=== PATIENT | female | born 1945 | race Caucasian/White ===

== ENCOUNTER 2017-03-19 07:54 | Emergency (ER) | payer MEDICARE ==
[~2017-03-19] VITALS: Ht 160 cm; Wt 64.4 kg
--- NOTE | 2017-03-19 08:13 | ED Chest Pain ---
General Chief Complaint: Chest Pain Stated Complaint: CHEST PAIN ELEV BP Source: patient Exam Limitations: no limitations History of Present Illness Time seen by provider: 07:57 Initial Comments Here with report of central chest pain that she describes as indigestion that started about an hour ago and has persisted although is better now. She states it better after walking around and burping. Also noted have quite high blood pressure. Patient's daughter is in the ICU and is reportedly very sick and this is likely adding to the patient's stress. Aside from the belching, patient denies any other symptoms but does feel very stressed out. Timing/Duration: 1 hour Severity/Quality: moderate, ingestion Location: central Radiation: no radiation Activities at Onset: emotional stress Prior CP/Workup: no prior chest pain ASA po SUPPLY CHAIN PLANNER: No NTG SL SUPPLY CHAIN PLANNER: No Associated Symptoms: abdominal pain, No diaphoresis, headache, No nausea/ vomiting, No shortness of breath, No weakness Allergies and Home Medications Allergies Coded Allergies: No Known Drug Allergies (Unverified , 03/19/17) Review of Systems Constitutional: see HPI, No chills, No fever EENTM: No Symptoms Reported Respiratory: No Symptoms Reported Cardiovascular: See HPI, Chest Pain, Denies Edema, Denies Irregular Heart Rate Gastrointestinal: See HPI, Denies Diarrhea, Denies Nausea, Denies Vomiting Genitourinary: No Symptoms Reported Musculoskeletal: no symptoms reported Psychiatric/Neurological: See HPI, Anxiety, Headache (posterior mild and patient reports it is associated with hypertension.), Denies Weakness All Other Systems Reviewed Negative Unless Noted: Yes Past Srqcull-Njvfet-Hxqsuh Hx Patient Social History Alcohol Use: Denies Use Recreational Drug Use: No Smoking Status: Former Smoker Surgeries HX Surgeries: Yes Surgeries: Appendectomy, Rectal (hemorrhoidectomy), Tonsillectomy Respiratory Hx Respiratory Disorders: Yes Respiratory Disorders: Chronic Bronchitis Cardiovascular Hx Cardiac Disorders: Yes Cardiac Disorders: Hypertension Neurological Hx Neurological Disorders: No Genitourinary Hx Genitourinary Disorders: No Gastrointestinal Hx Gastrointestinal Disorders: No Musculoskeletal Hx Musculoskeletal Disorders: No Endocrine Hx Endocrine Disorders: No HEENT HX ENT Disorders: No Reviewed Nursing Assessment Reviewed/Agree w Nursing PMH: Yes Family Medical History Significant Family History: No Pertinent Family Hx Physical Exam Vital Signs Vital Sign - Last 12Hours 03/19/17 08:01 Temp 97.1 Pulse 90 Resp 1 B/P (MAP) 199/106 Pulse Ox 95 O2 Delivery Room Air Capillary Refill : General Appearance: WD/WN, Anxious HEENT: PERRL/EOMI, Pharynx Normal Neck: Non Tender, Supple Respiratory: Lungs Clear, Normal Breath Sounds Cardiovascular: No Murmur, Tachycardia Gastrointestinal: Non Tender, Soft Extremity: Normal Inspection, Normal Range of Motion, Non Tender, No Calf Tenderness Neurologic/Psychiatric: Alert, Oriented x3 Skin: Normal Color, Warm/Dry Progress/Results/Core Measures Results/Orders Lab Results Laboratory Tests Test 03/19/17 08:20 03/19/17 10:22 Range/Units White Blood Count 10.4 4.3-11.0 10^3/uL Red Blood Count 4.91 4.35-5.85 10^6/uL Hemoglobin 14.3 11.5-16.0 G/DL Hematocrit 43 35-52 % Mean Corpuscular Volume 87 80-99 FL Mean Corpuscular Hemoglobin 29 25-34 PG Mean Corpuscular Hemoglobin Concent 33 32-36 G/DL Red Cell Distribution Width 13.2 10.0-14.5 % Platelet Count 348 130-400 10^3/uL Mean Platelet Volume 9.2 7.4-10.4 FL Neutrophils (%) (Auto) 74 42-75 % Lymphocytes (%) (Auto) 18 12-44 % Monocytes (%) (Auto) 7 0-12 % Eosinophils (%) (Auto) 1 0-10 % Basophils (%) (Auto) 1 0-10 % Neutrophils # (Auto) 7.7 1.8-7.8 X 10^3 Lymphocytes # (Auto) 1.9 1.0-4.0 X 10^3 Monocytes # (Auto) 0.7 0.0-1.0 X 10^3 Eosinophils # (Auto) 0.1 0.0-0.3 10^3/uL Basophils # (Auto) 0.1 0.0-0.1 10^3/uL Prothrombin Time 12.3 12.2-14.7 SEC INR Comment 0.9 0.8-1.4 Activated Partial Thromboplast Time 23 L 24-35 SEC D-Dimer 0.37 0.00-0.49 UG/ML Sodium Level 137 135-145 MMOL/L Potassium Level 3.5 L 3.6-5.0 MMOL/L Chloride Level 93 L 98-107 MMOL/L Carbon Dioxide Level 27 21-32 MMOL/L Anion Gap 17 H 5-14 MMOL/L Blood Urea Nitrogen 15 7-18 MG/DL Creatinine 0.74 0.60-1.30 MG/DL Estimat Glomerular Filtration Rate > 60 BUN/Creatinine Ratio 20 Glucose Level 130 H 70-105 MG/DL Calcium Level 10.8 H 8.5-10.1 MG/DL Magnesium Level 2.1 1.8-2.4 MG/DL Total Bilirubin 0.7 0.1-1.0 MG/DL Aspartate Amino Transf (AST/SGOT) 20 5-34 U/L Alanine Aminotransferase (ALT/SGPT) 18 0-55 U/L Alkaline Phosphatase 42 40-136 U/L Myoglobin 65.8 64.5 10.0-92.0 NG/ML Troponin I < 0.30 < 0.30 <0.30 NG/ML Total Protein 8.1 6.4-8.2 G/DL Albumin 5.0 H 3.2-4.5 G/DL Amylase Level 48 25-125 U/L Lipase 24 8-78 U/L My Orders Orders - BABAR SUTTON MD Cbc With Automated Diff (03/19/17 08:04) Magnesium (03/19/17 08:04) Chest 1 View, Ap/Pa Only (03/19/17 08:04) Ekg Tracing (03/19/17 08:04) Cardiac Profile 1 (03/19/17 08:04) Comprehensive Metabolic Panel (03/19/17 08:04) Myoglobin Serum (03/19/17 08:04) Protime With Inr (03/19/17 08:04) Partial Thromboplastin Time (03/19/17 08:04) O2 (03/19/17 08:04) Monitor-Rhythm Ecg Trace Only (03/19/17 08:04) Lipid Panel (03/20/17 06:00) Aspirin Chewable Tablet (Baby Aspirin Ch (03/19/17 08:15) Rx-Nitroglycerin Sl Tabs (Rx-Nitrostat S (03/19/17 08:15) Saline Lock/Iv-Start (03/19/17 08:04) Lipase (03/19/17 08:04) Amylase (03/19/17 08:04) Fibrin Degradation Products (03/19/17 08:04) Lorazepam Injection (Ativan Injection) (03/19/17 08:15) Troponin I (03/19/17 10:00) Ekg Tracing (03/19/17 10:00) Myoglobin Serum (03/19/17 10:00) Medications Given in ED Current Medications Medications Dose Ordered Sig/Yara Route Start Time Stop Time Status Last Admin Dose Admin Aspirin 324 mg ONCE ONCE PO 03/19/17 08:15 03/19/17 08:16 DC 03/19/17 08:37 324 MG Lorazepam 0.5 mg ONCE ONCE IVP 03/19/17 08:15 03/19/17 08:16 DC 03/19/17 08:37 0.5 MG Vital Signs/I&O Vital Sign - Last 12Hours 03/19/17 08:01 Temp 97.1 Pulse 90 Resp 1 B/P (MAP) 199/106 Pulse Ox 95 O2 Delivery Room Air Progress Note : Progress Note Seen and evaluated. IV, labs, EKG, chest x-ray, ASA 324 mg by mouth and Ativan 0.5 mg IV ordered. Nitroglycerin sublingual when necessary ordered if patient has return of chest pain. Monitor patient. Initial EKG showed significant artifact. EKG repeated to obtain reasonable sample. Patient markedly improved after Ativan 0.5 mg IV. Monitor patient. We will do repeat troponin, myoglobin and EKG at 2 are marked. Patient has remained pain-free throughout visit. 1110: Patient remains pain free. Discharged home with return precautions. Patient verbalize understanding instructions and agreement with plan. She will follow-up with diplomatic officer. She is requesting Dr. England. ECG Initial ECG Impression Date: March 19, 2017 Initial ECG Impression Time: 08:09 Initial ECG Rate: 96 Initial ECG Rhythm: Normal Sinus Comment Sinus rhythm with right axis deviation. No evidence of ST elevation NH. No previous available for comparison. Interpreted by me. EKG : EKG Time: 10:23 Rate: 78 Rhythm: Normal Sinus Intervals Sinus rhythm with right axis deviation. No evidence of ST elevation NH. Unchanged from previous except for improved rate. Interpreted by me. Diagnostic Imaging Diagonstic Imaging: Xray Plain Films/CT/US/NM/MRI: chest Comments VIA [facility]. [place], [place] NAME: MARCELLUS CALVO [facility] REC#: [id number] PT STATUS: REG ER : 1945 PHYSICIAN: BABAR SUTTON MD ADMIT DATE: 03/19/17/ER Draft Date of Exam:03/19/17 CHEST 1 VIEW, AP/PA ONLY Indication: Hypertension Frontal chest obtained at 9:00 hours a.m. Heart is borderline in size. There is hyperinflation compatible with COPD. There is no focal infiltrate or pneumothorax or pleural fluid. IMPRESSION: COPD changes. No acute infiltrate or pneumothorax or pleural fluid. Dictated on workstation # [id number] Dict: 03/19/17904 Trans: 03/19/1710 [facility] [id number] Interpreted by: REFUGIO LAI MD Electronically signed by: Departure Impression Impression: Primary Impression: Chest pain Qualified Codes: R07.9 - Chest pain, unspecified Disposition: 01 HOME, SELF-CARE Condition: Improved Departure-Patient Inst. Decision time for Depature: 11:14 Referrals: OLGA NEWMAN MD FACP [facility] Alex CHANEL MD, BASHAR J MD Patient Instructions: Chest Pain (DC) Add. Discharge Instructions: All discharge instructions reviewed with patient and/or family. Voiced understanding. Take medications as directed. It is important that he follow up with diplomatic officer of your choice within one week for recheck and further evaluation including stress test as needed. Return for worse pain, fever, vomiting, weakness, breathing problems or other concerns as needed. Scripts Alprazolam (Xanax) 0.5 Mg Tablet 0.5 MG PO Q8H for Anxiety, #10 TAB 0 Refills Prov: BABAR SUTTON MD 03/19/17 Copy Copies To 1: TARYN ENGLAND MD, TIMOTHY D MD March 19, 2017 08:13
[2017-03-19] MEDS ORDERED: LORazepam INJ 2 MG/ML (ATIVAN) VIAL IVP ONE (08:15)
[2017-03-19] MEDS ORDERED: ASPIRIN 81 MG CHEW (CHILDREN'S ASA) PO ONE (08:15)
[2017-03-19] MEDS ORDERED: RX-NITROGLYCERIN 0.4 MG TAB BTL 25'S SL PRN (08:15)
[2017-03-19 08:34] LABS: BASOPHILS # (AUTO) 0.1 10^3/uL (0.0-0.1); BASOPHILS % (AUTO) 1 % (0-10); EOSINOPHILS # (AUTO) 0.1 10^3/uL (0.0-0.3); EOSINOPHILS % (AUTO) 1 % (0-10); LYMPHOCYTES # (AUTO) 1.9 X 10^3 (1.0-4.0); LYMPHOCYTES % (AUTO) 18 % (12-44); MEAN CORPUSCULAR HEMOGLOBIN 29 PG (25-34); MEAN CORPUSCULAR HGB CONC 33 G/DL (32-36); MEAN CORPUSCULAR VOLUME 87 FL (80-99); MEAN PLATELET VOLUME 9.2 FL (7.4-10.4); MONOCYTES # (AUTO) 0.7 X 10^3 (0.0-1.0); MONOCYTES % (AUTO) 7 % (0-12); NEUTROPHILS # (AUTO) 7.7 X 10^3 (1.8-7.8); NEUTROPHILS % (AUTO) 74 % (42-75); PLATELET COUNT 348 10^3/uL (130-400); RED BLOOD COUNT 4.91 10^6/uL (4.35-5.85); RED CELL DISTRIBUTION WIDTH 13.2 % (10.0-14.5); WHITE BLOOD COUNT 10.4 10^3/uL (4.3-11.0)
[2017-03-19 08:50] LABS: INR 0.9 (0.8-1.4); PROTHROMBIN TIME PATIENT 12.3 SEC (12.2-14.7)
[2017-03-19 08:55] LABS: ALANINE AMINOTRANSFERASE 18 U/L (0-55); AMYLASE 48 U/L (25-125); ANION GAP 17 MMOL/L (5-14); ASPARTATE AMINO TRANSFERASE 20 U/L (5-34); BILIRUBIN,TOTAL 0.7 MG/DL (0.1-1.0); BLOOD UREA NITROGEN 15 MG/DL (7-18); BUN/CREATININE RATIO 20; CALCIUM 10.8 MG/DL (8.5-10.1); CARBON DIOXIDE 27 MMOL/L (21-32); CHLORIDE 93 MMOL/L (98-107); CREATININE SERUM 0.74 MG/DL (0.60-1.30); GFR ESTIMATED > 60; GLUCOSE 130 MG/DL (70-105); LIPASE 24 U/L (8-78); MAGNESIUM 2.1 MG/DL (1.8-2.4); POTASSIUM 3.5 MMOL/L (3.6-5.0); SODIUM 137 MMOL/L (135-145); TOTAL PROTEIN 8.1 G/DL (6.4-8.2)
[2017-03-19 09:04] LABS: MYOGLOBIN SERUM 65.8 NG/ML (10.0-92.0)
--- NOTE | 2017-03-19 09:10 | Diagnostic Imaging Report ---
Indication: Hypertension Frontal chest obtained at 9:00 hours a.m. Heart is borderline in size. There is hyperinflation compatible with COPD. There is no focal infiltrate or pneumothorax or pleural fluid. IMPRESSION: COPD changes. No acute infiltrate or pneumothorax or pleural fluid. Dictated by: Dictated on workstation # [id number]
[2017-03-19 11:05] LABS: MYOGLOBIN SERUM 64.5 NG/ML (10.0-92.0); TROPONIN I < 0.30 NG/ML (<0.30)
[2017-03-19] MEDS ORDERED: ALPR0.5T PO (11:16)
[2017-03-19 11:28] VITALS: BP 132/90
== END 2017-03-19 11:28 | disposition home or self-care (01) ==
LOC: EDUNIT# 07:54 → ER 07:57
DX: R07.9 Chest pain, unspecified (principal); I10 Essential (primary) hypertension; J44.9 Chronic obstructive pulmonary disease, unspecified; Z87.891 Personal history of nicotine dependence
CPT/HCPCS: 36415; 71010; 80053; 82150; 83690; 83735; 83874; 84484; 85025; 85379; 85610; 85730; 93005; 93041; 96374

== ENCOUNTER 2018-12-06 12:06 | Inpatient (IN) | payer MEDICARE | END 2018-12-09 13:22 | disposition home or self-care (01) | LOC: ER 12:06 → 4TH 14:32 | DX: J44.1 Chronic obstructive pulmonary disease with (acute) exacerbation (principal); E87.3 Alkalosis; I10 Essential (primary) hypertension; Z87.891 Personal history of nicotine dependence; J30.2 Other seasonal allergic rhinitis; Z87.01 Personal history of pneumonia (recurrent); K21.9 Gastro-esophageal reflux disease without esophagitis; K57.90 Diverticulosis of intestine, part unspecified, without perforation or abscess without bleeding; M54.9 Dorsalgia, unspecified; H93.19 Tinnitus, unspecified ear; F41.9 Anxiety disorder, unspecified; F32.9 Major depressive disorder, single episode, unspecified; E78.5 Hyperlipidemia, unspecified ==

== ENCOUNTER → 2019-01-02 | Outpatient (CLI) | payer MEDICARE ==
[2019-01-02 11:13] LABS: ABG BASE EXCESS 4.4 MMOL/L (-2.5-2.5); ABG OXYGEN SATURATION 97 % (94-100); ABG PCO2 37 MMHG (35-45); ABG PH 7.48 (7.37-7.43); ABG PO2 73 MMHG (79-93); ABG TCO2 29.1 MMOL/L (21.0-31.0)
[2019-01-02 11:14] LABS: ALLENS TEST YES-POS; INSPIRED O2 3L; PATIENT TEMP 97.4; VENTILATOR NO
[2019-01-02 11:23] LABS: BUN/CREATININE RATIO 16; CREATININE SERUM 0.73 MG/DL (0.60-1.30); GFR ESTIMATED > 60
== END ==
LOC: RT 10:44
PROVIDERS: ATTEND Nurse Practitioner Family
DX: R09.02 Hypoxemia (principal); J42 Unspecified chronic bronchitis; R06.00 Dyspnea, unspecified; G47.10 Hypersomnia, unspecified; G47.50 Parasomnia, unspecified; I10 Essential (primary) hypertension
CPT/HCPCS: 36415; 82565; 82805; 84520

== ENCOUNTER → 2019-01-05 | Outpatient (CLI) | payer MEDICARE ==
[~2019-01-05] MED LIST: ALBU18HF2 INH; ALLO100T PO; ALPR0.5T PO; ALPR0.5T7 PO; AMLO5TAB9 PO; ASPI-983 PO; ASPI-999 PO; BUDE10.2 INH; CALC-901 PO; CETI10TA20 PO; CODE118S4 PO; FENO160T12 PO; FLUT16SP22 NS; HYDR25TA4 PO; IOHEXOL 350 MG/ML 100 ML (OMNIPAQUE 350) VIAL IV ONE; IPRA3AMP31 INH; MAGN250T13 PO; MONT10TA24 PO; MULT-1044 PO; NS 100 ML (IVPB) BAG IV ONE; NYST1000 PO; OMEP40CA36 PO; PRED10TA22 PO; RECEIVED CONTRAST (Hold Metformin) IV SCH; ROFL500T4 PO
[2019-01-05 12:07] LABS: BUN/CREATININE RATIO 22; CREATININE SERUM 0.72 MG/DL (0.60-1.30); GFR ESTIMATED > 60
--- NOTE | 2019-01-05 13:52 | Diagnostic Imaging Report ---
PROCEDURE: CT chest with contrast only. TECHNIQUE: Multiple contiguous axial images were obtained through the chest after administration of intravenous contrast. INDICATION: Hypertension. Difficulty breathing. Dyspnea. Comparison: None Findings: Cardio mediastinal structures show normal heart size. There is moderate to advanced calcified coronary and aortic atherosclerosis. There is no large pericardial effusion. No pathologically enlarged or morphologically abnormal adenopathy is seen within the mediastinum, xuan, nor axilla. Main pulmonary arterial trunk is prominent measuring 3.3 cm in diameter. Evaluation of the lung miller demonstrates moderate centrilobular air trapping consistent with background emphysematous disease. There is no focal consolidation, large effusion, nor pneumothorax. No suspicious pulmonary nodules or masses are seen. Osseous structures show no acute abnormalities. Multilevel degenerative changes are noted. Included portions of the upper abdomen show a 1.7 cm nodular hyperenhancing lesion within the dome near the junction of segments 4A and 8. There is a larger surrounding area of less nodular relative enhancement that measures 5.6 cm. Note is also made of moderate hiatal hernia. Impression: 1. No acute cardiopulmonary process. 2. Moderate hiatal hernia. 3. Background of moderate emphysematous disease. 4. Moderate to advanced calcified aortic and coronary atherosclerosis. 5. Enlargement of the main pulmonary arterial trunk. Findings can be seen with underlying pulmonary arterial hypertension. 6. Abnormal area of enhancement within the dome of the liver as described above. Conceivably, this could represent a benign hemangioma, but complete characterization with liver protocol CT of the abdomen is recommended. Dictated by: Dictated on workstation # [id number]
== END ==
LOC: RAD 11:34
PROVIDERS: ATTEND Nurse Practitioner Family
DX: J43.9 Emphysema, unspecified (principal); K44.9 Diaphragmatic hernia without obstruction or gangrene; I25.10 Atherosclerotic heart disease of native coronary artery without angina pectoris; I70.0 Atherosclerosis of aorta; J42 Unspecified chronic bronchitis; G47.10 Hypersomnia, unspecified; G47.50 Parasomnia, unspecified; I10 Essential (primary) hypertension
CPT/HCPCS: 36415; 71260; 82565; 84520

== ENCOUNTER 2019-01-18 15:22 | Inpatient (IN) | payer MEDICARE ==
[~2019-01-18] VITALS: Ht 160 cm; Wt 68.0 kg
[~2019-01-18 15:22] MED LIST changes: -IOHEXOL 350 MG/ML 100 ML (OMNIPAQUE 350) VIAL IV ONE; -NS 100 ML (IVPB) BAG IV ONE; -RECEIVED CONTRAST (Hold Metformin) IV SCH; +ROFL500T PO; -ROFL500T4 PO
[2019-01-18] MEDS ORDERED: RT-ALBUTEROL/IPRATROPIUM 3 ML (DUONEB) VIAL INH ONE (16:15)
[2019-01-18 16:25] LABS: BASOPHILS % (AUTO) 0 % (0-10); EOSINOPHILS # (AUTO) 0.1 10^3/uL (0.0-0.3); EOSINOPHILS % (AUTO) 1 % (0-10); HEMATOCRIT 38 % (35-52); HEMOGLOBIN 12.3 G/DL (11.5-16.0); LYMPHOCYTES # (AUTO) 1.2 X 10^3 (1.0-4.0); LYMPHOCYTES % (AUTO) 8 % (12-44); MEAN CORPUSCULAR HEMOGLOBIN 28 PG (25-34); MEAN CORPUSCULAR HGB CONC 32 G/DL (32-36); MEAN CORPUSCULAR VOLUME 87 FL (80-99); MEAN PLATELET VOLUME 10.1 FL (7.4-10.4); MONOCYTES # (AUTO) 1.3 X 10^3 (0.0-1.0); MONOCYTES % (AUTO) 8 % (0-12); NEUTROPHILS % (AUTO) 83 % (42-75); PLATELET COUNT 431 10^3/uL (130-400); RED CELL DISTRIBUTION WIDTH 15.7 % (10.0-14.5); WHITE BLOOD COUNT 15.7 10^3/uL (4.3-11.0)
--- NOTE | 2019-01-18 16:31 | ED Respiratory ---
General Chief Complaint: Cough/Cold/Flu Symptoms Stated Complaint: SOB,INFLUENZA A Nursing Triage Note: PT CO OF FLU A+ TODAY, SOA COUGHING, AND BACK PAIN Source: patient Exam Limitations: no limitations History of Present Illness Date Seen by Provider: Jan 18, 2019 Time Seen by Provider: 16:08 Initial Comments Here with report of shortness of breath. She was seen by her primary escort car driver today and found to have influenza a. She is short of breath. She did have a breathing treatment earlier and that helped a little but is not lasting. Does have history of COPD. Complains of tightness across her back due to difficulty with breathing and she has a cough. Denies nausea or vomiting. Does have body aches otherwise consistent with influenza. Currently afebrile. Timing/Duration: yesterday, getting worse Severity: moderate Prior Episodes/Possible Cause: occasional episodes Modifying Factors: Worse With Activity; Improves With Albuterol Inhaler Associated Symptoms: chest pain/soreness, cough, fever/chills, muscle aches, nasal congestion, shortness of breath, wheezing Allergies and Home Medications Allergies Coded Allergies: No Known Drug Allergies (Unverified , 03/19/17) Home Medications Albuterol Sulfate 18 Gm Hfa.aer.ad, 2 PUFF INH Q6H PRN for SHORTNESS OF BREATH, (Reported) Allopurinol 100 Mg Tablet, 100 MG PO HS, (Reported) Alprazolam 0.5 Mg Tablet, 0.25-0.5 MG PO BID PRN for ANXIETY, (Reported) Amlodipine Besylate 5 Mg Tablet, 5 MG PO DAILY, (Reported) Aspirin 81 Mg Tablet.dr, 81 MG PO Q48H, (Reported) TAKES AT BEDTIME Budesonide/Formoterol Fumarate 10.2 Gm Hfa.aer.ad, 2 PUFF INH BID, (Reported) Calcium Carbonate/Vitamin D3 1 Each Tablet, 1 TAB PO 1800, (Reported) Cetirizine HCl 10 Mg Tablet, 10 MG PO DAILY, (Reported) Fenofibrate 160 Mg Tablet, 160 MG PO 1800, (Reported) Fluticasone Propionate 16 Gm [place].susp, 2 SPRAYS NS DAILY, (Reported) Hydrochlorothiazide 25 Mg Tablet, 25 MG PO DAILY, (Reported) Ipratropium/Albuterol Sulfate 3 Ml Ampul.neb, 3 ML INH RTQ6HR Prescribed by: ED MARTINES on 12/09/18 1027 Magnesium Oxide 250 Mg Tablet, 250 MG PO 1800, (Reported) Montelukast Sodium 10 Mg Tablet, 10 MG PO DAILY, (Reported) Multivit-Min/Folic Acid/Biotin 1 Each Tab.chew, 1 TAB.CHEW PO 1800, (Reported) Nystatin 100,000 Unit/1 Ml Oral.susp, 5 ML PO QID Prescribed by: ED MARTINES on 12/09/18 1027 Omeprazole 40 Mg Capsule.dr, 40 MG PO DAILY, (Reported) Prednisone 10 Mg Tab.ds.pk, 10 MG PO DAILY Take 6 tabs(60mg)daily,decrease by 1 tab(10mg)every other day. Prescribed by: ED MARTINES on 12/09/18 1027 Promethazine HCl/Codeine 118 Ml Syrup, 5 ML PO Q6H PRN for COUGH, (Reported) 5 DAY SUPPLY FILLED 12-04-18 Roflumilast 500 Mcg Tablet, 500 MCG PO DAILY Prescribed by: ED MARTINES on 12/09/18 1027 Patient Home Medication List Home Medication List Reviewed: Yes Review of Systems Review of Systems Constitutional: see HPI, fever, malaise; No weakness EENTM: see HPI Respiratory: see HPI Cardiovascular: see HPI Gastrointestinal: No abdominal pain, No nausea, No vomiting Genitourinary: no symptoms reported : No Musculoskeletal: see HPI, back pain, muscle pain Skin: no symptoms reported All Other Systems Reviewed Negative Unless Noted: Yes Past Mcyarts-Bgawjp-Pfhprt Hx Past Med/Social Hx: Reviewed Nursing Past Med/Soc Hx Patient Social History Alcohol Use: Denies Use Recreational Drug Use: No Smoking Status: Former Smoker Former Smoker, Quit: Nov 22, 2000 Recent Foreign Travel: No Contact w/Someone Who Travel: No Recent Infectious Disease Expo: No Recent Hopitalizations: No (NOV-2018) Immunizations Up To Date PED Vaccines UTD: Yes Date of Pneumonia Vaccine: Aug 15, 2018 Date of Influenza Vaccine: Aug 15, 2018 Seasonal Allergies Seasonal Allergies: Yes Past Medical History Surgeries: Yes (hemmoroidectomy, disc surgery) Appendectomy, Hysterectomy, Rectal Respiratory: Yes Pneumonia, Chronic Bronchitis, COPD Currently Using CPAP: No Currently Using BIPAP: No Cardiac: Yes Hypertension Neurological: No Sexually Transmitted Disease: No HIV/AIDS: No Genitourinary: No Gastrointestinal: Yes Gastroesophageal Reflux, Diverticulosis Musculoskeletal: Yes (disc surgery) Chronic Back Pain Endocrine: No HEENT: Yes Tinnitis Cancer: No Psychosocial: Yes Anxiety, Depression Integumentary: No Blood Disorders: No Adverse Reaction/Blood Tranf: No Family Medical History Reviewed Nursing Family Hx FH: cerebral palsy G8 BROTHER Lung cancer 19 MOTHER No Pertinent Family Hx Physical Exam Vital Signs - First Documented 01/18/19 16:00 Temp 98.1 Pulse 102 Resp 24 B/P (MAP) 156/82 (106) Pulse Ox 98 O2 Delivery Nasal Cannula O2 Flow Rate 2.00 Capillary Refill : Less Than 3 Seconds Height: 5'3.00" Weight: 140lbs. 9.0oz. [id number]; 25.2 BMI Method:Stated General Appearance: WD/WN, mild distress HEENT: PERRL/EOMI, pharynx normal Neck: full range of motion, supple Respiratory: decreased breath sounds, wheezing, expiration Cardiovascular: regular rate, rhythm, no murmur Gastrointestinal: non tender, soft Extremities: non-tender, normal inspection Neurologic/Psychiatric: alert, oriented x 3 Skin: normal color, warm/dry Progress/Results/Core Measures Suspected Sepsis Recent Fever Within 48 Hours: No Infection Criteria Present: None New/Unexplained Altered Menta: No Sepsis Screen: No Definite Risk SIRS Temperature:98.1 Pulse: 102 Respiratory Rate: 24 Laboratory Tests 01/18/19 15:55: White Blood Count 15.7H Blood Pressure 156 /82 Mean: 106 Laboratory Tests 01/18/19 15:55: Creatinine 0.75, Platelet Count 431H, Total Bilirubin 0.4 Results/Orders Lab Results Laboratory Tests Test 01/18/19 15:55 Range/Units White Blood Count 15.7 H 4.3-11.0 10^3/uL Red Blood Count 4.41 4.35-5.85 10^6/uL Hemoglobin 12.3 11.5-16.0 G/DL Hematocrit 38 35-52 % Mean Corpuscular Volume 87 80-99 FL Mean Corpuscular Hemoglobin 28 25-34 PG Mean Corpuscular Hemoglobin Concent 32 32-36 G/DL Red Cell Distribution Width 15.7 H 10.0-14.5 % Platelet Count 431 H 130-400 10^3/uL Mean Platelet Volume 10.1 7.4-10.4 FL Neutrophils (%) (Auto) 83 H 42-75 % Lymphocytes (%) (Auto) 8 L 12-44 % Monocytes (%) (Auto) 8 0-12 % Eosinophils (%) (Auto) 1 0-10 % Basophils (%) (Auto) 0 0-10 % Neutrophils # (Auto) 13.0 H 1.8-7.8 X 10^3 Lymphocytes # (Auto) 1.2 1.0-4.0 X 10^3 Monocytes # (Auto) 1.3 H 0.0-1.0 X 10^3 Eosinophils # (Auto) 0.1 0.0-0.3 10^3/uL Basophils # (Auto) 0.0 0.0-0.1 10^3/uL Neutrophils % (Manual) 85 % Lymphocytes % (Manual) 7 % Monocytes % (Manual) 5 % Eosinophils % (Manual) 1 % Basophils % (Manual) 0 % Band Neutrophils 2 % Blood Morphology Comment NORMAL Sodium Level 133 L 135-145 MMOL/L Potassium Level 3.7 3.6-5.0 MMOL/L Chloride Level 94 L 98-107 MMOL/L Carbon Dioxide Level 27 21-32 MMOL/L Anion Gap 12 5-14 MMOL/L Blood Urea Nitrogen 18 7-18 MG/DL Creatinine 0.75 0.60-1.30 MG/DL Estimat Glomerular Filtration Rate > 60 BUN/Creatinine Ratio 24 Glucose Level 108 H 70-105 MG/DL Calcium Level 10.2 H 8.5-10.1 MG/DL Corrected Calcium 8.5-10.1 MG/DL Total Bilirubin 0.4 0.1-1.0 MG/DL Aspartate Amino Transf (AST/SGOT) 35 H 5-34 U/L Alanine Aminotransferase (ALT/SGPT) 31 0-55 U/L Alkaline Phosphatase 26 L 40-136 U/L C-Reactive Protein High Sensitivity 3.20 H 0.00-0.50 MG/DL Total Protein 7.0 6.4-8.2 GM/DL Albumin 4.6 H 3.2-4.5 GM/DL My Orders Orders - BABAR SUTTON MD Chest 1 View, Ap/Pa Only (01/18/19 16:11) Cbc With Automated Diff (01/18/19 16:11) Comprehensive Metabolic Panel (01/18/19 16:11) Hs C Reactive Protein (3/6/19 16:11) Albuterol/Ipra Inhalation Soln (Duoneb I (01/18/19 16:15) Svn Small Volume Nebulizer (01/18/19 16:11) Manual Differential (01/18/19 15:55) Ketorolac Injection (Toradol Injection) (01/18/19 17:38) Albuterol Pre-Mix Nebs (Rt) (Proventil (01/18/19 17:38) Svn Small Volume Nebulizer (01/18/19 17:38) Acetaminophen Tablet/Caplet (Tylenol T (01/18/19 17:58) Methylprednisolone Sod Succ (Solu-Medrol (01/18/19 17:58) Medications Given in ED Current Medications Medications Dose Ordered Sig/Yara Route Start Time Stop Time Status Last Admin Dose Admin Albuterol/ Ipratropium 3 ml ONCE ONCE INH 01/18/19 16:15 01/18/19 16:16 DC 01/18/19 16:56 3 ML Vital Signs/I&O 01/18/19 01/18/19 01/18/19 01/18/19 16:00 16:00 16:56 17:57 Temp 98.1 Pulse 102 Resp 24 B/P (MAP) 156/82 (106) Pulse Ox 98 99 96 O2 Delivery Nasal Cannula Nasal Cannula Nasal Cannula O2 Flow Rate 2.00 3.00 3.00 Capillary Refill : Less Than 3 Seconds Blood Pressure Mean: 106 Progress Note : Progress Note Seen and evaluated. IV, labs, chest x-ray, duo neb ordered. Patient has known influenza A. She has initiated treatment with one dose of Tamiflu. She did take Tylenol at 1 PM. Monitor patient. 1730: Patient has returned fairly significant shortness of breath and is requiring oxygen. Albuterol neb ordered. 1800: Temperature 102F. Tylenol 650 mg by mouth and Solu-Medrol 125 mg IV ordered. Due to patient's significant lung disease, hospital admission is indicated with influenza. We will continue IV steroids and Tamiflu as well as aggressive respiratory therapy. I did discuss the case with Dr. Rodriges and she agrees. Consult Dr. Tripp requested which was done. Admit, inpatient status. Patient and family agree to plan. Diagnostic Imaging Diagonstic Imaging: Xray Plain Films/CT/US/NM/MRI: chest Comments NAME[facility] REC#: [id number] PT STATUS: REG ER : 1945 PHYSICIAN: BABAR SUTTON MD ADMIT DATE: 01/18/19/ER Signed Date of Exam: 01/18/19 CHEST 1 VIEW, AP/PA ONLY INDICATION: Cough, dyspnea and fever. EXAMINATION: Upright portable AP view of the chest was obtained. COMPARISON: Study of 12/06/2018. FINDINGS: Heart size and pulmonary vascularity are within normal limits. There is air trapping, bilaterally, similar to previous study. No pneumothorax or consolidation is identified. There is no significant pleural fluid. IMPRESSION: Air trapping likely due to emphysema. No consolidation is identified. No acute abnormality or adverse change is detected. Dictated by: Dictated on workstation # [id number] Dict: 01/18/19 1656 Trans: 01/18/19 1724 Interpreted by: MAY SCHWARTZ MD Electronically signed by: MAY SCHWARTZ MD 01/18/19 1724 Departure Communication (Admissions) Time/Spoke to Admitting Phy: 18:00 Time/Spoke to Consulting Phy: 18:03 Impression Primary Impression: Influenza Additional Impression: COPD with acute exacerbation Disposition: ADMITTED INPATIENT Condition: Stable Admissions Decision to Admit Reason: Admit from ER (General) Decision to Admit/Date: Jan 18, 2019 Time/Decision to Admit Time: 18:00 Departure-Patient Inst. Referrals: [facility] (PCP) Primary Care Physician ARMIDA COSME (Family) Primary Care Physician BABAR SUTTON MD Jan 18, 2019 16:31
[2019-01-18 16:37] LABS: ALANINE AMINOTRANSFERASE 31 U/L (0-55); ALBUMIN 4.6 GM/DL (3.2-4.5); ALKALINE PHOSPHATASE 26 U/L (40-136); BILIRUBIN,TOTAL 0.4 MG/DL (0.1-1.0); BUN/CREATININE RATIO 24; CALCIUM 10.2 MG/DL (8.5-10.1); CARBON DIOXIDE 27 MMOL/L (21-32); CHLORIDE 94 MMOL/L (98-107); CREATININE SERUM 0.75 MG/DL (0.60-1.30); GFR ESTIMATED > 60; GLUCOSE 108 MG/DL (70-105); POTASSIUM 3.7 MMOL/L (3.6-5.0); SODIUM 133 MMOL/L (135-145)
--- NOTE | 2019-01-18 16:59 | Diagnostic Imaging Report ---
INDICATION: Cough, dyspnea and fever. EXAMINATION: Upright portable AP view of the chest was obtained. COMPARISON: Study of 12/06/2018. FINDINGS: Heart size and pulmonary vascularity are within normal limits. There is air trapping, bilaterally, similar to previous study. No pneumothorax or consolidation is identified. There is no significant pleural fluid. IMPRESSION: Air trapping likely due to emphysema. No consolidation is identified. No acute abnormality or adverse change is detected. Dictated by: Dictated on workstation # [id number]
[2019-01-18 17:05] LABS: BAND NEUTROPHILS 2 %; BASOPHILS % (MANUAL) 0 %; EOSINOPHILS % (MANUAL) 1 %; LYMPHOCYTES % (MANUAL) 7 %; MONOCYTES % (MANUAL) 5 %; NEUTROPHILS % (MANUAL) 85 %
[2019-01-18 17:06] LABS: RBC MORPH NORMAL
[2019-01-18] MEDS ORDERED: RT-ALBUTEROL SULF 2.5 MG/3 ML PRE-MIX VIAL INH STA (17:38)
[2019-01-18] MEDS ORDERED: KETOROLAC 30 MG/ML VIAL IVP STA (17:38)
--- NOTE | 2019-01-18 17:55 | NUR ---
PT TEMP 102.0 AT THIS X, DR SUTTON NOTIFIED
[2019-01-18] MEDS ORDERED: ACETAMINOPHEN 325 MG TABLET PO STA (17:58)
[2019-01-18] MEDS ORDERED: methylPREDNISolone 125 MG (Solu-MEDROL) VIAL IV STA (17:58)
[2019-01-18] MEDS ORDERED: ONDANSETRON 4 MG/2 ML (SDV) Z0FRAN IV PRN (19:45)
[2019-01-18] MEDS ORDERED: IBUPROFEN 600 MG (MOTRIN) TAB PO PRN (19:45)
[2019-01-18] MEDS ORDERED: ACETAMINOPHEN 325 MG TABLET PO PRN (19:45)
[2019-01-18] MEDS ORDERED: CATHETER FLUSH 10 ML SYR IV PRN (19:45)
[2019-01-18 19:55] VITALS: BP 149/96
[2019-01-18] MEDS: OSELTAMIVIR 30 MG (TAMIFLU) CAPSULE PO SCH (21:10)
[2019-01-18] MEDS: NS IV 1000 ML 1,000 ML IV SCH (21:10)
[2019-01-18] MEDS ORDERED: RT-ALBUTEROL/IPRATROPIUM 3 ML (DUONEB) VIAL ONE (21:29)
[2019-01-18] MEDS: RT-ALBUTEROL/IPRATROPIUM 3 ML (DUONEB) VIAL INH PRN (21:34)
[2019-01-19 00:10] VITALS: BP 108/59
[2019-01-19] MEDS: methylPREDNISolone 40 MG/ML (Solu-MEDROL) VIAL IV SCH ×4 (00:27→19:35)
[2019-01-19] MEDS ORDERED: RT-ALBUTEROL/IPRATROPIUM 3 ML (DUONEB) VIAL INH SCH (03:00)
[2019-01-19 04:30] LABS: BASOPHILS % (AUTO) 0 % (0-10); EOSINOPHILS % (AUTO) 0 % (0-10); HEMATOCRIT 37 % (35-52); LYMPHOCYTES # (AUTO) 0.6 X 10^3 (1.0-4.0); LYMPHOCYTES % (AUTO) 5 % (12-44); MEAN CORPUSCULAR HEMOGLOBIN 28 PG (25-34); MEAN CORPUSCULAR HGB CONC 33 G/DL (32-36); MEAN CORPUSCULAR VOLUME 87 FL (80-99); MEAN PLATELET VOLUME 9.9 FL (7.4-10.4); MONOCYTES # (AUTO) 0.2 X 10^3 (0.0-1.0); MONOCYTES % (AUTO) 2 % (0-12); NEUTROPHILS # (AUTO) 12.2 X 10^3 (1.8-7.8); NEUTROPHILS % (AUTO) 94 % (42-75); PLATELET COUNT 388 10^3/uL (130-400); RED CELL DISTRIBUTION WIDTH 15.8 % (10.0-14.5); WHITE BLOOD COUNT 13.1 10^3/uL (4.3-11.0)
[2019-01-19 04:51] VITALS: BP 129/79
[2019-01-19 04:55] LABS: ALANINE AMINOTRANSFERASE 31 U/L (0-55); ALBUMIN 4.1 GM/DL (3.2-4.5); ALKALINE PHOSPHATASE 27 U/L (40-136); BILIRUBIN,TOTAL 0.3 MG/DL (0.1-1.0); BUN/CREATININE RATIO 26; CALCIUM 9.4 MG/DL (8.5-10.1); CARBON DIOXIDE 26 MMOL/L (21-32); CHLORIDE 98 MMOL/L (98-107); CREATININE SERUM 0.87 MG/DL (0.60-1.30); GFR ESTIMATED > 60; GLUCOSE 245 MG/DL (70-105); POTASSIUM 3.9 MMOL/L (3.6-5.0); SODIUM 138 MMOL/L (135-145); TOTAL PROTEIN 6.3 GM/DL (6.4-8.2)
[2019-01-19 05:16] LABS: LYMPHOCYTES % (MANUAL) 6 %; METAMYELOCYTES % 2 %; MONOCYTES % (MANUAL) 2 %; NEUTROPHILS % (MANUAL) 90 %
[2019-01-19] MEDS ORDERED: guaiFENesin/CODEINE (ROBITUSSIN AC) 10ML UDC PO PRN (07:00)
--- NOTE | 2019-01-19 07:02 | Pulmonary Consultation ---
History of Present Illness History of Present Illness Date of Consultation 01/19/19 06:57 Date of Admission Allergies and Home Medications Allergies Coded Allergies: No Known Drug Allergies (Unverified , 03/19/17) Home Medications Albuterol Sulfate 18 Gm Hfa.aer.ad, 2 PUFF INH Q6H PRN for SHORTNESS OF BREATH, (Reported) Allopurinol 100 Mg Tablet, 100 MG PO HS, (Reported) Alprazolam 0.5 Mg Tablet, 0.25-0.5 MG PO BID PRN for ANXIETY, (Reported) Amlodipine Besylate 5 Mg Tablet, 5 MG PO DAILY, (Reported) Aspirin 81 Mg Tablet.dr, 81 MG PO Q48H, (Reported) TAKES AT BEDTIME Budesonide/Formoterol Fumarate 10.2 Gm Hfa.aer.ad, 2 PUFF INH BID, (Reported) Calcium Carbonate/Vitamin D3 1 Each Tablet, 1 TAB PO 1800, (Reported) Cetirizine HCl 10 Mg Tablet, 10 MG PO DAILY, (Reported) Fenofibrate 160 Mg Tablet, 160 MG PO 1800, (Reported) Fluticasone Propionate 16 Gm [place].susp, 2 SPRAYS NS DAILY, (Reported) Hydrochlorothiazide 25 Mg Tablet, 25 MG PO DAILY, (Reported) Ipratropium/Albuterol Sulfate 3 Ml Ampul.neb, 3 ML INH RTQ6HR Prescribed by: ED MARTINES on 12/09/18 1027 Magnesium Oxide 250 Mg Tablet, 250 MG PO 1800, (Reported) Montelukast Sodium 10 Mg Tablet, 10 MG PO DAILY, (Reported) Multivit-Min/Folic Acid/Biotin 1 Each Tab.chew, 1 TAB.CHEW PO 1800, (Reported) Nystatin 100,000 Unit/1 Ml Oral.susp, 5 ML PO QID Prescribed by: ED MARTINES on 12/09/18 1027 Omeprazole 40 Mg Capsule.dr, 40 MG PO DAILY, (Reported) Prednisone 10 Mg Tab.ds.pk, 10 MG PO DAILY Take 6 tabs(60mg)daily,decrease by 1 tab(10mg)every other day. Prescribed by: ED MARTINES on 12/09/18 1027 Promethazine HCl/Codeine 118 Ml Syrup, 5 ML PO Q6H PRN for COUGH, (Reported) 5 DAY SUPPLY FILLED 1-20-19 Roflumilast 500 Mcg Tablet, 500 MCG PO DAILY Prescribed by: ED MARTINES on 12/09/18 1027 Past Cqvsqtt-Yugram-Pjqkel Hx Past Med/Social Hx: Reviewed Nursing Past Med/Soc Hx Patient Social History Alcohol Use: Denies Use Recreational Drug Use: No Smoking Status: Former Smoker Former Smoker, Quit: Nov 22, 2000 Recent Foreign Travel: No Contact w/Someone Who Travel: No Recent Infectious Disease Expo: No Recent Hopitalizations: No (NOV-2018) Immunizations Up To Date PED Vaccines UTD: Yes Date of Pneumonia Vaccine: Sep 01, 2017 Date of Influenza Vaccine: Aug 20, 2018 Seasonal Allergies Seasonal Allergies: Yes Past Medical History Surgeries: Yes (hemmoroidectomy, disc surgery) Appendectomy, Hysterectomy, Rectal Respiratory: Yes Pneumonia, Chronic Bronchitis, COPD Currently Using CPAP: No Currently Using BIPAP: No Cardiac: Yes Hypertension Neurological: No Sexually Transmitted Disease: No HIV/AIDS: No Genitourinary: No Gastrointestinal: Yes Gastroesophageal Reflux, Diverticulosis Musculoskeletal: Yes (disc surgery) Chronic Back Pain Endocrine: No HEENT: Yes Tinnitis Cancer: No Psychosocial: Yes Anxiety, Depression Integumentary: No Blood Disorders: No Adverse Reaction/Blood Tranf: No Family Medical History Reviewed Nursing Family Hx FH: cerebral palsy G8 BROTHER Lung cancer 19 MOTHER No Pertinent Family Hx Sepsis Event Evaluation Height, Weight, BMI Height: 5'3.00" Weight: 150lbs. 0.0oz. 68.200006mk; 26.6 BMI Method:Stated Exam Exam Vital Signs Date Time Temp Pulse Resp B/P (MAP) Pulse Ox O2 Delivery O2 Flow Rate FiO2 01/19/19 04:51 97.4 66 20 129/79 (96) 96 Nasal Cannula 2.00 01/19/19 03:23 93 Nasal Cannula 2.00 01/19/19 00:10 97.0 73 18 108/59 (75) 94 Nasal Cannula 2.00 01/18/19 21:35 96 Nasal Cannula 3.00 01/18/19 20:00 Nasal Cannula 3.00 01/18/19 19:55 101 96 01/18/19 18:30 Nasal Cannula 2.00 01/18/19 18:16 102.0 115 24 149/96 (113) 94 Nasal Cannula 4.00 01/18/19 17:57 96 Nasal Cannula 3.00 01/18/19 16:56 99 Nasal Cannula 3.00 01/18/19 16:00 98.1 102 24 156/82 (106) 98 01/18/19 16:00 Nasal Cannula 2.00 I & O 01/19/19 07:00 Intake Total 550 ml Output Total 0 ml Balance 550 ml Height & Weight Height: 5'3.00" Weight: 150lbs. 0.0oz. 68.283262la; 26.6 BMI Method:Stated Capillary Refill: Less Than 3 Seconds Gastrointestinal: non tender, soft Results Lab Laboratory Tests 01/18/19 15:55 01/19/19 04:16 Assessment/Plan Assessment/Plan Influenza with sepsis -Check LA -Tamiflu -IVF COPDAE with hypoxia -Solumedrol - decrease to 40 Q6 -Check ABG -Increase SVNs to Q4 and Q2 PRN -Oxygen persistent cough -Add Robitussin with codeine ADELSO NOWAK DO Jan 19, 2019 07:02
[2019-01-19 08:00] VITALS: BP 145/68
[2019-01-19] MEDS: RT-ALBUTEROL/IPRATROPIUM 3 ML (DUONEB) VIAL INH PRN ×4 (08:44→23:35)
[2019-01-19] MEDS: RT-ALBUTEROL/IPRATROPIUM 3 ML (DUONEB) VIAL INH SCH ×4 (08:44→19:58)
[2019-01-19] MEDS: RT-ADVAIR HFA 115/21 MCG PER PUFF IH SCH (08:54)
[2019-01-19] MEDS: OSELTAMIVIR 30 MG (TAMIFLU) CAPSULE PO SCH ×2 (09:00→20:01)
[2019-01-19] MEDS: ENOXAPARIN 40 MG/0.4 ML (LOVENOX) SYR SC SCH (09:01)
[2019-01-19 10:55] LABS: ABG BASE EXCESS 5.5 MMOL/L (-2.5-2.5); ABG OXYGEN SATURATION 75 % (94-100); ABG PCO2 47 MMHG (35-45); ABG PH 7.42 (7.37-7.43); ABG PO2 48 MMHG (79-93); ABG TCO2 31.2 MMOL/L (21.0-31.0)
[2019-01-19 11:00] LABS: ALLENS TEST POSITIVE
[2019-01-19] MEDS ORDERED: ENOXAPARIN 40 MG/0.4 ML (LOVENOX) SYR SC SCH (11:00)
[2019-01-19 11:01] LABS: INSPIRED O2 2 L; PATIENT TEMP 99.3; VENTILATOR NO
[2019-01-19] MEDS: NS IV 1000 ML 1,000 ML IV SCH (11:06)
[2019-01-19] MEDS ORDERED: OSEL75CA15 PO (11:08)
[2019-01-19] MEDS ORDERED: PRD10T PO (11:08)
[2019-01-19] MEDS ORDERED: ROFL500T PO (11:08)
[2019-01-19] MEDS ORDERED: FAMO40TA6 PO (11:08)
--- NOTE | 2019-01-19 11:10 | History & Physicial (CHS) ---
EULOGIO BAIRES MED STUDENT 01/19/19 1110: HPI History of Present Illness: Patient was brought to the [facility] ER for shortness of breath. She tested positive for influenza A yesterday. She has a history of COPD and she was admitted for observation and treatment of influenza with COPD exacerbation. She states that today the shortness of breath is better but she is having significant pain in her chest, back, and neck which she attributes to coughing. The ROS was otherwise unremarkable. Source: patient Time Seen by Provider: 07:15 Attending Physician Kee Rodriges MD PCP [facility] Date of Admission Jan 18, 2019 at 18:00 Home Medications Home Medications Reviewed patient Home Medication Reconciliation performed by pharmacy medication reconciliations injection maintenance technician and/or nursing. Patients Allergies have been reviewed. Allergies Coded Allergies: No Known Drug Allergies (Unverified , 03/19/17) NDI-Nupxtd-Fhnmwj Hx Patient Social History Marrital Status: Alcohol Use: Denies Use Recreational Drug Use: No Smoking Status: Former Smoker Recent Foreign Travel: No Contact w/other who traveled: No Recent Hopitalizations: No (NOV-2018) Recent Infectious Disease Expo: No Immunizations Up To Date Date of Pneumonia Vaccine: Sep 01, 2017 Date of Influenza Vaccine: Aug 20, 2018 Family Medical History Significant Family History: No Pertinent Family Hx Family History: FH: cerebral palsy G8 BROTHER Lung cancer 19 MOTHER Review of Systems (CHC) Respiratory: cough, short of breath Cardiovascular: no symptoms reported Gastrointestinal: no symptoms reported Genitourinary: no symptoms reported Musculoskeletal: back pain, neck pain Skin: no symptoms reported Reviewed Test Results Reviewed Test Results Lab Laboratory Tests 01/18/19 15:55 01/19/19 04:16 Vital Signs 01/19/19 01/19/19 01/19/19 08:00 08:44 08:51 Temp 98.8 Pulse 68 Resp 20 B/P (MAP) 145/68 (93) Pulse Ox 96 O2 Delivery Nasal Cannula O2 Flow Rate 2.00 Physical Exam-(CHC) Physical Exam Vital Signs VS - Last 72 Hours, by Label 01/18/19 01/18/19 01/18/19 01/18/19 16:00 16:00 16:56 17:57 Temp 98.1 Pulse 102 Resp 24 B/P (MAP) 156/82 (106) Pulse Ox 98 99 96 O2 Delivery Nasal Cannula Nasal Cannula Nasal Cannula O2 Flow Rate 2.00 3.00 3.00 01/18/19 01/18/19 01/18/19 01/18/19 18:16 18:30 19:55 20:00 Temp 102.0 Pulse 115 101 Resp 24 B/P (MAP) 149/96 (113) Pulse Ox 94 96 O2 Delivery Nasal Cannula Nasal Cannula Nasal Cannula O2 Flow Rate 4.00 2.00 3.00 01/18/19 01/19/19 01/19/19 01/19/19 21:35 00:10 03:23 04:51 Temp 97.0 97.4 Pulse 73 66 Resp 18 20 B/P (MAP) 108/59 (75) 129/79 (96) Pulse Ox 96 94 93 96 O2 Delivery Nasal Cannula Nasal Cannula Nasal Cannula Nasal Cannula O2 Flow Rate 3.00 2.00 2.00 2.00 01/19/19 01/19/19 01/19/19 08:00 08:44 08:51 Temp 98.8 Pulse 68 Resp 20 B/P (MAP) 145/68 (93) Pulse Ox 97 96 O2 Delivery Nasal Cannula Nasal Cannula Nasal Cannula O2 Flow Rate 2.00 2.00 2.00 Capillary Refill : Less Than 3 Seconds General Appearance: WD/WN, no apparent distress Respiratory: decreased breath sounds, wheezing Cardiovascular: regular rate, rhythm, no edema, no gallop, no murmur Gastrointestinal: normal bowel sounds, non tender, soft Neurologic/Psychiatric: alert, normal mood/affect, oriented x 3 Skin: normal color, warm/dry Assessment/Plan Assessment/Plan Assessment & Plan Assessment: 1) COPD exacerbation 2) influenza 3) musculoskeletal pain Plain: 1) Continue Tamiflu 2) Continue IV steroids 3) Continue nebulizer treatments Clinical Quality Measures DVT/VTE Risk/Contraindication: Risk Factor Score Per Nursin RFS Level Per Nursing on Admit: 4+=Very High KEE RODRIGES MD 01/19/19 7329: HPI History of Present Illness: Date seen by provider: Jan 19, 2019 Time Seen by Provider: 10:32 Home Medications Allergies Coded Allergies: No Known Drug Allergies (Unverified , 03/19/17) WRZ-Lqyjol-Rvwxfo Hx Past Medical History PMHx: HTN COPD Family Medical History Family History: FH: cerebral palsy G8 BROTHER Lung cancer 19 MOTHER Review of Systems (CHC) Constitutional: malaise Reviewed Test Results Reviewed Test Results Radiology CXR 01/18 Air trapping, no consolidation Assessment/Plan Assessment/Plan Admission Status: Inpatient Order (span 2 midnights) Reason for Inpatient Admission: Influenza with underlying COPD, high risk for complications (1) Influenza Status: Acute Assessment & Plan: Oseltamavir, supportive care, toradol for back pain associated with coughing (2) COPD with acute exacerbation Status: Acute Assessment & Plan: Pulm consult, Solumedrol, Duonebs, she would like to use her home Symbicort instead of Advair therapeutic sub. (3) Hypertension Status: Chronic Assessment & Plan: Resume home medications Qualifiers: Qualified Codes: I10 - Essential (primary) hypertension (4) DVT prophylaxis Status: Acute Assessment & Plan: Enoxaparin Supervisory-Addendum Brief Supervisory Addendum Pt seen and examined by me today along with MS3 Eulogio Baires, I personally reperformed history and physical, see problem list for my assessment and plan. EULOGIO BAIRES MED STUDENT Jan 19, 2019 11:10 KEE RODRIGES MD Jan 19, 2019 17:19
[2019-01-19] MEDS ORDERED: ALBU2.5V4 NEB (11:16)
--- NOTE | 2019-01-19 11:16 | NUR ---
WENT OVER THE EXT MED HX WITH THE PATIENT AND SHE VERIFIED WHAT SHE TAKES AND THE CHANGES FROM HER LAST ADMISSION. SHE WAS TAKEN OFF THE DALIRESP. HER DUONEB WAS CHANGED TO ALBUTEROL SOLUTION HER OMEPRAZOLE WAS CHANGED TO FAMOTIDINE, HOWEVER SHE STATES THE OMEPRAZOLE WORKED BETTER FOR HER.
[2019-01-19 12:00] VITALS: BP 132/69
[2019-01-19] MEDS: ALPRAZolam 0.5 MG (XANAX) TAB PO PRN (12:49)
[2019-01-19 16:00] VITALS: BP 159/77
[2019-01-19] MEDS: KETOROLAC 30 MG/ML VIAL IVP PRN ×2 (17:21→23:37)
[2019-01-19] MEDS ORDERED: NON-FORMULARY MEDICATION 1 EA EA (Magnesium Oxide (Magnesium) 250 MG) PO SCH (18:00)
[2019-01-19] MEDS ORDERED: NON-FORMULARY MEDICATION 1 EA EA (Fenofibrate 160 MG) PO SCH (18:00)
[2019-01-19] MEDS: MAGNESIUM OXIDE (MAG-OX)400 MG TAB PO SCH (19:35)
[2019-01-19] MEDS: FENOFIBRATE 134 MG (LOFIBRA) CAPSULE PO SCH (19:36)
[2019-01-19 20:00] VITALS: BP 136/74
[2019-01-19] MEDS: MONTELUKAST 10 MG (SINGULAIR) TAB PO SCH (20:01)
[2019-01-19] MEDS: ASPIRIN E.C. 81 MG (ECOTRIN) TAB PO SCH (20:01)
[2019-01-19] MEDS: ALLOPURINOL 100 MG (ZYLOPRIM) TAB PO SCH (20:01)
[2019-01-19] MEDS ORDERED: NON-FORMULARY MEDICATION 1 EA EA (Budesonide/Formoterol Fumarate (Symbicort 160-4.5 Mcg In INH SCH (21:00)
[2019-01-19] MEDS ORDERED: NON-FORMULARY MEDICATION 1 EA EA (Allopurinol 100 MG) PO SCH (21:00)
[2019-01-20] MEDS: methylPREDNISolone 40 MG/ML (Solu-MEDROL) VIAL IV SCH ×2 (00:27→05:42)
[2019-01-20] MEDS: RT-ADVAIR HFA 115/21 MCG PER PUFF IH SCH ×6 (00:28→21:29)
[2019-01-20 00:48] VITALS: BP 140/75
[2019-01-20] MEDS: RT-ALBUTEROL/IPRATROPIUM 3 ML (DUONEB) VIAL INH SCH ×6 (02:27→21:29)
[2019-01-20] MEDS: NS IV 1000 ML 1,000 ML IV SCH (03:07)
[2019-01-20 04:00] VITALS: BP 132/78
--- NOTE | 2019-01-20 06:06 | Pulmonary Progress Note ---
Subjective Time Seen by a Provider: 06:05 Subjective/Events-last exam Pt appears to be doing better. Sepsis Event Evaluation Height, Weight, BMI Height: 5'3.00" Weight: 150lbs. 0.0oz. 68.635816wx; 26.6 BMI Method:Stated Focused Exam Lactate Level 01/19/19 07:30: Lactic Acid Level 1.57 Exam Exam Vital Signs Date Time Temp Pulse Resp B/P (MAP) Pulse Ox O2 Delivery O2 Flow Rate FiO2 01/20/19 04:00 98.2 92 24 132/78 (96) 95 Nasal Cannula 2.00 01/20/19 02:27 96 Nasal Cannula 2.00 01/20/19 00:48 97.6 96 18 140/75 (96) 94 Nasal Cannula 2.00 01/19/19 23:35 95 Nasal Cannula 2.00 01/19/19 21:40 95 Nasal Cannula 2.00 01/19/19 20:00 Nasal Cannula 3.00 01/19/19 20:00 98.0 91 22 136/74 (94) 94 Nasal Cannula 2.00 01/19/19 16:00 97.9 89 22 159/77 (104) 95 Nasal Cannula 2.00 01/19/19 14:50 95 Nasal Cannula 2.00 01/19/19 12:22 94 Nasal Cannula 2.00 01/19/19 12:00 98.8 97 18 132/69 (90) 97 Nasal Cannula 2.00 01/19/19 08:51 Nasal Cannula 2.00 01/19/19 08:44 96 Nasal Cannula 2.00 01/19/19 08:00 98.8 68 20 145/68 (93) 97 Nasal Cannula 2.00 01/19/19 08:00 Nasal Cannula 3.00 I & O 01/20/19 07:00 Intake Total 1230 ml Balance 1230 ml Height & Weight Height: 5'3.00" Weight: 150lbs. 0.0oz. 68.782284eu; 26.6 BMI Method:Stated General Appearance: No Apparent Distress, WD/WN HEENT: PERRL/EOMI, Normal ENT Inspection, Pharynx Normal Neck: Full Range of Motion, Normal Inspection, Non Tender Respiratory: Chest Non Tender, Accessory Muscle Use, Decreased Breath Sounds Cardiovascular: Regular Rate, Rhythm Capillary Refill: Less Than 3 Seconds Gastrointestinal: normal bowel sounds, non tender, soft Neurologic/Psychiatric: Alert, Oriented x3 Skin: Normal Color, Warm/Dry Lymphatic: No Adenopathy Results Lab Laboratory Tests 01/18/19 15:55 01/19/19 04:16 Assessment/Plan Assessment/Plan Influenza with sepsis -Check LA -Tamiflu -IVF COPDAE with hypoxia -Solumedrol -change to prednisone taper -ABG -C02 47 -Increase SVNs to Q4 and Q2 PRN -Advair -Oxygen persistent cough -Add Robitussin with codeine ADELSO NOWAK DO Jan 20, 2019 06:05
[2019-01-20 06:32] LABS: HEMOGLOBIN 10.9 G/DL (11.5-16.0); MEAN PLATELET VOLUME 9.9 FL (7.4-10.4); RED CELL DISTRIBUTION WIDTH 15.3 % (10.0-14.5); WHITE BLOOD COUNT 16.9 10^3/uL (4.3-11.0)
[2019-01-20 06:59] LABS: BUN/CREATININE RATIO 28; CARBON DIOXIDE 29 MMOL/L (21-32); CHLORIDE 101 MMOL/L (98-107); CREATININE SERUM 0.74 MG/DL (0.60-1.30); GFR ESTIMATED > 60; GLUCOSE 228 MG/DL (70-105); POTASSIUM 3.9 MMOL/L (3.6-5.0); SODIUM 139 MMOL/L (135-145)
[2019-01-20 08:00] VITALS: BP 134/65
[2019-01-20] MEDS: HYDROCHLOROTHIAZIDE 25 MG (HCTZ) TAB PO SCH (08:15)
[2019-01-20] MEDS: FAMOTIDINE 20 MG (PEPCID) TABLET PO SCH (08:15)
[2019-01-20] MEDS: amLODIPine 5 MG (NORVASC) TAB PO SCH (08:15)
[2019-01-20] MEDS: ENOXAPARIN 40 MG/0.4 ML (LOVENOX) SYR SC SCH (08:15)
[2019-01-20] MEDS: OSELTAMIVIR 30 MG (TAMIFLU) CAPSULE PO SCH ×2 (08:15→20:40)
[2019-01-20] MEDS ORDERED: NON-FORMULARY MEDICATION 1 EA EA (Famotidine 40 MG) PO SCH (09:00)
[2019-01-20] MEDS ORDERED: NON-FORMULARY MEDICATION 1 EA EA (Amlodipine Besylate 5 MG) PO SCH (09:00)
[2019-01-20] MEDS ORDERED: NON-FORMULARY MEDICATION 1 EA EA (Hydrochlorothiazide 25 MG) PO SCH (09:00)
[2019-01-20] MEDS ORDERED: MONTELUKAST 10 MG (SINGULAIR) TAB PO SCH (09:00)
[2019-01-20] MEDS ORDERED: predniSONE 10 MG TAB PO SCH (09:00)
--- NOTE | 2019-01-20 11:00 | NUR ---
CALLED DR NOWAK'S OFFICE TO SCHEDULE FOLLOW-UP APPOINTMENT, NO ANSWER. LEFT MESSAGE REQUESTING FOLLOW-UP APPOINTMENT IN 2-3 WEEKS
--- NOTE | 2019-01-20 11:08 | Progress Note (SOAP) ---
EULOGIO BAIRES MED STUDENT 01/20/19 1108: Subjective Subjective/Events-last exam Patient states that she is feeling much better today. She reports that the shortness of breath is much improved and that pain is under control with her current medications. She is planning on going home tomorrow. Focused Exam Lactate Level 01/19/19 07:30: Lactic Acid Level 1.57 Objective Exam Last Set of Vital Signs Vital Signs Date Time Temp Pulse Resp B/P (MAP) Pulse Ox O2 Delivery O2 Flow Rate FiO2 01/20/19 10:58 94 Nasal Cannula 01/20/19 08:00 2.00 01/20/19 08:00 98.3 93 18 134/65 (88) Capillary Refill : Less Than 3 Seconds I&O Intake and Output 01/20/19 00:00 Intake Total 1380 ml Balance 1380 ml Intake Oral 1380 ml # Voids 10 # Bowel Movements 2 General: Alert, Oriented X3, Cooperative, No Acute Distress Lungs: Other Heart: Regular Rate, No Murmurs Abdomen: Normal Bowel Sounds Neuro: Normal Speech Results/Procedures Lab Laboratory Tests 01/20/19 06:22: White Blood Count 16.9H, Red Blood Count 3.92L, Hemoglobin 10.9L, Hematocrit 34L , Mean Corpuscular Volume 87, Mean Corpuscular Hemoglobin 28, Mean Corpuscular Hemoglobin Concent 32, Red Cell Distribution Width 15.3H, Platelet Count 345, Mean Platelet Volume 9.9, Sodium Level 139, Potassium Level 3.9, Chloride Level 101, Carbon Dioxide Level 29, Anion Gap 9, Blood Urea Nitrogen 21H, Creatinine 0.74, Estimat Glomerular Filtration Rate > 60, BUN/Creatinine Ratio 28, Glucose Level 228H, Calcium Level 10.0 Radiology CXR 01/18 Air trapping, no consolidation Assessment/Plan Assessment/Plan Assessment & Plan Assessment: 1) COPD exacerbation 2) influenza 3) msk pain due to cough Plan: 1) Oral steroids 2) continue Tamiflu 3) continue pain medications (1) Influenza Status: Acute Assessment & Plan: Oseltamavir, supportive care, toradol for back pain associated with coughing (2) COPD with acute exacerbation Status: Acute Assessment & Plan: Pulm consult, Antony Stevens, she would like to use her home Symbicort instead of Advair therapeutic sub. (3) Hypertension Status: Chronic Assessment & Plan: Resume home medications Qualifiers: Qualified Codes: I10 - Essential (primary) hypertension (4) DVT prophylaxis Status: Acute Assessment & Plan: Enoxaparin Clinical Quality Measures DVT/VTE Risk/Contraindication: Risk Factor Score Per Nursin RFS Level Per Nursing on Admit: 4+=Very High KEE HERNANDEZ MD 01/20/19 1114: Subjective Review of Systems Date Seen by Provider: Jan 20, 2019 Time Seen by Provider: 09:38 Objective Exam Lungs: Clear to Auscultation Assessment/Plan Assessment/Plan (1) Influenza Status: Acute Assessment & Plan: Continue Tamiflu (2) COPD with acute exacerbation Status: Acute Assessment & Plan: Changed to oral prednisone today per Dr. Tripp, wheezing is much improved, still requiring 2 lpm supplemental oxygen, likely d/c tomorrow. (3) Hypertension Status: Chronic Assessment & Plan: Resume home medications Qualifiers: Qualified Codes: I10 - Essential (primary) hypertension (4) DVT prophylaxis Status: Acute Assessment & Plan: Enoxaparin Supervisory-Addendum Brief Supervisory Addendum Pt seen and examined by me along with MS3 Eulogio Baires today, agree with documentation except where mine differs. See problem list for my assessment and plan. EULOGIO BAIRES MED STUDENT Jan 20, 2019 11:08 KEE HERNANDEZ MD Jan 20, 2019 11:14
[2019-01-20 12:00] VITALS: BP 158/78
[2019-01-20] MEDS: ALPRAZolam 0.5 MG (XANAX) TAB PO PRN (14:30)
[2019-01-20 15:47] VITALS: BP 140/78
--- NOTE | 2019-01-20 17:35 | NUR ---
CALLED [facility]AT[facility]ERAPY PER PATIENT REQUEST FOR A BREATHING TREATMENT.
[2019-01-20] MEDS: MAGNESIUM OXIDE (MAG-OX)400 MG TAB PO SCH (17:40)
[2019-01-20] MEDS: FENOFIBRATE 134 MG (LOFIBRA) CAPSULE PO SCH (17:40)
[2019-01-20] MEDS: MONTELUKAST 10 MG (SINGULAIR) TAB PO SCH (20:40)
[2019-01-20] MEDS: ALLOPURINOL 100 MG (ZYLOPRIM) TAB PO SCH (20:40)
--- NOTE | 2019-01-20 22:03 | NUR ---
PT C/O WHITE PATCHES IN THE MOUTH AND STATED THAT SHE KNOWS THAT SHE IS GETTING THRUSH. THERE IS SOME SMALL WHITE PATCHES LOCATED IN THE RIGHT UPPER SIDE OF THE MOUTH. CALLED DR WHITESIDE AND NEW ORDERS RECEIVED .
[2019-01-21] VITALS: BP 155/71
[2019-01-21] MEDS: NYSTATIN ORAL SUSP 5 ML UDC PO SCH ×4 (00:34→17:52)
[2019-01-21] MEDS: RT-ALBUTEROL/IPRATROPIUM 3 ML (DUONEB) VIAL INH SCH ×7 (01:08→23:49)
--- NOTE | 2019-01-21 06:02 | NUR ---
PT REQUESTING A BREATHING TX RIGHT NOW. RT NOT AVAILABLE FOR TX. A BREATHING TX WAS GIVEN THIS RN. PT TOLERATED WELL, NO OTHER COMPLAINS AT THIS TIME
[2019-01-21] MEDS: ENOXAPARIN 40 MG/0.4 ML (LOVENOX) SYR SC SCH (06:03)
--- NOTE | 2019-01-21 06:57 | Pulmonary Progress Note ---
Subjective Time Seen by a Provider: 06:57 Subjective/Events-last exam Pt is more SOB and more wheezy. Sepsis Event Evaluation Height, Weight, BMI Height: 5'3.00" Weight: 150lbs. 0.0oz. 68.321737zk; 26.6 BMI Method:Stated Focused Exam Lactate Level 01/19/19 07:30: Lactic Acid Level 1.57 Exam Exam Vital Signs Date Time Temp Pulse Resp B/P (MAP) Pulse Ox O2 Delivery O2 Flow Rate FiO2 01/21/19 01:09 93 Nasal Cannula 2.00 01/21/19 00:00 98.0 72 18 155/71 (99) 96 Nasal Cannula 2.00 01/20/19 21:30 93 Nasal Cannula 2.00 01/20/19 20:00 Nasal Cannula 2.00 01/20/19 17:56 93 Nasal Cannula 2.00 01/20/19 15:47 98.7 82 18 140/78 (98) 93 Nasal Cannula 2.00 01/20/19 14:44 93 Nasal Cannula 2.00 01/20/19 12:00 98.6 77 18 158/78 (104) 100 Nasal Cannula 2.00 01/20/19 10:58 94 Nasal Cannula 01/20/19 08:00 96 Nasal Cannula 2.00 01/20/19 08:00 98.3 93 18 134/65 (88) 96 Nasal Cannula 2.00 I & O 01/21/19 07:00 Intake Total 1315 ml Balance 1315 ml Height & Weight Height: 5'3.00" Weight: 150lbs. 0.0oz. 68.616268yc; 26.6 BMI Method:Stated General Appearance: WD/WN, Anxious, Mild Distress HEENT: PERRL/EOMI, Normal ENT Inspection, Pharynx Normal Neck: Full Range of Motion, Normal Inspection, Non Tender Respiratory: Chest Non Tender, Accessory Muscle Use, Decreased Breath Sounds, Wheezing Cardiovascular: Regular Rate, Rhythm Capillary Refill: Less Than 3 Seconds Gastrointestinal: normal bowel sounds, non tender, soft Neurologic/Psychiatric: Alert, Oriented x3 Skin: Normal Color, Warm/Dry Lymphatic: No Adenopathy Results Lab Laboratory Tests 01/20/19 06:22 Assessment/Plan Assessment/Plan Influenza with sepsis -Tamiflu COPDAE with hypoxia -prednisone taper -- change to solumedrol and give 125mg x 1 then 40 Q6. -Change SVNs to P8hhnkp -ABG -C02 47 -Increase SVNs to Q4 and Q2 PRN -Advair -Oxygen ADELSO NOWAK DO Jan 21, 2019 06:57
[2019-01-21] MEDS: RT-ALBUTEROL/IPRATROPIUM 3 ML (DUONEB) VIAL INH PRN (07:47)
[2019-01-21 08:01] VITALS: BP 156/79
[2019-01-21] MEDS ORDERED: FUROSEMIDE 40 MG/4 ML INJ (LASIX) IVP NR (08:15)
[2019-01-21] MEDS ORDERED: methylPREDNISolone 125 MG (Solu-MEDROL) VIAL IVP NR (08:15)
[2019-01-21] MEDS ORDERED: KCL 20 MEQ TAB (K-DUR) PO NR (08:16)
[2019-01-21] MEDS: RT-ADVAIR HFA 115/21 MCG PER PUFF IH SCH ×2 (08:20→08:21)
[2019-01-21] MEDS: OSELTAMIVIR 30 MG (TAMIFLU) CAPSULE PO SCH ×2 (09:11→20:08)
[2019-01-21] MEDS: HYDROCHLOROTHIAZIDE 25 MG (HCTZ) TAB PO SCH (09:11)
[2019-01-21] MEDS: FAMOTIDINE 20 MG (PEPCID) TABLET PO SCH (09:11)
[2019-01-21] MEDS: amLODIPine 5 MG (NORVASC) TAB PO SCH (09:11)
[2019-01-21] MEDS: RT-ALBUTEROL SULF 2.5 MG/3 ML PRE-MIX VIAL INH SCH ×4 (09:54→22:12)
[2019-01-21] MEDS ORDERED: RT-ALBUTEROL SULF 2.5 MG/3 ML PRE-MIX VIAL INH SCH ×2 (10:00→12:00)
--- NOTE | 2019-01-21 11:07 | Progress Note (SOAP) ---
Subjective Subjective/Events-last exam Pt had increase in dyspnea overnight. Increased LE edema. Received Lasix with improvement in dyspnea. Review of Systems Date Seen by Provider: Jan 21, 2019 Time Seen by Provider: 10:00 Focused Exam Lactate Level 01/19/19 07:30: Lactic Acid Level 1.57 Objective Exam Last Set of Vital Signs Vital Signs Date Time Temp Pulse Resp B/P (MAP) Pulse Ox O2 Delivery O2 Flow Rate FiO2 01/21/19 09:57 94 Nasal Cannula 2.00 01/21/19 08:01 97.9 73 20 156/79 (104) Capillary Refill : Less Than 3 Seconds I&O Intake and Output 01/21/19 00:00 Intake Total 1215 ml Balance 1215 ml Intake Oral 490 ml IV Total 425 ml Tube Feeding 300 ml # Voids 8 # Bowel Movements 1 General: Alert, Oriented X3, Cooperative Lungs: Other (nasreen exp wheezing; decreased air movement) Heart: Regular Rate Psych/Mental Status: Mood NL Results/Procedures Radiology CXR 01/18 Air trapping, no consolidation Assessment/Plan Assessment/Plan Assessment & Plan (1) Influenza Status: Acute Assessment & Plan: Continue Tamiflu (2) COPD with acute exacerbation Status: Acute Assessment & Plan: Changed to oral prednisone today per Dr. Tripp, wheezing is much improved, still requiring 2 lpm supplemental oxygen, likely d/c tomorrow. 01/21 - increase in wheezing and dyspnea; re-started IV solu-medrol; possible DC tomorrow if improved. (3) Hypertension Status: Chronic Assessment & Plan: Resume home medications 01/21 - Lasix given for increased LE edema Qualifiers: Qualified Codes: I10 - Essential (primary) hypertension (4) DVT prophylaxis Status: Acute Assessment & Plan: Enoxaparin (5) Do not resuscitate status Assessment & Plan: Patient wished to be a DNR. Order added for DNR. Clinical Quality Measures DVT/VTE Risk/Contraindication: Risk Factor Score Per Nursin RFS Level Per Nursing on Admit: 4+=Very High MARCELLUS WHITESIDE DO Jan 21, 2019 11:07
[2019-01-21] MEDS: methylPREDNISolone 40 MG/ML (Solu-MEDROL) VIAL IV SCH ×2 (12:14→17:52)
--- NOTE | 2019-01-21 12:22 | NUR ---
LEFT MESSAGE ON DR WHITESIDE'S PHONE. PATIENT REPORTS THAT NYSTATIN USED BY ITSELF NEVER COMPLETELY HEALS HER THRUSH. SHE WILL NEED THE PILLS WELL..
[2019-01-21 16:00] VITALS: BP 157/85
[2019-01-21] MEDS: MAGNESIUM OXIDE (MAG-OX)400 MG TAB PO SCH (18:01)
[2019-01-21] MEDS: FENOFIBRATE 134 MG (LOFIBRA) CAPSULE PO SCH (18:01)
[2019-01-21] MEDS: SYMBICORT 160/4.5 MCG INHALER 6 GM (NON-FORMULARY) IH SCH (18:18)
[2019-01-21] MEDS: MONTELUKAST 10 MG (SINGULAIR) TAB PO SCH ×2 (20:07→20:09)
[2019-01-21] MEDS: ALLOPURINOL 100 MG (ZYLOPRIM) TAB PO SCH (20:07)
[2019-01-21] MEDS: ASPIRIN E.C. 81 MG (ECOTRIN) TAB PO SCH (20:09)
[2019-01-21] MEDS: KETOROLAC 30 MG/ML VIAL IVP PRN (20:20)
[2019-01-22] VITALS: BP 144/82
[2019-01-22] MEDS: methylPREDNISolone 40 MG/ML (Solu-MEDROL) VIAL IV SCH ×4 (00:38→17:44)
[2019-01-22] MEDS: NYSTATIN ORAL SUSP 5 ML UDC PO SCH ×4 (00:39→17:42)
[2019-01-22] MEDS: RT-ALBUTEROL SULF 2.5 MG/3 ML PRE-MIX VIAL INH SCH ×6 (01:44→21:59)
[2019-01-22] MEDS: RT-ALBUTEROL/IPRATROPIUM 3 ML (DUONEB) VIAL INH SCH ×4 (03:54→20:07)
[2019-01-22] MEDS: ENOXAPARIN 40 MG/0.4 ML (LOVENOX) SYR SC SCH (06:06)
--- NOTE | 2019-01-22 06:17 | Pulmonary Progress Note ---
Subjective Time Seen by a Provider: 09:05 Subjective/Events-last exam PT feels improved after Lasix. Sepsis Event Evaluation Height, Weight, BMI Height: 5'3.00" Weight: 150lbs. 0.0oz. 68.537470ux; 26.6 BMI Method:Stated Focused Exam Lactate Level 01/19/19 07:30: Lactic Acid Level 1.57 Exam Exam Vital Signs Date Time Temp Pulse Resp B/P (MAP) Pulse Ox O2 Delivery O2 Flow Rate FiO2 01/22/19 03:55 94 Nasal Cannula 2.00 01/22/19 03:26 Nasal Cannula 2.00 01/22/19 01:44 93 Nasal Cannula 2.00 01/22/19 00:00 98.2 106 18 144/82 (102) 93 Nasal Cannula 2.00 01/21/19 23:50 94 Nasal Cannula 2.00 01/21/19 22:12 93 Nasal Cannula 2.00 01/21/19 20:08 91 Nasal Cannula 2.00 01/21/19 20:00 Nasal Cannula 2.00 01/21/19 18:11 94 Nasal Cannula 2.00 01/21/19 16:00 98.7 106 20 157/85 (109) 94 Nasal Cannula 2.00 01/21/19 14:04 93 Nasal Cannula 2.00 01/21/19 11:38 94 Nasal Cannula 2.00 01/21/19 09:57 94 Nasal Cannula 2.00 01/21/19 08:01 97.9 73 20 156/79 (104) 93 Nasal Cannula 2.00 01/21/19 08:00 96 Nasal Cannula 2.00 01/21/19 07:47 Nasal Cannula 2.00 I & O 01/22/19 06:59 Intake Total 1500 ml Balance 1500 ml Height & Weight Height: 5'3.00" Weight: 150lbs. 0.0oz. 68.370030ua; 26.6 BMI Method:Stated General Appearance: WD/WN, Anxious, Mild Distress HEENT: PERRL/EOMI, Normal ENT Inspection, Pharynx Normal Neck: Full Range of Motion, Normal Inspection, Non Tender Respiratory: Chest Non Tender, Accessory Muscle Use, Decreased Breath Sounds, Wheezing Cardiovascular: Regular Rate, Rhythm Capillary Refill: Less Than 3 Seconds Gastrointestinal: normal bowel sounds, non tender, soft Neurologic/Psychiatric: Alert, Oriented x3 Skin: Normal Color, Warm/Dry Lymphatic: No Adenopathy Results Lab Laboratory Tests 01/20/19 06:22 Assessment/Plan Assessment/Plan Influenza with sepsis -Tamiflu COPDAE with hypoxia solumedrol 40 Q6. -Change SVNs to P6qlifp -ABG -C02 47 -Advair -Oxygen -Repeat Labs and CXR ADELSO NOWAK DO Jan 22, 2019 06:16
[2019-01-22] MEDS: SYMBICORT 160/4.5 MCG INHALER 6 GM (NON-FORMULARY) IH SCH ×2 (06:28→18:42)
[2019-01-22 07:57] LABS: HEMOGLOBIN 12.5 G/DL (11.5-16.0); MEAN PLATELET VOLUME 10.7 FL (7.4-10.4); RED CELL DISTRIBUTION WIDTH 15.2 % (10.0-14.5); WHITE BLOOD COUNT 12.4 10^3/uL (4.3-11.0)
[2019-01-22 08:00] VITALS: BP 143/71
[2019-01-22 08:16] LABS: BUN/CREATININE RATIO 36; CALCIUM 10.6 MG/DL (8.5-10.1); CARBON DIOXIDE 30 MMOL/L (21-32); CHLORIDE 92 MMOL/L (98-107); CREATININE SERUM 0.86 MG/DL (0.60-1.30); GFR ESTIMATED > 60; GLUCOSE 283 MG/DL (70-105); MAGNESIUM 2.2 MG/DL (1.8-2.4); PHOSPHORUS 3.7 MG/DL (2.3-4.7); POTASSIUM 3.6 MMOL/L (3.6-5.0); SODIUM 138 MMOL/L (135-145)
--- NOTE | 2019-01-22 09:20 | Diagnostic Imaging Report ---
INDICATION: Shortness of breath. COMPARISON: 01/18/2019. FINDINGS: There is mild cardiomegaly. The mediastinum is unremarkable. There appears to be air-trapping compatible with COPD. There is no pleural effusion or pneumothorax. IMPRESSION: Cardiomegaly and COPD, otherwise, unremarkable. Dictated by: Dictated on workstation # [id number]
[2019-01-22] MEDS: amLODIPine 5 MG (NORVASC) TAB PO SCH (09:23)
[2019-01-22] MEDS: OSELTAMIVIR 30 MG (TAMIFLU) CAPSULE PO SCH ×2 (09:23→21:04)
[2019-01-22] MEDS: HYDROCHLOROTHIAZIDE 25 MG (HCTZ) TAB PO SCH (09:23)
[2019-01-22] MEDS: FAMOTIDINE 20 MG (PEPCID) TABLET PO SCH (09:23)
--- NOTE | 2019-01-22 10:53 | NUR ---
PRIOR TO A.M. MEDICATIONS PULSE WAS 78 AND B/P WAS 143/71
--- NOTE | 2019-01-22 12:10 | Progress Note (SOAP) ---
Subjective Subjective/Events-last exam Pt reports was feeling better early this am until she has gotten up. Has been requiring breathing treatment q2h and has had significant wheezing. Review of Systems Date Seen by Provider: Jan 22, 2019 Time Seen by Provider: 11:00 Objective Exam Last Set of Vital Signs Vital Signs Date Time Temp Pulse Resp B/P (MAP) Pulse Ox O2 Delivery O2 Flow Rate FiO2 01/22/19 10:18 92 Nasal Cannula 2.00 01/22/19 08:00 98.8 78 18 143/71 (95) Capillary Refill : Less Than 3 Seconds I&O Intake and Output 01/22/19 00:00 Intake Total 1650 ml Balance 1650 ml Intake Oral 1650 ml # Voids 16 # Bowel Movements 1 General: Alert, Oriented X3, Cooperative Lungs: Other (decreased BS, less wheezing than yesterday) Heart: Regular Rate Results/Procedures Lab Laboratory Tests 01/22/19 07:10: White Blood Count 12.4H, Red Blood Count 4.44, Hemoglobin 12.5, Hematocrit 38, Mean Corpuscular Volume 86, Mean Corpuscular Hemoglobin 28, Mean Corpuscular Hemoglobin Concent 33, Red Cell Distribution Width 15.2H, Platelet Count 378, Mean Platelet Volume 10.7H, Sodium Level 138, Potassium Level 3.6, Chloride Level 92L, Carbon Dioxide Level 30, Anion Gap 16H, Blood Urea Nitrogen 31H, Creatinine 0.86, Estimat Glomerular Filtration Rate > 60, BUN/Creatinine Ratio 36, Glucose Level 283H, Calcium Level 10.6H, Phosphorus Level 3.7, Magnesium Level 2.2, B-Type Natriuretic Peptide 106.2H Radiology CXR 01/18 Air trapping, no consolidation Assessment/Plan Assessment/Plan Assessment & Plan Will f/u with Jailyn Oro APRN in [place] on DC. (1) Influenza Status: Acute Assessment & Plan: Continue Tamiflu (2) COPD with acute exacerbation Status: Acute Assessment & Plan: Changed to oral prednisone today per Dr. Tripp, wheezing is much improved, still requiring 2 lpm supplemental oxygen, likely d/c tomorrow. 01/21 - increase in wheezing and dyspnea; re-started IV solu-medrol; possible DC tomorrow if improved. 01/22 - wheezing improved compared to yesterday but has been requiring breathing treatments q2h; plan for home tomorrow. (3) Hypertension Status: Chronic Assessment & Plan: Resume home medications 01/21 - Lasix given for increased LE edema Qualifiers: Qualified Codes: I10 - Essential (primary) hypertension (4) DVT prophylaxis Status: Acute Assessment & Plan: Enoxaparin (5) Do not resuscitate status Assessment & Plan: Patient wished to be a DNR. Order added for DNR. Clinical Quality Measures DVT/VTE Risk/Contraindication: Risk Factor Score Per Nursin RFS Level Per Nursing on Admit: 4+=Very High MARCELLUS WHITESIDE DO Jan 22, 2019 12:10
[2019-01-22 16:00] VITALS: BP 161/85
[2019-01-22] MEDS: FENOFIBRATE 134 MG (LOFIBRA) CAPSULE PO SCH (17:42)
[2019-01-22] MEDS: MAGNESIUM OXIDE (MAG-OX)400 MG TAB PO SCH (17:43)
[2019-01-22] MEDS: MONTELUKAST 10 MG (SINGULAIR) TAB PO SCH (21:06)
[2019-01-22] MEDS: ALLOPURINOL 100 MG (ZYLOPRIM) TAB PO SCH (21:07)
[2019-01-23] VITALS: BP 157/81
[2019-01-23] MEDS: methylPREDNISolone 40 MG/ML (Solu-MEDROL) VIAL IV SCH ×2 (00:07→06:13)
[2019-01-23] MEDS: NYSTATIN ORAL SUSP 5 ML UDC PO SCH ×5 (00:07→23:56)
[2019-01-23] MEDS: RT-ALBUTEROL/IPRATROPIUM 3 ML (DUONEB) VIAL INH SCH ×6 (00:20→23:56)
[2019-01-23] MEDS: RT-ALBUTEROL SULF 2.5 MG/3 ML PRE-MIX VIAL INH SCH ×5 (02:15→18:48)
[2019-01-23] MEDS: ENOXAPARIN 40 MG/0.4 ML (LOVENOX) SYR SC SCH (06:13)
[2019-01-23] MEDS: SYMBICORT 160/4.5 MCG INHALER 6 GM (NON-FORMULARY) IH SCH ×2 (06:41→20:01)
[2019-01-23 06:44] LABS: HEMOGLOBIN 12.5 G/DL (11.5-16.0); MEAN PLATELET VOLUME 9.9 FL (7.4-10.4); WHITE BLOOD COUNT 14.3 10^3/uL (4.3-11.0)
[2019-01-23 07:10] LABS: BUN/CREATININE RATIO 40; CALCIUM 10.6 MG/DL (8.5-10.1); CARBON DIOXIDE 30 MMOL/L (21-32); CREATININE SERUM 0.83 MG/DL (0.60-1.30); GFR ESTIMATED > 60; GLUCOSE 281 MG/DL (70-105); MAGNESIUM 2.1 MG/DL (1.8-2.4)
[2019-01-23 07:28] LABS: CHLORIDE 94 MMOL/L (98-107); POTASSIUM 3.8 MMOL/L (3.6-5.0); SODIUM 140 MMOL/L (135-145)
[2019-01-23 08:00] VITALS: BP 176/87
--- NOTE | 2019-01-23 09:09 | Pulmonary Progress Note ---
Subjective Time Seen by a Provider: 09:06 Subjective/Events-last exam Pt feels more SOB today. Sepsis Event Evaluation Height, Weight, BMI Height: 5'3.00" Weight: 150lbs. 0.0oz. 68.895128jr; 26.6 BMI Method:Stated Exam Exam Vital Signs Date Time Temp Pulse Resp B/P (MAP) Pulse Ox O2 Delivery O2 Flow Rate FiO2 01/23/19 08:54 93 Nasal Cannula 3.00 01/23/19 08:00 97.5 103 20 176/87 (116) 92 Nasal Cannula 2.00 01/23/19 06:38 91 Nasal Cannula 2.00 01/23/19 04:20 87 Nasal Cannula 2.00 01/23/19 02:16 91 Nasal Cannula 2.00 01/23/19 00:23 93 Nasal Cannula 2.00 01/23/19 00:00 96.4 93 20 157/81 (106) 93 Nasal Cannula 2.00 01/22/19 21:59 95 Nasal Cannula 2.00 01/22/19 20:07 94 Nasal Cannula 2.00 01/22/19 20:00 Nasal Cannula 2.00 01/22/19 18:42 95 Nasal Cannula 2.00 01/22/19 18:23 93 Nasal Cannula 2.00 01/22/19 16:20 94 Nasal Cannula 2.00 01/22/19 16:00 97.2 80 18 161/85 (110) 99 Nasal Cannula 2.00 01/22/19 14:29 91 Nasal Cannula 2.00 01/22/19 12:17 95 Nasal Cannula 2.00 01/22/19 10:18 92 Nasal Cannula 2.00 I & O 01/23/19 07:00 Intake Total 1989 ml Balance 1990 ml Height & Weight Height: 5'3.00" Weight: 150lbs. 0.0oz. 68.672683ha; 26.6 BMI Method:Stated General Appearance: WD/WN, Anxious, Mild Distress HEENT: PERRL/EOMI, Normal ENT Inspection, Pharynx Normal Neck: Full Range of Motion, Normal Inspection, Non Tender Respiratory: Chest Non Tender, Accessory Muscle Use, Decreased Breath Sounds, Wheezing Cardiovascular: Regular Rate, Rhythm Capillary Refill: Less Than 3 Seconds Gastrointestinal: normal bowel sounds, non tender, soft Neurologic/Psychiatric: Alert, Oriented x3 Skin: Normal Color, Warm/Dry Lymphatic: No Adenopathy Results Lab Laboratory Tests 01/22/19 07:10 01/23/19 06:33 Assessment/Plan Assessment/Plan Influenza with sepsis -Tamiflu COPDAE with hypoxia solumedrol 40 Q6. -- Change to prednisone taper -Change SVNs to [id number] -ABG -C02 47 -Advair -Oxygen -CXR today ADELSO NOWAK DO Jan 23, 2019 09:09
[2019-01-23] MEDS: FAMOTIDINE 20 MG (PEPCID) TABLET PO SCH (09:15)
[2019-01-23] MEDS: amLODIPine 5 MG (NORVASC) TAB PO SCH (09:15)
[2019-01-23] MEDS: OSELTAMIVIR 30 MG (TAMIFLU) CAPSULE PO SCH (09:15)
[2019-01-23] MEDS: HYDROCHLOROTHIAZIDE 25 MG (HCTZ) TAB PO SCH (09:15)
--- NOTE | 2019-01-23 10:03 | Diagnostic Imaging Report ---
INDICATION: Shortness of breath. TIME OF EXAM: 9:27 AM Correlation is made with prior study from one day earlier. FINDINGS: Heart size is stable. Lungs are clear. No infiltrate or effusion is seen. There is no pneumothorax. IMPRESSION: No acute cardiopulmonary process is detected. Dictated by: Dictated on workstation # [id number]
--- NOTE | 2019-01-23 11:03 | Progress Note-Hospitalist ---
Subjective HPI/CC On Admission Date Seen by Provider: Jan 23, 2019 Time Seen by Provider: 10:00 Subjective/Events-last exam Patient doing better but did have decreased oxygen requiring increase in supplementation so will hold off on discharge until tomorrow Overall feeling much better and walking around well Constipation will order bowel regimen Checked meds and labs Review of Systems Pulmonary: Dyspnea Gastrointestinal: Constipation Objective Exam Vital Signs Vital Signs Date Time Temp Pulse Resp B/P (MAP) Pulse Ox O2 Delivery O2 Flow Rate FiO2 01/23/19 08:54 93 Nasal Cannula 3.00 01/23/19 08:00 97.5 103 20 176/87 (116) Capillary Refill : Less Than 3 Seconds General Appearance: WD/WN, Anxious, Mild Distress HEENT: PERRL/EOMI, Normal ENT Inspection, Pharynx Normal Neck: Full Range of Motion, Normal Inspection, Non Tender Respiratory: Chest Non Tender, No Accessory Muscle Use, No Respiratory Distress , Decreased Breath Sounds, Wheezing Cardiovascular: Regular Rate, Rhythm, No Edema Neurologic/Psychiatric: Alert, Oriented x3, No Motor/Sensory Deficits, Normal Mood/Affect, recruiting operations consultant II-XII Norm as Tested Skin: Normal Color, Warm/Dry Lymphatic: No Adenopathy Results/Procedures Lab Laboratory Tests 01/23/19 06:33 Patient resulted labs reviewed. Assessment/Plan Assessment and Plan Assess & Plan/Chief Complaint Assessment: Influenza with sepsis AECOPD with hypoxia Home O2 dependent Constipation Plan: Check CXR Maintain O2 steroids BM regimen Diagnosis/Problems Diagnosis/Problems (1) Influenza Status: Acute (2) COPD with acute exacerbation Status: Acute (3) Hypertension Status: Chronic Qualifiers: Hypertension type: essential hypertension Qualified Codes: I10 - Essential (primary) hypertension (4) Wheezing Status: Acute (5) Do not resuscitate status Status: Chronic (6) Former smoker Status: Chronic Clinical Quality Measures DVT/VTE Risk/Contraindication: Risk Factor Score Per Nursin RFS Level Per Nursing on Admit: 4+=Very High ED MARTINES DO Jan 23, 2019 11:03
[2019-01-23] MEDS: POLYETHYLENE GLYCOL 17 GM (MIRALAX) PACK PO SCH ×2 (11:49→21:23)
[2019-01-23] MEDS: predniSONE 10 MG TAB PO SCH (11:49)
[2019-01-23] MEDS: SENNA W/DOCUSATE (SENOKOT S) TABLET PO SCH ×2 (11:49→21:23)
[2019-01-23] MEDS: LACTULOSE SYRUP 10GM/15ML (ENULOSE) 30ML UDC PO SCH ×2 (11:49→21:23)
--- NOTE | 2019-01-23 14:00 | NUR ---
Pastoral care visit.
[2019-01-23 15:31] VITALS: BP 151/92
[2019-01-23] MEDS: FENOFIBRATE 134 MG (LOFIBRA) CAPSULE PO SCH (17:54)
[2019-01-23] MEDS: MAGNESIUM OXIDE (MAG-OX)400 MG TAB PO SCH (17:55)
[2019-01-23] MEDS: ASPIRIN E.C. 81 MG (ECOTRIN) TAB PO SCH (21:16)
[2019-01-23] MEDS: MONTELUKAST 10 MG (SINGULAIR) TAB PO SCH (21:23)
[2019-01-23] MEDS: ALLOPURINOL 100 MG (ZYLOPRIM) TAB PO SCH (21:24)
[2019-01-24] VITALS: BP 156/91
[2019-01-24] MEDS: RT-ALBUTEROL SULF 2.5 MG/3 ML PRE-MIX VIAL INH PRN ×2 (00:49→08:16)
[2019-01-24] MEDS: RT-ALBUTEROL/IPRATROPIUM 3 ML (DUONEB) VIAL INH SCH ×2 (02:40→05:02)
[2019-01-24 05:02] LABS: HEMOGLOBIN 12.4 G/DL (11.5-16.0); MEAN PLATELET VOLUME 11.2 FL (7.4-10.4); RED CELL DISTRIBUTION WIDTH 14.8 % (10.0-14.5); WHITE BLOOD COUNT 15.5 10^3/uL (4.3-11.0)
[2019-01-24] MEDS: NYSTATIN ORAL SUSP 5 ML UDC PO SCH (05:10)
[2019-01-24 05:36] LABS: CALCIUM 10.2 MG/DL (8.5-10.1); CREATININE SERUM 0.95 MG/DL (0.60-1.30); MAGNESIUM 2.3 MG/DL (1.8-2.4); PHOSPHORUS 2.5 MG/DL (2.3-4.7); POTASSIUM 3.4 MMOL/L (3.6-5.0)
[2019-01-24] MEDS: predniSONE 10 MG TAB PO SCH (06:12)
[2019-01-24] MEDS: ENOXAPARIN 40 MG/0.4 ML (LOVENOX) SYR SC SCH (06:12)
[2019-01-24 08:00] VITALS: BP 138/73
[2019-01-24] MEDS ORDERED: ALBU2.5V4 NEB (10:54)
[2019-01-24] MEDS ORDERED: FLUC100T PO (10:54)
--- NOTE | 2019-01-24 10:56 | Discharge Summary-Hospitalist ---
Diagnosis/Chief Complaint Date of Admission Jan 18, 2019 at 18:00 Date of Discharge Discharge Date: Jan 24, 2019 Discharge Diagnosis (1) Influenza Status: Resolved (2) COPD with acute exacerbation Status: Acute (3) Hypertension Status: Chronic (4) Wheezing Status: Acute (5) Do not resuscitate status Status: Chronic (6) Former smoker Status: Chronic Discharge Summary Discharge Physical Exam Allergies: Coded Allergies: No Known Drug Allergies (Unverified , 03/19/17) Vitals & I&Os Vital Signs Date Time Temp Pulse Resp B/P (MAP) Pulse Ox O2 Delivery O2 Flow Rate FiO2 01/24/19 11:45 87 18 138/73 93 Nasal Cannula 3.00 01/24/19 08:00 97.5 General Appearance: No Apparent Distress, WD/WN, Chronically ill Respiratory: Chest Non Tender, Lungs Clear, Normal Breath Sounds, No Accessory Muscle Use, No Respiratory Distress Cardiovascular: Regular Rate, Rhythm, No Edema, No Gallop, No JVD, No Murmur, Normal Peripheral Pulses Neurologic/Psychiatric: Alert, Oriented x3, No Motor/Sensory Deficits, Normal Mood/Affect Hospital Course Was the Problem List Reviewed?: Yes Hospital Course: Pt had a lengthy hospital course. She was admitted for influenza with respiratory manifestation with hypoxia placed on supportive care along with intense pulmonology consultation and high dose IV steroids. She was placed on Nystatin swish and swallow for thrush and then Diflucan at DC and considering she was doing very well, less wheezing and less hypoxic maintained on oxygen 24/7 at home. She was deemed stable for DC in which she agreed. She will see [facility] for [facility] follow-up and that was scheduled prior to DC. Labs (last 24 hrs) Laboratory Tests 01/24/19 04:45: White Blood Count 15.5H, Red Blood Count 4.47, Hemoglobin 12.4, Hematocrit 39, Mean Corpuscular Volume 87, Mean Corpuscular Hemoglobin 28, Mean Corpuscular Hemoglobin Concent 32, Red Cell Distribution Width 14.8H, Platelet Count 295, Mean Platelet Volume 11.2H, Sodium Level 138, Potassium Level 3.4L, Chloride Level 93L, Carbon Dioxide Level 30, Anion Gap 15H, Blood Urea Nitrogen 37H, Creatinine 0.95, Estimat Glomerular Filtration Rate 58, BUN/Creatinine Ratio 39 , Glucose Level 257H, Calcium Level 10.2H, Phosphorus Level 2.5, Magnesium Level 2.3 Patient resulted labs reviewed. Pending Labs Discussion & Recommendations Discharge Planning: <30 minutes discharge planning Discharge Home Medications: Active Scripts Active Diflucan (Fluconazole) 100 Mg Tablet 100 Mg PO DAILY Albuterol Sulfate 2.5 Mg/3 Ml Vial.neb 2.5 Mg NEB Q4H PRN Reported Famotidine 40 Mg Tablet 40 Mg PO DAILY Prednisone 10 Mg Tab PO UD 12 Days 12 DAY SUPPLY FILLED 01-18-19 Ventolin Hfa (Albuterol Sulfate) 18 Gm Hfa.aer.ad 2 Puff INH Q6H PRN Fluticasone Propionate 16 Gm [place].susp 2 Sprays NS DAILY Zyrtec (Cetirizine HCl) 10 Mg Tablet 10 Mg PO DAILY Women Multivit W-Biotin Gummy (Multivit-Min/Folic Acid/Biotin) 1 Each Tab.chew 1 Tab.chew PO 1800 Magnesium (Magnesium Oxide) 250 Mg Tablet 250 Mg PO 1800 Calcium 600 + Vit D 800 Tab (Calcium Carbonate/Vitamin D3) 1 Each Tablet 1 Tab PO 1800 Aspirin EC (Aspirin) 81 Mg Tablet.dr 81 Mg PO Q48H@2100 Promethazine-Codeine Syrup (Promethazine HCl/Codeine) 118 Ml Syrup 5 Ml PO Q6H PRN 5 DAY SUPPLY FILLED 12-04-18 Montelukast Sodium 10 Mg Tablet 10 Mg PO DAILY Allopurinol 100 Mg Tablet 100 Mg PO HS Alprazolam 0.5 Mg Tablet 0.25-0.5 Mg PO BID PRN Symbicort 160-4.5 Mcg Inhaler (Budesonide/Formoterol Fumarate) 10.2 Gm Hfa.aer.ad 2 Puff INH BID Fenofibrate 160 Mg Tablet 160 Mg PO 1800 Amlodipine Besylate 5 Mg Tablet 5 Mg PO DAILY Hydrochlorothiazide 25 Mg Tablet 25 Mg PO DAILY Instructions to patient/family Please see electronic discharge instructions given to patient. Clinical Quality Measures DVT/VTE Risk/Contraindication: Risk Factor Score Per Nursin RFS Level Per Nursing on Admit: 4+=Very High Problem Qualifiers (1) Hypertension: Hypertension type: essential hypertension Qualified Codes: I10 - Essential ( primary) hypertension ED MARTINES DO Jan 24, 2019 10:55
[2019-01-24] MEDS: LACTULOSE SYRUP 10GM/15ML (ENULOSE) 30ML UDC PO SCH (11:35)
[2019-01-24] MEDS: SENNA W/DOCUSATE (SENOKOT S) TABLET PO SCH (11:36)
[2019-01-24] MEDS: POLYETHYLENE GLYCOL 17 GM (MIRALAX) PACK PO SCH (11:36)
[2019-01-24] MEDS: FAMOTIDINE 20 MG (PEPCID) TABLET PO SCH (11:36)
[2019-01-24] MEDS: amLODIPine 5 MG (NORVASC) TAB PO SCH (11:36)
[2019-01-24] MEDS: HYDROCHLOROTHIAZIDE 25 MG (HCTZ) TAB PO SCH (11:36)
[2019-01-24 11:45] VITALS: BP 138/73
== END 2019-01-24 12:00 | disposition home or self-care (01) | DRG 872 ==
LOC: EDUNIT# 15:22 → ER 15:23 → 4TH 18:00
PROVIDERS: ADMIT Family Medicine; ATTEND Family Medicine
DX: A41.89 Other specified sepsis (principal); B97.89 Other viral agents as the cause of diseases classified elsewhere; J10.1 Influenza due to other identified influenza virus with other respiratory manifestations; R09.02 Hypoxemia; J44.1 Chronic obstructive pulmonary disease with (acute) exacerbation; J30.2 Other seasonal allergic rhinitis; I10 Essential (primary) hypertension; Z66 Do not resuscitate; K59.09 Other constipation; K21.9 Gastro-esophageal reflux disease without esophagitis; K57.90 Diverticulosis of intestine, part unspecified, without perforation or abscess without bleeding; M54.9 Dorsalgia, unspecified; H93.19 Tinnitus, unspecified ear; F41.9 Anxiety disorder, unspecified; F32.9 Major depressive disorder, single episode, unspecified; Z87.891 Personal history of nicotine dependence; Z99.81 Dependence on supplemental oxygen
CPT/HCPCS: 36415; 36600; 71045; 80048; 80053; 82805; 83605; 83735; 83880; 84100; 85007; 85027; 86141; 94640; 94664; 94760; 96374; 96375

== ENCOUNTER 2019-05-22 10:28 | Outpatient (RCR) | payer MEDICARE ==
[~2019-05-22 10:28] MED LIST changes: +ALBU2.5V4 NEB; +FAMO40TA6 PO; +FLUC100T PO; +OSEL75CA15 PO; +PRD10T PO
[2019-06-06 12:40] VITALS: BP 160/60
[2019-06-06 13:45] VITALS: BP 140/70
[2019-06-08 12:50] VITALS: BP 130/60
[2019-06-08 13:47] VITALS: BP 158/50
[2019-06-13 12:55] VITALS: BP 112/70
[2019-06-13 13:58] VITALS: BP 130/74
[2019-06-15 13:00] VITALS: BP 130/70
[2019-06-15 14:03] VITALS: BP 122/60
[2019-06-20 13:00] VITALS: BP 132/60
[2019-06-20 14:09] VITALS: BP 131/60
[2019-06-22 13:00] VITALS: BP 142/60
[2019-06-22 14:13] VITALS: BP 125/60
[2019-06-27 13:00] VITALS: BP 120/64
[2019-06-27 14:34] VITALS: BP 125/70
[2019-06-29 12:40] VITALS: BP 137/70
[2019-06-29 14:00] VITALS: BP 121/70
[2019-07-04 12:55] VITALS: BP 150/60
[2019-07-04 13:50] VITALS: BP 138/72
[2019-07-06 12:50] VITALS: BP 150/70
[2019-07-06 14:00] VITALS: BP 156/76
[2019-07-11 12:52] VITALS: BP 140/60
[2019-07-11 13:00] VITALS: BP 140/60
[2019-07-11 13:50] VITALS: BP 120/60
[2019-07-13 12:50] VITALS: BP 117/60
[2019-07-13 14:10] VITALS: BP 120/60
[2019-07-18 13:00] VITALS: BP 128/60
[2019-07-18 13:40] VITALS: BP 132/60
[2019-07-20 13:00] VITALS: BP 140/60
[2019-07-20 14:04] VITALS: BP 120/60
[2019-07-25 13:00] VITALS: BP 150/60
[2019-07-25 13:57] VITALS: BP 115/55
[2019-07-27 13:00] VITALS: BP 145/60
[2019-07-27 14:30] VITALS: BP 121/60
[2019-08-01 13:00] VITALS: BP 134/50
[2019-08-01 13:56] VITALS: BP 124/80
[2019-08-03 13:00] VITALS: BP 104/50
[2019-08-03 14:15] VITALS: BP 116/60
[2019-08-10 13:00] VITALS: BP 122/50
[2019-08-10 14:30] VITALS: BP 121/65
== END 2019-08-20 | disposition home or self-care (01) ==
LOC: PULM 10:28
PROVIDERS: ATTEND Nurse Practitioner Family
DX: R09.02 Hypoxemia (principal); R06.00 Dyspnea, unspecified; J40 Bronchitis, not specified as acute or chronic; J44.1 Chronic obstructive pulmonary disease with (acute) exacerbation
CPT/HCPCS: 99211

== ENCOUNTER → 2019-07-18 | Outpatient (CLI) | payer MEDICARE ==
--- NOTE | 2019-07-18 13:07 | Diagnostic Imaging Report ---
INDICATION: Routine screening. COMPARISON: No prior mammograms are available for comparison. TECHNIQUE: 2D and 3D bilateral screening mammography was performed with CAD. FINDINGS: Both breasts are heterogeneously dense, limiting the sensitivity of mammography. Benign-appearing calcifications are scattered throughout both breasts. No dominant mass or malignant appearing microcalcifications are seen. The axillae are unremarkable. IMPRESSION: No mammographic features suspicious for malignancy are identified. ACR BI-RADS Category 2: Benign findings. Result letter will be mailed to the patient. Note: At least 10% of breast cancer is not imaged by mammography. Dictated by: Dictated on workstation # [id number]
== END ==
LOC: RAD 08:34
PROVIDERS: ATTEND Nurse Practitioner
DX: Z12.31 Encounter for screening mammogram for malignant neoplasm of breast (principal)
CPT/HCPCS: 77067

== ENCOUNTER 2019-11-10 05:01 | Inpatient (IN) | payer MEDICARE ==
[~2019-11-10] VITALS: Ht 175 cm; Wt 65.0 kg
[2019-11-10] MEDS ORDERED: RT-ALBUTEROL SULF 2.5 MG/3 ML PRE-MIX VIAL INH STA (05:09)
[2019-11-10] MEDS ORDERED: NS IV 1000 ML 1,000 ML IV ONE (05:10)
[2019-11-10] MEDS ORDERED: methylPREDNISolone 40 MG/ML (Solu-MEDROL) VIAL IV ONE (05:15)
[2019-11-10] MEDS ORDERED: RT-ALBUTEROL/IPRATROPIUM 3 ML (DUONEB) VIAL INH ONE (05:15)
[2019-11-10 05:26] LABS: BASOPHILS % (AUTO) 0 % (0-10); EOSINOPHILS % (AUTO) 0 % (0-10); HEMATOCRIT 39 % (35-52); HEMOGLOBIN 12.5 G/DL (11.5-16.0); LYMPHOCYTES # (AUTO) 2.2 X 10^3 (1.0-4.0); LYMPHOCYTES % (AUTO) 12 % (12-44); MEAN CORPUSCULAR HEMOGLOBIN 28 PG (25-34); MEAN CORPUSCULAR HGB CONC 32 G/DL (32-36); MEAN CORPUSCULAR VOLUME 88 FL (80-99); MEAN PLATELET VOLUME 9.8 FL (7.4-10.4); MONOCYTES # (AUTO) 1.7 X 10^3 (0.0-1.0); MONOCYTES % (AUTO) 9 % (0-12); NEUTROPHILS # (AUTO) 15.1 X 10^3 (1.8-7.8); NEUTROPHILS % (AUTO) 79 % (42-75); PLATELET COUNT 361 10^3/uL (130-400); RED CELL DISTRIBUTION WIDTH 14.4 % (10.0-14.5)
[2019-11-10] MEDS ORDERED: LORazepam INJ 2 MG/ML (ATIVAN) VIAL IVP ONE (05:30)
[2019-11-10 05:52] LABS: ALANINE AMINOTRANSFERASE 20 U/L (0-55); ALBUMIN 4.5 GM/DL (3.2-4.5); ALKALINE PHOSPHATASE 45 U/L (40-136); BILIRUBIN,TOTAL 0.4 MG/DL (0.1-1.0); BUN/CREATININE RATIO 31; CALCIUM 9.5 MG/DL (8.5-10.1); CARBON DIOXIDE 26 MMOL/L (21-32); CHLORIDE 98 MMOL/L (98-107); CREATININE SERUM 0.83 MG/DL (0.60-1.30); GFR ESTIMATED > 60; GLUCOSE 126 MG/DL (70-105); POTASSIUM 3.5 MMOL/L (3.6-5.0); SODIUM 140 MMOL/L (135-145); TOTAL PROTEIN 7.1 GM/DL (6.4-8.2)
[2019-11-10 05:55] LABS: BAND NEUTROPHILS 7 %; LYMPHOCYTES % (MANUAL) 12 %; MONOCYTES % (MANUAL) 7 %; NEUTROPHILS % (MANUAL) 74 %
[2019-11-10 05:56] LABS: RBC MORPH NORMAL
--- NOTE | 2019-11-10 06:05 | NUR ---
PT STATES SHE DOES NOT THINK SHE WILL BE ABLE TO TOLERATE BIPAP. VAPOTHERM APPLIED 30L 30%FIO2 BY RT CARMITA. O2 SATS 97-100% RANGE AT THIS TIME.
--- NOTE | 2019-11-10 06:07 | ED Respiratory ---
General Chief Complaint: Respiratory Problems Stated Complaint: COPD Nursing Triage Note: PT ARRIVED TO ED ROOM SEVEN C/O SOB THAT THE PT STATES HASBEEN WORSENING SINCE WEDNESDAY, PT STATES SHE HAS INCREASING NON PRODUCTIVE COUGH AND INCREASED DIFFICULTY GETTING A FULL BREATH. VERBALIZED AN EXTENSIVE HX OF COPD AND SMOKING CIGARETTES. Source: patient Exam Limitations: no limitations History of Present Illness Date Seen by Provider: Nov 10, 2019 Time Seen by Provider: 05:02 Initial Comments This 74-year-old woman with COPD arrives by private vehicle in respiratory distress. She has been ill for a few days and was started on prednisone by Dr. Tripp on November 07. She was seen yesterday in the primary care clinic and was started on Levaquin. She has taken only one dose. Symbicort was added to her regimen of inhaled medication. She has developed respiratory distress despite these interventions. She requests a DO NOT RESUSCITATE status and is also opposed to use of BiPAP. She is afebrile. She is rather anxious. She is noted to be in trigeminy on the monitor. Allergies and Home Medications Allergies Coded Allergies: No Known Drug Allergies (Unverified , 03/19/17) Home Medications Albuterol Sulfate 18 Gm Hfa.aer.ad, 2 PUFF INH Q6H PRN for SHORTNESS OF BREATH, (Reported) Albuterol Sulfate 2.5 Mg/3 Ml Vial.neb, 2.5 MG NEB Q4H PRN for SHORTNESS OF BREATH Prescribed by: ED MARTINES on 01/24/19 1054 Allopurinol 100 Mg Tablet, 100 MG PO HS, (Reported) Alprazolam 0.5 Mg Tablet, 0.25-0.5 MG PO BID PRN for ANXIETY, (Reported) Amlodipine Besylate 5 Mg Tablet, 5 MG PO DAILY, (Reported) Aspirin 81 Mg Tablet.dr, 81 MG PO Q48H@2100, (Reported) Budesonide/Formoterol Fumarate 10.2 Gm Hfa.aer.ad, 2 PUFF INH BID, (Reported) Calcium Carbonate/Vitamin D3 1 Each Tablet, 1 TAB PO 1800, (Reported) Cetirizine HCl 10 Mg Tablet, 10 MG PO DAILY, (Reported) Famotidine 40 Mg Tablet, 40 MG PO DAILY, (Reported) Fenofibrate 160 Mg Tablet, 160 MG PO 1800, (Reported) Fluconazole 100 Mg Tablet, 100 MG PO DAILY Prescribed by: ED MARTINES on 01/24/19 1054 Fluticasone Propionate 16 Gm [place].susp, 2 SPRAYS NS DAILY, (Reported) Hydrochlorothiazide 25 Mg Tablet, 25 MG PO DAILY, (Reported) Magnesium Oxide 250 Mg Tablet, 250 MG PO 1800, (Reported) Montelukast Sodium 10 Mg Tablet, 10 MG PO DAILY, (Reported) Multivit-Min/Folic Acid/Biotin 1 Each Tab.chew, 1 TAB.CHEW PO 1800, (Reported) Prednisone 10 Mg Tab, PO UD, (Reported) 12 DAY SUPPLY FILLED 01-18-19 Promethazine HCl/Codeine 118 Ml Syrup, 5 ML PO Q6H PRN for COUGH, (Reported) 5 DAY SUPPLY FILLED 12-04-18 Patient Home Medication List Home Medication List Reviewed: Yes Review of Systems Review of Systems Constitutional: no symptoms reported EENTM: no symptoms reported Respiratory: see HPI Cardiovascular: see HPI Gastrointestinal: no symptoms reported Genitourinary: no symptoms reported Musculoskeletal: no symptoms reported Skin: no symptoms reported Psychiatric/Neurological: See HPI, Anxiety Hematologic/Lymphatic: No Symptoms Reported Immunological/Allergic: no symptoms reported Past Yhjrdag-Mavxqg-Saqpkg Hx Past Med/Social Hx: Reviewed Nursing Past Med/Soc Hx Patient Social History Alcohol Use: Denies Use Recreational Drug Use: No Smoking Status: Former Smoker Type Used: Cigarettes Former Smoker, Quit: Nov 22, 2000 Recent Foreign Travel: No Contact w/Someone Who Travel: No Recent Infectious Disease Expo: No Recent Hopitalizations: No (NOV-2018) Physical Abuse: No Sexual Abuse: No Mistreated: No Fear: No Immunizations Up To Date Tetanus Booster (TDap): Unknown PED Vaccines UTD: Yes Date of Pneumonia Vaccine: Sep 01, 2017 Date of Influenza Vaccine: Aug 20, 2018 Seasonal Allergies Seasonal Allergies: Yes Past Medical History Surgeries: Yes (hemmoroidectomy, disc surgery) Appendectomy, Hysterectomy, Rectal Respiratory: Yes Pneumonia, Chronic Bronchitis, COPD Currently Using CPAP: No Currently Using BIPAP: No Cardiac: Yes Hypertension Neurological: No : No 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 Sexually Transmitted Disease: No HIV/AIDS: No Genitourinary: No Gastrointestinal: Yes Gastroesophageal Reflux, Diverticulosis Musculoskeletal: Yes (disc surgery) Chronic Back Pain Endocrine: No HEENT: Yes Tinnitis Cancer: No Psychosocial: Yes Anxiety, Depression Integumentary: No Blood Disorders: No Adverse Reaction/Blood Tranf: No Family Medical History FH: cerebral palsy G8 BROTHER Lung cancer 19 MOTHER No Pertinent Family Hx Physical Exam Vital Signs - First Documented 11/10/19 05:02 Temp 36.6 Pulse 115 Resp 28 B/P (MAP) 174/83 (113) Pulse Ox 93 O2 Delivery OxyMask O2 Flow Rate 12.00 Capillary Refill : Less Than 3 Seconds Height: 5'3.00" Weight: 150lbs. 0.8oz. 68.790164gt; 21.00 BMI Method:Stated General Appearance: WD/WN, moderate distress HEENT: PERRL/EOMI, normal ENT inspection Neck: normal inspection Respiratory: respiratory distress, accessory muscle use, wheezing Cardiovascular: no edema, no murmur, other (regularly irregular with trigeminy) Gastrointestinal: non tender, soft Extremities: normal inspection, no pedal edema Neurologic/Psychiatric: maintenance analyst II-XII nml as tested, no motor/sensory deficits, alert, oriented x 3, other (anxious) Skin: normal color, warm/dry Progress/Results/Core Measures Suspected Sepsis Recent Fever Within 48 Hours: No Infection Criteria Present: Suspected New Infection New/Unexplained Altered Menta: No Sepsis Screen: Possible Sepsis Risk SIRS Temperature: Pulse: 115 Respiratory Rate: 28 Laboratory Tests 11/10/19 05:15: White Blood Count 19.0H Blood Pressure 174 /83 Mean: 113 Laboratory Tests 11/10/19 05:15: Creatinine 0.83, Platelet Count 361, Total Bilirubin 0.4 Results/Orders Lab Results Laboratory Tests Test 11/10/19 05:15 Range/Units White Blood Count 19.0 H 4.3-11.0 10^3/uL Red Blood Count 4.48 4.35-5.85 10^6/uL Hemoglobin 12.5 11.5-16.0 G/DL Hematocrit 39 35-52 % Mean Corpuscular Volume 88 80-99 FL Mean Corpuscular Hemoglobin 28 25-34 PG Mean Corpuscular Hemoglobin Concent 32 32-36 G/DL Red Cell Distribution Width 14.4 10.0-14.5 % Platelet Count 361 130-400 10^3/uL Mean Platelet Volume 9.8 7.4-10.4 FL Neutrophils (%) (Auto) 79 H 42-75 % Lymphocytes (%) (Auto) 12 12-44 % Monocytes (%) (Auto) 9 0-12 % Eosinophils (%) (Auto) 0 0-10 % Basophils (%) (Auto) 0 0-10 % Neutrophils # (Auto) 15.1 H 1.8-7.8 X 10^3 Lymphocytes # (Auto) 2.2 1.0-4.0 X 10^3 Monocytes # (Auto) 1.7 H 0.0-1.0 X 10^3 Eosinophils # (Auto) 0.0 0.0-0.3 10^3/uL Basophils # (Auto) 0.0 0.0-0.1 10^3/uL Neutrophils % (Manual) 74 % Lymphocytes % (Manual) 12 % Monocytes % (Manual) 7 % Band Neutrophils 7 % Blood Morphology Comment NORMAL Sodium Level 140 135-145 MMOL/L Potassium Level 3.5 L 3.6-5.0 MMOL/L Chloride Level 98 98-107 MMOL/L Carbon Dioxide Level 26 21-32 MMOL/L Anion Gap 16 H 5-14 MMOL/L Blood Urea Nitrogen 26 H 7-18 MG/DL Creatinine 0.83 0.60-1.30 MG/DL Estimat Glomerular Filtration Rate > 60 BUN/Creatinine Ratio 31 Glucose Level 126 H 70-105 MG/DL Calcium Level 9.5 8.5-10.1 MG/DL Corrected Calcium 9.1 8.5-10.1 MG/DL Total Bilirubin 0.4 0.1-1.0 MG/DL Aspartate Amino Transf (AST/SGOT) 24 5-34 U/L Alanine Aminotransferase (ALT/SGPT) 20 0-55 U/L Alkaline Phosphatase 45 40-136 U/L Troponin I < 0.028 <0.028 NG/ML C-Reactive Protein High Sensitivity 2.01 H 0.00-0.50 MG/DL Total Protein 7.1 6.4-8.2 GM/DL Albumin 4.5 3.2-4.5 GM/DL Micro Results Microbiology 11/10/19 Influenza Types A,B Antigen (LAURA) - Final, Complete My Orders Orders - LOGAN BLAS MD Albuterol Pre-Mix Nebs (Rt) (Proventil (11/10/19 05:09) Albuterol/Ipra Inhalation Soln (Duoneb I (11/10/19 05:15) Svn Small Volume Nebulizer (11/10/19 05:09) Svn Small Volume Nebulizer (11/10/19 05:09) Ed Iv/Invasive Line Start (11/10/19 05:10) Ekg Tracing (11/10/19 05:10) O2 (11/10/19 05:10) Monitor-Rhythm Ecg Trace Only (11/10/19 05:10) Chest 1 View, Ap/Pa Only (11/10/19 05:10) Ed Iv/Invasive Line Start (11/10/19 05:10) Ns Iv 1000 Ml (Sodium Chloride 0.9%) (11/10/19 05:10) Cbc With Automated Diff (11/10/19 05:10) Comprehensive Metabolic Panel (11/10/19 05:10) Hs C Reactive Protein (11/10/19 05:10) Troponin I (11/10/19 05:10) Influenza A And B Antigens (11/10/19 05:10) Methylprednisolone Sod Succ (Solu-Medrol (11/10/19 05:15) Lorazepam Injection (Ativan Injection) (11/10/19 05:30) Manual Differential (11/10/19 05:15) Medications Given in ED Current Medications Medications Dose Ordered Sig/Yara Route Start Time Stop Time Status Last Admin Dose Admin Albuterol/ Ipratropium 3 ml ONCE ONCE INH 11/10/19 05:15 11/10/19 05:16 DC 11/10/19 05:17 3 ML Lorazepam 0.25 mg ONCE ONCE IVP 11/10/19 05:30 11/10/19 05:31 DC 11/10/19 05:28 0.25 MG Methylprednisolone Sodium Succinate 40 mg ONCE ONCE IV 11/10/19 05:15 11/10/19 05:16 DC 11/10/19 05:28 40 MG Sodium Chloride 1,000 ml @ 0 mls/hr Q0M ONCE IV 11/10/19 05:10 11/10/19 05:13 DC 11/10/19 05:27 1,000 MLS/HR Vital Signs/I&O 11/10/19 11/10/19 11/10/19 05:02 05:02 05:17 Temp 36.6 Pulse 115 Resp 28 B/P (MAP) 174/83 (113) Pulse Ox 93 93 88 O2 Delivery OxyMask OxyMask O2 Flow Rate 12.00 12.00 8.00 Capillary Refill : Less Than 3 Seconds Blood Pressure Mean: 113 Progress Note : Progress Note Patient was immediately treated with high flow oxygen and an hour-long nebulizer treatment. Ativan 0.25 mg IV was given to help with anxiety. Patient requests a DO NOT RESUSCITATE status. She also declines BiPAP therapy. Vapotherm is being used as an alternative. She received Solu-Medrol 40 mg IV and 1 L of IV fluid. Case was discussed with Dr. Rodriges. We will continue the Levaquin as prescribed yesterday. Patient will be admitted to the stepdown unit. Trigeminy improved after treatment of the COPD. PVCs were becoming much less frequent. ECG Initial ECG Impression Date: Nov 10, 2019 Initial ECG Impression Time: 05:11 Initial ECG Rate: 97 Initial ECG Rhythm: S.Tach Comment Sinus tachycardia with PVC noted. No ST elevation or depression. No axis deviation. Diagnostic Imaging Diagonstic Imaging: Xray Plain Films/CT/US/NM/MRI: chest Comments Viewed by me and compared with prior. Report not yet available. No acute adverse changes when compared with prior. Departure Communication (Admissions) Time/Spoke to Admitting Phy: 05:50 Dr. Rodriges Impression Primary Impression: COPD with exacerbation Additional Impressions: Do not resuscitate status Anxiety Hypoxia Trigeminy Disposition: ADMITTED INPATIENT Condition: Improved Admissions Decision to Admit Reason: Admit from ER (General) Decision to Admit/Date: Nov 10, 2019 Time/Decision to Admit Time: 05:05 Departure-Patient Inst. Referrals: MARCELLUS WHITESIDE DO (PCP) Primary Care Physician ARMIDA COSME (Family) Primary Care Physician LOGAN BLAS MD Nov 10, 2019 06:07
--- NOTE | 2019-11-10 06:50 | Diagnostic Imaging Report ---
INDICATION: Shortness of breath. Comparison is made with prior examination from 01/23/2019 FINDINGS: The heart size is normal. There are bibasilar infiltrates. There is left pleural effusion. There is no pneumothorax. Mediastinum is unremarkable. IMPRESSION: Bibasilar infiltrates and small left pleural effusion. Dictated by: Dictated on workstation # [id number]
[2019-11-10] MEDS ORDERED: RT-ALBUTEROL SULF 2.5 MG/3 ML PRE-MIX VIAL INH PRN (07:30)
[2019-11-10] MEDS ORDERED: LORazepam INJ 2 MG/ML (ATIVAN) VIAL IV PRN (07:30)
[2019-11-10] MEDS: NS IV 1000 ML 1,000 ML IV SCH ×2 (09:35→23:35)
[2019-11-10] MEDS ORDERED: LEVO750T39 PO (09:47)
[2019-11-10] MEDS ORDERED: VORT20TA PO (09:47)
[2019-11-10] MEDS ORDERED: OMEP40CA36 PO (09:47)
[2019-11-10] MEDS ORDERED: ALLO300T2 PO (09:47)
[2019-11-10 09:57] VITALS: BP 144/64
[2019-11-10] MEDS ORDERED: FLUT1BLS3 IH (10:12)
[2019-11-10] MEDS ORDERED: LORA10TA7 PO (10:20)
[2019-11-10] MEDS ORDERED: ALBU2.5V4 NEB (10:20)
--- NOTE | 2019-11-10 10:20 | NUR ---
WENT OVER THE EXT MED HX WITH THE PATIENT AND THE LIST SHE HAS IN HER PHONE. SHE VERIFIED HOW SHE TAKES EACH MEDICATION. SHE STATES YESTERDAY HER SYMBICORT WAS STOPPED AND SHE WAS GIVEN TRELEGY.
--- NOTE | 2019-11-10 10:49 | NUR ---
Pt is listed as Sabianist. at bedside says they have not been practicing. Welfare Project Manager offered prayer and blessing.
[2019-11-10] MEDS: RT-ALBUTEROL/IPRATROPIUM 3 ML (DUONEB) VIAL IH SCH ×4 (11:04→23:21)
[2019-11-10] MEDS: LEVOFLOXACIN 750 MG TAB (LEVAQUIN) PO SCH (11:24)
[2019-11-10] MEDS: methylPREDNISolone 40 MG/ML (Solu-MEDROL) VIAL IV SCH ×3 (11:27→23:35)
[2019-11-10 12:00] VITALS: BP 130/61
--- NOTE | 2019-11-10 14:52 | History & Physical ---
HPI History of Present Illness: 74 yo female with history of COPD has been having worsened cough and shortness of breath for 5 days, started prednisone outpatient 4 days ago and levofloxacin yesterday but continued to worsen. Feels much better this am with vapotherm in place. Date seen by provider: Nov 10, 2019 Time Seen by Provider: 08:58 Attending Physician Kee Rodriges MD PCP Rosa Subramanian DO Consult Date of Admission Nov 10, 2019 at 05:59 Home Medications Home Medications Reviewed patient Home Medication Reconciliation performed by pharmacy medication reconciliations sugarcane research technician and/or nursing. Patients Allergies have been reviewed. Allergies Coded Allergies: No Known Drug Allergies (Unverified , 03/19/17) AYX-Hrpnjr-Mofiyz Hx Patient Social History Alcohol Use: Denies Use Recreational Drug Use: No Smoking Status: Former Smoker Type Used: Cigarettes Recent Foreign Travel: No Contact w/other who traveled: No Recent Hopitalizations: No (NOV-2018) Recent Infectious Disease Expo: No Immunizations Up To Date Tetanus Booster (TDap): Unknown Date of Pneumonia Vaccine: Sep 01, 2017 Date of Influenza Vaccine: Aug 15, 2019 Past Medical History PMHx: HTN COPD PSurgHx: Appendectomy Hysterectomy Hemorrhoidectomy Family Medical History Family History: FH: cerebral palsy G8 BROTHER Lung cancer 19 MOTHER Review of Systems ([facility]) Constitutional: No fever; malaise EENTM: No nose congestion, No throat pain Respiratory: see HPI Cardiovascular: No chest pain Gastrointestinal: No abdominal pain, No constipation, No diarrhea, No nausea, No vomiting Genitourinary: No dysuria Musculoskeletal: joint pain (chronic) Skin: No rash Reviewed Test Results Reviewed Test Results Lab Laboratory Tests Test 11/10/19 05:15 Range/Units White Blood Count 19.0 H 4.3-11.0 10^3/uL Red Blood Count 4.48 4.35-5.85 10^6/uL Hemoglobin 12.5 11.5-16.0 G/DL Hematocrit 39 35-52 % Mean Corpuscular Volume 88 80-99 FL Mean Corpuscular Hemoglobin 28 25-34 PG Mean Corpuscular Hemoglobin Concent 32 32-36 G/DL Red Cell Distribution Width 14.4 10.0-14.5 % Platelet Count 361 130-400 10^3/uL Mean Platelet Volume 9.8 7.4-10.4 FL Neutrophils (%) (Auto) 79 H 42-75 % Lymphocytes (%) (Auto) 12 12-44 % Monocytes (%) (Auto) 9 0-12 % Eosinophils (%) (Auto) 0 0-10 % Basophils (%) (Auto) 0 0-10 % Neutrophils # (Auto) 15.1 H 1.8-7.8 X 10^3 Lymphocytes # (Auto) 2.2 1.0-4.0 X 10^3 Monocytes # (Auto) 1.7 H 0.0-1.0 X 10^3 Eosinophils # (Auto) 0.0 0.0-0.3 10^3/uL Basophils # (Auto) 0.0 0.0-0.1 10^3/uL Neutrophils % (Manual) 74 % Lymphocytes % (Manual) 12 % Monocytes % (Manual) 7 % Band Neutrophils 7 % Blood Morphology Comment NORMAL Sodium Level 140 135-145 MMOL/L Potassium Level 3.5 L 3.6-5.0 MMOL/L Chloride Level 98 98-107 MMOL/L Carbon Dioxide Level 26 21-32 MMOL/L Anion Gap 16 H 5-14 MMOL/L Blood Urea Nitrogen 26 H 7-18 MG/DL Creatinine 0.83 0.60-1.30 MG/DL Estimat Glomerular Filtration Rate > 60 BUN/Creatinine Ratio 31 Glucose Level 126 H 70-105 MG/DL Calcium Level 9.5 8.5-10.1 MG/DL Corrected Calcium 9.1 8.5-10.1 MG/DL Total Bilirubin 0.4 0.1-1.0 MG/DL Aspartate Amino Transf (AST/SGOT) 24 5-34 U/L Alanine Aminotransferase (ALT/SGPT) 20 0-55 U/L Alkaline Phosphatase 45 40-136 U/L Troponin I < 0.028 <0.028 NG/ML C-Reactive Protein High Sensitivity 2.01 H 0.00-0.50 MG/DL Total Protein 7.1 6.4-8.2 GM/DL Albumin 4.5 3.2-4.5 GM/DL Radiology CXR 11/10: IMPRESSION: Bibasilar infiltrates and small left pleural effusion. Physical Exam-([facility]) Physical Exam Vital Signs VS - Last 72 Hours, by Label 11/10/19 11/10/19 11/10/19 11/10/19 05:02 05:02 05:17 06:08 Temp 36.6 Pulse 115 Resp 28 B/P (MAP) 174/83 (113) Pulse Ox 93 93 88 100 O2 Delivery OxyMask OxyMask Vapotherm O2 Flow Rate 12.00 12.00 8.00 30.00 FiO2 30 11/10/19 11/10/19 11/10/19 11/10/19 06:53 07:05 07:07 09:44 Temp 36.6 Pulse 92 96 Resp 17 B/P (MAP) 144/64 (113) Pulse Ox 92 94 92 O2 Delivery Vapotherm Vapotherm Vapotherm O2 Flow Rate 30.00 30.00 FiO2 30 30 11/10/19 11/10/19 11/10/19 11/10/19 09:57 11:05 12:00 12:00 Temp 36.6 37.5 Pulse 96 79 Resp 17 14 B/P (MAP) 144/64 130/61 (84) Pulse Ox 94 93 93 O2 Delivery Vapotherm Vapotherm Vapotherm Vapotherm O2 Flow Rate 30.00 30.00 30.00 FiO2 30 30 11/10/19 12:43 Pulse 87 Capillary Refill : Less Than 3 Seconds General Appearance: WD/WN, no apparent distress Respiratory: rhonchi, wheezing Cardiovascular: regular rate, rhythm, no murmur Gastrointestinal: normal bowel sounds, non tender, soft Extremities: no pedal edema Neurologic/Psychiatric: alert, normal mood/affect Skin: normal color, warm/dry Assessment/Plan Assessment/Plan Admission Status: Inpatient Order (span 2 midnights) Reason for Inpatient Admission: Severe COPD exacerbation requiring significant respiratory support (1) COPD with exacerbation Status: Acute Assessment & Plan: Flu negative. Continue levofloxacin, started on IV solumedrol in ER. RT protocol. Vapotherm. Does not want intubation, prefers to avoid BIPAP if possible. (2) Hypertension Status: Chronic Assessment & Plan: Resume home medications Qualifiers: Qualified Codes: I10 - Essential (primary) hypertension (3) Anxiety Status: Acute Assessment & Plan: Continue home alprazolam and Trintellix (4) DVT prophylaxis Status: Acute Assessment & Plan: Enoxaparin Clinical Quality Measures DVT/VTE Risk/Contraindication: Risk Factor Score Per Nursin RFS Level Per Nursing on Admit: 4+=Very High MARY,KEE N MD Nov 10, 2019 14:52
[2019-11-10] MEDS ORDERED: ASPIRIN E.C. 81 MG (ECOTRIN) TAB PO ONE (15:08)
[2019-11-10] MEDS: ENOXAPARIN 40 MG/0.4 ML (LOVENOX) SYR SQ SCH (15:16)
[2019-11-10 16:00] VITALS: BP 130/61
[2019-11-10 20:00] VITALS: BP 138/72
[2019-11-10 23:38] VITALS: BP 150/88
[2019-11-11] MEDS: ALPRAZolam 0.5 MG (XANAX) TAB PO PRN ×2 (02:27→10:42)
--- NOTE | 2019-11-11 02:45 | NUR ---
CALLED DR. KATZ AND INFORMED HER THAT PATIENT WAS C/O HEADACHE. RECEIVED ORDER FOR TYLENOL 650 MG PO. SEE EMAR FOR DETAILS.
[2019-11-11] MEDS: ACETAMINOPHEN 325 MG TABLET PO PRN ×2 (02:51→10:42)
[2019-11-11 03:07] LABS: HEMOGLOBIN 11.5 G/DL (11.5-16.0); MEAN PLATELET VOLUME 10.9 FL (7.4-10.4); RED CELL DISTRIBUTION WIDTH 14.4 % (10.0-14.5); WHITE BLOOD COUNT 15.6 10^3/uL (4.3-11.0)
[2019-11-11 03:28] LABS: BUN/CREATININE RATIO 21; CALCIUM 9.4 MG/DL (8.5-10.1); CARBON DIOXIDE 24 MMOL/L (21-32); CHLORIDE 104 MMOL/L (98-107); GFR ESTIMATED > 60; GLUCOSE 164 MG/DL (70-105); POTASSIUM 3.9 MMOL/L (3.6-5.0); SODIUM 141 MMOL/L (135-145)
[2019-11-11] MEDS: RT-ALBUTEROL/IPRATROPIUM 3 ML (DUONEB) VIAL IH SCH ×6 (03:28→22:58)
[2019-11-11 04:00] VITALS: BP 137/77
[2019-11-11] MEDS: methylPREDNISolone 40 MG/ML (Solu-MEDROL) VIAL IV SCH ×3 (06:38→17:03)
[2019-11-11 08:03] VITALS: BP 146/75
[2019-11-11] MEDS: amLODIPine 5 MG (NORVASC) TAB PO SCH (08:59)
[2019-11-11] MEDS: HYDROCHLOROTHIAZIDE 25 MG (HCTZ) TAB PO SCH (08:59)
[2019-11-11] MEDS: MONTELUKAST 10 MG (SINGULAIR) TAB PO SCH (08:59)
[2019-11-11] MEDS: LORATADINE (CLARITIN) 10 MG TAB PO SCH (09:00)
[2019-11-11] MEDS: PANTOPRAZOLE 40 MG (PROTONIX) TAB PO SCH (09:00)
[2019-11-11] MEDS: ALLOPURINOL 300 MG (ZYLOPRIM) TAB PO SCH (09:00)
[2019-11-11] MEDS ORDERED: NON-FORMULARY MEDICATION 1 EA EA (Omeprazole 40 MG) PO SCH (09:00)
[2019-11-11] MEDS: ASPIRIN E.C. 81 MG (ECOTRIN) TAB PO SCH (09:00)
[2019-11-11] MEDS: LEVOFLOXACIN 750 MG TAB (LEVAQUIN) PO SCH (10:42)
--- NOTE | 2019-11-11 10:49 | Progress Note - Hospitalist ---
Subjective HPI/CC On Admission Date Seen by Provider: Nov 11, 2019 Time Seen by Provider: 09:15 Subjective/Events-last exam Patient is feeling much better today. She is sitting up talking. We reviewed her medications. She does note that she has a tendency to get oral thrush that is very recalcitrant and request starting Diflucan. Review of Systems HEENT: Other (thrush) Pulmonary: Dyspnea Objective Exam Vital Signs Vital Signs Date Time Temp Pulse Resp B/P (MAP) Pulse Ox O2 Delivery O2 Flow Rate FiO2 11/11/19 16:00 36.8 90 13 163/72 (102) 93 Vapotherm 20.00 28.00 11/11/19 15:41 28 Capillary Refill : Less Than 3 Seconds General Appearance: Chronically ill HEENT: Normal ENT Inspection Neck: Full Range of Motion, Normal Inspection, Non Tender, Supple Respiratory: Crackles, Expiration, Wheezing Cardiovascular: No Edema, Normal Peripheral Pulses, Tachycardia Gastrointestinal: Non Tender, Soft Back: Normal Inspection, No CVA Tenderness Extremity: Normal Capillary Refill, Normal Inspection, Normal Range of Motion, Non Tender, No Pedal Edema Results/Procedures Lab Laboratory Tests 11/11/19 02:13 Patient resulted labs reviewed. Assessment/Plan Assessment and Plan Assess & Plan/Chief Complaint Exacerbation of COPD-on aggressive steroids and antibiotics and pulmonary toilet Bi- basilar infiltrates consistent with pneumonia with an elevated white count today number 2 Levaquin Hypertension Hx of thrush - will start diflucan Diagnosis/Problems Diagnosis/Problems (1) RESPIRATORY FAILURE, UNSP, UNSP W HYPOXIA OR HYPERCAPNIA Status: Acute (2) COPD with exacerbation Status: Acute (3) Wheezing Status: Acute (4) Hypertension Status: Chronic Qualifiers: Hypertension type: essential hypertension Qualified Codes: I10 - Essential (primary) hypertension Clinical Quality Measures DVT/VTE Risk/Contraindication: Risk Factor Score Per Nursin RFS Level Per Nursing on Admit: 4+=Very High BELLA KATZ MD Nov 11, 2019 10:49
[2019-11-11] MEDS: NS IV 1000 ML 1,000 ML IV SCH (11:43)
[2019-11-11 12:00] VITALS: BP 152/77
[2019-11-11] MEDS: ENOXAPARIN 40 MG/0.4 ML (LOVENOX) SYR SQ SCH (15:31)
[2019-11-11 16:00] VITALS: BP 163/72
[2019-11-11] MEDS: fluCOnazole (DIFLUCAN) 100 MG TAB PO SCH (17:03)
[2019-11-11 20:00] VITALS: BP 169/88
[2019-11-12] VITALS: BP 156/73
[2019-11-12] MEDS: ACETAMINOPHEN 325 MG TABLET PO PRN ×2 (00:10→20:34)
[2019-11-12] MEDS: methylPREDNISolone 40 MG/ML (Solu-MEDROL) VIAL IV SCH ×5 (00:10→23:27)
[2019-11-12] MEDS: NS IV 1000 ML 1,000 ML IV SCH (00:10)
[2019-11-12] MEDS: ALPRAZolam 0.5 MG (XANAX) TAB PO PRN ×2 (00:10→20:34)
[2019-11-12] MEDS: RT-ALBUTEROL/IPRATROPIUM 3 ML (DUONEB) VIAL IH SCH ×6 (02:55→22:11)
[2019-11-12] MEDS: Fluticasone/Umeclidin/Vilanter (Trelegy Ellipta 100-62.5 IH SCH ×2 (02:57→22:03)
[2019-11-12 04:00] VITALS: BP 145/65
[2019-11-12 08:13] VITALS: BP 137/75
[2019-11-12] MEDS: ALLOPURINOL 300 MG (ZYLOPRIM) TAB PO SCH (08:23)
[2019-11-12] MEDS: amLODIPine 5 MG (NORVASC) TAB PO SCH (08:23)
[2019-11-12] MEDS: LORATADINE (CLARITIN) 10 MG TAB PO SCH (08:23)
[2019-11-12] MEDS: MONTELUKAST 10 MG (SINGULAIR) TAB PO SCH (08:23)
[2019-11-12] MEDS: PANTOPRAZOLE 40 MG (PROTONIX) TAB PO SCH (08:23)
[2019-11-12] MEDS: HYDROCHLOROTHIAZIDE 25 MG (HCTZ) TAB PO SCH (08:25)
--- NOTE | 2019-11-12 10:09 | Progress Note - Hospitalist ---
Subjective HPI/CC On Admission Date Seen by Provider: Nov 12, 2019 Time Seen by Provider: 09:15 Subjective/Events-last exam Patient is feeling much better. She does note some edema. Labs and chest x-ray was not done this morning and she will need. She is on 20 percent Vapotherm. Review of Systems Pulmonary: Dyspnea Objective Exam Vital Signs Vital Signs Date Time Temp Pulse Resp B/P (MAP) Pulse Ox O2 Delivery O2 Flow Rate FiO2 11/12/19 09:07 Vapotherm 20.00 28 11/12/19 08:31 92 11/12/19 08:13 77 20 137/75 (95) 11/12/19 07:05 36.6 Capillary Refill : Less Than 3 Seconds General Appearance: Chronically ill HEENT: Normal ENT Inspection Neck: Full Range of Motion, Normal Inspection, Non Tender, Supple Respiratory: Chest Non Tender, No Accessory Muscle Use, No Respiratory Distress, Expiration, Wheezing (improved) Cardiovascular: Regular Rate, Rhythm, No Gallop, Normal Peripheral Pulses, Extra Beats (PVCs noted) Gastrointestinal: Non Tender, Soft Back: Normal Inspection, No CVA Tenderness, No Vertebral Tenderness Extremity: Normal Inspection, No Calf Tenderness, Swelling Neurologic/Psychiatric: Alert, Oriented x3, No Motor/Sensory Deficits, Normal Mood/Affect Skin: Normal Color, Warm/Dry Results/Procedures Lab Patient resulted labs reviewed. Assessment/Plan Assessment and Plan Assess & Plan/Chief Complaint Exacerbation of COPD-on aggressive steroids and antibiotics and pulmonary toilet Bi- basilar infiltrates consistent with pneumonia with an elevated white count today number 3 Levaquin-we will get a PA and lateral chest x-ray today Hypertension Hx of thrush - will start diflucan Increased edema we'll give 1 dose of Lasix. Will Hep-Lock IV fluids and transferred to the floor Diagnosis/Problems Diagnosis/Problems (1) RESPIRATORY FAILURE, UNSP, UNSP W HYPOXIA OR HYPERCAPNIA Status: Acute (2) COPD with exacerbation Status: Acute (3) Wheezing Status: Acute (4) Hypertension Status: Chronic Qualifiers: Hypertension type: essential hypertension Qualified Codes: I10 - Essential (primary) hypertension Clinical Quality Measures DVT/VTE Risk/Contraindication: Risk Factor Score Per Nursin RFS Level Per Nursing on Admit: 4+=Very High BELLA KATZ MD Nov 12, 2019 10:09
[2019-11-12] MEDS ORDERED: FUROSEMIDE 40 MG/4 ML INJ (LASIX) IVP ONE (10:15)
[2019-11-12 10:31] LABS: BASOPHILS % (AUTO) 0 % (0-10); EOSINOPHILS % (AUTO) 0 % (0-10); HEMATOCRIT 37 % (35-52); HEMOGLOBIN 11.7 G/DL (11.5-16.0); LYMPHOCYTES # (AUTO) 0.9 X 10^3 (1.0-4.0); LYMPHOCYTES % (AUTO) 5 % (12-44); MEAN CORPUSCULAR HEMOGLOBIN 28 PG (25-34); MEAN CORPUSCULAR HGB CONC 32 G/DL (32-36); MEAN CORPUSCULAR VOLUME 88 FL (80-99); MEAN PLATELET VOLUME 10.2 FL (7.4-10.4); MONOCYTES # (AUTO) 0.7 X 10^3 (0.0-1.0); MONOCYTES % (AUTO) 4 % (0-12); NEUTROPHILS # (AUTO) 15.1 X 10^3 (1.8-7.8); NEUTROPHILS % (AUTO) 91 % (42-75); PLATELET COUNT 347 10^3/uL (130-400); RED CELL DISTRIBUTION WIDTH 14.3 % (10.0-14.5); WHITE BLOOD COUNT 16.7 10^3/uL (4.3-11.0)
[2019-11-12 10:48] LABS: ALANINE AMINOTRANSFERASE 19 U/L (0-55); ALBUMIN 3.9 GM/DL (3.2-4.5); ALKALINE PHOSPHATASE 37 U/L (40-136); BILIRUBIN,TOTAL 0.2 MG/DL (0.1-1.0); BUN/CREATININE RATIO 26; CARBON DIOXIDE 23 MMOL/L (21-32); CHLORIDE 103 MMOL/L (98-107); CREATININE SERUM 0.84 MG/DL (0.60-1.30); GFR ESTIMATED > 60; GLUCOSE 303 MG/DL (70-105); POTASSIUM 3.5 MMOL/L (3.6-5.0); SODIUM 140 MMOL/L (135-145); TOTAL PROTEIN 6.2 GM/DL (6.4-8.2)
--- NOTE | 2019-11-12 10:48 | Diagnostic Imaging Report ---
INDICATION: COPD. Shortness of breath. Comparison with 11/10/2019. FINDINGS: Obstructive lung disease is present. There has been increased air trapping since previous exam with flattening of the diaphragm. There is chronic blunting of the left costophrenic angle. Right costophrenic angle is sharp. Heart is mildly enlarged. There is moderate sized fixed hiatal hernia again noted. The upper lungs are clear. No evidence of pulmonary edema. IMPRESSION: Obstructive interstitial lung disease with increased air trapping developing since previous exam. There are no acute infiltrates. Dictated by: Dictated on workstation # [id number]
[2019-11-12 11:26] VITALS: BP 167/87
[2019-11-12] MEDS: LEVOFLOXACIN 750 MG TAB (LEVAQUIN) PO SCH (11:50)
--- NOTE | 2019-11-12 11:55 | NUR ---
PT TRANSFERRED TO ROOM 423 VIA WC W/ STAFF/PERSONAL BELONGINGS. THIS RN TO CONT TO CARE FOR PT.
[2019-11-12] MEDS: ENOXAPARIN 40 MG/0.4 ML (LOVENOX) SYR SQ SCH (14:10)
[2019-11-12 16:20] VITALS: BP 133/61
--- NOTE | 2019-11-12 16:35 | NUR ---
REPORT GIVEN TO SHARON LOPEZ WHO ASSUMES CARE OF PT.
[2019-11-12] MEDS: fluCOnazole (DIFLUCAN) 100 MG TAB PO SCH (17:27)
[2019-11-12 20:06] VITALS: BP 129/61
[2019-11-13] VITALS (7 sets, daily range): BP systolic 118–171; BP diastolic 71–82
[2019-11-13] MEDS: RT-ALBUTEROL/IPRATROPIUM 3 ML (DUONEB) VIAL IH SCH ×6 (01:34→22:41)
[2019-11-13] MEDS: methylPREDNISolone 40 MG/ML (Solu-MEDROL) VIAL IV SCH (06:10)
[2019-11-13] MEDS: Fluticasone/Umeclidin/Vilanter (Trelegy Ellipta 100-62.5 IH SCH (07:24)
[2019-11-13] MEDS: ASPIRIN E.C. 81 MG (ECOTRIN) TAB PO SCH (08:38)
[2019-11-13] MEDS: PANTOPRAZOLE 40 MG (PROTONIX) TAB PO SCH (08:38)
[2019-11-13] MEDS: LORATADINE (CLARITIN) 10 MG TAB PO SCH (08:38)
[2019-11-13] MEDS: amLODIPine 5 MG (NORVASC) TAB PO SCH (08:38)
[2019-11-13] MEDS: ALLOPURINOL 300 MG (ZYLOPRIM) TAB PO SCH (08:38)
[2019-11-13] MEDS: HYDROCHLOROTHIAZIDE 25 MG (HCTZ) TAB PO SCH (08:38)
[2019-11-13] MEDS: MONTELUKAST 10 MG (SINGULAIR) TAB PO SCH (08:38)
--- NOTE | 2019-11-13 10:50 | Progress Note - Hospitalist ---
Subjective HPI/CC On Admission Date Seen by Provider: Nov 13, 2019 Time Seen by Provider: 09:45 Subjective/Events-last exam Increase dyspnea noted. Steroids changed to PO form. Right lower lobe seems to be diminished but chest X-ray shows no evidence of any pneumonia. Will initiate an ABG check and will monitor Pt closely. Will add Pulmicort to her regimen. Review of Systems Pulmonary: Dyspnea, Cough Objective Exam Vital Signs Vital Signs Date Time Temp Pulse Resp B/P (MAP) Pulse Ox O2 Delivery O2 Flow Rate FiO2 11/13/19 20:16 36.2 102 24 129/73 (91) 96 Nasal Cannula 4.00 11/13/19 11:40 32 Capillary Refill : Less Than 3 Seconds General Appearance: No Apparent Distress, WD/WN, Chronically ill, Thin Respiratory: Chest Non Tender, No Respiratory Distress, Accessory Muscle Use, Decreased Breath Sounds Cardiovascular: Regular Rate, Rhythm, No Edema, No Gallop, No JVD, No Murmur, Normal Peripheral Pulses Neurologic/Psychiatric: Alert, Oriented x3, No Motor/Sensory Deficits, Normal Mood/Affect Results/Procedures Lab Patient resulted labs reviewed. Assessment/Plan Assessment and Plan Assess & Plan/Chief Complaint Assessment: Acute exacerbation of COPD Anxiety Plan: Pulmicort Nebs O2 with vapotherm Diagnosis/Problems Diagnosis/Problems (1) COPD with exacerbation Status: Acute (2) Do not resuscitate status Status: Chronic (3) Wheezing Status: Acute (4) Hypertension Status: Chronic Qualifiers: Hypertension type: essential hypertension Qualified Codes: I10 - Essential (primary) hypertension (5) DVT prophylaxis Status: Acute (6) Former smoker Status: Chronic (7) Anxiety Status: Acute (8) Hypoxia Status: Acute Clinical Quality Measures DVT/VTE Risk/Contraindication: Risk Factor Score Per Nursin RFS Level Per Nursing on Admit: 4+=Very High ED MARTNIES DO Nov 13, 2019 10:50
[2019-11-13 11:36] LABS: ABG BASE EXCESS 6.7 MMOL/L (-2.5-2.5); ABG OXYGEN SATURATION 95 % (94-100); ABG PCO2 40 MMHG (35-45); ABG PH 7.49 (7.37-7.43); ABG PO2 68 MMHG (79-93); ABG TCO2 31.6 MMOL/L (21.0-31.0)
[2019-11-13] MEDS: RT-BUDESONIDE NEBS 0.5 MG/2ML (PULMICORT) AMP INH SCH ×2 (11:37→19:23)
[2019-11-13 11:38] LABS: ALLENS TEST YES-POS; INSPIRED O2 20 L; PATIENT TEMP 36.6; VENTILATOR NO
[2019-11-13] MEDS ORDERED: methylPREDNISolone 40 MG/ML (Solu-MEDROL) VIAL ONE (11:52)
[2019-11-13] MEDS: LEVOFLOXACIN 750 MG TAB (LEVAQUIN) PO SCH (11:54)
[2019-11-13] MEDS ORDERED: methylPREDNISolone 40 MG/ML (Solu-MEDROL) VIAL IV ONE (12:00)
--- NOTE | 2019-11-13 12:56 | NUR ---
"RD ASSESSMENT PMHx: HTN; COPD PT INTERACTION: Pt was awake and pleasant during nutrition assessment. Pt states current appetite is pretty good and was the same prior to admit. Note avg PO intake of 58% x2d, per chart review. Pt states following a regular diet, but watches her salt intake at home. Pt states no issues with chewing/swallowing food at this time. Pt states no recent issues with n/v at this time. Pt states some issues with constipation. Note last BM was 11/13 and pt not currently on bowel regimen, per chart review. Pt states no recent wt changes. Note recent 6# wt loss x9mon, per chart review. ABNORMAL NUTRITION-RELATED LAB VALUES LOW: K 3.5; alkphos 37; Pro 6.2 HIGH: BUN 22; glu 303 Est. kcal needs: 4263-2211 kcal | 25-30 kcal/kg Est. Pro needs: 52-65 g Pro | 0.8-1.0 g Pro/kg PES STATEMENT: Inadequate oral intake (NI-2.1) related to loss of appetite | constipation as evidenced by pt interview | avg PO intake 58% x2d INTERVENTION: Continue with current diet order of Regular diet. Add Glucerna (vary) to meals BID, for increased kcal intake. Provides 350 kcal and 13 g Pro per serving. Will continue to follow and reassess as pt needs and status change. MONITOR/EVALUATE: PO Intake; Plan of Care; Hydration Status; Weight Status; Lab Values Tash Rhodes, MS, RD, LD"
[2019-11-13] MEDS: ENOXAPARIN 40 MG/0.4 ML (LOVENOX) SYR SQ SCH (15:19)
[2019-11-13] MEDS: fluCOnazole (DIFLUCAN) 100 MG TAB PO SCH (18:42)
[2019-11-13] MEDS: ALPRAZolam 0.5 MG (XANAX) TAB PO PRN (22:45)
[2019-11-13] MEDS: ACETAMINOPHEN 325 MG TABLET PO PRN (22:46)
[2019-11-14] MEDS: RT-ALBUTEROL/IPRATROPIUM 3 ML (DUONEB) VIAL IH SCH ×6 (03:10→21:38)
[2019-11-14 03:56] VITALS: BP 129/64
[2019-11-14 05:23] LABS: BASOPHILS % (AUTO) 0 % (0-10); EOSINOPHILS % (AUTO) 0 % (0-10); HEMATOCRIT 36 % (35-52); HEMOGLOBIN 11.6 G/DL (11.5-16.0); LYMPHOCYTES # (AUTO) 1.5 X 10^3 (1.0-4.0); LYMPHOCYTES % (AUTO) 11 % (12-44); MEAN CORPUSCULAR HEMOGLOBIN 28 PG (25-34); MEAN CORPUSCULAR HGB CONC 32 G/DL (32-36); MEAN CORPUSCULAR VOLUME 88 FL (80-99); MEAN PLATELET VOLUME 10.6 FL (7.4-10.4); MONOCYTES # (AUTO) 1.5 X 10^3 (0.0-1.0); MONOCYTES % (AUTO) 11 % (0-12); NEUTROPHILS # (AUTO) 11.1 X 10^3 (1.8-7.8); NEUTROPHILS % (AUTO) 79 % (42-75); PLATELET COUNT 366 10^3/uL (130-400); RED CELL DISTRIBUTION WIDTH 13.8 % (10.0-14.5); WHITE BLOOD COUNT 14.1 10^3/uL (4.3-11.0)
[2019-11-14 05:44] LABS: ALANINE AMINOTRANSFERASE 21 U/L (0-55); ALBUMIN 3.8 GM/DL (3.2-4.5); ALKALINE PHOSPHATASE 33 U/L (40-136); BILIRUBIN,TOTAL 0.2 MG/DL (0.1-1.0); BUN/CREATININE RATIO 37; CALCIUM 9.6 MG/DL (8.5-10.1); CARBON DIOXIDE 30 MMOL/L (21-32); CHLORIDE 96 MMOL/L (98-107); CREATININE SERUM 0.83 MG/DL (0.60-1.30); GFR ESTIMATED > 60; GLUCOSE 260 MG/DL (70-105); POTASSIUM 3.6 MMOL/L (3.6-5.0); SODIUM 140 MMOL/L (135-145); TOTAL PROTEIN 5.8 GM/DL (6.4-8.2)
[2019-11-14] MEDS: predniSONE 20 MG TAB PO SCH (06:12)
[2019-11-14] MEDS: Fluticasone/Umeclidin/Vilanter (Trelegy Ellipta 100-62.5 IH SCH (06:56)
[2019-11-14] MEDS: RT-BUDESONIDE NEBS 0.5 MG/2ML (PULMICORT) AMP INH SCH ×2 (06:56→18:42)
[2019-11-14 08:00] VITALS: BP 152/83
[2019-11-14] MEDS: MONTELUKAST 10 MG (SINGULAIR) TAB PO SCH (08:52)
[2019-11-14] MEDS: ALLOPURINOL 300 MG (ZYLOPRIM) TAB PO SCH (08:52)
[2019-11-14] MEDS: LORATADINE (CLARITIN) 10 MG TAB PO SCH (08:52)
[2019-11-14] MEDS: amLODIPine 5 MG (NORVASC) TAB PO SCH (08:52)
[2019-11-14] MEDS: HYDROCHLOROTHIAZIDE 25 MG (HCTZ) TAB PO SCH (08:52)
[2019-11-14] MEDS: PANTOPRAZOLE 40 MG (PROTONIX) TAB PO SCH (08:52)
--- NOTE | 2019-11-14 09:21 | Diagnostic Imaging Report ---
INDICATION: Wheezing and cough. TIME OF EXAMINATION: 8:49 AM. COMPARISON: 11/12/2019. FINDINGS: The heart size is stable. The large hiatal hernia is again noted. The lungs are clear. The pulmonary vascularity is normal. No infiltrate, effusion, or pneumothorax is detected. IMPRESSION: Large hiatal hernia. No acute cardiopulmonary process is detected. Dictated by: Dictated on workstation # [id number]
[2019-11-14] MEDS ORDERED: POLYETHYLENE GLYCOL 17 GM (MIRALAX) PACK PO NR (10:59)
[2019-11-14] MEDS ORDERED: SENNA W/DOCUSATE (SENOKOT S) TABLET PO NR (11:00)
[2019-11-14] MEDS ORDERED: methylPREDNISolone 40 MG/ML (Solu-MEDROL) VIAL IV NR (11:00)
[2019-11-14] MEDS ORDERED: CHLORASEPTIC SPRAY 177 ML LIQUID MC PRN (11:00)
--- NOTE | 2019-11-14 11:06 | Progress Note - Hospitalist ---
Subjective HPI/CC On Admission Date Seen by Provider: Nov 14, 2019 Time Seen by Provider: 10:00 Subjective/Events-last exam Patient is much improved Off Vapotherm now We'll send meds in to [facility] Reclog in order to brick picker today so she can go home tomorrow Needs home O2 evaluation for daytime continuous use Maintain on 3 L of oxygen currently MiraLAX and senna will be given for constipation Has a sore throat will provide Chloraseptic spray when necessary Gave 1 dose of Solu-Medrol 90 MG IV 1 Conferred with RN Reviewed meds and labs Review of Systems Pulmonary: Dyspnea, Cough Objective Exam Vital Signs Vital Signs Date Time Temp Pulse Resp B/P (MAP) Pulse Ox O2 Delivery O2 Flow Rate FiO2 11/14/19 12:00 36.3 76 20 136/96 (109) 98 High Flow N/C 3.00 11/13/19 11:40 32 Capillary Refill : Less Than 3 Seconds General Appearance: No Apparent Distress, WD/WN, Chronically ill, Thin Respiratory: Chest Non Tender, Lungs Clear, Normal Breath Sounds, No Accessory Muscle Use, No Respiratory Distress, Decreased Breath Sounds, Wheezing (subtle) Cardiovascular: Regular Rate, Rhythm, No Edema, No Gallop, No JVD, No Murmur, Normal Peripheral Pulses Neurologic/Psychiatric: Alert, Oriented x3, No Motor/Sensory Deficits, Normal Mood/Affect Results/Procedures Lab Laboratory Tests 11/14/19 04:45 11/14/19 04:48 Patient resulted labs reviewed. Assessment/Plan Assessment and Plan Assess & Plan/Chief Complaint Assessment: Acute exacerbation of COPD Anxiety Plan: Pulmicort Nebs O2 home O2 eval for continuous during the daytime Discharge tomorrow Diagnosis/Problems Diagnosis/Problems (1) COPD with exacerbation Status: Acute (2) Do not resuscitate status Status: Chronic (3) Wheezing Status: Acute (4) Hypertension Status: Chronic Qualifiers: Hypertension type: essential hypertension Qualified Codes: I10 - Essential (primary) hypertension (5) DVT prophylaxis Status: Acute (6) Former smoker Status: Chronic (7) Anxiety Status: Acute (8) Hypoxia Status: Acute Clinical Quality Measures DVT/VTE Risk/Contraindication: Risk Factor Score Per Nursin RFS Level Per Nursing on Admit: 4+=Very High ED MARTINES DO Nov 14, 2019 11:06
[2019-11-14] MEDS ORDERED: FLUC100T6 PO (11:09)
[2019-11-14] MEDS ORDERED: PRED10TA22 PO (11:09)
[2019-11-14] MEDS ORDERED: ALBU2.5V4 NEB (11:09)
[2019-11-14] MEDS: LEVOFLOXACIN 750 MG TAB (LEVAQUIN) PO SCH (11:35)
[2019-11-14 12:00] VITALS: BP 136/96
[2019-11-14] MEDS: ENOXAPARIN 40 MG/0.4 ML (LOVENOX) SYR SQ SCH (15:05)
--- NOTE | 2019-11-14 15:24 | NUR ---
SP02 DROPPED TO 86% AFTER BEING ON ROOM AIR FOR 15MINS PT PLACED ON 2LPM AND AFTER 3 MINS SP02 ISAURA TO 94% . NO DISTRESS WAS NOTED. PT QUALIFIES FOR 2LPM NC AT HOME Addendum: 11/14/19 at 1524 by HENRI CAVAZOS RT Amended: Links added.
[2019-11-14 16:35] VITALS: BP 124/72
[2019-11-14] MEDS: fluCOnazole (DIFLUCAN) 100 MG TAB PO SCH (17:23)
[2019-11-14] MEDS: SENNA W/DOCUSATE (SENOKOT S) TABLET PO SCH (21:08)
[2019-11-14] MEDS: POLYETHYLENE GLYCOL 17 GM (MIRALAX) PACK PO SCH (21:08)
[2019-11-14] MEDS: ALPRAZolam 0.5 MG (XANAX) TAB PO PRN (23:09)
[2019-11-14] MEDS: ACETAMINOPHEN 325 MG TABLET PO PRN (23:10)
[2019-11-15] VITALS: BP 154/74
[2019-11-15] MEDS: RT-ALBUTEROL/IPRATROPIUM 3 ML (DUONEB) VIAL IH SCH ×2 (02:16→08:11)
[2019-11-15] MEDS: predniSONE 20 MG TAB PO SCH (06:15)
[2019-11-15 08:00] VITALS: BP 127/72
[2019-11-15] MEDS: HYDROCHLOROTHIAZIDE 25 MG (HCTZ) TAB PO SCH (08:06)
[2019-11-15] MEDS: LORATADINE (CLARITIN) 10 MG TAB PO SCH (08:06)
[2019-11-15] MEDS: MONTELUKAST 10 MG (SINGULAIR) TAB PO SCH (08:06)
[2019-11-15] MEDS: SENNA W/DOCUSATE (SENOKOT S) TABLET PO SCH (08:06)
[2019-11-15] MEDS: POLYETHYLENE GLYCOL 17 GM (MIRALAX) PACK PO SCH (08:06)
[2019-11-15] MEDS: PANTOPRAZOLE 40 MG (PROTONIX) TAB PO SCH (08:07)
[2019-11-15] MEDS: ALLOPURINOL 300 MG (ZYLOPRIM) TAB PO SCH (08:07)
[2019-11-15] MEDS: amLODIPine 5 MG (NORVASC) TAB PO SCH (08:07)
[2019-11-15] MEDS: ASPIRIN E.C. 81 MG (ECOTRIN) TAB PO SCH (08:07)
[2019-11-15] MEDS: RT-BUDESONIDE NEBS 0.5 MG/2ML (PULMICORT) AMP INH SCH (08:11)
[2019-11-15] MEDS: Fluticasone/Umeclidin/Vilanter (Trelegy Ellipta 100-62.5 IH SCH (09:56)
[2019-11-15] MEDS: LEVOFLOXACIN 750 MG TAB (LEVAQUIN) PO SCH (11:56)
--- NOTE | 2019-11-15 12:29 | Discharge Summary ---
Discharge Summary Hospital Course Was the Problem List Reviewed?: Yes Problems/Dx: (1) COPD with exacerbation Status: Acute (2) Do not resuscitate status Status: Chronic (3) Wheezing Status: Acute (4) Hypertension Status: Chronic Qualifiers: Qualified Codes: I10 - Essential (primary) hypertension (5) DVT prophylaxis Status: Acute (6) Former smoker Status: Chronic (7) Anxiety Status: Acute (8) Hypoxia Status: Acute Hospital Course Date of Admission: Nov 10, 2019 at 05:59 Admission Diagnosis : Family Physician/Provider: Nadine Oro Date of Discharge: 11/15/19 Discharge Diagnosis: AECOPD, Bronchitis, anxiety Hospital Course: Patient had an uncomplicated course after admitted for AECOPD and maintained on Vapotherm and biPAP until weaned after IV steroids and ABx improved status. Patient maintained DNR status and patient was improved at time of DC. Prognosis poor given severity of her lung disease. Labs and Pending Lab Test: Microbiology 11/10/19 Gram Stain - Final, Resulted 11/10/19 Sputum Culture - Preliminary, Resulted Fungus Usual upper respiratory rekha Home Meds Active Prednisone 10 Mg Tab.ds.pk 10 Mg PO DAILY Take 6 tabs(60mg)daily,decrease by 1 tab(10MG)daily. Fluconazole 100 Mg Tablet 100 Mg PO DAILY@1800 Albuterol Sulfate 2.5 Mg/3 Ml Vial.neb 2.5 Mg NEB Q6H PRN Reported Loratadine 10 Mg Tablet 10 Mg PO DAILY Trelegy Ellipta 100-62.5-25 (Fluticasone/Umeclidin/Vilanter) 1 Each Blst.w.dev 1 Puff IH DAILY Omeprazole 40 Mg Capsule.dr 40 Mg PO DAILY Allopurinol 300 Mg Tablet 300 Mg PO DAILY Trintellix (Vortioxetine Hydrobromide) 20 Mg Tablet 20 Mg PO DAILY Levofloxacin 750 Mg Tablet 750 Mg PO DAILY 7 Days 7 DAY SUPPLY FILLED 11-09-19 Ventolin Hfa (Albuterol Sulfate) 18 Gm Hfa.aer.ad 2 Puff INH Q6H PRN Fluticasone Propionate 16 Gm [place].susp 2 Sprays NS DAILY Women Multivit W-Biotin Gummy (Multivit-Min/Folic Acid/Biotin) 1 Each Tab.chew 1 Tab.chew PO 1800 Calcium 600 + Vit D 800 Tab (Calcium Carbonate/Vitamin D3) 1 Each Tablet 1 Tab PO 1800 Aspirin EC (Aspirin) 81 Mg Tablet.dr 81 Mg PO Q48H Montelukast Sodium 10 Mg Tablet 10 Mg PO DAILY Alprazolam 0.5 Mg Tablet 0.5 Mg PO BID PRN Fenofibrate 160 Mg Tablet 160 Mg PO 1800 Amlodipine Besylate 5 Mg Tablet 5 Mg PO DAILY Hydrochlorothiazide 25 Mg Tablet 25 Mg PO DAILY Assessment/Pt Instructions [facility] this week Discharge Planning: <30 minutes discharge planning Discharge Instructions Discharge Diet: No Restrictions Activity as Tolerated: Yes Discharge Physical Examination Vital Signs Vital Signs Date Time Temp Pulse Resp B/P (MAP) Pulse Ox O2 Delivery O2 Flow Rate FiO2 11/15/19 11:52 11/15/19 09:00 95 Nasal Cannula 3.00 11/15/19 08:00 36.6 109 20 11/13/19 11:40 32 General Appearance: No Apparent Distress, WD/WN, Chronically ill, Thin Respiratory: Chest Non Tender, Lungs Clear, Normal Breath Sounds, No Accessory Muscle Use, No Respiratory Distress Cardiovascular: Regular Rate, Rhythm, No Edema, No Gallop, No JVD, No Murmur, Normal Peripheral Pulses Neurologic/Psychiatric: Alert, Oriented x3, No Motor/Sensory Deficits, Normal Mood/Affect Allergies: Coded Allergies: No Known Drug Allergies (Unverified , 03/19/17) Discharge Summary Date of Admission Nov 10, 2019 at 05:59 Date of Discharge Discharge Date: Nov 15, 2019 Discharge Diagnosis Assessment: Acute exacerbation of COPD Anxiety Plan: Pulmicort Nebs O2 home O2 eval for continuous during the daytime Discharge tomorrow (1) COPD with exacerbation Status: Acute (2) Do not resuscitate status Status: Chronic (3) Wheezing Status: Acute (4) Hypertension Status: Chronic Qualifiers: Qualified Codes: I10 - Essential (primary) hypertension (5) DVT prophylaxis Status: Acute (6) Former smoker Status: Chronic (7) Anxiety Status: Acute (8) Hypoxia Status: Acute Clinical Quality Measures DVT/VTE Risk/Contraindication: Risk Factor Score Per Nursin RFS Level Per Nursing on Admit: 4+=Very High ED MARTINES DO Nov 15, 2019 12:29
--- NOTE | 2019-11-16 08:55 | NUR ---
CM/SS visited patient per nurse request for oxygen needs on 11/14/19. Plan: CM/SS sent over the script and medical records to the patients current DME. DME: The patients DME is [facility] ([phone]). The oxygen script and other medical records were provided by fax. The agency did not answer phone call and a voicemail was not available. Will follow up to confirm the fax with agency.
--- NOTE | 2019-11-20 16:47 | Physician Query Clarification ---
PQ-Uncertain Diagnosis Admission/Discharge Admission Date: Nov 10, 2019 at 05:59 Discharge Date: Nov 15, 2019 at 12:17 The medical record reflects the following clinical scenario: History/Risk Factors: AECOPD Clinical Findings: Bi-basilar infiltrates consistent with pneumonia Treatment: PO Levaquin Question: Is PNEUMONIA a clinically valid diagnosis? pneumonia was documented in the Dr. Rodriguez progress notes with no further documentation in the medical record. Please document a response in Progress Note or Discharge Summary. 1. Yes, clinically valid, condition resolved. 2. No, condition ruled out. 3. Other, with explanation of clinical findings. 4. Undetermined, no explanation for clinical findings. PHYSICIAN RESPONSE Diagnosis clinically valid: No, conditon ruled out Please remember a lack of response to the above will prompt a phone page by CDI/Coding staff. In responding to this query, please exercise your independent professional judgment. The purpose of this communication is to more accurately reflect the complexity of your patients condition. The fact that a question is asked does not imply that any particular answer is desired or expected. Thank you for your timely response to this clarification. Requestors name: Betina Bales THIS PHYSICIAN QUERY FORM IS A PERMANENT PART OF THE MEDICAL RECORD BETINA LOPEZ Nov 20, 2019 16:47 ED MARTINES DO Nov 21, 2019 06:09
--- NOTE | 2019-11-20 16:54 | Physician Query Clarification ---
PQ-Conflicting Diagnosis Admission/Discharge Admission Date: Nov 10, 2019 at 05:59 Discharge Date: Nov 15, 2019 at 12:17 The medical record reflects the following clinical scenario: History/Risk Factors: AECOPD Clinical Findings: AECOPD, wheezing Treatment: Vapotherm Question: Do you agree with the impression of the Acute respiratory failure per Dr. Rodriguez progress note. Please document a response in Progress Note or Discharge Summary. 1. Yes 2. No 3. Other, with explanation of clinical findings 4. Clinically undetermined, no explanation for clinical findings. PHYSICIAN RESPONSE Do you agree w/Consulting Dx?: Yes Please remember a lack of response to the above will prompt a phone page by [facility]/Coding staff. In responding to this query, please exercise your independent professional judgment. The purpose of this communication is to more accurately reflect the complexity of your patients condition. The fact that a question is asked does not imply that any particular answer is desired or expected. Thank you for your timely response to this clarification. Requestors name: Betina Bales THIS PHYSICIAN QUERY FORM IS A PERMANENT PART OF THE MEDICAL RECORD BETINA LOPEZ Nov 20, 2019 16:54 ED MARTINES DO Nov 21, 2019 06:10
== END 2019-11-15 12:17 | disposition home or self-care (01) | DRG 190 ==
LOC: EDUNIT# 05:01 → ER 05:02 → ICU 05:59 → 4TH 11-12 11:46
PROVIDERS: ADMIT Family Medicine; ATTEND Internal Medicine
DX: J44.1 Chronic obstructive pulmonary disease with (acute) exacerbation (principal); J96.01 Acute respiratory failure with hypoxia; I10 Essential (primary) hypertension; K21.9 Gastro-esophageal reflux disease without esophagitis; K57.90 Diverticulosis of intestine, part unspecified, without perforation or abscess without bleeding; F41.9 Anxiety disorder, unspecified; Z66 Do not resuscitate; F32.9 Major depressive disorder, single episode, unspecified; I49.3 Ventricular premature depolarization; R60.9 Edema, unspecified; Z90.710 Acquired absence of both cervix and uterus; Z90.49 Acquired absence of other specified parts of digestive tract; K59.00 Constipation, unspecified; Z87.891 Personal history of nicotine dependence
CPT/HCPCS: 36415; 71045; 71046; 80048; 80053; 82805; 84484; 85007; 85025; 85027; 86141; 87070; 87106; 87205; 87804; 93005; 93041; 94640; 94760; 94761; 96361; 96374; 96375

== ENCOUNTER 2019-12-28 15:38 | Emergency (ER) | payer MEDICARE ==
[~2019-12-28] VITALS: Ht 162 cm; Wt 68.0 kg
[~2019-12-28 15:38] MED LIST changes: +ALLO300T2 PO; +FLUC100T6 PO; +FLUT1BLS3 IH; +LEVO750T39 PO; +LORA10TA7 PO; +OMEP40CA27 PO; -OMEP40CA36 PO; +VORT20TA PO
[2019-12-28] MEDS ORDERED: fentaNYL INJECTION 100 MCG/2 ML AMP IVP ONE (16:00)
--- NOTE | 2019-12-28 16:55 | Diagnostic Imaging Report ---
CT CHEST WO TECHNIQUE: Multiple contiguous axial images were obtained through the chest without the use of intravenous contrast. All CT scans use one or more of the following dose optimizing techniques: automated exposure control, MA and/or KvP adjustment based on a patient size and exam type, or iterative reconstruction. INDICATION: Right-sided rib pain after fall. COMPARISON: CT chest of 01/05/2019. FINDINGS: Lungs and airway: There is a small amount of retained secretions in the distal trachea. Moderate centrilobular emphysema is present. No pulmonary mass or suspicious nodule. No pulmonary contusion or laceration. No features of pulmonary fibrosis. Pleura: No pleural effusion or pneumothorax. Heart and mediastinum: No supraclavicular or axillary lymphadenopathy. No mediastinal, discrete hilar or juxtaphrenic lymphadenopathy. Moderate-sized hiatal hernia is unchanged. Heart is normal in size without pericardial effusion. Coronary artery calcifications are again noted. Normal caliber thoracic aorta. No features of mediastinal hemorrhage. Upper abdomen: Stable hypodensity in the right hepatic dome likely a hemangioma as previously characterized on CT chest. Cholelithiasis is again noted. Musculoskeletal: The bilateral clavicles are intact. No sternal fracture. No acute rib fracture. No compression or burst fracture within the thoracic spine. IMPRESSION: 1. No acute traumatic injury in the chest. Specifically, no right-sided rib fractures. 2. Unchanged moderate-sized hiatal hernia. Dictated by: Dictated on workstation # [id number]
[2019-12-28] MEDS ORDERED: HYDROcodone/APAP 5 MG/325 MG (LORTAB) TAB PO ONE (17:15)
--- NOTE | 2019-12-28 17:18 | ED Fall/Injury ---
General Chief Complaint: Trauma-Non Activation Stated Complaint: FELL /RT SIDE RIB PAIN Nursing Triage Note: PT STATES SHE SLIPPED AND FELL GETTING OUT OF THE TUB, CC OF RT RIB PAIN, DENIES HITTING HER HEAD OR ANY OTHER PAIN. Source: patient Exam Limitations: no limitations History of Present Illness Date Seen by Provider: Dec 28, 2019 Time Seen by Provider: 15:50 Initial Comments This 74-year-old woman presents to the emergency room with complaints of right anterior lower chest wall pain and pain with inspiration after slipping while getting out of the bathtub and striking her chest on the bathtub edge. She denies any other injuries. Occurred: just prior to arrival Injuries/Pain Location: chest Context: slipped Loss of Consciousness: no loss of consciousness Allergies and Home Medications Allergies Coded Allergies: No Known Drug Allergies (Unverified , 03/19/17) Home Medications Albuterol Sulfate 18 Gm Hfa.aer.ad, 2 PUFF INH Q6H PRN for SHORTNESS OF BREATH, (Reported) Albuterol Sulfate 2.5 Mg/3 Ml Vial.neb, 2.5 MG NEB Q6H PRN for SHORTNESS OF BREATH Prescribed by: ED MARTINES on 11/14/19 1109 Allopurinol 300 Mg Tablet, 300 MG PO DAILY, (Reported) Alprazolam 0.5 Mg Tablet, 0.5 MG PO BID PRN for ANXIETY, (Reported) Amlodipine Besylate 5 Mg Tablet, 5 MG PO DAILY, (Reported) Aspirin 81 Mg Tablet.dr, 81 MG PO Q48H, (Reported) Calcium Carbonate/Vitamin D3 1 Each Tablet, 1 TAB PO 1800, (Reported) Fenofibrate 160 Mg Tablet, 160 MG PO 1800, (Reported) Fluconazole 100 Mg Tablet, 100 MG PO DAILY@1800 Prescribed by: ED MARTINES on 11/14/19 1109 Fluticasone Propionate 16 Gm Hughes.susp, 2 SPRAYS NS DAILY, (Reported) Fluticasone/Umeclidin/Vilanter 1 Each Blst.w.dev, 1 PUFF IH DAILY, (Reported) Hydrochlorothiazide 25 Mg Tablet, 25 MG PO DAILY, (Reported) Hydrocodone Bit/Acetaminophen 1 Tab Tab, 1-2 EACH PO Q4H PRN for PAIN-MODERATE Prescribed by: LOGAN MEJIA on 12/28/19 1722 Levofloxacin 750 Mg Tablet, 750 MG PO DAILY, (Reported) 7 DAY SUPPLY FILLED 11-09-19 Loratadine 10 Mg Tablet, 10 MG PO DAILY, (Reported) Montelukast Sodium 10 Mg Tablet, 10 MG PO DAILY, (Reported) Multivit-Min/Folic Acid/Biotin 1 Each Tab.chew, 1 TAB.CHEW PO 1800, (Reported) Omeprazole 40 Mg Capsule.dr, 40 MG PO DAILY, (Reported) Prednisone 10 Mg Tab.ds.pk, 10 MG PO DAILY Take 6 tabs(60mg)daily,decrease by 1 tab(10MG)daily. Prescribed by: ED MARTINES on 11/14/19 1109 Vortioxetine Hydrobromide 20 Mg Tablet, 20 MG PO DAILY, (Reported) Patient Home Medication List Home Medication List Reviewed: Yes Review of Systems Review of Systems Constitutional: no symptoms reported Eyes: No Symptoms Reported Ears, Nose, Mouth, Throat: no symptoms reported Respiratory: see HPI Cardiovascular: no symptoms reported Gastrointestinal: no symptoms reported Genitourinary: no symptoms reported Musculoskeletal: see HPI Skin: no symptoms reported Psychiatric/Neurological: No Symptoms Reported Past Umcilfh-Vjeiys-Aawgpp Hx Patient Social History Alcohol Use: Denies Use Recreational Drug Use: No Smoking Status: Former Smoker Type Used: Cigarettes Former Smoker, Quit: Nov 22, 2000 Recent Foreign Travel: No Contact w/Someone Who Travel: No Recent Infectious Disease Expo: No Recent Hopitalizations: No (NOV-2018) Physical Abuse: No Sexual Abuse: No Mistreated: No Fear: No Immunizations Up To Date Tetanus Booster (TDap): Unknown PED Vaccines UTD: Yes Date of Pneumonia Vaccine: Sep 01, 2017 Date of Influenza Vaccine: Aug 15, 2019 Seasonal Allergies Seasonal Allergies: Yes Past Medical History Surgeries: Yes (hemmoroidectomy, disc surgery) Appendectomy, Hysterectomy, Rectal Respiratory: Yes Pneumonia, Chronic Bronchitis, COPD Currently Using CPAP: No Currently Using BIPAP: No Cardiac: Yes Hypertension Neurological: No [employer] History: Menopausal Sexually Transmitted Disease: No HIV/AIDS: No Genitourinary: No Gastrointestinal: Yes Gastroesophageal Reflux, Diverticulosis Musculoskeletal: Yes (disc surgery) Chronic Back Pain Endocrine: No HEENT: Yes Tinnitis Cancer: No Psychosocial: Yes Anxiety, Depression Integumentary: No Blood Disorders: No Adverse Reaction/Blood Tranf: No Family Medical History FH: cerebral palsy G8 BROTHER Lung cancer 19 MOTHER Physical Exam Vital Signs Vital Signs - First Documented 12/28/19 12/28/19 15:47 17:29 Temp 36.3 Pulse 91 Resp 22 B/P (MAP) 142/105 (117) Pulse Ox 95 O2 Delivery Room Air Capillary Refill : Less Than 3 Seconds Height, Weight, BMI Height: 5'3.00" Weight: 150lbs. 0.8oz. 68.070452bg; 25.00 BMI Method:Stated General Appearance: WD/WN, moderate distress HEENT: normal ENT inspection Neck: normal inspection Cardiovascular: regular rate, rhythm, no edema, no murmur Respiratory: lungs clear, normal breath sounds, no respiratory distress, no accessory muscle use, other (splinting respiration secondary to pain. Tenderness to palpation over the right anterior lower chest wall) Gastrointestinal: normal bowel sounds, non tender, soft, other (no tenderness below the costal margin) Extremities: non-tender, normal inspection, no pedal edema Neurologic/Psychiatric: fisher lampara net II-XII nml as tested, no motor/sensory deficits, alert, normal mood/affect, oriented x 3 Skin: normal color, warm/dry [place] Coma Score Best Eye Response: (4) Open Spontaneously Best Verbal Response: (5) Oriented Best Motor Response: (6) Obeys Commands [place] Total: 15 Progress/Results/Core Measures Results/Orders My Orders Orders - LOGAN BLAS MD Ed Iv/Invasive Line Start (12/28/19 15:56) Ct Chest Wo (12/28/19 15:56) Fentanyl Injection (Sublimaze Injection (12/28/19 16:00) Hydrocodone/Apap 5/325 Tablet (Lortab 5 (12/28/19 17:15) Medications Given in ED Vital Signs/I&O 12/28/19 12/28/19 12/28/19 12/28/19 15:47 16:07 17:17 17:29 Temp 36.3 36.3 36.3 36.3 Pulse 91 90 Resp 22 22 B/P (MAP) 142/105 (117) 133/81 (117) Pulse Ox 95 O2 Delivery Room Air Room Air Blood Pressure Mean: 117 Progress Progress Note : Progress Note CT scan was obtained. Patient was treated with fentanyl by IV route prior to CT. CT was read as negative but on my review there appears to be a tiny nondisplaced fracture at the distal aspect of ribs 8 on the right. This is directly beneath the patient's area of greatest pain. Patient is being treated for rib fracture. Diagnostic Imaging Diagonstic Imaging: CT Plain Films/CT/US/NM/MRI: chest Comments CT chest viewed by me and report reviewed. Report states no rib fractures but there appears to be a tiny nondisplaced fracture at the distal aspect of ribs 8 seen best in series 5 images 99 through 101. NAME: MARCELLUS CALVO [facility] REC#: [id number] PT STATUS: REG ER : 1945 PHYSICIAN: LOGAN BLAS MD ADMIT DATE: 12/28/19/ER Signed Date of Exam:12/28/[address] CHEST WO TECHNIQUE: Multiple contiguous axial images were obtained through the chest without the use of intravenous contrast. All CT scans use one or more of the following dose optimizing techniques: automated exposure control, MA and/or KvP adjustment based on a patient size and exam type, or iterative reconstruction. INDICATION: Right-sided rib pain after fall. COMPARISON: CT chest of 01/05/2019. FINDINGS: Lungs and airway: There is a small amount of retained secretions in the distal trachea. Moderate centrilobular emphysema is present. No pulmonary mass or suspicious nodule. No pulmonary contusion or laceration. No features of pulmonary fibrosis. Pleura: No pleural effusion or pneumothorax. Heart and mediastinum: No supraclavicular or axillary lymphadenopathy. No mediastinal, discrete hilar or juxtaphrenic lymphadenopathy. Moderate-sized hiatal hernia is unchanged. Heart is normal in size without pericardial effusion. Coronary artery calcifications are again noted. Normal caliber thoracic aorta. No features of mediastinal hemorrhage. Upper abdomen: Stable hypodensity in the right hepatic dome likely a hemangioma as previously characterized on CT chest. Cholelithiasis is again noted. Musculoskeletal: The bilateral clavicles are intact. No sternal fracture. No acute rib fracture. No compression or burst fracture within the thoracic spine. IMPRESSION: 1. No acute traumatic injury in the chest. Specifically, no right-sided rib fractures. 2. Unchanged moderate-sized hiatal hernia. Dictated by: Dictated on workstation # [id number] Dict: 12/28/191647 Trans: 12/28/191657 [employer] [employer] [facility] [employer] [id number] Interpreted by: ABIMBOLA BATRES MD Electronically signed by: ABIMBOLA BATRES MD 12/28/191657 Departure Impression Primary Impression: Fall in bathtub Qualified Codes: W18.2XXA - Fall in (into) shower or empty bathtub, initial encounter Additional Impression: Right rib fracture Qualified Codes: S22.31XA - Fracture of one rib, right side, initial encounter for closed fracture Disposition: 01 HOME, SELF-CARE Condition: Improved Departure-Patient Inst. Decision time for Depature: 17:17 Referrals: MARCELLUS WHITESIDE DO (PCP) Primary Care Physician ARMIDA COSME (Family) Primary Care Physician Patient Instructions: Rib Fractures in Adults Add. Discharge Instructions: Adequate pain control is important in rib fractures so that you may exercise deep breathing. This will help prevent pneumonia and other complications. Use your pain medication as prescribed to control pain and facilitate deep breathing. Exercise deep breathing at least 10 times an hour while awake. Consider taking a stool softener such as Colace once or twice a day while on hydrocodone to prevent constipation. Icing in 20 minute intervals may help reduce pain for the next 48 hours. Return to care if you have worsening symptoms or develop new symptoms such as fever. All discharge instructions reviewed with patient and/or family. Voiced understanding. Scripts Hydrocodone Bit/Acetaminophen (Hydrocodone/Acetaminophen 5/325mg Tablet) 1 Tab Tab 1-2 EACH PO Q4H PRN for PAIN-MODERATE MDD 10, #20 TAB 0 Refills Prov: LOGAN BLAS MD 12/28/19 Copy Copies To 1: MARCELLUS WHITESIDE JOSHUA T MD Dec 28, 2019 17:18
[2019-12-28] MEDS ORDERED: ACHD5005 PO (17:22)
[2019-12-28 17:29] VITALS: BP 133/81
== END 2019-12-28 17:29 | disposition home or self-care (01) ==
LOC: EDUNIT# 15:38 → ER 15:40
DX: S22.31XA Fracture of one rib, right side, initial encounter for closed fracture (principal); J44.9 Chronic obstructive pulmonary disease, unspecified; I10 Essential (primary) hypertension; K21.9 Gastro-esophageal reflux disease without esophagitis; F41.9 Anxiety disorder, unspecified; F32.9 Major depressive disorder, single episode, unspecified; Z79.82 Long term (current) use of aspirin; Z79.51 Long term (current) use of inhaled steroids; Z87.891 Personal history of nicotine dependence; Z80.1 Family history of malignant neoplasm of trachea, bronchus and lung; W18.2XXA Fall in (into) shower or empty bathtub, initial encounter
CPT/HCPCS: 71250; 96374

== ENCOUNTER → 2020-01-17 | Outpatient (CLI) | payer MEDICARE ==
[~2020-01-17] MED LIST changes: +ACHD5005 PO; +CATHETER FLUSH 10 ML SYR IV PRN; -CETI10TA20 PO; +CETI10TA21 PO; +HOLD METFORMIN - RECEIVED CONTRAST 20 ML VIAL IV SCH; +IOHEXOL 350 MG/ML 100 ML (OMNIPAQUE 350) VIAL IV ONE; -MONT10TA24 PO; +MONT10TA26 PO; +NS 100 ML (IVPB) BAG IV ONE
[2020-01-17 09:35] LABS: BUN/CREATININE RATIO 27; CREATININE SERUM 0.67 MG/DL (0.60-1.30); GFR ESTIMATED > 60
--- NOTE | 2020-01-17 10:44 | Diagnostic Imaging Report ---
EXAMINATION: CT Chest with intravenous contrast. TECHNIQUE: Multiple contiguous axial images were obtained through the chest after the uneventful administration of intravenous contrast. All CT scans use one or more of the following dose optimizing techniques: automated exposure control, MA and/or KvP adjustment based on a patient size and exam type, or iterative reconstruction. HISTORY: COPD COMPARISON: 12/28/2019. FINDINGS: There is no edema or pneumonia. No pleural effusion. No pneumothorax. No suspicious nodules. There is wdfjzwnw-gf-wngdpt emphysema. Heart size is normal. There are severe coronary artery calcifications. No pericardial effusion. Aorta is normal in caliber. There is no axillary or supraclavicular lymphadenopathy. There is no mediastinal lymphadenopathy. There is a moderate-sized hiatal hernia. Limited views of the upper abdomen show an unchanged 18 mm segment VIII peripherally enhancing lesion with areas of discontinuity and adjacent transient hepatic attenuation difference. Gallbladder contains stones. There are no suspicious osseus lesions. There is subacute right fifth through ninth rib fractures. These were occult on prior CT and are only visible now due to callus formation. IMPRESSION: 1. Subacute right fifth through ninth rib fractures, occult on prior CT and only visible now due to callus formation. 2. Unchanged segment VIII liver lesion which is likely a hemangioma. 3. Lrzlyjcs-gn-kopsvw emphysema. Dictated by: Dictated on workstation # [id number]
== END ==
LOC: RAD 09:01
PROVIDERS: ATTEND Nurse Practitioner Family
DX: J43.9 Emphysema, unspecified (principal); J40 Bronchitis, not specified as acute or chronic; J42 Unspecified chronic bronchitis; S22.41XA Multiple fractures of ribs, right side, initial encounter for closed fracture
CPT/HCPCS: 36415; 71260; 82565; 84520

== ENCOUNTER → 2020-08-20 | Outpatient (CLI) | payer MEDICARE ==
[~2020-08-20] MED LIST changes: +ASPI-1238 PO; -ASPI-983 PO; -CATHETER FLUSH 10 ML SYR IV PRN; -CETI10TA21 PO; +CETI10TA49 PO; -HOLD METFORMIN - RECEIVED CONTRAST 20 ML VIAL IV SCH; -IOHEXOL 350 MG/ML 100 ML (OMNIPAQUE 350) VIAL IV ONE; -NS 100 ML (IVPB) BAG IV ONE
== END ==
LOC: RAD 14:00
PROVIDERS: ATTEND Nurse Practitioner Family
DX: M81.0 Age-related osteoporosis without current pathological fracture (principal)

== ENCOUNTER → 2021-02-27 | Outpatient (CLI) | payer MEDICARE ==
[~2021-02-27] MED LIST changes: +AMLO-250 PO; -AMLO5TAB9 PO; -MONT10TA26 PO; +MONT10TA32 PO
[2021-02-27 11:47] LABS: BASOPHILS # (AUTO) 0.1 10^3/uL (0.0-0.1); BASOPHILS % (AUTO) 2 % (0-10); EOSINOPHILS # (AUTO) 0.4 10^3/uL (0.0-0.3); EOSINOPHILS % (AUTO) 5 % (0-10); HEMATOCRIT 38 % (35-52); HEMOGLOBIN 11.1 g/dL (11.5-16.0); LYMPHOCYTES # (AUTO) 2.1 10^3/uL (1.0-4.0); LYMPHOCYTES % (AUTO) 25 % (12-44); MEAN CORPUSCULAR HEMOGLOBIN 27 pg (25-34); MEAN CORPUSCULAR HGB CONC 29 g/dL (32-36); MEAN CORPUSCULAR VOLUME 91 fL (80-99); MEAN PLATELET VOLUME 10.9 fL (9.0-12.2); MONOCYTES # (AUTO) 0.7 10^3/uL (0.0-1.0); MONOCYTES % (AUTO) 9 % (0-12); NEUTROPHILS # (AUTO) 4.9 10^3/uL (1.8-7.8); NEUTROPHILS % (AUTO) 59 % (42-75); PLATELET COUNT 325 10^3/uL (130-400); WHITE BLOOD COUNT 8.3 10^3/uL (4.3-11.0)
--- NOTE | 2021-02-27 12:25 | Diagnostic Imaging Report ---
HISTORY: Shortness of breath, COPD and bronchitis. COMPARISON: 11/14/2019 TECHNIQUE: 2 views of the chest. FINDINGS: Lung volumes are large. There is eventration of the diaphragm. There is chronic scarring in the left lung base. No new consolidation is seen. The cardiac silhouette is normal in size. There is a retrocardiac density which appears to be a moderate size hiatal hernia. No pleural effusion or pneumothorax is seen. No acute osseous abnormality is seen. IMPRESSION: 1. Chronic pulmonary findings with no acute abnormality seen. 2. Hiatal hernia. Dictated by: Dictated on workstation # [id number]
== END ==
LOC: RAD 11:23
PROVIDERS: ATTEND Nurse Practitioner Family
DX: J44.9 Chronic obstructive pulmonary disease, unspecified (principal); K44.9 Diaphragmatic hernia without obstruction or gangrene
CPT/HCPCS: 36415; 71046; 85025

== ENCOUNTER → 2021-02-28 | Outpatient (CLI) | payer MEDICARE | LOC: LAB 13:37 | PROVIDERS: ATTEND Otolaryngology Otolaryngology/Facial Plastic Surgery | DX: J30.9 Allergic rhinitis, unspecified (principal) | CPT/HCPCS: 36415; 86003 ==

== ENCOUNTER → 2021-05-15 | Outpatient (CLI) | payer MEDICARE ==
[~2021-05-15] MED LIST changes: +ACET-2267 PO; +ALB0.5V INH; +FENO54TA PO; +FEXO180T84 PO; +FLUT1DIS26 IH; +HOLD METFORMIN - RECEIVED CONTRAST 20 ML VIAL IV SCH; +IOHEXOL 350 MG/ML 100 ML (OMNIPAQUE 350) VIAL IV ONE; +MULT-1060 PO; +NS 100 ML (IVPB) BAG IV ONE; -OMEP40CA27 PO; +OMEP40CA6 PO; +TIOT18CA2 IH; +VENL75CA93 PO
[2021-05-15 15:34] LABS: BUN/CREATININE RATIO 33; CREATININE SERUM 0.72 MG/DL (0.60-1.30); GFR ESTIMATED > 60
--- NOTE | 2021-05-15 17:35 | Diagnostic Imaging Report ---
PROCEDURE: CT chest with contrast only. TECHNIQUE: Multiple contiguous axial images were obtained through the chest after administration of intravenous contrast. Auto Exposure Controls were utilized during the CT exam to meet ALARA standards for radiation dose reduction. INDICATION: History of COPD. CORRELATION: 01/17/2020. FINDINGS: There is no significant mediastinal, axillary and/or hilar lymphadenopathy. The heart size is unremarkable. Rather marked coronary artery calcification. Thoracic aorta normal in contour. Moderate-sized hiatal hernia is present. There are moderately severe emphysematous changes about the lung parenchyma. No consolidating infiltrate. No significant pleural effusion. Approximately 2 cm enhancing region in hepatic segment VIII with adjacent transient hepatic attenuation difference, overall generally stable. Likely some additional hepatic steatosis. Gallstones are present. Previously noted anterior right rib fracture deformities have healed. IMPRESSION: 1. Moderately severe emphysematous changes about the lung parenchyma. No infiltrate or concerning pulmonary nodule. 2. Unchanged segment VIII hepatic lesion, generally stable. Dictated by: Dictated on workstation # [id number]
== END ==
LOC: RAD 16:15
PROVIDERS: ATTEND Nurse Practitioner Family
DX: J43.9 Emphysema, unspecified (principal); K76.9 Liver disease, unspecified; J18.9 Pneumonia, unspecified organism
CPT/HCPCS: 36415; 71260; 82565; 84520

== ENCOUNTER 2021-05-19 16:16 | Inpatient (IN) | payer MEDICARE ==
[~2021-05-19] VITALS: Ht 162.6 cm; Wt 74.1 kg
[~2021-05-19 16:16] MED LIST changes: -ACET-2267 PO; -ALB0.5V INH; -FENO54TA PO; -FEXO180T84 PO; -FLUT1DIS26 IH; -HOLD METFORMIN - RECEIVED CONTRAST 20 ML VIAL IV SCH; -IOHEXOL 350 MG/ML 100 ML (OMNIPAQUE 350) VIAL IV ONE; -MULT-1060 PO; -NS 100 ML (IVPB) BAG IV ONE; -TIOT18CA2 IH; -VENL75CA93 PO
[2021-05-19] MEDS ORDERED: RT-ALBUTEROL/IPRATROPIUM 3 ML (DUONEB) VIAL ONE (16:42)
[2021-05-19 16:55] LABS: ABG BASE EXCESS 7.3 MMOL/L (-2.5-2.5); ABG OXYGEN SATURATION 98 % (94-100); ABG PCO2 49 MMHG (35-45); ABG PH 7.43 (7.37-7.43); ABG PO2 95 MMHG (79-93); ABG TCO2 33.2 MMOL/L (21.0-31.0)
[2021-05-19 16:57] LABS: ALLENS TEST POS; INSPIRED O2 5L; PATIENT TEMP 37; VENTILATOR NO
--- NOTE | 2021-05-19 16:57 | ED General ---
General Stated Complaint: SOA Source of Information: Patient Exam Limitations: No Limitations History of Present Illness Date Seen by Provider: May 19, 2021 Time Seen by Provider: 16:56 Initial Comments To ER with shortness of breath since Wednesday evening. No fevers or chills but she has had an increase in her chronic productive cough associated with her COPD. She wears oxygen chronically at 3 L per nasal cannula. She is not on steroids nor has she been on steroids within the past few weeks. Primary care is formerly [facility]. She has had both Covid vaccinations. Timing/Duration: 2-3 Days Severity: Moderate Associated Systoms: Cough Allergies and Home Medications Allergies Coded Allergies: No Known Drug Allergies (Unverified , 03/19/17) Home Medications Albuterol Sulfate 18 Gm Hfa.aer.ad, 2 PUFF INH Q6H PRN for SHORTNESS OF BREATH, (Reported) Albuterol Sulfate 2.5 Mg/3 Ml Vial.neb, 2.5 MG NEB Q6H PRN for SHORTNESS OF BREATH Prescribed by: ED MARTINES on 11/14/19 1109 Allopurinol 300 Mg Tablet, 300 MG PO DAILY, (Reported) Alprazolam 0.5 Mg Tablet, 0.5 MG PO BID PRN for ANXIETY, (Reported) Amlodipine Besylate 5 Mg Tablet, 5 MG PO DAILY, (Reported) Aspirin 81 Mg Tablet.dr, 81 MG PO Q48H, (Reported) Calcium Carbonate/Vitamin D3 1 Each Tablet, 1 TAB PO 1800, (Reported) Fenofibrate 160 Mg Tablet, 160 MG PO 1800, (Reported) Fluconazole 100 Mg Tablet, 100 MG PO DAILY@1800 Prescribed by: ED MARTINES on 11/14/19 1109 Fluticasone Propionate 16 Gm [place].susp, 2 SPRAYS NS DAILY, (Reported) Fluticasone/Umeclidin/Vilanter 1 Each Blst.w.dev, 1 PUFF IH DAILY, (Reported) Hydrochlorothiazide 25 Mg Tablet, 25 MG PO DAILY, (Reported) Hydrocodone Bit/Acetaminophen 1 Tab Tab, 1-2 EACH PO Q4H PRN for PAIN-MODERATE Prescribed by: LOGAN MEJIA on 12/28/19 1722 Levofloxacin 750 Mg Tablet, 750 MG PO DAILY, (Reported) 7 DAY SUPPLY FILLED 11-09-19 Loratadine 10 Mg Tablet, 10 MG PO DAILY, (Reported) Montelukast Sodium 10 Mg Tablet, 10 MG PO DAILY, (Reported) Multivit-Min/Folic Acid/Biotin 1 Each Tab.chew, 1 TAB.CHEW PO 1800, (Reported) Omeprazole 40 Mg Capsule.dr, 40 MG PO DAILY, (Reported) Prednisone 10 Mg Tab.ds.pk, 10 MG PO DAILY Take 6 tabs(60mg)daily,decrease by 1 tab(10MG)daily. Prescribed by: ED MARTINES on 11/14/19 1106 Vortioxetine Hydrobromide 20 Mg Tablet, 20 MG PO DAILY, (Reported) Patient Home Medication List Home Medication List Reviewed: Yes Review of Systems Review of Systems Constitutional: see HPI EENTM: see HPI Respiratory: see HPI, cough, short of breath Cardiovascular: no symptoms reported Genitourinary: no symptoms reported Musculoskeletal: no symptoms reported Skin: no symptoms reported Psychiatric/Neurological: No Symptoms Reported Hematologic/Lymphatic: No Symptoms Reported Immunological/Allergic: no symptoms reported Past Jegkszt-Lqzetn-Nsavsd Hx Immunizations Up To Date Tetanus Booster (TDap): Unknown PED Vaccines UTD: Yes Seasonal Allergies Seasonal Allergies: Yes Past Medical History Surgeries: Yes (hemmoroidectomy, disc surgery) Appendectomy, Hysterectomy, Rectal Respiratory: Yes Pneumonia, Chronic Bronchitis, COPD Currently Using CPAP: No Currently Using BIPAP: No Cardiac: Yes Hypertension 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 Sexually Transmitted Disease: No HIV/AIDS: No Genitourinary: No Gastrointestinal: Yes Gastroesophageal Reflux, Diverticulosis Musculoskeletal: Yes (disc surgery) Chronic Back Pain Endocrine: No HEENT: Yes Tinnitis Cancer: No Psychosocial: Yes Anxiety, Depression Integumentary: No Blood Disorders: No Adverse Reaction/Blood Tranf: No Family Medical History FH: cerebral palsy G8 BROTHER Lung cancer 19 MOTHER Physical Exam Vital Signs Vital Signs - First Documented 05/19/21 16:30 Temp 37.1 Pulse 109 Resp 18 B/P (MAP) 185/96 (125) Pulse Ox 91 O2 Delivery Nasal Cannula O2 Flow Rate 5.00 Capillary Refill : Height, Weight, BMI Height: 5'3.00" Weight: 150lbs. 0.8oz. [id number]; 25.00 BMI Method:Stated General Appearance: No Apparent Distress, WD/WN, Other (She is at 93% on her baseline 3 L.) Eyes: Bilateral Eye Normal Inspection, Bilateral Eye PERRL, Bilateral Eye EOMI HEENT: PERRL/EOMI, TMs Normal Respiratory: No Accessory Muscle Use, No Respiratory Distress, Crackles, Decreased Breath Sounds, Wheezing Cardiovascular: Regular Rate, Rhythm Gastrointestinal: Normal Bowel Sounds, Non Tender, Soft Extremity: Normal Capillary Refill, Normal Inspection Neurologic/Psychiatric: Alert, Oriented x3 Focused Exam Lactate Level 05/19/21 16:45: Lactic Acid Level 1.55 Lactic Acid Level Laboratory Tests Test 05/19/21 16:45 Lactic Acid Level 1.55 MMOL/L (0.50-2.00) Progress/Results/Core Measures Suspected Sepsis SIRS Temperature: Pulse: Respiratory Rate: Laboratory Tests 05/19/21 16:43: White Blood Count 24.9H Blood Pressure / Mean: 05/19/21 16:45: Lactic Acid Level 1.55 Laboratory Tests 05/19/21 16:43: Creatinine 0.76, Platelet Count 321, Total Bilirubin 0.7 Results/Orders Lab Results Laboratory Tests Test 05/19/21 16:40 05/19/21 16:43 05/19/21 16:45 05/19/21 18:16 Range/Units Influenza Type A (RT-PCR) Not Detected Not Detecte Influenza Type B (RT-PCR) Not Detected Not Detecte SARS-CoV-2 RNA (RT-PCR) Not Detected Not Detecte White Blood Count 24.9 H 4.3-11.0 10^3/uL Red Blood Count 4.34 3.80-5.11 10^6/uL Hemoglobin 11.6 11.5-16.0 g/dL Hematocrit 38 35-52 % Mean Corpuscular Volume 88 80-99 fL Mean Corpuscular Hemoglobin 27 25-34 pg Mean Corpuscular Hemoglobin Concent 31 L 32-36 g/dL Red Cell Distribution Width 15.9 H 10.0-14.5 % Platelet Count 321 130-400 10^3/uL Mean Platelet Volume 10.7 9.0-12.2 fL Immature Granulocyte % (Auto) 1 % Neutrophils (%) (Auto) 83 H 42-75 % Lymphocytes (%) (Auto) 10 L 12-44 % Monocytes (%) (Auto) 5 0-12 % Eosinophils (%) (Auto) 1 0-10 % Basophils (%) (Auto) 0 0-10 % Neutrophils # (Auto) 20.7 H 1.8-7.8 10^3/uL Lymphocytes # (Auto) 2.5 1.0-4.0 10^3/uL Monocytes # (Auto) 1.3 H 0.0-1.0 10^3/uL Eosinophils # (Auto) 0.1 0.0-0.3 10^3/uL Basophils # (Auto) 0.1 0.0-0.1 10^3/uL Immature Granulocyte # (Auto) 0.2 H 0.0-0.1 10^3/uL Neutrophils % (Manual) 86 % Lymphocytes % (Manual) 11 % Monocytes % (Manual) 3 % Eosinophils % (Manual) 0 % Basophils % (Manual) 0 % Band Neutrophils 0 % Blood Morphology Comment NORMAL Sodium Level 139 135-145 MMOL/L Potassium Level 3.5 L 3.6-5.0 MMOL/L Chloride Level 94 L 98-107 MMOL/L Carbon Dioxide Level 30 21-32 MMOL/L Anion Gap 15 H 5-14 MMOL/L Blood Urea Nitrogen 15 7-18 MG/DL Creatinine 0.76 0.60-1.30 MG/DL Estimat Glomerular Filtration Rate > 60 BUN/Creatinine Ratio 20 Glucose Level 120 H 70-105 MG/DL Calcium Level 10.1 8.5-10.1 MG/DL Corrected Calcium 9.9 8.5-10.1 MG/DL Total Bilirubin 0.7 0.1-1.0 MG/DL Aspartate Amino Transf (AST/SGOT) 24 5-34 U/L Alanine Aminotransferase (ALT/SGPT) 19 0-55 U/L Alkaline Phosphatase 59 40-136 U/L B-Type Natriuretic Peptide 56.5 <100.0 PG/ML Total Protein 7.4 6.4-8.2 GM/DL Albumin 4.2 3.2-4.5 GM/DL Procalcitonin 6.45 H <0.10 NG/ML Blood Gas Puncture Site LRAD Blood Gas Patient Temperature 37 Arterial Blood pH 7.43 7.37-7.43 Arterial Blood Partial Pressure CO2 49 H 35-45 MMHG Arterial Blood Partial Pressure O2 95 H 79-93 MMHG Arterial Blood HCO3 32 H 23-27 MMOL/L Arterial Blood Total CO2 33.2 H 21.0-31.0 MMOL/L Arterial Blood Oxygen Saturation 98 94-100 % Arterial Blood Base Excess 7.3 H -2.5-2.5 MMOL/L Barry Test POS Blood Gas Ventilator Setting NO Blood Gas Inspired Oxygen 5L Lactic Acid Level 1.55 0.50-2.00 MMOL/L Urine Color YELLOW Urine Clarity CLEAR Urine pH 7.5 5-9 Urine Specific [place] 1.015 L 1.016-1.022 Urine Protein TRACE H NEGATIVE Urine Glucose (UA) NEGATIVE NEGATIVE Urine Ketones NEGATIVE NEGATIVE Urine Nitrite NEGATIVE NEGATIVE Urine Bilirubin NEGATIVE NEGATIVE Urine Urobilinogen 1.0 < = 1.0 MG/DL Urine Leukocyte Esterase TRACE H NEGATIVE Urine RBC (Auto) NEGATIVE NEGATIVE Urine RBC NONE /HPF Urine WBC 0-2 /HPF Urine Squamous Epithelial Cells RARE /HPF Urine Crystals NONE /LPF Urine Bacteria NEGATIVE /HPF Urine Casts NONE /LPF Urine Mucus NEGATIVE /LPF Urine Culture Indicated NO My Orders Orders - DESMOND TIM APRN Arterial Blood Gas (05/19/21 16:44) Cbc With Automated Diff (05/19/21 16:44) Comprehensive Metabolic Panel (05/19/21 16:44) BNP (05/19/21 16:44) Chest 1 View, Ap/Pa Only (05/19/21 16:44) Ed Iv/Invasive Line Start (05/19/21 16:44) Procalcitonin (Pct) (05/19/21 16:44) Ekg Tracing (05/19/21 16:44) Covid 19 Inhouse Test (05/19/21 16:44) Influenza A And B By Pcr (05/19/21 16:44) Methylprednisolone Sod Succ (Solu-Medrol (05/19/21 17:00) Manual Differential (05/19/21 16:43) Blood Culture (05/19/21 17:29) Sputum Culture (05/19/21 17:29) Urinalysis (05/19/21 17:29) Urine Culture (05/19/21 17:29) Vital Signs Adult Sepsis Patie Q15M (05/19/21 17:29) O2 (05/19/21 17:29) Remove Rings In Anticipation O (05/19/21 17:29) Lactic Acid Analyzer (05/19/21 17:29) Cefepime Injection (Maxipime Injection) (05/19/21 18:00) Medications Given in ED Current Medications Medications Dose Ordered Sig/Yara Route Start Time Stop Time Status Last Admin Dose Admin Albuterol/ Ipratropium 3 ml STK-MED ONCE .ROUTE 05/19/21 16:42 05/19/21 16:45 DC 05/19/21 16:47 3 ML Cefepime HCl 1000 mg/Sterile Water 10 ml @ 200 mls/hr ONCE ONCE IV 05/19/21 18:00 05/19/21 18:02 DC 05/19/21 18:30 200 MLS/HR Methylprednisolone Sodium Succinate 80 mg ONCE ONCE IV 05/19/21 17:00 05/19/21 17:01 DC 05/19/21 17:27 80 MG Vital Signs/I&O 05/19/21 16:30 Temp 37.1 Pulse 109 Resp 18 B/P (MAP) 185/96 (125) Pulse Ox 91 O2 Delivery Nasal Cannula O2 Flow Rate 5.00 Capillary Refill : Departure Communication (Admissions) EKG shows sinus tachycardia rate of 106 prolonged QT interval at 525 ms no ectopy no ST segment change. Impression Primary Impression: COPD exacerbation Additional Impression: Pneumonia Disposition: ADMITTED INPATIENT Condition: Stable Admissions Decision to Admit Reason: Admit from ER (General) Decision to Admit/Date: May 19, 2021 Time/Decision to Admit Time: 18:41 Departure-Patient Inst. Referrals: MARCELLUS WHITESIDE DO (PCP) Primary Care Physician LUPILLO NEWTON APRN (Family) Primary Care Physician Patient Instructions: COPD Exacerbation, Adult ED DESMOND TIM APRN May 19, 2021 16:56
[2021-05-19] MEDS ORDERED: methylPREDNISolone 40 MG/ML (Solu-MEDROL) VIAL IV ONE (17:00)
[2021-05-19 17:07] LABS: ALBUMIN 4.2 GM/DL (3.2-4.5)
[2021-05-19 17:08] LABS: CHLORIDE 94 MMOL/L (98-107); POTASSIUM 3.5 MMOL/L (3.6-5.0); SODIUM 139 MMOL/L (135-145)
[2021-05-19 17:09] LABS: CALCIUM 10.1 MG/DL (8.5-10.1)
[2021-05-19 17:10] LABS: GLUCOSE 120 MG/DL (70-105); TOTAL PROTEIN 7.4 GM/DL (6.4-8.2)
[2021-05-19 17:11] LABS: BASOPHILS # (AUTO) 0.1 10^3/uL (0.0-0.1); BASOPHILS % (AUTO) 0 % (0-10); CARBON DIOXIDE 30 MMOL/L (21-32); EOSINOPHILS # (AUTO) 0.1 10^3/uL (0.0-0.3); EOSINOPHILS % (AUTO) 1 % (0-10); HEMATOCRIT 38 % (35-52); HEMOGLOBIN 11.6 g/dL (11.5-16.0); LYMPHOCYTES # (AUTO) 2.5 10^3/uL (1.0-4.0); LYMPHOCYTES % (AUTO) 10 % (12-44); MEAN CORPUSCULAR HEMOGLOBIN 27 pg (25-34); MEAN CORPUSCULAR HGB CONC 31 g/dL (32-36); MEAN CORPUSCULAR VOLUME 88 fL (80-99); MEAN PLATELET VOLUME 10.7 fL (9.0-12.2); MONOCYTES # (AUTO) 1.3 10^3/uL (0.0-1.0); MONOCYTES % (AUTO) 5 % (0-12); NEUTROPHILS # (AUTO) 20.7 10^3/uL (1.8-7.8); NEUTROPHILS % (AUTO) 83 % (42-75); PLATELET COUNT 321 10^3/uL (130-400); WHITE BLOOD COUNT 24.9 10^3/uL (4.3-11.0)
[2021-05-19 17:12] LABS: BILIRUBIN,TOTAL 0.7 MG/DL (0.1-1.0)
[2021-05-19 17:13] LABS: ALKALINE PHOSPHATASE 59 U/L (40-136)
[2021-05-19 17:14] LABS: CREATININE SERUM 0.76 MG/DL (0.60-1.30); GFR ESTIMATED > 60
[2021-05-19 17:15] LABS: BUN/CREATININE RATIO 20
[2021-05-19 17:16] LABS: ALANINE AMINOTRANSFERASE 19 U/L (0-55)
[2021-05-19] MEDS ORDERED: CEFEPIME INJECTION 1,000 MG in WATER (STERILE) FOR INJECTION 10 ML IV ONE (18:00)
[2021-05-19 18:06] LABS: BAND NEUTROPHILS 0 %; BASOPHILS % (MANUAL) 0 %; EOSINOPHILS % (MANUAL) 0 %; LYMPHOCYTES % (MANUAL) 11 %; MONOCYTES % (MANUAL) 3 %; NEUTROPHILS % (MANUAL) 86 %; RBC MORPH NORMAL
--- NOTE | 2021-05-19 18:17 | Diagnostic Imaging Report ---
INDICATION: Cough, shortness of air. EXAMINATION: Chest 05/19/2021. COMPARISON: 11/10/2019 FINDINGS: The heart is stable. Pulmonary vasculature unremarkable. Bibasilar infiltrates and effusions noted. No pneumothorax. IMPRESSION: 1. Bibasal infiltrates and effusions slightly increased from previous imaging. Dictated by: Dictated on workstation # [id number]
[2021-05-19 18:22] LABS: BILIRUBIN,URINE NEGATIVE (NEGATIVE); CLARITY,URINE CLEAR; COLOR,URINE YELLOW; GLUCOSE, URINE (UA) NEGATIVE (NEGATIVE); KETONES,URINE NEGATIVE (NEGATIVE); LEUKOCYTE ESTERASE ,URINE TRACE (NEGATIVE); NITRITE,URINE NEGATIVE (NEGATIVE); PH,URINE 7.5 (5-9); PROTEIN,URINE TRACE (NEGATIVE)
[2021-05-19 18:29] LABS: BACTERIA,URINE NEGATIVE /HPF; SQUAMOUS EPITHELIAL CELL,UR RARE /HPF; WBC,URINE 0-2 /HPF
[2021-05-19 19:58] VITALS: BP 146/96
[2021-05-19 20:13] VITALS: BP 147/78
[2021-05-19] MEDS ORDERED: RT-ALBUTEROL/IPRATROPIUM 3 ML (DUONEB) VIAL INH PRN (20:15)
[2021-05-19] MEDS: RT-ALBUTEROL/IPRATROPIUM 3 ML (DUONEB) VIAL INH SCH (21:26)
[2021-05-19] MEDS ORDERED: IBUPROFEN 600 MG (MOTRIN) TAB PO PRN (22:00)
[2021-05-19] MEDS ORDERED: ONDANSETRON 4 MG/2 ML (SDV) Z0FRAN IVP PRN (22:00)
[2021-05-19] MEDS: LACTATED RINGERS 1,000 ML IV SCH (22:01)
[2021-05-19] MEDS: ENOXAPARIN 40 MG/0.4 ML (LOVENOX) SYR SC SCH (22:01)
[2021-05-20] MEDS: CEFEPIME 1,000 MG/SWFI 10 ML IV PUSH IV SCH ×10 (00:04→23:32)
[2021-05-20 00:22] VITALS: BP 131/70
[2021-05-20] MEDS: RT-ALBUTEROL/IPRATROPIUM 3 ML (DUONEB) VIAL INH SCH ×4 (02:06→18:16)
[2021-05-20 04:25] VITALS: BP 127/73
[2021-05-20 05:52] LABS: BASOPHILS % (AUTO) 0 % (0-10); EOSINOPHILS % (AUTO) 0 % (0-10); HEMATOCRIT 35 % (35-52); HEMOGLOBIN 10.5 g/dL (11.5-16.0); LYMPHOCYTES # (AUTO) 0.8 10^3/uL (1.0-4.0); LYMPHOCYTES % (AUTO) 4 % (12-44); MEAN CORPUSCULAR HEMOGLOBIN 26 pg (25-34); MEAN CORPUSCULAR HGB CONC 30 g/dL (32-36); MEAN CORPUSCULAR VOLUME 87 fL (80-99); MEAN PLATELET VOLUME 10.8 fL (9.0-12.2); MONOCYTES # (AUTO) 0.4 10^3/uL (0.0-1.0); MONOCYTES % (AUTO) 2 % (0-12); NEUTROPHILS # (AUTO) 18.6 10^3/uL (1.8-7.8); NEUTROPHILS % (AUTO) 93 % (42-75); PLATELET COUNT 289 10^3/uL (130-400); WHITE BLOOD COUNT 20.1 10^3/uL (4.3-11.0)
[2021-05-20 06:14] LABS: CHLORIDE 97 MMOL/L (98-107); POTASSIUM 3.7 MMOL/L (3.6-5.0); SODIUM 141 MMOL/L (135-145)
[2021-05-20 06:15] LABS: CALCIUM 9.8 MG/DL (8.5-10.1)
[2021-05-20 06:16] LABS: GLUCOSE 207 MG/DL (70-105)
[2021-05-20 06:17] LABS: CARBON DIOXIDE 29 MMOL/L (21-32)
[2021-05-20 06:20] LABS: CREATININE SERUM 0.75 MG/DL (0.60-1.30); GFR ESTIMATED > 60
[2021-05-20 06:21] LABS: BUN/CREATININE RATIO 25
[2021-05-20] MEDS: LACTATED RINGERS 1,000 ML IV SCH (08:22)
[2021-05-20 08:38] VITALS: BP 148/76
--- NOTE | 2021-05-20 09:04 | History & Physical ---
CHANEL LEON MED STUDENT 05/20/21 0904: HPI History of Present Illness: cc: shortness of breath HPI: This is Rosa, a 75 yo F, who presents with shortness of breath. 3 days ago Rosa started having the shakes and dry heaving, she states that this happens when her stomach is "acting up." She said that after this episode her breathing seemed to get much worse, prompting her to visit the ED yesterday. Pt has had multiple pneumonia diagnoses and COPD exacerbations over the past 5 years. States that last pneumonia and exacerbation were approximately one and a half years ago. Pt is having shortness of breath and cough, without sputum production, currently. Pt also states that any time she receives IV antibiotics, she gets oral thrush, making "the hospital stay even more worse than what I am here for." Pt has been on 2L of oxygen at home for the last two years, was recently raised to 5L at a f/u appointment 3 weeks ago. 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 Patients Allergies have been reviewed. Allergies Coded Allergies: No Known Drug Allergies (Unverified , 03/19/17) [id number] Hx Patient Social History Marrital Status: Employed/Student: retired Smoking Status: Former Smoker Recent Hopitalizations: No (NOV-2018) Alcohol Use?: No Have you traveled recently?: No Immunizations Up To Date Tetanus Booster (TDap): Unknown Date of Pneumonia Vaccine: Sep 01, 2017 Date of Influenza Vaccine: Aug 15, 2019 Past Medical History PMHx: HTN COPD Hyperlipidemia PSurgHx: Appendectomy Hysterectomy Hemorrhoidectomy Family Medical History Significant Family History: Cancer (unspecified ) Family History: FH: cerebral palsy G8 BROTHER Lung cancer 19 MOTHER Review of Systems ([facility]) Constitutional: No chills, No diaphoresis, No weakness EENTM: blurred vision Respiratory: cough; No hemoptysis, No phlegm; short of breath, wheezing Cardiovascular: no symptoms reported Gastrointestinal: abdominal pain; No constipation, No diarrhea, No hematemesis, No melena, No nausea, No vomiting Physical Exam-([facility]) Physical Exam Vital Signs VS - Last 72 Hours, by Label 05/19/21 05/19/21 05/19/21 05/19/21 16:30 18:50 19:30 19:58 Temp 37.1 37.1 Pulse 109 107 107 Resp 18 18 B/P (MAP) 185/96 (125) 146/96 Pulse Ox 91 91 91 O2 Delivery Nasal Cannula Nasal Cannula High Flow N/C O2 Flow Rate 5.00 5.00 5.00 05/19/21 05/19/21 05/20/21 05/20/21 20:13 21:19 00:22 04:25 Temp 36.5 36.0 36.5 Pulse 106 86 90 Resp 18 18 20 B/P (MAP) 147/78 (101) 131/70 (90) 127/73 (91) Pulse Ox 90 93 95 97 O2 Delivery Nasal Cannula High Flow N/C Nasal Cannula Nasal Cannula O2 Flow Rate 5.00 5.00 5.00 5.00 05/20/21 05/20/21 05/20/21 05/20/21 08:00 08:38 09:25 11:40 Temp 37.0 36.8 Pulse 97 92 Resp 22 20 B/P (MAP) 148/76 (100) 168/79 (108) Pulse Ox 95 97 97 O2 Delivery Nasal Cannula Nasal Cannula High Flow N/C Nasal Cannula O2 Flow Rate 5.00 5.00 5.00 5.00 Capillary Refill : Less Than 3 Seconds General Appearance: WD/WN, no apparent distress Eyes: Bilateral Eye Normal Inspection, Bilateral Eye PERRL, Bilateral Eye EOMI HEENT: PERRL/EOMI; No scleral icterus (R), No scleral icterus (L) Neck: non-tender, full range of motion, supple; No lymphadenopathy (R), No l ymphadenopathy (L) Respiratory: chest non-tender, decreased breath sounds, wheezing Cardiovascular: normal peripheral pulses, regular rate, rhythm, no edema, no JVD, no murmur Peripheral Pulses: 2+ Dorsalis Pedis (R), 2+ Left Dors-Pedis (L), 2+ Radial Pulses (R), 2+ Radial Pulses (L) Gastrointestinal: normal bowel sounds, soft, no pulsatile mass, tenderness Extremities: no pedal edema, no calf tenderness, normal capillary refill Neurologic/Psychiatric: alert, normal mood/affect, oriented x 3 Skin: normal color, warm/dry; No diaphoresis Lymphatic: no adenopathy Assessment/Plan Assessment/Plan Admission Dx Shortness of breath (1) Pneumonia Status: Acute Assessment & Plan: Identified with cxr, has bilateral bibasilar infiltrates with bilateral effusions present. Flu A and B negative Covid negative Procalcitonin of 6.45 Continue IV Cefepime 10 mls @ 200mls/hr Continue Oxygen as needed, currently at 5L Continue Fluticasone/Vilanterol once daily Continue Albuterol/Ipratropium Q6hr Sputum sample and culture Qualifiers: Qualified Codes: J18.9 - Pneumonia, unspecified organism (2) COPD exacerbation Status: Acute Assessment & Plan: 05/20/21 Continue home medications. Albuterol treatments PRN Oxygen currently at 5L, titrate as needed (3) Hypertension Status: Chronic Assessment & Plan: Restart home medication Amlodipine at 5 mg and Hydrochlorothiazide at 25 mg (4) GERD (gastroesophageal reflux disease) Status: Chronic Assessment & Plan: Restart home medication of Omeprazole 40 mg once daily (5) DVT prophylaxis Status: Acute Assessment & Plan: Continue with Enoxaparin injections daily. ALYSSA WELCH MD 05/20/212112: HPI History of Present Illness: Patient seen and examined with MS4. Agree with above HPI. In addition patient has not been around anyone that has been sick. States that it came on quickly. She was increased on her oxygen about 2 weeks ago and she has been using 4.5 at home because 5 seemed to be too much for her. She did her walking test in the pulmonary clinic. Source: patient Exam Limitations: no limitations Home Medications Allergies Coded Allergies: No Known Drug Allergies (Unverified , 03/19/17) NIX-Vuzbsx-Qpzcbr Hx Patient Social History Living Status: Lives at home with Past Medical History COPD/Emphsyma Oxygen dependent baseline 4.5-5 LPM HTN HLD Family Medical History Significant Family History: Cancer Family History: FH: cerebral palsy G8 BROTHER Lung cancer 19 MOTHER Review of Systems (CHC) Constitutional: No chills, No fever; malaise EENTM: no symptoms reported; No mouth pain, No nose congestion, No nose pain Respiratory: cough, dyspnea on exertion, short of breath, wheezing Cardiovascular: no symptoms reported; No chest pain, No edema, No palpitations Gastrointestinal: no symptoms reported; No abdominal pain, No constipation, No diarrhea, No loss of appetite, No nausea, No vomiting Genitourinary: no symptoms reported; No dysuria, No frequency, No hematuria : No Musculoskeletal: no symptoms reported; No back pain, No joint pain, No muscle pain Skin: no symptoms reported; No lesions, No rash Psychiatric/Neurological: Weakness Reviewed Test Results Reviewed Test Results Lab Laboratory Tests Test 05/20/21 05:27 Range/Units White Blood Count 20.1 H 4.3-11.0 10^3/uL Red Blood Count 4.00 3.80-5.11 10^6/uL Hemoglobin 10.5 L 11.5-16.0 g/dL Hematocrit 35 35-52 % Mean Corpuscular Volume 87 80-99 fL Mean Corpuscular Hemoglobin 26 25-34 pg Mean Corpuscular Hemoglobin Concent 30 L 32-36 g/dL Red Cell Distribution Width 15.7 H 10.0-14.5 % Platelet Count 289 130-400 10^3/uL Mean Platelet Volume 10.8 9.0-12.2 fL Immature Granulocyte % (Auto) 1 % Neutrophils (%) (Auto) 93 H 42-75 % Lymphocytes (%) (Auto) 4 L 12-44 % Monocytes (%) (Auto) 2 0-12 % Eosinophils (%) (Auto) 0 0-10 % Basophils (%) (Auto) 0 0-10 % Neutrophils # (Auto) 18.6 H 1.8-7.8 10^3/uL Lymphocytes # (Auto) 0.8 L 1.0-4.0 10^3/uL Monocytes # (Auto) 0.4 0.0-1.0 10^3/uL Eosinophils # (Auto) 0.0 0.0-0.3 10^3/uL Basophils # (Auto) 0.0 0.0-0.1 10^3/uL Immature Granulocyte # (Auto) 0.2 H 0.0-0.1 10^3/uL Sodium Level 141 135-145 MMOL/L Potassium Level 3.7 3.6-5.0 MMOL/L Chloride Level 97 L 98-107 MMOL/L Carbon Dioxide Level 29 21-32 MMOL/L Anion Gap 15 H 5-14 MMOL/L Blood Urea Nitrogen 19 H 7-18 MG/DL Creatinine 0.75 0.60-1.30 MG/DL Estimat Glomerular Filtration Rate > 60 BUN/Creatinine Ratio 25 Glucose Level 207 H 70-105 MG/DL Calcium Level 9.8 8.5-10.1 MG/DL Physical Exam-([facility]) Physical Exam General Appearance: WD/WN, no apparent distress Neck: non-tender, full range of motion, supple Respiratory: chest non-tender, respiratory distress (with minimal exertion), decreased breath sounds, wheezing Cardiovascular: normal peripheral pulses, regular rate, rhythm, no edema, no mu rmur Gastrointestinal: normal bowel sounds, non tender, soft Back: no CVA tenderness, no vertebral tenderness Extremities: normal range of motion, no pedal edema, no calf tenderness, normal capillary refill Neurologic/Psychiatric: branch service leader II-XII nml as tested, no motor/sensory deficits, alert, normal mood/affect, oriented x 3 Skin: normal color, warm/dry Lymphatic: no adenopathy Assessment/Plan Assessment/Plan Admission Status: Inpatient Order (span 2 midnights) Reason for Inpatient Admission: need IV steroids and antibiotics with more frequent breathing treatments (1) Pneumonia Status: Acute Assessment & Plan: Identified with cxr, has bilateral bibasilar infiltrates with bilateral effusions present. Flu A and B negative Covid negative Procalcitonin of 6.45 Continue IV Cefepime 10 mls @ 200mls/hr Continue Oxygen as needed, currently at 5L Continue Fluticasone/Vilanterol once daily Continue Albuterol/Ipratropium Q6hr Sputum sample and culture - Continue IV antibiotics and steroids, will decrease oxygen as tolerated, MAT protocol Qualifiers: Qualified Codes: J18.9 - Pneumonia, unspecified organism (2) COPD exacerbation Status: Acute Assessment & Plan: 05/20/21 Continue home medications. Albuterol treatments PRN Oxygen currently at 5L, titrate as needed (3) Hypertension Status: Chronic Assessment & Plan: Restart home medication Amlodipine at 5 mg and Hydr ochlorothiazide at 25 mg (4) GERD (gastroesophageal reflux disease) Status: Chronic Assessment & Plan: Restart home medication of Omeprazole 40 mg once daily (5) DVT prophylaxis Status: Acute Assessment & Plan: Continue with Enoxaparin injections daily. Supervisory-Addendum Brief Supervisory Addendum Verification and Attestation of Medical Student E/M Service A medical student performed and documented this service in my presence. I review ed and verified all information documented by the medical student and made modifications to such information, when appropriate. I personally performed the physical exam and medical decision making. Alyssa Welch, May 20, 2021,21:18 Dr Welch's recommendation in italics CHANEL LEON MED STUDENT May 20, 2021 09:04 ALYSSA WELCH MD May 20, 2021 21:13
[2021-05-20] MEDS: FLUTICASONE/VILANTEROL 200 MCG 14'S (BREO) IH SCH (09:25)
[2021-05-20] MEDS ORDERED: ACET-2267 PO (10:24)
[2021-05-20] MEDS ORDERED: FEXO180T84 PO (10:24)
[2021-05-20] MEDS ORDERED: VENL75CA93 PO (10:24)
[2021-05-20] MEDS ORDERED: FENO54TA PO (10:24)
[2021-05-20] MEDS ORDERED: MULT-1060 PO (10:24)
[2021-05-20] MEDS ORDERED: FLUT1DIS26 IH (10:28)
[2021-05-20] MEDS ORDERED: TIOT18CA2 IH (10:28)
[2021-05-20] MEDS ORDERED: ALB0.5V INH (10:28)
[2021-05-20 11:40] VITALS: BP 168/79
[2021-05-20] MEDS: ACETAMINOPHEN 325 MG TABLET PO PRN (11:49)
[2021-05-20 16:00] VITALS: BP 188/85
[2021-05-20] MEDS ORDERED: ALPRAZolam 0.5 MG (XANAX) TAB ONE (17:00)
[2021-05-20] MEDS: ALPRAZolam 0.5 MG (XANAX) TAB PO PRN (17:01)
[2021-05-20 20:00] VITALS: BP 135/65
[2021-05-20] MEDS ORDERED: ASPIRIN E.C. 81 MG (ECOTRIN) TAB PO SCH (21:00)
[2021-05-20] MEDS: ENOXAPARIN 40 MG/0.4 ML (LOVENOX) SYR SC SCH (21:01)
[2021-05-20] MEDS: MONTELUKAST 10 MG (SINGULAIR) TAB PO SCH (21:47)
[2021-05-20] MEDS: NYSTATIN ORAL SUSP 5 ML UDC PO SCH (23:32)
[2021-05-21 00:15] VITALS: BP 126/66
[2021-05-21] MEDS: RT-ALBUTEROL/IPRATROPIUM 3 ML (DUONEB) VIAL INH SCH ×4 (01:31→21:06)
[2021-05-21 03:30] VITALS: BP 137/68
[2021-05-21] MEDS: CEFEPIME 1,000 MG/SWFI 10 ML IV PUSH IV SCH ×6 (06:35→22:01)
[2021-05-21] MEDS: NYSTATIN ORAL SUSP 5 ML UDC PO SCH ×4 (06:35→23:25)
[2021-05-21 06:47] LABS: BASOPHILS # (AUTO) 0.1 10^3/uL (0.0-0.1); BASOPHILS % (AUTO) 0 % (0-10); EOSINOPHILS # (AUTO) 0.2 10^3/uL (0.0-0.3); EOSINOPHILS % (AUTO) 1 % (0-10); HEMATOCRIT 34 % (35-52); HEMOGLOBIN 10.3 g/dL (11.5-16.0); LYMPHOCYTES # (AUTO) 1.9 10^3/uL (1.0-4.0); LYMPHOCYTES % (AUTO) 12 % (12-44); MEAN CORPUSCULAR HEMOGLOBIN 27 pg (25-34); MEAN CORPUSCULAR HGB CONC 30 g/dL (32-36); MEAN CORPUSCULAR VOLUME 87 fL (80-99); MEAN PLATELET VOLUME 11.5 fL (9.0-12.2); MONOCYTES # (AUTO) 1.1 10^3/uL (0.0-1.0); MONOCYTES % (AUTO) 7 % (0-12); NEUTROPHILS # (AUTO) 11.9 10^3/uL (1.8-7.8); NEUTROPHILS % (AUTO) 77 % (42-75); PLATELET COUNT 338 10^3/uL (130-400); WHITE BLOOD COUNT 15.5 10^3/uL (4.3-11.0)
[2021-05-21 06:54] LABS: CHLORIDE 99 MMOL/L (98-107); POTASSIUM 3.3 MMOL/L (3.6-5.0); SODIUM 142 MMOL/L (135-145)
[2021-05-21 06:56] LABS: CALCIUM 9.7 MG/DL (8.5-10.1); GLUCOSE 134 MG/DL (70-105)
[2021-05-21 06:58] LABS: CARBON DIOXIDE 32 MMOL/L (21-32)
[2021-05-21 07:00] LABS: CREATININE SERUM 0.68 MG/DL (0.60-1.30); GFR ESTIMATED > 60
[2021-05-21 07:01] LABS: BUN/CREATININE RATIO 24
[2021-05-21] MEDS: FLUTICASONE/VILANTEROL 200 MCG 14'S (BREO) IH SCH (07:16)
[2021-05-21 08:13] VITALS: BP 153/80
[2021-05-21] MEDS: PANTOPRAZOLE 40 MG (PROTONIX) TAB PO SCH (08:36)
[2021-05-21] MEDS: amLODIPine 5 MG (NORVASC) TAB PO SCH (08:36)
[2021-05-21] MEDS: VENlafaxine XR 75 MG (EFFEXOR XR) CAP PO SCH (08:36)
[2021-05-21] MEDS ORDERED: KCL 20 MEQ TAB (K-DUR) PO ONE (10:45)
[2021-05-21] MEDS ORDERED: polyethylene glycoL POWDER 17 GM (MIRALAX) PACK PO PRN ×2 (11:00)
--- NOTE | 2021-05-21 11:26 | Physical Therapy Evaluation ---
PT Evaluation-General Medical Diagnosis Admission Date May 19, 2021 at 18:35 Medical Diagnosis: COPD exacerbation, pneumonia Onset Date: May 19, 2021 Therapy Diagnosis Therapy Diagnosis: impaired mobility, endurance Height/Weight Height (Feet): 5 Height (Inches): 3.00 Weight (Pounds): 150 Weight (Ounces): 0.8 Precautions Precautions/Isolations: Standard Precautions Referral Physician: Rebekah Reason for Referral: Evaluation/Treatment Medical History Additional Medical History Past Medical History PMHx: HTN COPD Hyperlipidemia PSurgHx: Appendectomy Hysterectomy Hemorrhoidectomy Reviewed History: Yes Social History Current Living Status: Spouse Entry Into Home: Level Entry Patient states she does have a couple of steps inside her home, small ones Prior Prior Level of Function SCALE: Activities may be completed with or without assistive devices. 2-Fljdepinvk-vpukqnq completes the activity by him/herself with no assistance from a helper. 5-Set-up or Clean-up Assistance-helper sets up or cleans up; patient completes activity. [place] assists only prior to or following the activity. 4-Supervision or Touching Assistance-helper provides verbal cues and/or touching/steadying and/or contact guard assistance as patient completes activity. Assistance may be provided throughout the activity or intermittently. 3-Partial/Moderate Assistance-helper does LESS THAN HALF the effort. [place] lifts, holds or supports trunk or limbs, but provides less than half the effort. 2-Substantial/Maximal Assistance-helper does MORE THAN HALF the effort. [place] lifts or holds trunk or limbs and provides more than half the effort. 7-Kgefdkncr-ktgnxw does ALL the effort. Patient does none of the effort to complete the activity. Or, the assistance of 2 or more helpers is required for the patient to complete the activity. If activity was not attempted, code reason: 7-Patient Refused. 9-Not Applicable-not attempted and the patient did not perform the activity before the current illness, exacerbation or injury. 10-Not Attempted due to Environmental Limitations-(lack of equipment, weather restraints, etc.). 88-Not Attempted due to Medical Conditions or Safety Concerns. Bed Mobility: 6 Transfers (B,C,W/C): 6 Gait: 6 Stairs: 6 Indoor Mobility (Ambulation): Independent Stairs: Independent PT Evaluation-Current Subjective Patient in chair pre tx, agrees to PT, has no complaints of pain but states she has pressure in her head, like sinus pressure Pt/Family Goals "to go home tomorrow" Objective Patient Orientation: Person, Place, Situation Attachments: Oxygen (5L ) ROM/Strength ROM Lower Extremities WNL Strength Lower Extremities LLE (hip flexion 4/5, knee flexion 4+/5, knee extension 4+/5, dorsiflexion 5/5), RLE (hip flexion 4/5, knee flexion 4+/5, knee extension 4+/5, dorsiflexion 5/5) Sensory Hearing: Functional Sensation Right Lower Extremit: Intact Sensation Left Lower Extremity: Intact Transfers Sit to Stand (QC): 6 Chair/Edh-ug-Txkdo Xfer(QC): 6 Gait Does the Patient Walk?: Yes Mode of Locomotion: Walk Anticipated Mode of Locomotion: Walk Walk 10 feet (QC): 6 Walk 50 ft with 2 Turns(QC): 6 Walk 150 ft (QC): 6 Distance: 180' Gait Assistive Device: FWW Comments/Gait Description Patient tried initially to ambulate without an assistive device and she was a little unsteady, she ambulates independently using a rolling walker but needs occasional rest breaks due to SOB. After getting back to her room her O2 was 93%. She ambulated with 5L of O2 through nasal canula. Balance Sitting Static: Normal Sitting Dynamic: Normal Standing Static: Normal Standing Dynamic: Good Treatment seated BLE exercises x20 (AP, LAQ, hip flexion) Assessment/Needs Patient has impaired mobility, balance, endurance. Patient in chair in room post tx with nurse call, and in the room. Patient needs a rolling walker for ambulation at this time due to unsteadiness. Rehab Potential: Fair PT Prison Goals Nut Process Helper Goals PT Nut Process Helper Goals Time Frame: May 28, 2021 Roll Left & Right (QC): 6 Sit to Lying (QC): 6 Lying-Sitting on Side/Bed(QC): 6 Sit to Stand (QC): 6 Chair/Dhy-gb-Gcemy Xfer(QC): 6 Toilet Transfer (QC): 6 Walk 10 feet (QC): 6 Walk 50ft with 2 Turns (QC): 6 Walk 150 ft (QC): 6 1 Step (curb) (QC): 4 4 Steps (QC): 4 PT Plan Problem List Problem List: Activity Tolerance, Functional Strength, Safety, Balance, Gait, Transfer Treatment/Plan Treatment Plan: Continue Plan of Care Treatment Plan: Education, Functional Activity [place], Functional Strength, Gait, Safety, Therapeutic Exercise, Transfers Treatment Duration: May 28, 2021 Frequency: 6 times per week Estimated Hrs Per Day: .25 hour per day Patient and/or Family Agrees t: Yes Safety Risks/Education Patient Education: Gait Training, Transfer Techniques, Correct Positioning, Safety Issues Teaching Recipient: Patient Teaching Methods: Demonstration, Discussion Response to Teaching: Reinforcement Needed Discharge Recommendations Plan Patient will perform bed mobility and transfer training, balance and endurance training, functional strengthening, stair training, gait training, and education, to improve functional mobility and independence at home. Therapy Discharge Recommendati: Home & Family, Post Acute PT Time/GCodes Time In: 1101 Time Out: 1116 Total Billed Treatment Time: 15 Total Billed Treatment 1 visit EVL 16' ALEXA NOLAND PT May 21, 2021 11:26
--- NOTE | 2021-05-21 11:36 | Progress Note ---
CHANEL LEON MED STUDENT 05/21/21 1136: Subjective Subjective/Events-last exam This is Rosa, a 75 yo F, who was admitted for shortness of breath. Pt states that she is doing slightly better today. She says that her breathing has become much easier. Pt still does not have an appetite. mentioned that pt was very week yesterday when walking to and from the bathroom, pt agrees. Pt reports that today she does still feel weak when trying to move around. Pt also has c/o dizziness and having trouble focusing. Review of Systems General: Fatigue, Appetite (decreased) HEENT: No Head Aches, No Visual Changes Pulmonary: No Cough Cardiovascular: Lt Headedness; No: Chest Pain, Palpitations Gastrointestinal: No: Nausea, Vomiting, Abdominal Pain, Diarrhea, Constipation Genitourinary: No Dysuria, No Hematuria Neurological: Weakness Focused Exam Lactate Level 05/19/21 16:45: Lactic Acid Level 1.55 Respiratory: Chest Non Tender, Normal Breath Sounds, No Accessory Muscle Use, Wheezing (decreased) Cardiovascular: Regular Rate, Rhythm, No Murmur, Normal Peripheral Pulses Peripheral Pulses: 2+ Dorsalis Pedis (R), 2+ Left Dors-Pedis (L), 2+ Radial Pulses (R), 2+ Radial Pulses (L) Skin: normal color, warm/dry Objective Exam Last Set of Vital Signs Vital Signs Date Time Temp Pulse Resp B/P (MAP) Pulse Ox O2 Delivery O2 Flow Rate FiO2 05/21/21 08:13 36.2 90 18 153/80 (104) 94 Nasal Cannula 5.00 Capillary Refill : Less Than 3 Seconds I&O Intake and Output 05/21/21 00:00 Intake Total 2840 ml Output Total 1225 ml Balance 1615 ml Intake Oral 1820 ml IV Total 1020 ml Output Urine Total 1225 ml General: Alert, Oriented X3, Cooperative, No Acute Distress Neck: Supple Lungs: Normal Air Movement, Other (wheezing, decreased from 05/20/21) Heart: Regular Rate, Normal S1, Normal S2 Abdomen: Normal Bowel Sounds, Soft, No Tenderness Extremities: Other (+1 pitting edema, decreased from yesterday ) Psych/Mental Status: Mental Status NL Results/Procedures Lab Laboratory Tests 05/21/21 06:06: White Blood Count 15.5H, Red Blood Count 3.88, Hemoglobin 10.3L, Hematocrit 34L, Mean Corpuscular Volume 87, Mean Corpuscular Hemoglobin 27, Mean Corpuscular Hemoglobin Concent 30L, Red Cell Distribution Width 15.9H, Platelet Count 338, Mean Platelet Volume 11.5, Immature Granulocyte % (Auto) 2, Neutrophils (%) (Auto) 77H, Lymphocytes (%) (Auto) 12, Monocytes (%) (Auto) 7, Eosinophils (%) (Auto) 1, Basophils (%) (Auto) 0, Neutrophils # (Auto) 11.9H, Lymphocytes # (Auto) 1.9, Monocytes # (Auto) 1.1H, Eosinophils # (Auto) 0.2, Basophils # (Auto) 0.1, Immature Granulocyte # (Auto) 0.4H, Sodium Level 142, Potassium Level 3.3L, Chloride Level 99, Carbon Dioxide Level 32, Anion Gap 11, Blood Urea Nitrogen 16, Creatinine 0.68, Estimat Glomerular Filtration Rate > 60, BUN/Creatinine Ratio 24, Glucose Level 134H, Calcium Level 9.7 Microbiology 05/19/21 Urine Culture - Final, Complete 3 or more isolates 05/19/21 Blood Culture - Preliminary, Resulted No growth Assessment/Plan Assessment/Plan (1) Pneumonia Status: Acute Assessment & Plan: Identified with cxr, has bilateral bibasilar infiltrates with bilateral effusions present. Flu A and B negative Covid negative Procalcitonin of 6.45 Continue IV Cefepime 10 mls @ 200mls/hr Continue Oxygen as needed, currently at 5L Continue Fluticasone/Vilanterol once daily Continue Albuterol/Ipratropium Q6hr Sputum sample and culture - Continue IV antibiotics and steroids, will decrease oxygen as tolerated, MAT protocol 05/21/21 Continue IV antibiotics and steroids Pt still on 5L of oxygen via nasal cannula Qualifiers: Qualified Codes: J18.9 - Pneumonia, unspecified organism (2) COPD exacerbation Status: Acute Assessment & Plan: 05/20/21 Continue home medications. Albuterol treatments PRN Oxygen currently at 5L, titrate as needed 05/21/21 Continue home medications. Albuterol treatments PRN Oxygen currently at 5L, titrate as needed (3) Weakness generalized Status: Acute Assessment & Plan: Refer pt to Physical Therapy to work on walking (4) Hypertension Status: Chronic Assessment & Plan: Restart home medication Amlodipine at 5 mg and Hydrochlorothiazide at 25 mg (5) GERD (gastroesophageal reflux disease) Status: Chronic Assessment & Plan: Restart home medication of Omeprazole 40 mg once daily (6) DVT prophylaxis Status: Acute Assessment & Plan: Continue with Enoxaparin injections daily. ALYSSA WELCH MD 05/21/21 2234: Subjective Subjective/Events-last exam Agree with above HPI, patient seen and examined with MS4. Patient states that she is still having some shortness of breath and feeling weak with activity. Tolerating PO diet. Review of Systems General: Fatigue, Malaise Pulmonary: Dyspnea, Cough Cardiovascular: No: Chest Pain, Palpitations, Edema Gastrointestinal: No: Nausea, Vomiting, Abdominal Pain, Diarrhea, Constipation Genitourinary: No Dysuria, No Frequency, No Hematuria Neurological: Weakness, Incoordination Objective Exam General: Alert, Oriented X3, Cooperative, No Acute Distress HEENT: Mucous Memb Moist/[place] Neck: Supple Lungs: Other (Diminished breath sounds and scattered wheezing, increased work of breathing with activity) Heart: Regular Rate, No Murmurs Abdomen: Normal Bowel Sounds, Soft, No Tenderness Extremities: Other (+1 pitting edema, decreased from yesterday ) Skin: No Rashes, No Breakdown Neuro: Normal Speech, Sensation Intact, Cranial Nerves 3-12 NL Assessment/Plan Assessment/Plan (1) Pneumonia Status: Acute Assessment & Plan: Identified with cxr, has bilateral bibasilar infiltrates with bilateral effusions present. Flu A and B negative Covid negative Procalcitonin of 6.45 Continue IV Cefepime 10 mls @ 200mls/hr Continue Oxygen as needed, currently at 5L Continue Fluticasone/Vilanterol once daily Continue Albuterol/Ipratropium Q6hr Sputum sample and culture - Continue IV antibiotics and steroids, will decrease oxygen as tolerated, MAT protocol 05/21/21 Continue IV antibiotics and steroids Pt still on 5L of oxygen via nasal cannula - Will transition to PO antibiotics in the AM, Continue to titrate as tolerated, will order ambulatory oxygen study Qualifiers: Qualified Codes: J18.9 - Pneumonia, unspecified organism (2) COPD exacerbation Status: Acute Assessment & Plan: 05/20/21 Continue home medications. Albuterol treatments PRN Oxygen currently at 5L, titrate as needed 7/7/21 Continue home medications. Albuterol treatments PRN Oxygen currently at 5L, titrate as needed (3) Weakness generalized Status: Acute Assessment & Plan: Refer pt to Physical Therapy to work on walking (4) Hypertension Status: Chronic Assessment & Plan: Restart home medication Amlodipine at 5 mg and Hydrochlorothiazide at 25 mg (5) GERD (gastroesophageal reflux disease) Status: Chronic Assessment & Plan: Restart home medication of Omeprazole 40 mg once daily 05/21 - Blood pressures better controlled with restart of home meds, Low salt diet (6) DVT prophylaxis Status: Acute Assessment & Plan: Continue with Enoxaparin injections daily. Supervisory-Addendum Brief Supervisory Addendum Verification and Attestation of Medical Student E/M Service A medical student performed and documented this service in my presence. I reviewed and verified all information documented by the medical student and made modifications to such information, when appropriate. I personally performed the physical exam and medical decision making. Alyssa Welch, May 21, 2021,22:36 Dr Welch's plan in italics CHANEL LEON MED STUDENT May 21, 2021 11:36 ALYSSA WELCH MD May 21, 2021 22:34
[2021-05-21 11:50] VITALS: BP 148/77
[2021-05-21 16:00] VITALS: BP 139/81
[2021-05-21 20:00] VITALS: BP 143/72
[2021-05-21] MEDS: ENOXAPARIN 40 MG/0.4 ML (LOVENOX) SYR SC SCH (22:00)
[2021-05-21] MEDS: ALPRAZolam 0.5 MG (XANAX) TAB PO PRN (22:00)
[2021-05-21] MEDS: MONTELUKAST 10 MG (SINGULAIR) TAB PO SCH (22:01)
[2021-05-21] MEDS: ACETAMINOPHEN 325 MG TABLET PO PRN (22:01)
[2021-05-22 00:28] VITALS: BP 121/72
[2021-05-22] MEDS: RT-ALBUTEROL/IPRATROPIUM 3 ML (DUONEB) VIAL INH SCH ×2 (02:13→07:10)
[2021-05-22 04:07] VITALS: BP 136/72
[2021-05-22 05:58] LABS: BASOPHILS # (AUTO) 0.1 10^3/uL (0.0-0.1); BASOPHILS % (AUTO) 1 % (0-10); EOSINOPHILS # (AUTO) 0.6 10^3/uL (0.0-0.3); EOSINOPHILS % (AUTO) 7 % (0-10); HEMATOCRIT 34 % (35-52); HEMOGLOBIN 10.3 g/dL (11.5-16.0); LYMPHOCYTES # (AUTO) 1.9 10^3/uL (1.0-4.0); LYMPHOCYTES % (AUTO) 21 % (12-44); MEAN CORPUSCULAR HEMOGLOBIN 27 pg (25-34); MEAN CORPUSCULAR HGB CONC 30 g/dL (32-36); MEAN CORPUSCULAR VOLUME 89 fL (80-99); MEAN PLATELET VOLUME 11.3 fL (9.0-12.2); MONOCYTES % (AUTO) 11 % (0-12); NEUTROPHILS # (AUTO) 5.1 10^3/uL (1.8-7.8); NEUTROPHILS % (AUTO) 55 % (42-75); PLATELET COUNT 377 10^3/uL (130-400); WHITE BLOOD COUNT 9.2 10^3/uL (4.3-11.0)
[2021-05-22] MEDS: NYSTATIN ORAL SUSP 5 ML UDC PO SCH ×2 (06:01→12:42)
[2021-05-22] MEDS: CEFEPIME 1,000 MG/SWFI 10 ML IV PUSH IV SCH ×4 (06:01→12:41)
[2021-05-22 06:03] LABS: CHLORIDE 99 MMOL/L (98-107); POTASSIUM 3.6 MMOL/L (3.6-5.0); SODIUM 143 MMOL/L (135-145)
[2021-05-22 06:04] LABS: CALCIUM 9.6 MG/DL (8.5-10.1)
[2021-05-22 06:05] LABS: GLUCOSE 117 MG/DL (70-105)
[2021-05-22 06:06] LABS: CARBON DIOXIDE 31 MMOL/L (21-32)
[2021-05-22 06:09] LABS: CREATININE SERUM 0.68 MG/DL (0.60-1.30); GFR ESTIMATED > 60
[2021-05-22 06:10] LABS: BUN/CREATININE RATIO 28
[2021-05-22] MEDS: FLUTICASONE/VILANTEROL 200 MCG 14'S (BREO) IH SCH (07:10)
[2021-05-22 08:30] VITALS: BP 146/77
[2021-05-22] MEDS: amLODIPine 5 MG (NORVASC) TAB PO SCH (09:05)
[2021-05-22] MEDS: VENlafaxine XR 75 MG (EFFEXOR XR) CAP PO SCH (09:05)
[2021-05-22] MEDS: PANTOPRAZOLE 40 MG (PROTONIX) TAB PO SCH (09:05)
--- NOTE | 2021-05-22 10:15 | Physical Therapy Progress Note ---
Therapy Progress Note Patient is up independently in room and states she intends to go home and does not need PT. RN aware. PT to dismiss patient from services at this time. EVERETTE GUPTA PT May 22, 2021 10:15
[2021-05-22] MEDS ORDERED: CEFD300C3 PO (11:59)
[2021-05-22] MEDS ORDERED: PRD50T PO (11:59)
--- NOTE | 2021-05-22 12:00 | Discharge Summary ---
Discharge [facility] Reconcile Patient Problems Problems Reviewed?: Yes Discharge Medications New, Converted or Re-Newed RX: Transmitted to Pharmacy New Medications: Cefdinir (Cefdinir) 300 Mg Capsule 300 MG PO BID for 3 Days, #6 CAP Prednisone (Prednisone) 50 Mg Tab 50 MG PO DAILY for 5 Days, #5 TAB Continued Medications: Acetaminophen (Tylenol Extra Strength) 500 Mg Tablet 1000 MG PO Q8H PRN for PAIN-MILD (1-4), TAB Albuterol Sulfate (Ventolin Hfa) 18 Gm Hfa.aer.ad 2 PUFF INH Q6H PRN for SHORTNESS OF BREATH, INHALER Albuterol Sulfate (Albuterol Sulfate) 2.5 Mg/0.5 Ml Vial.neb 2.5 MG INH Q6H PRN for SHORTNESS OF BREATH, EACH Allopurinol (Allopurinol) 300 Mg Tablet 300 MG PO DAILY, TAB LAST FILLED 12-24-2020 #90/90 DAY SUPPLY Alprazolam (Alprazolam) 0.5 Mg Tablet 0.5 MG PO BID PRN for ANXIETY, TAB Amlodipine Besylate (Amlodipine Besylate) 5 Mg Tablet 5 MG PO DAILY, TAB LAST FILLED 12-05-2020 #90/90 DAY SUPPLY Aspirin (Aspirin EC) 81 Mg Tablet.dr 81 MG PO Q48H, TAB Fenofibrate (Fenofibrate) 54 Mg Tablet 54 MG PO DAILY, TAB LAST FILLED 01-06-2021 #90/90 DAY SUPPLY Fexofenadine HCl (Lynda Allergy) 180 Mg Tablet 180 MG PO DAILY PRN for ALLERGY SYMPTOMS, TAB Fluticasone Propionate (Fluticasone Propionate) 16 Gm [place].susp 2 SPRAYS NS DAILY, EA Fluticasone/Salmeterol (Advair 250-50 Diskus) 1 Each Blst.w.dev 1 EACH IH BID Hydrochlorothiazide (Hydrochlorothiazide) 25 Mg Tablet 25 MG PO DAILY, TAB Montelukast Sodium (Montelukast Sodium) 10 Mg Tablet 10 MG PO HS, TAB Multivitamin/Iron/Folic Acid (Centrum Women Tablet) 1 Each Tablet 1 EACH PO DAILY, TAB Omeprazole (Omeprazole) 40 Mg Capsule.dr 40 MG PO DAILY, CAP Tiotropium [place] (Spiriva) 1 Inh Aerp 1 INH IH DAILY, INHALER Venlafaxine HCl (Venlafaxine HCl ER) 75 Mg Cap.er.24h 75 MG PO DAILY, CAP Patient Instructions Goal/Follow Up Appt: 1-2 weeks with PCP at [facility] Patient Instructions: - Make sure to finish your antibiotics and steroids - Encouraged activity Activity & Diet Discharge Diet: Cardiac Diet Activity as Tolerated: Yes TI CHRISTINE MD May 22, 2021 12:00
[2021-05-22 12:01] VITALS: BP 130/80
--- NOTE | 2021-05-22 12:03 | Discharge Summary ---
Diagnosis/Chief Complaint Date of Admission May 19, 2021 at 18:35 Date of Discharge 05/22/21 Admission Diagnosis Admission Diagnosis Shortness of Breath Discharge Diagnosis Pneumonia, COPD exacerbation Problems/Diagnosis: (1) Pneumonia Assessment & Plan: Identified with cxr, has bilateral bibasilar infiltrates with bilateral effusions present. Flu A and B negative Covid negative Procalcitonin of 6.45 Continue IV Cefepime 10 mls @ 200mls/hr Continue Oxygen as needed, currently at 5L Continue Fluticasone/Vilanterol once daily Continue Albuterol/Ipratropium Q6hr Sputum sample and culture - Continue IV antibiotics and steroids, will decrease oxygen as tolerated, MAT protocol 05/21/21 Continue IV antibiotics and steroids Pt still on 5L of oxygen via nasal cannula - Will transition to PO antibiotics in the AM, Continue to titrate as tolerated, will order ambulatory oxygen study 05/22/21 Switching to PO antibiotics Switching to PO steroids Currently on 5L of O2, at baseline Qualifiers: Qualified Codes: J18.9 - Pneumonia, unspecified organism Status: Acute (2) COPD exacerbation Assessment & Plan: 05/20/21 Continue home medications. Albuterol treatments PRN Oxygen currently at 5L, titrate as needed 05/21/21 Continue home medications. Albuterol treatments PRN Oxygen currently at 5L, titrate as needed 05/22/21 Continue home medications Albuterol during the day, Q4hr PRN Status: Acute (3) Weakness generalized Assessment & Plan: Refer pt to Physical Therapy to work on walking Status: Resolved Resolution Date/Time: 05/22/21 @ 11:56 (4) Hypertension Assessment & Plan: Restart home medication Amlodipine at 5 mg and Hydrochl orothiazide at 25 mg 05/22/21 Continue home medication dosage of Amlodipine and Hydrochlorothiazide Status: Chronic (5) GERD (gastroesophageal reflux disease) Assessment & Plan: Restart home medication of Omeprazole 40 mg once daily 05/21 - Blood pressures better controlled with restart of home meds, Low salt diet Status: Chronic (6) DVT prophylaxis Assessment & Plan: Continue with Enoxaparin injections daily. Status: Acute Chief Complaint/HPI Chief Complaint/HPI Patient seen and examined with MS4. Agree with above HPI. In addition patient has not been around anyone that has been sick. States that it came on quickly. She was increased on her oxygen about 2 weeks ago and she has been using 4.5 at home because 5 seemed to be too much for her. She did her walking test in the pulmonary clinic. Discharge Summary-Simple/Stand Consultations Physical Therapy Discharge Physical Examination Allergies: Coded Allergies: No Known Drug Allergies (Unverified , 03/19/17) Vitals & I&Os Vital Sign - Last 12Hours Date Time Temp Pulse Resp B/P (MAP) Pulse Ox O2 Delivery O2 Flow Rate FiO2 05/22/21 10:39 Nasal Cannula 5.00 05/22/21 08:30 36.2 91 18 146/77 (100) 95 Intake and Output 05/22/21 00:00 Intake Total 760 ml Output Total 150 ml Balance 610 ml General Appearance: Alert, Oriented X3, Cooperative, No Acute Distress Respiratory: Normal Air Movement, Other (fine wheezing) Cardiovascular: Regular Rate, Normal S1, Normal S2, No Murmurs Abdominal: Normal Bowel Sounds, Soft, No Tenderness Extremities: No Cyanosis, No Edema, Normal Pulses Psych/Mental Status: Mental Status NL, Mood NL Hospital Course Was the Problem List Reviewed?: Yes See final discharge diagnosis. Rosa, a 75 yo F, arrived to the ED with increased work of breathing. A chest x- ray was done and she was admitted. She was treated with IV antibiotics and steroids. Pt had concerns about getting thrush while on IV antibiotics, was given magic mouthwash to help prevent the formation of thrush, These medications helped improve her condition and decrease her work of breathing. She woke up on the second day with some generalized weakness, PT worked with her on her walking that day. Today, she has no complaints of weakness, states that she is feeling much better than she was when she came in. Pt is excited to go home. Discussion & Recommendations Pt was advised to continue resting while at home. A walker was recommended for getting around her house. Pt denied this and stated that her is her walker at home. Pt is agreeable to take PO antibiotics and steroids when she goes home. Pt advised on use of Albuterol treatments, can use during the day, Q4hr PRN. Discharge Instructions to patient/family Please see electronic discharge instructions given to patient. Discharge Medications Reviewed and agree with Discharge Medication list on patient's Discharge Instruction sheet Clinical Quality Measures Admission Status Reason for Inpatient Admission: Shortness of breath DVT/VTE Prophylaxis Comfirm.Dx Mechanical not ordered: Pharmacological PPX Pneumonia: Pseudomonal Risk: COPD CHANEL LEON MED STUDENT May 22, 2021 12:03
[2021-05-22] MEDS ORDERED: NYST1000 PO (12:24)
[2021-05-22 14:04] VITALS: BP 130/80
== END 2021-05-22 14:25 | disposition home or self-care (01) | DRG 190 ==
LOC: EDUNIT# 16:16 → ER 16:18 → 4TH 18:35 → ER 18:50
PROVIDERS: ADMIT Family Medicine; ATTEND Family Medicine
DX: J44.1 Chronic obstructive pulmonary disease with (acute) exacerbation (principal); J18.9 Pneumonia, unspecified organism; J44.0 Chronic obstructive pulmonary disease with (acute) lower respiratory infection; K21.9 Gastro-esophageal reflux disease without esophagitis; Z20.822 Contact with and (suspected) exposure to COVID-19; R53.1 Weakness; K57.90 Diverticulosis of intestine, part unspecified, without perforation or abscess without bleeding; G89.29 Other chronic pain; M54.9 Dorsalgia, unspecified; F41.9 Anxiety disorder, unspecified; F32.9 Major depressive disorder, single episode, unspecified; E78.5 Hyperlipidemia, unspecified; I10 Essential (primary) hypertension; Z79.82 Long term (current) use of aspirin; Z79.2 Long term (current) use of antibiotics; Z79.899 Other long term (current) drug therapy; Z87.891 Personal history of nicotine dependence
CPT/HCPCS: 36415; 71045; 80048; 80053; 81000; 82805; 83605; 83880; 84145; 85007; 85025; 85027; 87040; 87088; 87636; 93005; 94640; 94664; 94760

== ENCOUNTER 2021-06-23 12:13 | Emergency (ER) | payer MEDICARE ==
[~2021-06-23] VITALS: Ht 162.5 cm; Wt 74.1 kg
[~2021-06-23 12:13] MED LIST changes: +ACET-2267 PO; +ALB0.5V INH; +CEFD300C3 PO; +FENO54TA PO; +FEXO180T84 PO; +FLUT1DIS26 IH; +MULT-1060 PO; +PRD50T PO; +TIOT18CA2 IH; +VENL75CA93 PO
[2021-06-23 13:10] LABS: BASOPHILS # (AUTO) 0.1 10^3/uL (0.0-0.1); BASOPHILS % (AUTO) 1 % (0-10); EOSINOPHILS # (AUTO) 0.8 10^3/uL (0.0-0.3); EOSINOPHILS % (AUTO) 6 % (0-10); HEMATOCRIT 37 % (35-52); HEMOGLOBIN 11.2 g/dL (11.5-16.0); LYMPHOCYTES # (AUTO) 1.9 10^3/uL (1.0-4.0); LYMPHOCYTES % (AUTO) 14 % (12-44); MEAN CORPUSCULAR HEMOGLOBIN 28 pg (25-34); MEAN CORPUSCULAR HGB CONC 31 g/dL (32-36); MEAN CORPUSCULAR VOLUME 90 fL (80-99); MEAN PLATELET VOLUME 10.7 fL (9.0-12.2); MONOCYTES # (AUTO) 1.1 10^3/uL (0.0-1.0); MONOCYTES % (AUTO) 8 % (0-12); NEUTROPHILS # (AUTO) 9.9 10^3/uL (1.8-7.8); NEUTROPHILS % (AUTO) 71 % (42-75); PLATELET COUNT 291 10^3/uL (130-400)
[2021-06-23 13:26] LABS: ALBUMIN 4.1 GM/DL (3.2-4.5); POTASSIUM 3.4 MMOL/L (3.6-5.0)
[2021-06-23 13:27] LABS: CALCIUM 9.5 MG/DL (8.5-10.1)
[2021-06-23 13:29] LABS: TOTAL PROTEIN 6.9 GM/DL (6.4-8.2)
[2021-06-23 13:30] LABS: BILIRUBIN,TOTAL 0.4 MG/DL (0.1-1.0); ERYTHROCYTE SEDIMENTATION RATE 25 MM/HR (0-30)
[2021-06-23 13:32] LABS: CREATININE SERUM 0.69 MG/DL (0.60-1.30)
--- NOTE | 2021-06-23 13:38 | Diagnostic Imaging Report ---
INDICATION: Shortness of air. COMPARISON: 05/19/2021. FINDINGS: The bibasilar pulmonary opacities are unchanged on the left but improved on the right. There is some background air trapping and COPD. The upper limits heart size is stable. There is blunting of the left costophrenic angle, suggestive of a small left effusion. IMPRESSION: Essentially clear right base at followup; however, persistent or recurrent infiltrate on the left and a small left effusion are noted. Dictated by: Dictated on workstation # [id number]
--- NOTE | 2021-06-23 13:43 | ED Respiratory ---
General Chief Complaint: Respiratory Problems Stated Complaint: SOA;COUGHING UP BLOOD Nursing Triage Note: C/O BODY ACHES STAT STARTED ON WEDNESDAY EVENING, SINCE HAS BEEN COUGHING SO HARD IT HAS CAUSED A SORE THROAT AND SOME BRIGHT RED BLOOD YESTERDAY. PATIENT STATES SHE HAS HAD NONE TODAY BUT STRONG COUGH CONTINUES. ALSO VERBALIZES SHE WAS IN THE HOSPITAL 2 WEEKS AGO WITH "DOUBLE PNEUMONIA". WEARS O2 AT HOME ON 4LITERS AND HAS CONCENTRATER WITH HER CURRENTLY (JONATHAN ABDI) History of Present Illness Date Seen by Provider: Jun 23, 2021 Time Seen by Provider: 12:30 Initial Comments 76-year-old female with known COPD was recently admitted for pneumonia approximately 1 month ago. She was treated with IV antibiotics and a 10-day course of home oral medications. She is continuing to use her albuterol HFA approximately every 4-6 hours as needed and her oxygen concentrator at approximately 4 L continuously. Her SaO2's run 96% or higher. She has not seen her PCP for the increased productive cough. She denies fever. She did take the COVID vaccine, as soon as she was eligible. She denies fevers. No worsening of her SOA or dyspnea. Severity: mild Prior Episodes/Possible Cause: occasional episodes Modifying Factors: Improves With Albuterol Inhaler, Improves With Oxygen, Improves With Rest Associated Symptoms: No chest pain/soreness; cough (Active); No dizziness, No earache, No facial pain, No fever/chills, No headache, No lightheadedness, No muscle aches; nasal congestion, nasal drainage; No shortness of breath, No sinus infection, No sore throat, No wheezing (JONATHAN ABDI) Allergies and Home Medications Allergies Coded Allergies: No Known Drug Allergies (Unverified , 03/19/17) Home Medications Acetaminophen 500 Mg Tablet, 1,000 MG PO Q8H PRN for PAIN-MILD (1-4), (Reported) Albuterol Sulfate 18 Gm Hfa.aer.ad, 2 PUFF INH Q6H PRN for SHORTNESS OF BREATH, (Reported) Albuterol Sulfate 2.5 Mg/0.5 Ml Vial.neb, 2.5 MG INH Q6H PRN for SHORTNESS OF BREATH, (Reported) Allopurinol 300 Mg Tablet, 300 MG PO DAILY, (Reported) LAST FILLED 12-24-2020 #90/90 DAY SUPPLY Alprazolam 0.5 Mg Tablet, 0.5 MG PO BID PRN for ANXIETY, (Reported) Amlodipine Besylate 5 Mg Tablet, 5 MG PO DAILY, (Reported) LAST FILLED 12-05-2020 #90/90 DAY SUPPLY Amoxicillin/Potassium Clav 1 Each Tablet, 1 EACH PO BID Prescribed by: JONATHAN ABDI on 06/23/21 151 Aspirin 81 Mg Tablet.dr, 81 MG PO Q48H, (Reported) Azithromycin 250 Mg Tablet, 250 MG PO UD TAKE 2 TABLETS ON DAY ONE THEN TAKE 1 TABLET DAILY FOR FOUR MORE DAYS Prescribed by: JONATHAN ABDI on 06/23/21 151 Cefdinir 300 Mg Capsule, 300 MG PO BID Prescribed by: TI CHRISTINE on 05/22/21 115 Fenofibrate 54 Mg Tablet, 54 MG PO DAILY, (Reported) LAST FILLED 01-06-2021 #90/90 DAY SUPPLY Fexofenadine HCl 180 Mg Tablet, 180 MG PO DAILY PRN for ALLERGY SYMPTOMS, (Reported) Fluticasone Propionate 16 Gm [place].susp, 2 SPRAYS NS DAILY, (Reported) Fluticasone/Salmeterol 1 Each Blst.w.dev, 1 EACH IH BID, (Reported) Hydrochlorothiazide 25 Mg Tablet, 25 MG PO DAILY, (Reported) Montelukast Sodium 10 Mg Tablet, 10 MG PO HS, (Reported) Multivitamin/Iron/Folic Acid 1 Each Tablet, 1 EACH PO DAILY, (Reported) Nystatin 100,000 Unit/1 Ml Oral.susp, 5 ML PO Q6HR Prescribed by: JOSE F UGALDE on 05/22/21 1224 Omeprazole 40 Mg Capsule.dr, 40 MG PO DAILY, (Reported) Prednisone 50 Mg Tab, 50 MG PO DAILY Prescribed by: TI CHRISTINE on 05/22/21 115 Prednisone 20 Mg Tab, 60 MG PO DAILY Prescribed by: JONATHAN ABDI on 06/23/21 151 Tiotropium [place] 1 Inh Aerp, 1 INH IH DAILY, (Reported) Venlafaxine HCl 75 Mg Cap.er.24h, 75 MG PO DAILY, (Reported) Patient Home Medication List Home Medication List Reviewed: Yes (JONATHAN ABDI) Review of Systems Review of Systems Constitutional: no symptoms reported, see HPI EENTM: see HPI, no symptoms reported Respiratory: see HPI, cough, dyspnea on exertion, hemoptysis, phlegm Cardiovascular: no symptoms reported, see HPI Gastrointestinal: no symptoms reported, see HPI (JONATHAN ABDI) All Other Systems Reviewed Negative Unless Noted: Yes (JONATHAN ABDI) Past Azwthvt-Xiisvt-Yfjnyf Hx Patient Social History Tobacco Use?: No Use of E-Cig and/or Vaping dev: No Substance use?: No Alcohol Use?: No Pt feels they are or have been: No (JONATHAN ABDI) Immunizations Up To Date Tetanus Booster (TDap): Unknown PED Vaccines UTD: Yes Influenza Vaccine Up-to-Date: Yes; Up-to-Date First/Initial COVID19 Vaccinat: february 2021 Second COVID19 Vaccination Aki: march 2021 COVID19 Vaccine Ergonomist: JADEN (JONATHAN ABDI) Seasonal Allergies Seasonal Allergies: Yes (JONATHAN ABDI) Past Medical History Surgeries: Yes (hemmoroidectomy, disc surgery) Appendectomy, Hysterectomy, Rectal Respiratory: Yes Pneumonia, Chronic Bronchitis, COPD Currently Using CPAP: No Currently Using BIPAP: No Cardiac: Yes Hypertension Neurological: No 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 Sexually Transmitted Disease: No HIV/AIDS: No Genitourinary: No Gastrointestinal: Yes Gastroesophageal Reflux, Diverticulosis Musculoskeletal: Yes (disc surgery) Chronic Back Pain Endocrine: No HEENT: Yes Tinnitis Cancer: No Psychosocial: Yes Anxiety, Depression Integumentary: No Blood Disorders: No Adverse Reaction/Blood Tranf: No (JONATHAN ABDI) Family Medical History Reviewed Nursing Family Hx (JONATHAN ABDI) FH: cerebral palsy G8 BROTHER Lung cancer 19 MOTHER Cancer (JONATHAN ABDI) Physical Exam Vital Signs - First Documented 06/23/21 12:30 Temp 37.2 Pulse 91 Resp 20 B/P (MAP) 173/88 (116) Pulse Ox 97 O2 Delivery Nasal Cannula O2 Flow Rate 4.00 (LOGAN BLAS MD) Capillary Refill : (JONATHAN ABDI) Height: 5'3.00" Weight: 150lbs. 0.8oz. 68.268721cz; 28.00 BMI Method:Stated General Appearance: WD/WN, no apparent distress HEENT: PERRL/EOMI, normal ENT inspection, TMs normal, pharynx normal Neck: non-tender, full range of motion, supple, normal inspection Respiratory: chest non-tender, lungs clear, normal breath sounds, no respiratory distress Cardiovascular: normal peripheral pulses, regular rate, rhythm, no murmur Gastrointestinal: normal bowel sounds, non tender, soft Neurologic/Psychiatric: no motor/sensory deficits, alert, normal mood/affect, oriented x 3 Skin: normal color, warm/dry (JONATHAN ABDI) Progress/Results/Core Measures Suspected Sepsis SIRS Temperature: Pulse: 91 Respiratory Rate: 20 Laboratory Tests 06/23/21 13:00: White Blood Count 14.0H Blood Pressure 173 /88 Mean: 116 Laboratory Tests 06/23/21 13:00: Creatinine 0.69, Platelet Count 291, Total Bilirubin 0.4 (JONATHAN ABDI) Results/Orders Lab Results Laboratory Tests Test 06/23/21 12:40 06/23/21 13:00 Range/Units Influenza Type A (RT-PCR) Not Detected Not Detecte Influenza Type B (RT-PCR) Not Detected Not Detecte SARS-CoV-2 RNA (RT-PCR) Not Detected Not Detecte White Blood Count 14.0 H 4.3-11.0 10^3/uL Red Blood Count 4.08 3.80-5.11 10^6/uL Hemoglobin 11.2 L 11.5-16.0 g/dL Hematocrit 37 35-52 % Mean Corpuscular Volume 90 80-99 fL Mean Corpuscular Hemoglobin 28 25-34 pg Mean Corpuscular Hemoglobin Concent 31 L 32-36 g/dL Red Cell Distribution Width 15.0 H 10.0-14.5 % Platelet Count 291 130-400 10^3/uL Mean Platelet Volume 10.7 9.0-12.2 fL Immature Granulocyte % (Auto) 2 % Neutrophils (%) (Auto) 71 42-75 % Lymphocytes (%) (Auto) 14 12-44 % Monocytes (%) (Auto) 8 0-12 % Eosinophils (%) (Auto) 6 0-10 % Basophils (%) (Auto) 1 0-10 % Neutrophils # (Auto) 9.9 H 1.8-7.8 10^3/uL Lymphocytes # (Auto) 1.9 1.0-4.0 10^3/uL Monocytes # (Auto) 1.1 H 0.0-1.0 10^3/uL Eosinophils # (Auto) 0.8 H 0.0-0.3 10^3/uL Basophils # (Auto) 0.1 0.0-0.1 10^3/uL Immature Granulocyte # (Auto) 0.3 H 0.0-0.1 10^3/uL Erythrocyte Sedimentation Rate 25 0-30 MM/HR Sodium Level 144 135-145 MMOL/L Potassium Level 3.4 L 3.6-5.0 MMOL/L Chloride Level 98 98-107 MMOL/L Carbon Dioxide Level 35 H 21-32 MMOL/L Anion Gap 11 5-14 MMOL/L Blood Urea Nitrogen 14 7-18 MG/DL Creatinine 0.69 0.60-1.30 MG/DL Estimat Glomerular Filtration Rate 82 BUN/Creatinine Ratio 20 Glucose Level 108 H 70-105 MG/DL Calcium Level 9.5 8.5-10.1 MG/DL Corrected Calcium 9.4 8.5-10.1 MG/DL Total Bilirubin 0.4 0.1-1.0 MG/DL Aspartate Amino Transf (AST/SGOT) 26 5-34 U/L Alanine Aminotransferase (ALT/SGPT) 25 0-55 U/L Alkaline Phosphatase 50 40-136 U/L Lactate Dehydrogenase 246 H 125-220 U/L C-Reactive Protein High Sensitivity 7.55 H 0.00-0.50 MG/DL Total Protein 6.9 6.4-8.2 GM/DL Albumin 4.1 3.2-4.5 GM/DL Procalcitonin 0.04 <0.10 NG/ML (LOGAN BLAS MD) Micro Results Microbiology 06/23/21 Gram Stain - Final, Resulted 06/23/21 Sputum Culture - Preliminary, Resulted Culture In Progress (LOGAN BLAS MD) Vital Signs/I&O 06/23/21 06/23/21 12:30 15:27 Temp 37.2 Pulse 91 91 Resp 20 20 B/P (MAP) 173/88 (116) 134/61 (116) Pulse Ox 97 94 O2 Delivery Nasal Cannula O2 Flow Rate 4.00 2.00 (LOGAN BLAS MD) Vital Signs/I&O Capillary Refill : (JONATHAN ABDI) Blood Pressure Mean: 116 Progress Note : Time: 12:30 Progress Note Patient seen and evaluated, will obtain labs, chest x-ray and EKG. She will continue to use her oxygen at 2 to 4 L to maintain an SaO2 of 92% or higher. She denies needing to use her albuterol inhaler more than every 4 hours. 1320 CXR shows continued Left infiltrate, but improved right pneumonia. Labs essentially normal, will give IV antibiotics. 1400 patient maintaining SaO2 of 94% or higher on 2 L per nasal cannula, stressed to the patient the importance of not maintaining her oxygen level higher than she needs that or she will have hypercapnia. 1450 IV antibiotics infused, patient has no further complaints. Discharge instructions and return precautions reviewed with her. (JONATHAN ABDI) ECG Initial ECG Impression Date: Jun 23, 2021 Initial ECG Impression Time: 12:38 Initial ECG Rate: 89 Initial ECG Rhythm: Normal Sinus Initial ECG Intervals: Normal Initial ECG Intervals W[place] 135, QRSD 88, QT 355, QTc 432. Isom P 27, QRS 84, T 53 Initial ECG Impression: Normal Initial ECG Comparisson: Unchanged (JONATHAN ABDI) Diagnostic Imaging Diagonstic Imaging: Xray Plain Films/CT/US/NM/MRI: elbow Comments NAME: MARCELLUS CALVO MED REC#: [id number] PT STATUS: REG ER : 1945 PHYSICIAN: JONATHAN ABDI ADMIT DATE: 06/23/21/ER Draft Date of Exam:06/23/21 CHEST 1 VIEW, AP/PA ONLY INDICATION: Shortness of air. COMPARISON: 05/19/2021. FINDINGS: The bibasilar pulmonary opacities are unchanged on the left but improved on the right. There is some background air trapping and COPD. The upper limits heart size is stable. There is blunting of the left costophrenic angle, suggestive of a small left effusion. IMPRESSION: Essentially clear right base at followup; however, persistent or recurrent infiltrate on the left and a small left effusion are noted. Dictated on workstation # [id number] Dict: 06/23/21 1335 Trans: 06/23/21 1337 [id number] Interpreted by: MAY RAVI Electronically signed by: (JONATHAN ABDI) Departure Impression Primary Impression: Pneumonia Qualified Codes: J18.9 - Pneumonia, unspecified organism Additional Impression: COPD exacerbation Disposition: 01 HOME, SELF-CARE Condition: Improved Departure-Patient Inst. Decision time for Depature: 14:50 (JONATHAN ABDI) Referrals: MARCELLUS WHITESIDE DO (PCP) Primary Care Physician LUPILLO NEWTON APRN (Family) Primary Care Physician Patient Instructions: Pneumonia, Adult (DC) Add. Discharge Instructions: Continue your home medications as prescribed. Take your antibiotics and prednisone as prescribed. Continue to use your albuterol inhaler every 4 hours. Continue to use your oxygen at 2 to 4 L to keep your SaO2 greater than 92%. Keep your scheduled appointment with Lupillo Newton for tomorrow. Schedule an appointment with Eliza for pulmonology for later this week or early next week. Return to the emergency department for new, urgent healthcare problems. All discharge instructions reviewed with patient and/or family. Voiced understanding. Scripts Azithromycin (Azithromycin) 250 Mg Tablet 250 MG PO UD, #6 TAB 0 Refills TAKE 2 TABLETS ON DAY ONE THEN TAKE 1 TABLET DAILY FOR FOUR MORE DAYS Prov: JONATHAN ABDI 06/23/21 Amoxicillin/Potassium Clav (Augmentin 875-125 Tablet) 1 Each Tablet 1 EACH PO BID, #20 TAB 0 Refills Prov: JONATHAN ABDI 06/23/21 Prednisone (Prednisone) 20 Mg Tab 60 MG PO DAILY for 3 Days, #9 TAB 0 Refills Prov: JONATHAN ABDI 06/23/21 ATTENDING PHYSICIAN NOTE: I was physically present as attending physician in the emergency department during the care of this patient, but I was not directly involved in the decision making or delivery of care for this patient. (LOGAN BLAS MD) JONATHAN ABDI Jun 23, 2021 13:43 LOGAN BLAS MD Jun 24, 2021 19:43
[2021-06-23] MEDS ORDERED: CEFEPIME INJECTION 1,000 MG in WATER (STERILE) FOR INJECTION 10 ML IV ONE (14:00)
[2021-06-23] MEDS ORDERED: PRD20T PO (15:12)
[2021-06-23] MEDS ORDERED: AMOX-358 PO (15:12)
[2021-06-23] MEDS ORDERED: AZIT250T12 PO (15:12)
[2021-06-23 15:27] VITALS: BP 134/61
== END 2021-06-23 15:31 | disposition home or self-care (01) ==
LOC: EDUNIT# 12:13 → ER 12:14
DX: J18.9 Pneumonia, unspecified organism (principal); J44.1 Chronic obstructive pulmonary disease with (acute) exacerbation; I10 Essential (primary) hypertension; K21.9 Gastro-esophageal reflux disease without esophagitis; F41.9 Anxiety disorder, unspecified; F32.9 Major depressive disorder, single episode, unspecified; Z20.822 Contact with and (suspected) exposure to COVID-19; Z79.899 Other long term (current) drug therapy; Z79.82 Long term (current) use of aspirin
CPT/HCPCS: 36415; 71045; 80053; 83615; 84145; 85025; 85652; 86141; 87070; 87077; 87205; 87636; 93005

== ENCOUNTER → 2021-07-16 | Outpatient (CLI) | payer MEDICARE ==
[~2021-07-16] MED LIST changes: +AMOX-358 PO; +AZIT250T12 PO; +PRD20T PO
--- NOTE | 2021-07-16 11:48 | Diagnostic Imaging Report ---
EXAMINATION: CT chest without contrast. TECHNIQUE: Multiple contiguous axial images were obtained through the chest without the use of intravenous contrast. All CT scans use one or more of the following dose optimizing techniques: Automated exposure control, MA and/or KvP adjustment based on patient size and exam type or iterative reconstruction. HISTORY: Pneumonia. COMPARISON: 05/15/2021. FINDINGS: There is no edema or pneumonia. No pleural effusion. No pneumothorax. There is a new 4 mm right middle lobe nodule (series 3, image 100). Lungs are moderately emphysematous. There is an area of atelectasis in the left lower lobe. There is a stable fissural lymph node along the left fissure. There is no axillary or supraclavicular lymphadenopathy. There is no mediastinal lymphadenopathy. Heart size is normal. There are severe coronary artery calcifications. No pericardial effusion. Aorta is normal in caliber. There is a large hiatal hernia. Limited views of the upper abdomen show hepatic steatosis. There are no suspicious osseous lesions. IMPRESSION: 1. New 4 mm right middle lobe nodule. According to the Fleischner Society guidelines: In a low risk patient, no routine follow up is recommended. In a high risk patient, consider optional CT at 12 months. Dictated by: Dictated on workstation # [id number]
== END ==
LOC: RAD 10:45
PROVIDERS: ATTEND Nurse Practitioner Family
DX: J18.9 Pneumonia, unspecified organism (principal); R91.1 Solitary pulmonary nodule
CPT/HCPCS: 71250

== ENCOUNTER → 2021-09-04 | Outpatient (CLI) | payer MEDICARE ==
[2021-09-04 11:50] LABS: BASOPHILS # (AUTO) 0.1 10^3/uL (0.0-0.1); BASOPHILS % (AUTO) 1 % (0-10); EOSINOPHILS # (AUTO) 0.2 10^3/uL (0.0-0.3); EOSINOPHILS % (AUTO) 2 % (0-10); HEMATOCRIT 39 % (35-52); LYMPHOCYTES % (AUTO) 22 % (12-44); MEAN CORPUSCULAR HEMOGLOBIN 28 pg (25-34); MEAN CORPUSCULAR HGB CONC 31 g/dL (32-36); MEAN CORPUSCULAR VOLUME 91 fL (80-99); MEAN PLATELET VOLUME 10.3 fL (9.0-12.2); MONOCYTES # (AUTO) 0.7 10^3/uL (0.0-1.0); MONOCYTES % (AUTO) 8 % (0-12); NEUTROPHILS # (AUTO) 5.8 10^3/uL (1.8-7.8); NEUTROPHILS % (AUTO) 66 % (42-75); PLATELET COUNT 356 10^3/uL (130-400); WHITE BLOOD COUNT 8.7 10^3/uL (4.3-11.0)
[2021-09-04 12:06] LABS: BAND NEUTROPHILS 1 %; BASOPHILS % (MANUAL) 0 %; EOSINOPHILS % (MANUAL) 4 %; LYMPHOCYTES % (MANUAL) 29 %; MONOCYTES % (MANUAL) 1 %; NEUTROPHILS % (MANUAL) 65 %; RBC MORPH NORMAL
--- NOTE | 2021-09-04 12:59 | Diagnostic Imaging Report ---
EXAMINATION: Chest 2 view HISTORY: COUGH, CHRONIC COUGH COMPARISON: 02/27/2021 FINDINGS: Heart size and pulmonary vasculature are normal. Stable hiatal hernia. Stable linear opacities in the left lung base. No new consolidation, pleural effusion, or pneumothorax. Degenerative changes of the thoracic spine. Osseous structures are otherwise intact. IMPRESSION: 1. No acute radiographic abnormality in the chest. Dictated by: Dictated on workstation # [id number]
== END ==
LOC: RAD 11:12
PROVIDERS: ATTEND Nurse Practitioner Family
DX: R05.3 Chronic cough (principal)
CPT/HCPCS: 36415; 71046; 85007; 85027

== ENCOUNTER → 2021-09-08 | Outpatient (CLI) | payer MEDICARE | LOC: LAB 14:56 | PROVIDERS: ATTEND Nurse Practitioner Family | DX: R05.3 Chronic cough (principal) | CPT/HCPCS: 36415; 86738; 87070; 87077; 87205 ==

== ENCOUNTER 2021-09-22 14:40 | Observation (INO) | payer MEDICARE ==
[~2021-09-22] VITALS: Ht 162.5 cm; Wt 74.8 kg
[~2021-09-22 14:40] MED LIST changes: -FLUT16SP22 NS; +FLUT16SP22 NSEACH
--- NOTE | 2021-09-22 15:25 | ED Respiratory ---
General Chief Complaint: Respiratory Problems Stated Complaint: SHORT OF BREATH PAIN Source: patient Exam Limitations: no limitations History of Present Illness Date Seen by Provider: Sep 22, 2021 Time Seen by Provider: 15:00 Initial Comments Patient is a 76-year-old female with a history of COPD on chronic oxygen therapy 6, 2 L per nasal cannula at all times who presents to the emergency department with multiple complaints today. Patient complains of increasing shortness of breath, body aches, sore throat, cough productive of yellow sputum. Patient states her symptoms started coming on suddenly last night. She was recently treated for a respiratory infection a couple of weeks ago and finished a round of prednisone a couple of days ago. Patient states that she had lots of diarrhea this morning. She is Covid vaccinated and received her booster in June of this year. Patient states that she was recently around a small grandchild who is obviously unvaccinated but the child's parents are vaccinated. No reported known Covid positive contacts. Patient denies fevers or chills. She denies chest pain. She is more short of breath but states when she checked her pulse ox at home it was in the high 90s. She denies a history of coronary artery disease. She denies a history of atrial fibrillation. Of note the patient is tachycardic with what appears to be an irregular rhythm on telemetry in the 110-113 range. Pulse ox on 2 L per nasal cannula right now is 96 to 97% Patient states that she did a breathing treatment just prior to coming to the emergency department. She declines a repeat at this time. All other review of systems reviewed and negative except as stated above. Timing/Duration: yesterday Severity: moderate Prior Episodes/Possible Cause: frequent episodes Modifying Factors: Improves With Albuterol Inhaler Associated Symptoms: cough, muscle aches, shortness of breath, sore throat Allergies and Home Medications Allergies Coded Allergies: No Known Drug Allergies (Unverified , 03/19/17) Patient Home Medication List Home Medication List Reviewed: Yes Acetaminophen (Tylenol Extra Strength) 500 Mg Tablet, 1,000 MG PO Q8H PRN for PAIN-MILD (1-4), (Reported) Entered as Reported by: MAT ROUSE on 05/20/21 1024 Albuterol Sulfate (Ventolin Hfa) 18 Gm Hfa.aer.ad, 2 PUFF INH Q6H PRN for SHORTNESS OF BREATH, (Reported) Entered as Reported by: JOHN RAMIREZ on 12/07/18 0859 Albuterol Sulfate (Albuterol Sulfate) 2.5 Mg/0.5 Ml Vial.neb, 2.5 MG INH Q6H PRN for SHORTNESS OF BREATH, (Reported) Entered as Reported by: MAT ROUSE on 05/20/21 1028 Allopurinol (Allopurinol) 300 Mg Tablet, 300 MG PO DAILY, (Reported) Entered as Reported by: JOHN RAMIREZ on 11/10/19 0947 Alprazolam (Alprazolam) 0.5 Mg Tablet, 0.5 MG PO BID PRN for ANXIETY, (Reported) Entered as Reported by: JOHN RAMIREZ on 12/06/18 1621 Amlodipine Besylate (Amlodipine Besylate) 5 Mg Tablet, 5 MG PO DAILY, (Reported) Entered as Reported by: JOHN RAMIREZ on 12/06/18 1621 Amoxicillin/Potassium Clav (Augmentin 875-125 Tablet) 1 Each Tablet, 1 EACH PO BID Prescribed by: JONATHAN ABDI on 06/23/21 1512 Aspirin (Aspirin EC) 81 Mg Tablet.dr, 81 MG PO Q48H, (Reported) Entered as Reported by: JOHN RAMIREZ on 12/07/18 0855 Azithromycin (Azithromycin) 250 Mg Tablet, 250 MG PO UD Prescribed by: JONATHAN ABDI on 06/23/21 1512 Cefdinir (Cefdinir) 300 Mg Capsule, 300 MG PO BID Prescribed by: TI CHRISTINE on 05/22/21 1159 Fenofibrate (Fenofibrate) 54 Mg Tablet, 54 MG PO DAILY, (Reported) Entered as Reported by: MAT ROUSE on 05/20/21 1024 Fexofenadine HCl (Lynda Allergy) 180 Mg Tablet, 180 MG PO DAILY PRN for ALLERGY SYMPTOMS, (Reported) Entered as Reported by: MAT ROUSE on 05/20/21 1024 Fluticasone Propionate (Fluticasone Propionate) 16 Gm [place].susp, 2 SPRAYS NS DAILY, (Reported) Entered as Reported by: JOHN RAMIREZ on 12/07/18 0855 Fluticasone/Salmeterol (Advair 250-50 Diskus) 1 Each Blst.w.dev, 1 EACH IH BID, (Reported) Entered as Reported by: MAT ROUSE on 05/20/21 1028 Hydrochlorothiazide (Hydrochlorothiazide) 25 Mg Tablet, 25 MG PO DAILY, (Reported) Entered as Reported by: JOHN RAMIREZ on 12/06/18 1621 Montelukast Sodium (Montelukast Sodium) 10 Mg Tablet, 10 MG PO HS, (Reported) Entered as Reported by: JOHN RAMIREZ on 12/06/18 1621 Multivitamin/Iron/Folic Acid (Centrum Women Tablet) 1 Each Tablet, 1 EACH PO DAILY, (Reported) Entered as Reported by: MAT ROUSE on 05/20/21 1024 Nystatin (Nystatin) 100,000 Unit/1 Ml Oral.susp, 5 ML PO Q6HR Prescribed by: JOSE F UGALDE on 05/22/21 1224 Omeprazole (Omeprazole) 40 Mg Capsule.dr, 40 MG PO DAILY, (Reported) Entered as Reported by: JOHN RAMIREZ on 11/10/19 0947 Prednisone (Prednisone) 50 Mg Tab, 50 MG PO DAILY Prescribed by: TI CHRISTINE on 05/22/21 1159 Prednisone (Prednisone) 20 Mg Tab, 60 MG PO DAILY Prescribed by: JONATHAN ABDI on 06/23/21 1512 Tiotropium [place] (Spiriva) 1 Inh Aerp, 1 INH IH DAILY, (Reported) Entered as Reported by: MAT ROUSE on 05/20/21 1028 Venlafaxine HCl (Venlafaxine HCl ER) 75 Mg Cap.er.24h, 75 MG PO DAILY, (Reported) Entered as Reported by: MAT ROUSE on 05/20/21 1024 Review of Systems Review of Systems Constitutional: see HPI EENTM: throat pain Respiratory: cough, dyspnea on exertion, phlegm, short of breath Cardiovascular: no symptoms reported Gastrointestinal: diarrhea Genitourinary: no symptoms reported : No Musculoskeletal: muscle cramps (body aches, low back pain) Skin: no symptoms reported Psychiatric/Neurological: No Symptoms Reported All Other Systems Reviewed Negative Unless Noted: Yes Past Nivozug-Fdcuhq-Fzqrtx Hx Immunizations Up To Date Tetanus Booster (TDap): Unknown PED Vaccines UTD: Yes Seasonal Allergies Seasonal Allergies: Yes Past Medical History Surgeries: Yes (hemmoroidectomy, disc surgery) Appendectomy, Hysterectomy, Rectal Respiratory: Yes Pneumonia, Chronic Bronchitis, COPD Currently Using CPAP: No Currently Using BIPAP: No Cardiac: Yes Hypertension Neurological: No RESPIRATORY COORDINATOR History: Menopausal Sexually Transmitted Disease: No HIV/AIDS: No Genitourinary: No Gastrointestinal: Yes Gastroesophageal Reflux, Diverticulosis Musculoskeletal: Yes (disc surgery) Chronic Back Pain Endocrine: No HEENT: Yes Tinnitis Cancer: No Psychosocial: Yes Anxiety, Depression Integumentary: No Blood Disorders: No Adverse Reaction/Blood Tranf: No Family Medical History FH: cerebral palsy G8 BROTHER Lung cancer 19 MOTHER Cancer Physical Exam Vital Signs - First Documented 09/22/21 14:50 Temp 36.6 Pulse 107 Resp 33 B/P (MAP) 188/107 (134) Pulse Ox 99 O2 Delivery Nasal Cannula O2 Flow Rate 2.00 Capillary Refill : Height: 5'3.00" Weight: 150lbs. 0.8oz. [id number]; 28.00 BMI Method:Stated General Appearance: WD/WN, mild distress Eyes: Bilateral Eye Normal Inspection, Bilateral Eye PERRL, Bilateral Eye EOMI HEENT: PERRL/EOMI, other (dry oral mucosa) Neck: normal inspection Respiratory: lungs clear, accessory muscle use ("huffing and puffing" quite a bit), other (diminished breath sounds throughout; no wheezing auscultated; she is quite tachypneic) Cardiovascular: regular rate, rhythm, tachycardia Gastrointestinal: normal bowel sounds, non tender, soft Extremities: normal range of motion, normal inspection Neurologic/Psychiatric: alert, normal mood/affect, oriented x 3 Skin: normal color, warm/dry Focused Exam Lactate Level 09/22/21 15:10: Lactic Acid Level 2.49*H Lactic Acid Level Laboratory Tests Test 09/22/21 15:10 Lactic Acid Level 2.49 MMOL/L (0.50-2.00) *H Progress/Results/Core Measures Suspected Sepsis Recent Fever Within 48 Hours: No Infection Criteria Present: Suspected New Infection New/Unexplained Altered Menta: No Within 3hrs of presentation: Admin fluids, Blood cultures prior to ABX's, Lactate level SIRS Temperature: Pulse: Respiratory Rate: Laboratory Tests 09/22/21 15:10: White Blood Count 24.1H Blood Pressure / Mean: 09/22/21 15:10: Lactic Acid Level 2.49*H Laboratory Tests 09/22/21 15:10: Creatinine 0.78, INR Comment 1.1, Platelet Count 223, Total Bilirubin 0.6 Results/Orders Lab Results Laboratory Tests Test 09/22/21 14:52 09/22/21 15:10 09/22/21 16:57 Range/Units Influenza Type A (RT-PCR) Not Detected Not Detecte Influenza Type B (RT-PCR) Not Detected Not Detecte SARS-CoV-2 RNA (RT-PCR) Not Detected Not Detecte White Blood Count 24.1 H 4.3-11.0 10^3/uL Red Blood Count 4.46 3.80-5.11 10^6/uL Hemoglobin 12.6 11.5-16.0 g/dL Hematocrit 41 35-52 % Mean Corpuscular Volume 93 80-99 fL Mean Corpuscular Hemoglobin 28 25-34 pg Mean Corpuscular Hemoglobin Concent 30 L 32-36 g/dL Red Cell Distribution Width 14.5 10.0-14.5 % Platelet Count 223 130-400 10^3/uL Mean Platelet Volume 10.3 9.0-12.2 fL Immature Granulocyte % (Auto) 1 % Neutrophils (%) (Auto) 86 H 42-75 % Lymphocytes (%) (Auto) 8 L 12-44 % Monocytes (%) (Auto) 4 0-12 % Eosinophils (%) (Auto) 1 0-10 % Basophils (%) (Auto) 0 0-10 % Neutrophils # (Auto) 20.7 H 1.8-7.8 10^3/uL Lymphocytes # (Auto) 1.9 1.0-4.0 10^3/uL Monocytes # (Auto) 0.9 0.0-1.0 10^3/uL Eosinophils # (Auto) 0.2 0.0-0.3 10^3/uL Basophils # (Auto) 0.1 0.0-0.1 10^3/uL Immature Granulocyte # (Auto) 0.2 H 0.0-0.1 10^3/uL Neutrophils % (Manual) 85 % Lymphocytes % (Manual) 11 % Monocytes % (Manual) 3 % Band Neutrophils 1 % Blood Morphology Comment NORMAL Prothrombin Time 14.4 12.2-14.7 SEC INR Comment 1.1 0.8-1.4 Activated Partial Thromboplast Time 27 24-35 SEC Sodium Level 141 135-145 MMOL/L Potassium Level 3.2 L 3.6-5.0 MMOL/L Chloride Level 96 L 98-107 MMOL/L Carbon Dioxide Level 28 21-32 MMOL/L Anion Gap 17 H 5-14 MMOL/L Blood Urea Nitrogen 18 7-18 MG/DL Creatinine 0.78 0.60-1.30 MG/DL Estimat Glomerular Filtration Rate 72 BUN/Creatinine Ratio 23 Glucose Level 201 H 70-105 MG/DL Lactic Acid Level 2.49 *H 0.50-2.00 MMOL/L Calcium Level 9.2 8.5-10.1 MG/DL Corrected Calcium 8.9 8.5-10.1 MG/DL Total Bilirubin 0.6 0.1-1.0 MG/DL Aspartate Amino Transf (AST/SGOT) 29 5-34 U/L Alanine Aminotransferase (ALT/SGPT) 28 0-55 U/L Alkaline Phosphatase 39 L 40-136 U/L C-Reactive Protein High Sensitivity 2.40 H 0.00-0.50 MG/DL Total Protein 6.8 6.4-8.2 GM/DL Albumin 4.4 3.2-4.5 GM/DL Procalcitonin 0.09 <0.10 NG/ML Urine Color YELLOW Urine Clarity CLEAR Urine pH 5.5 5-9 Urine Specific [place] 1.020 1.016-1.022 Urine Protein NEGATIVE NEGATIVE Urine Glucose (UA) 1+ H NEGATIVE Urine Ketones NEGATIVE NEGATIVE Urine Nitrite NEGATIVE NEGATIVE Urine Bilirubin NEGATIVE NEGATIVE Urine Urobilinogen 0.2 < = 1.0 MG/DL Urine Leukocyte Esterase NEGATIVE NEGATIVE Urine RBC (Auto) NEGATIVE NEGATIVE Urine RBC NONE /HPF Urine WBC 2-5 /HPF Urine Crystals PRESENT H /LPF Urine Amorphous Sediment RARE JASON URATES H /LPF Urine Bacteria TRACE /HPF Urine Casts NONE /LPF Urine Mucus NEGATIVE /LPF Urine Culture Indicated CULTURE PENDING My Orders Orders - CHANEL HAM MD Cbc With Automated Diff (09/22/21 15:20) Comprehensive Metabolic Panel (09/22/21 15:20) Blood Culture (09/22/21 15:20) Sputum Culture (09/22/21 15:20) Urinalysis (09/22/21 15:20) Urine Culture (09/22/21 15:20) Protime With Inr (09/22/21 15:20) Partial Thromboplastin Time (09/22/21 15:20) Chest 1 View, Ap/Pa Only (09/22/21 15:20) Ed Iv/Invasive Line Start (09/22/21 15:20) Ed Iv/Invasive Line Start (09/22/21 15:20) Ekg Tracing (09/22/21 15:20) Vital Signs Adult Sepsis Patie Q15M (09/22/21 15:20) O2 (09/22/21 15:20) Remove Rings In Anticipation O (09/22/21 15:20) Lactic Acid Analyzer (09/22/21 15:20) Covid 19 Inhouse Test (09/22/21 15:20) Manual Differential (09/22/21 15:10) Ns Iv 1000 Ml (Sodium Chloride 0.9%) (09/22/21 15:30) Procalcitonin (Pct) (09/22/21 16:03) Hs C Reactive Protein (09/22/21 16:03) Cefepime Injection (Maxipime Injection) (09/22/21 17:30) Vital Signs/I&O 09/22/21 09/22/21 09/22/21 14:50 14:50 15:10 Temp 36.6 Pulse 107 Resp 33 B/P (MAP) 188/107 (134) Pulse Ox 99 98 O2 Delivery Nasal Cannula Nasal Cannula Nasal Cannula O2 Flow Rate 2.00 3.00 09/23/21 00:00 Intake Total 1000 ml Balance 1000 ml Capillary Refill : Progress Note : Time: 17:30 Progress Note Patient gets a little bit more dyspneic when she gets up and moves around, she maintains her sats on her 2 L at about 92%. She still tachycardic at 110. Discussed with her the option of trying some broad-spectrum antibiotics at home again versus inpatient admission and the patient thinks she would "just be back to the hospital" if she were discharged. Case discussed with Dr. Christine who accepts the patient for admission. Will start on pneumonia pathway, observation status cefepime 2 g IV every 12 hours ECG Initial ECG Impression Date: Sep 22, 2021 Initial ECG Impression Time: 15:29 Initial ECG Rate: 108 Initial ECG Rhythm: Normal Sinus Initial ECG Intervals: Normal Initial ECG Intervals SD 130 QRS 89 QTc 439 Multiple PACs noted Initial ECG Impression: Nonspecific Changes Departure Communication (Admissions) Time/Spoke to Admitting Phy: 17:[address] Christine, accepts patient for admission Impression Primary Impression: Sepsis Qualified Codes: A41.9 - Sepsis, unspecified organism Additional Impression: COPD (chronic obstructive pulmonary disease) with acute bronchitis Disposition: ADMITTED INPATIENT Condition: Stable Admissions Decision to Admit Reason: Admit from ER (General) Decision to Admit/Date: Sep 22, 2021 Time/Decision to Admit Time: 17:29 Departure-Patient Inst. Referrals: MARCELLUS WHITESIDE DO (PCP) Primary Care Physician LUPILLO NEWTON APRN (Family) Primary Care Physician CHANEL HAM MD Sep 22, 2021 15:25
[2021-09-22 15:28] LABS: BASOPHILS # (AUTO) 0.1 10^3/uL (0.0-0.1); BASOPHILS % (AUTO) 0 % (0-10); EOSINOPHILS # (AUTO) 0.2 10^3/uL (0.0-0.3); EOSINOPHILS % (AUTO) 1 % (0-10); HEMATOCRIT 41 % (35-52); HEMOGLOBIN 12.6 g/dL (11.5-16.0); LYMPHOCYTES # (AUTO) 1.9 10^3/uL (1.0-4.0); LYMPHOCYTES % (AUTO) 8 % (12-44); MEAN CORPUSCULAR HEMOGLOBIN 28 pg (25-34); MEAN CORPUSCULAR HGB CONC 30 g/dL (32-36); MEAN CORPUSCULAR VOLUME 93 fL (80-99); MEAN PLATELET VOLUME 10.3 fL (9.0-12.2); MONOCYTES # (AUTO) 0.9 10^3/uL (0.0-1.0); MONOCYTES % (AUTO) 4 % (0-12); NEUTROPHILS # (AUTO) 20.7 10^3/uL (1.8-7.8); NEUTROPHILS % (AUTO) 86 % (42-75); PLATELET COUNT 223 10^3/uL (130-400); WHITE BLOOD COUNT 24.1 10^3/uL (4.3-11.0)
[2021-09-22] MEDS ORDERED: NS IV 1000 ML 1,000 ML IV SCH (15:30)
[2021-09-22 15:33] LABS: ALBUMIN 4.4 GM/DL (3.2-4.5); POTASSIUM 3.2 MMOL/L (3.6-5.0)
[2021-09-22 15:35] LABS: CALCIUM 9.2 MG/DL (8.5-10.1)
[2021-09-22 15:36] LABS: TOTAL PROTEIN 6.8 GM/DL (6.4-8.2)
[2021-09-22 15:37] LABS: INR 1.1 (0.8-1.4); PROTHROMBIN TIME PATIENT 14.4 SEC (12.2-14.7)
[2021-09-22 15:38] LABS: BILIRUBIN,TOTAL 0.6 MG/DL (0.1-1.0)
[2021-09-22 15:39] LABS: CREATININE SERUM 0.78 MG/DL (0.60-1.30)
--- NOTE | 2021-09-22 16:03 | Diagnostic Imaging Report ---
EXAMINATION: Chest 1 view HISTORY: sepsis COMPARISON: None available. FINDINGS: Heart size and pulmonary vasculature are stable. There are mild interstitial opacities in the right lung base. There is mild left basilar atelectasis or consolidation. No significant pleural fluid or pneumothorax. The osseous structures are intact. IMPRESSION: 1. Bibasilar opacities which appear slightly improved from 06/23/2021. Dictated by: Dictated on workstation # [id number]
[2021-09-22 16:10] LABS: BAND NEUTROPHILS 1 %; LYMPHOCYTES % (MANUAL) 11 %; MONOCYTES % (MANUAL) 3 %; NEUTROPHILS % (MANUAL) 85 %; RBC MORPH NORMAL
[2021-09-22 17:02] LABS: BILIRUBIN,URINE NEGATIVE (NEGATIVE); CLARITY,URINE CLEAR; COLOR,URINE YELLOW; GLUCOSE, URINE (UA) 1+ (NEGATIVE); KETONES,URINE NEGATIVE (NEGATIVE); LEUKOCYTE ESTERASE ,URINE NEGATIVE (NEGATIVE); NITRITE,URINE NEGATIVE (NEGATIVE); PH,URINE 5.5 (5-9); PROTEIN,URINE NEGATIVE (NEGATIVE)
[2021-09-22 17:15] LABS: AMORPHOUS SEDIMENT,UR RARE AMOR URATES /LPF; BACTERIA,URINE TRACE /HPF
[2021-09-22] MEDS ORDERED: CEFEPIME INJECTION 2,000 MG in WATER (STERILE) FOR INJECTION 20 ML IV ONE (17:30)
[2021-09-22] MEDS ORDERED: ALPRAZolam 0.5 MG (XANAX) TAB PO PRN (19:30)
[2021-09-22] MEDS ORDERED: CATHETER FLUSH 10 ML SYR IV PRN (19:30)
[2021-09-22 20:04] VITALS: BP 153/69
[2021-09-22] MEDS: NS IV 1000 ML 1,000 ML IV SCH (20:20)
[2021-09-22 20:25] VITALS: BP 188/107
[2021-09-22] MEDS ORDERED: RT-ALBUTEROL/IPRATROPIUM 3 ML (DUONEB) VIAL INH PRN (20:30)
[2021-09-22] MEDS: ACETAMINOPHEN 500 MG TAB (TYLENOL) PO PRN (20:55)
[2021-09-22] MEDS ORDERED: RT-ALBUTEROL/IPRATROPIUM 3 ML (DUONEB) VIAL INH SCH (21:00)
[2021-09-23 00:11] VITALS: BP 146/75
[2021-09-23] MEDS: NYSTATIN ORAL SUSP 5 ML UDC PO SCH ×4 (01:10→18:38)
[2021-09-23] MEDS: CEFEPIME 1,000 MG/SWFI 10 ML IV PUSH IV SCH ×6 (01:10→18:44)
[2021-09-23] MEDS: RT-ALBUTEROL/IPRATROPIUM 3 ML (DUONEB) VIAL INH SCH ×6 (02:15→21:51)
[2021-09-23 04:31] VITALS: BP 123/73
[2021-09-23] MEDS: NS IV 1000 ML 1,000 ML IV SCH ×2 (05:19→11:30)
[2021-09-23] MEDS: VENlafaxine XR 75 MG (EFFEXOR XR) CAP PO SCH (06:22)
[2021-09-23] MEDS: ACETAMINOPHEN 500 MG TAB (TYLENOL) PO PRN ×2 (06:29→16:15)
[2021-09-23 06:34] LABS: BASOPHILS % (AUTO) 0 % (0-10); EOSINOPHILS # (AUTO) 0.2 10^3/uL (0.0-0.3); EOSINOPHILS % (AUTO) 1 % (0-10); HEMATOCRIT 33 % (35-52); HEMOGLOBIN 10.4 g/dL (11.5-16.0); LYMPHOCYTES # (AUTO) 1.3 10^3/uL (1.0-4.0); LYMPHOCYTES % (AUTO) 8 % (12-44); MEAN CORPUSCULAR HEMOGLOBIN 29 pg (25-34); MEAN CORPUSCULAR HGB CONC 31 g/dL (32-36); MEAN CORPUSCULAR VOLUME 92 fL (80-99); MEAN PLATELET VOLUME 10.9 fL (9.0-12.2); MONOCYTES % (AUTO) 6 % (0-12); NEUTROPHILS # (AUTO) 13.4 10^3/uL (1.8-7.8); NEUTROPHILS % (AUTO) 83 % (42-75); PLATELET COUNT 179 10^3/uL (130-400); WHITE BLOOD COUNT 16.1 10^3/uL (4.3-11.0)
[2021-09-23 08:25] VITALS: BP 136/62
[2021-09-23] MEDS: amLODIPine 5 MG (NORVASC) TAB PO SCH (09:10)
[2021-09-23] MEDS: ASPIRIN 81 MG CHEW (CHILDREN'S ASA) PO SCH (09:10)
[2021-09-23] MEDS ORDERED: SODI30SP2 NSEACH (11:14)
[2021-09-23] MEDS ORDERED: MAGN250T2 PO (11:14)
[2021-09-23] MEDS ORDERED: BENZ200C51 PO (11:14)
[2021-09-23] MEDS ORDERED: CALC1TAB PO (11:14)
[2021-09-23 11:36] VITALS: BP 125/67
[2021-09-23 15:30] VITALS: BP 129/67
--- NOTE | 2021-09-23 17:13 | History & Physical ---
HPI History of Present Illness: 76 yo F with oxygen dependent COPD that presented with increasing shortness of breath. Patient did not require an increase in her oxygen but she could not catch her breath. States that she had not missed any of her treatments and was taking her PRN meds every 4 hrs prior to arrival. Denies any sick contacts. No fever or chills. Source: patient, spouse Date seen by provider: Sep 23, 2021 Time Seen by Provider: 12:10 Attending Physician Ti Welch MD PCP Rosa Subramanian DO Consult Date of Admission Sep 22, 2021 at 17:25 Home Medications Home Medications Reviewed patient Home Medication Reconciliation performed by pharmacy medication reconciliations wiring technician and/or nursing. Patients Allergies have been reviewed. Allergies Coded Allergies: No Known Drug Allergies (Unverified , 03/19/17) CFI-Wpuaid-Dkqggo Hx Patient Social History Recent Hopitalizations: No (NOV-2018) Alcohol Use?: No Have you traveled recently?: No Immunizations Up To Date Tetanus Booster (TDap): Unknown Date of Pneumonia Vaccine: Sep 01, 2017 Date of Influenza Vaccine: Aug 15, 2019 Past Medical History COPD/Emphsyma Oxygen dependent baseline 4.5-5 LPM HTN HLD Family Medical History Significant Family History: Cancer Family History: FH: cerebral palsy G8 BROTHER Lung cancer 19 MOTHER Review of Systems ([facility]) Constitutional: No chills, No fever; malaise, weakness EENTM: no symptoms reported; No mouth pain, No nose congestion Respiratory: cough, dyspnea on exertion, orthopnea, short of breath Cardiovascular: no symptoms reported; No chest pain, No edema, No palpitations Gastrointestinal: no symptoms reported; No abdominal pain, No constipation, No diarrhea, No nausea, No vomiting Genitourinary: no symptoms reported; No dysuria, No frequency, No hematuria : No Musculoskeletal: no symptoms reported; No back pain, No joint pain, No muscle pain Skin: no symptoms reported; No lesions, No rash Psychiatric/Neurological: No Symptoms Reported Reviewed Test Results Reviewed Test Results Lab Laboratory Tests Test 09/23/21 06:11 Range/Units White Blood Count 16.1 H 4.3-11.0 10^3/uL Red Blood Count 3.64 L 3.80-5.11 10^6/uL Hemoglobin 10.4 L 11.5-16.0 g/dL Hematocrit 33 L 35-52 % Mean Corpuscular Volume 92 80-99 fL Mean Corpuscular Hemoglobin 29 25-34 pg Mean Corpuscular Hemoglobin Concent 31 L 32-36 g/dL Red Cell Distribution Width 14.6 H 10.0-14.5 % Platelet Count 179 130-400 10^3/uL Mean Platelet Volume 10.9 9.0-12.2 fL Immature Granulocyte % (Auto) 1 % Neutrophils (%) (Auto) 83 H 42-75 % Lymphocytes (%) (Auto) 8 L 12-44 % Monocytes (%) (Auto) 6 0-12 % Eosinophils (%) (Auto) 1 0-10 % Basophils (%) (Auto) 0 0-10 % Neutrophils # (Auto) 13.4 H 1.8-7.8 10^3/uL Lymphocytes # (Auto) 1.3 1.0-4.0 10^3/uL Monocytes # (Auto) 1.0 0.0-1.0 10^3/uL Eosinophils # (Auto) 0.2 0.0-0.3 10^3/uL Basophils # (Auto) 0.0 0.0-0.1 10^3/uL Immature Granulocyte # (Auto) 0.1 0.0-0.1 10^3/uL Physical Exam-([facility]) Physical Exam Vital Signs VS - Last 72 Hours, by Label 09/22/21 09/22/21 09/22/21 09/22/21 14:50 14:50 15:10 18:53 Temp 36.6 Pulse 107 106 Resp 33 22 B/P (MAP) 188/107 (134) 121/73 Pulse Ox 99 98 99 O2 Delivery Nasal Cannula Nasal Cannula Nasal Cannula Nasal Cannula O2 Flow Rate 2.00 3.00 09/22/21 09/22/21 09/22/21 09/22/21 20:00 20:04 20:25 21:24 Temp 36.9 36.6 Pulse 110 107 Resp 28 B/P (MAP) 153/69 (97) Pulse Ox 100 92 96 100 O2 Delivery Nasal Cannula Nasal Cannula Nasal Cannula O2 Flow Rate 3.00 3.50 3.00 09/22/21 09/23/21 09/23/21 09/23/21 22:15 00:11 01:00 02:15 Temp 36.2 Pulse 97 89 87 Resp 25 B/P (MAP) 146/75 (98) Pulse Ox 95 100 O2 Delivery Nasal Cannula Nasal Cannula O2 Flow Rate 3.50 4.00 FiO2 97 09/23/21 09/23/21 09/23/21 09/23/21 04:31 07:00 07:03 08:00 Temp 37.0 Pulse 72 93 Resp 17 B/P (MAP) 123/73 (90) Pulse Ox 96 97 94 O2 Delivery Nasal Cannula Nasal Cannula Nasal Cannula O2 Flow Rate 3.50 4.00 2.00 09/23/21 09/23/21 09/23/21 09/23/21 08:25 10:03 11:36 13:00 Temp 36.4 36.4 Pulse 95 95 92 Resp 18 20 B/P (MAP) 136/62 (86) 125/67 (86) Pulse Ox 93 93 94 O2 Delivery Nasal Cannula Nasal Cannula Nasal Cannula O2 Flow Rate 4.00 4.00 3.00 09/23/21 09/23/21 15:30 18:28 Temp 36.6 Pulse 92 Resp 20 B/P (MAP) 129/67 (87) Pulse Ox 98 96 O2 Delivery Nasal Cannula Nasal Cannula O2 Flow Rate 4.00 4.00 Capillary Refill : Less Than 3 Seconds General Appearance: WD/WN, mild distress HEENT: PERRL/EOMI Neck: non-tender, full range of motion, supple Respiratory: no accessory muscle use, wheezing, expiration Cardiovascular: normal peripheral pulses, regular rate, rhythm, no edema, no murmur Gastrointestinal: normal bowel sounds, non tender, soft Back: no CVA tenderness, no vertebral tenderness Extremities: normal range of motion, non-tender, normal inspection, no pedal edema, no calf tenderness, normal capillary refill Neurologic/Psychiatric: residential advisor II-XII nml as tested, no motor/sensory deficits, alert, normal mood/affect, oriented x 3 Skin: normal color, warm/dry Lymphatic: no adenopathy Assessment/Plan Assessment/Plan Admission Status: Observation (1) COPD exacerbation Status: Acute Assessment & Plan: - MAT protocol, steroids, and antibiotics, will get home oxygen qualification to see if patient requires increased oxygen (2) Hypertension Status: Chronic Assessment & Plan: - Continue home meds Qualifiers: Qualified Codes: I10 - Essential (primary) hypertension TI WELCH MD Sep 23, 2021 17:13
[2021-09-23 20:40] VITALS: BP 130/70
[2021-09-23] MEDS: FLUTICASONE NASAL SPRAY (FLONASE) 16 GM BTL NS SCH (20:43)
[2021-09-23] MEDS ORDERED: MONTELUKAST 10 MG (SINGULAIR) TAB PO SCH (21:00)
[2021-09-24 00:20] VITALS: BP 134/72
[2021-09-24] MEDS: CEFEPIME 1,000 MG/SWFI 10 ML IV PUSH IV SCH ×4 (01:45→10:35)
[2021-09-24] MEDS: NYSTATIN ORAL SUSP 5 ML UDC PO SCH ×3 (01:45→10:35)
[2021-09-24] MEDS: RT-ALBUTEROL/IPRATROPIUM 3 ML (DUONEB) VIAL INH SCH ×3 (02:22→11:08)
[2021-09-24] MEDS: ACETAMINOPHEN 500 MG TAB (TYLENOL) PO PRN (04:11)
[2021-09-24 04:16] VITALS: BP 125/71
[2021-09-24] MEDS: VENlafaxine XR 75 MG (EFFEXOR XR) CAP PO SCH (06:00)
[2021-09-24 07:44] VITALS: BP 129/76
[2021-09-24 08:04] LABS: BASOPHILS # (AUTO) 0.1 10^3/uL (0.0-0.1); BASOPHILS % (AUTO) 0 % (0-10); EOSINOPHILS # (AUTO) 0.3 10^3/uL (0.0-0.3); EOSINOPHILS % (AUTO) 2 % (0-10); HEMATOCRIT 33 % (35-52); HEMOGLOBIN 10.4 g/dL (11.5-16.0); LYMPHOCYTES # (AUTO) 1.3 10^3/uL (1.0-4.0); LYMPHOCYTES % (AUTO) 9 % (12-44); MEAN CORPUSCULAR HEMOGLOBIN 28 pg (25-34); MEAN CORPUSCULAR HGB CONC 31 g/dL (32-36); MEAN CORPUSCULAR VOLUME 90 fL (80-99); MEAN PLATELET VOLUME 11.4 fL (9.0-12.2); MONOCYTES # (AUTO) 1.2 10^3/uL (0.0-1.0); MONOCYTES % (AUTO) 9 % (0-12); NEUTROPHILS # (AUTO) 11.5 10^3/uL (1.8-7.8); NEUTROPHILS % (AUTO) 79 % (42-75); PLATELET COUNT 178 10^3/uL (130-400); WHITE BLOOD COUNT 14.5 10^3/uL (4.3-11.0)
[2021-09-24 08:33] LABS: CALCIUM 9.3 MG/DL (8.5-10.1); CREATININE SERUM 0.59 MG/DL (0.60-1.30)
[2021-09-24] MEDS ORDERED: NON-FORMULARY MEDICATION 1 EA EA (Omeprazole 40 MG) PO SCH (09:00)
[2021-09-24] MEDS ORDERED: ALLOPURINOL 300 MG (ZYLOPRIM) TAB PO SCH (09:00)
[2021-09-24] MEDS ORDERED: PANTOPRAZOLE 40 MG (PROTONIX) TAB PO SCH (09:00)
[2021-09-24] MEDS: ASPIRIN 81 MG CHEW (CHILDREN'S ASA) PO SCH (10:36)
[2021-09-24] MEDS: amLODIPine 5 MG (NORVASC) TAB PO SCH (10:36)
[2021-09-24] MEDS: FLUTICASONE NASAL SPRAY (FLONASE) 16 GM BTL NS SCH (10:38)
[2021-09-24 11:17] VITALS: BP 148/79
--- NOTE | 2021-09-24 12:12 | Discharge Summary ---
Diagnosis/Chief Complaint Date of Admission Sep 22, 2021 at 17:25 Date of Discharge Discharge Diagnosis Problems/Diagnosis: (1) COPD exacerbation Assessment & Plan: - MAT protocol, steroids, and antibiotics, will get home oxygen qualification to see if patient requires increased oxygen Status: Acute (2) Hypertension Assessment & Plan: - Continue home meds Qualifiers: Qualified Codes: I10 - Essential (primary) hypertension Status: Chronic Chief Complaint/HPI Chief Complaint/HPI 76 yo F with oxygen dependent COPD that presented with increasing shortness of breath. Patient did not require an increase in her oxygen but she could not catch her breath. States that she had not missed any of her treatments and was taking her PRN meds every 4 hrs prior to arrival. Denies any sick contacts. No fever or chills. Discharge Summary-Simple/Stand Consultations Discharge Physical Examination Allergies: Coded Allergies: No Known Drug Allergies (Unverified , 03/19/17) Vitals & I&Os Vital Sign - Last 12Hours Date Time Temp Pulse Resp B/P (MAP) Pulse Ox O2 Delivery O2 Flow Rate FiO2 09/24/21 11:17 36.6 98 20 148/79 (102) 96 Nasal Cannula 4.00 09/23/21 02:15 97 Intake and Output 09/24/21 00:00 Intake Total 1950 ml Balance 1950 ml Hospital Course See final discharge diagnosis. Discharge Instructions to patient/family Please see electronic discharge instructions given to patient. Discharge Medications Reviewed and agree with Discharge Medication list on patient's Discharge Instruction sheet TI CHRISTINE MD Sep 24, 2021 12:12
[2021-09-24] MEDS ORDERED: PRD20T PO (12:15)
--- NOTE | 2021-09-24 12:16 | Discharge Summary ---
Discharge [facility] Reconcile Patient Problems Problems Reviewed?: Yes Discharge Medications New, Converted or Re-Newed RX: Transmitted to Pharmacy New Medications: Prednisone (Prednisone) 20 Mg Tab 20 MG PO DAILY, #5 TAB Continued Medications: Albuterol Sulfate (Albuterol Sulfate) 2.5 Mg/0.5 Ml Vial.neb 2.5 MG INH Q6H PRN for SHORTNESS OF BREATH, EACH Allopurinol (Allopurinol) 300 Mg Tablet 300 MG PO DAILY, TAB Alprazolam (Alprazolam) 0.5 Mg Tablet 0.5 MG PO BID PRN for ANXIETY, TAB Amlodipine Besylate (Amlodipine Besylate) 5 Mg Tablet 5 MG PO DAILY, TAB LAST FILLED 12-05-2020 #90/90 DAY SUPPLY Aspirin (Aspirin EC) 81 Mg Tablet.dr 81 MG PO Q48H, TAB Benzonatate (Benzonatate) 200 Mg Capsule 200 MG PO TID PRN for COUGH, CAP Calcium Carbonate/Vitamin D3 (Caltrate 600 + D Tablet) 1 Each Tablet 1 EACH PO DAILY, TAB Fenofibrate (Fenofibrate) 54 Mg Tablet 54 MG PO DAILY, TAB LAST FILLED 07-29-2021 #30/30 DAY SUPPLY Fexofenadine HCl (Lynda Allergy) 180 Mg Tablet 180 MG PO DAILY PRN for ALLERGY SYMPTOMS, TAB Fluticasone Propionate (Fluticasone Propionate) 16 Gm [place].susp 1 SPRAYS NSEACH BID, EA Hydrochlorothiazide (Hydrochlorothiazide) 25 Mg Tablet 25 MG PO DAILY, TAB LAST FILLED 03-19-2021 #90/90 DAY SUPPLY Magnesium (Magnesium) 250 Mg Tablet 250 MG PO DAILY, TAB Montelukast Sodium (Montelukast Sodium) 10 Mg Tablet 10 MG PO HS, TAB LAST FILLED 04-30-2021 #90/90 DAY SUPPLY Multivitamin/Iron/Folic Acid (Centrum Women Tablet) 1 Each Tablet 1 EACH PO DAILY, TAB Omeprazole (Omeprazole) 40 Mg Capsule.dr 40 MG PO DAILY, CAP Sodium Chloride (Saline Nasal [place]) 30 Ml [place] 1-2 SPRAYS NSEACH BID PRN for DRY NOSE, EA Venlafaxine HCl (Venlafaxine HCl ER) 75 Mg Cap.er.24h 75 MG PO DAILY, CAP Patient Instructions Goal/Follow Up Appt: Keyana julian appt with PCP 10/01 Activity & Diet Discharge Diet: Cardiac Diet Activity as Tolerated: Yes TI CHRISTINE MD Sep 24, 2021 12:16
[2021-09-24] MEDS ORDERED: CEFEPIME 1,000 MG/NS 50 ML IVPB IV SCH ×4 (13:00→23:00)
== END 2021-09-24 13:15 | disposition home or self-care (01) ==
LOC: EDUNIT# 14:40 → ER 14:43 → 4TH 17:25
PROVIDERS: ADMIT Family Medicine; ATTEND Family Medicine
DX: J44.1 Chronic obstructive pulmonary disease with (acute) exacerbation (principal); A41.9 Sepsis, unspecified organism; J30.2 Other seasonal allergic rhinitis; J18.9 Pneumonia, unspecified organism; K21.9 Gastro-esophageal reflux disease without esophagitis; G89.29 Other chronic pain; M54.9 Dorsalgia, unspecified; F32.A Depression, unspecified; F41.9 Anxiety disorder, unspecified; I49.1 Atrial premature depolarization; R00.0 Tachycardia, unspecified; E78.5 Hyperlipidemia, unspecified; Z79.899 Other long term (current) drug therapy; Z79.2 Long term (current) use of antibiotics; Z79.82 Long term (current) use of aspirin; Z99.81 Dependence on supplemental oxygen
CPT/HCPCS: 71045; 80048; 80053; 81000; 83605; 84145; 85007; 85025 ×2; 85027; 85610; 85730; 86141; 87040; 87070; 87088; 87185; 87205; 87636; 93005; 94640 ×3; 94760 ×2; 94761; 96361; 96365; 99284; G0378; 36415

== ENCOUNTER 2022-01-01 15:39 | Emergency (ER) | payer MEDICARE ==
[~2022-01-01 15:39] MED LIST changes: +BENZ200C51 PO; +CALC1TAB PO; +MAGN250T31 PO; +MONT-40 PO; -MONT10TA32 PO; +SODI30SP2 NSEACH
[2022-01-01] MEDS ORDERED: LACTATED RINGERS 1,000 ML IV ONE (16:45)
[2022-01-01] MEDS ORDERED: ONDANSETRON 4 MG/2 ML (SDV) Z0FRAN IVP ONE (16:45)
[2022-01-01] MEDS ORDERED: PANTOPRAZOLE 40 MG (PROTONIX) VIAL IV ONE (16:45)
--- NOTE | 2022-01-01 16:50 | ED Abdominal Pain ---
General Chief Complaint: General Problems/Pain Stated Complaint: DEHYDRATED Source of Information: Patient Exam Limitations: No Limitations (JESSICA PALM) History of Present Illness Date Seen by Provider: Jan 01, 2022 Time Seen by Provider: 16:26 Initial Comments Patient presents the ER by private conveyance with chief complaint of 4 days of dry heaving abdominal pain in her epigastric and left upper quadrant abdomen going down to her left lower quadrant. No diarrhea. Has a history of diverticulitis and gallstones. She tried Zofran which helped for about 3 or 4 hours but did not last the full 6 hours she is written for so her provider instructed her to come out for a checkup. No fevers or chills. No trauma. She says she is not passed any stools in the past 2 days. No history of IBS/IBD. She says her pain is a 6 out of 10 when she is up moving around but as long she is laying still not moving it is only a 1 or 2 when she is tolerable. (JESSICA PALM) Allergies and Home Medications Allergies Coded Allergies: No Known Drug Allergies (Unverified , 03/19/17) Patient Home Medication List Home Medication List Reviewed: Yes (JESSICA PALM) Albuterol Sulfate (Albuterol Sulfate) 2.5 Mg/0.5 Ml Vial.neb, 2.5 MG INH Q6H PRN for SHORTNESS OF BREATH, (Reported) Entered as Reported by: MAT ROUSE on 05/20/21 1028 Allopurinol (Allopurinol) 300 Mg Tablet, 300 MG PO DAILY, (Reported) Entered as Reported by: JOHN RAMIREZ on 11/10/19 0947 Alprazolam (Alprazolam) 0.5 Mg Tablet, 0.5 MG PO BID PRN for ANXIETY, (Reported) Entered as Reported by: JOHN RAMIREZ on 12/06/18 1621 Amlodipine Besylate (Amlodipine Besylate) 5 Mg Tablet, 5 MG PO DAILY, (Reported) Entered as Reported by: JOHN RAMIREZ on 12/06/18 1621 Aspirin (Aspirin EC) 81 Mg Tablet.dr, 81 MG PO Q48H, (Reported) Entered as Reported by: JOHN RAMIREZ on 12/07/18 0855 Benzonatate (Benzonatate) 200 Mg Capsule, 200 MG PO TID PRN for COUGH, (Repor gabbie) Entered as Reported by: MAT ROUSE on 09/23/21 1114 Calcium Carbonate/Vitamin D3 (Caltrate 600 + D Tablet) 1 Each Tablet, 1 EACH PO DAILY, (Reported) Entered as Reported by: MAT ROUSE on 09/23/21 1114 Fenofibrate (Fenofibrate) 54 Mg Tablet, 54 MG PO DAILY, (Reported) Entered as Reported by: MAT ROUSE on 05/20/21 1024 Fexofenadine HCl (Lynda Allergy) 180 Mg Tablet, 180 MG PO DAILY PRN for ALLERGY SYMPTOMS, (Reported) Entered as Reported by: MAT ROUSE on 05/20/21 1024 Fluticasone Propionate (Fluticasone Propionate) 16 Gm [place].susp, 1 SPRAYS NSEACH BID, (Reported) Entered as Reported by: JOHN RAMIREZ on 12/07/18 0855 Hydrochlorothiazide (Hydrochlorothiazide) 25 Mg Tablet, 25 MG PO DAILY, (Reporte d) Entered as Reported by: JOHN RAMIREZ on 12/06/18 1621 Magnesium (Magnesium) 250 Mg Tablet, 250 MG PO DAILY, (Reported) Entered as Reported by: MAT ROUSE on 09/23/21 1114 Montelukast Sodium (Montelukast Sodium) 10 Mg Tablet, 10 MG PO HS, (Reported) Entered as Reported by: JOHN RAMIREZ on 12/06/18 1621 Multivitamin/Iron/Folic Acid (Centrum Women Tablet) 1 Each Tablet, 1 EACH PO DAILY, (Reported) Entered as Reported by: MAT ROUSE on 05/20/21 1024 Omeprazole (Omeprazole) 40 Mg Capsule.dr, 40 MG PO DAILY, (Reported) Entered as Reported by: JOHN RAMIREZ on 11/10/19 0947 Prednisone (Prednisone) 20 Mg Tab, 20 MG PO DAILY Prescribed by: TI CHRISTINE on 09/24/21 1215 Sodium Chloride (Saline Nasal [place]) 30 Ml [place], 1-2 SPRAYS NSEACH BID PRN for DRY NOSE, (Reported) Entered as Reported by: MAT ROUSE on 09/23/21 1114 Venlafaxine HCl (Venlafaxine HCl ER) 75 Mg Cap.er.24h, 75 MG PO DAILY, (Reported) Entered as Reported by: MAT ROUSE on 05/20/21 1024 Review of Systems Review of Systems Constitutional: No chills, No diaphoresis EENTM: No Blurred Vision, No Double Vision Respiratory: Denies Cough, Denies Shortness of Air Cardiovascular: Denies Chest Pain, Denies Lightheadedness Gastrointestinal: See HPI; Denies Abdomen Distended; Abdominal Pain, Constipated; Denies Diarrhea; Nausea, Poor Fluid Intake, Vomiting Genitourinary: Denies Burning, Denies Discharge Musculoskeletal: No back pain, No joint pain Skin: No change in color, No pruritus, No rash Psychiatric/Neurological: Denies Headache, Denies Numbness (JESSICA PALM) All Other Systems Reviewed Negative Unless Noted: Yes (JESSICA PALM) Past Gpmzxbe-Mizzgv-Jwtfwp Hx Patient Social History Tobacco Use?: Yes Smoking Status: Former Smoker Substance use?: No Alcohol Use?: No (JESSICA PALM) Immunizations Up To Date Tetanus Booster (TDap): Unknown PED Vaccines UTD: Yes Influenza Vaccine Up-to-Date: Yes; Up-to-Date First/Initial COVID19 Vaccinat: january 2021 Second COVID19 Vaccination Aki: february 2021 Third COVID19 Vaccination Date: Jun 2021 (JESSICA PALM) Seasonal Allergies Seasonal Allergies: Yes (JESSICA PALM) Past Medical History Surgery/Hospitalization HX: COPD, DIVERTICULITIS Surgeries: Yes (hemmoroidectomy, disc surgery) Appendectomy, Hysterectomy, Rectal Respiratory: Yes Pneumonia, Chronic Bronchitis, COPD Currently Using CPAP: No Currently Using BIPAP: No Cardiac: Yes Hypertension Neurological: No [employer] History: Menopausal Sexually Transmitted Disease: No HIV/AIDS: No Genitourinary: No Gastrointestinal: Yes Gastroesophageal Reflux, Diverticulosis Musculoskeletal: Yes (disc surgery) Chronic Back Pain Endocrine: No HEENT: Yes Tinnitis Cancer: No Psychosocial: Yes Anxiety, Depression Integumentary: No Blood Disorders: No Adverse Reaction/Blood Tranf: No (JESSICA PALM) Family Medical History FH: cerebral palsy G8 BROTHER Lung cancer 19 MOTHER Cancer (JESSICA PALM) Physical Exam Vital Signs Vital Signs - First Documented 01/01/22 16:20 Temp 36.0 Pulse 87 Resp 20 B/P (MAP) 150/84 (106) Pulse Ox 97 O2 Delivery Nasal Cannula O2 Flow Rate 4.00 (LOGAN BLAS MD) Vital Signs Capillary Refill : (JESSICA PALM) Height/Weight/BMI Height: 5'3.00" Weight: 150lbs. 0.8oz. [id number]; 27.83 BMI Method:Stated General Appearance: WD/WN, mild distress HEENT: TMs normal, pharynx normal Neck: full range of motion, normal inspection Respiratory: lungs clear, normal breath sounds, no respiratory distress, no accessory muscle use Cardiovascular: normal peripheral pulses, regular rate, rhythm, no edema Peripheral Pulses: 2+ Dorsalis Pedis (R), 2+ Left Dors-Pedis (L) Gastrointestinal: normal bowel sounds, soft, no organomegaly; No distended; tenderness (Left upper quadrant and left lower quadrant tender to palpation mild to moderate), other (No mesenteric signs, McBurney's point tenderness or rebound tenderness) Extremities: normal range of motion, non-tender, normal capillary refill Neurologic/Psychiatric: alert, normal mood/affect, oriented x 3 Skin: normal color, warm/dry (JESSICA PALM) Progress/Results/Core Measures Results/Orders Lab Results Laboratory Tests Test 01/01/22 16:50 01/01/22 18:10 Range/Units White Blood Count 7.4 4.3-11.0 10^3/uL Red Blood Count 4.00 3.80-5.11 10^6/uL Hemoglobin 10.4 L 11.5-16.0 g/dL Hematocrit 34 L 35-52 % Mean Corpuscular Volume 86 80-99 fL Mean Corpuscular Hemoglobin 26 25-34 pg Mean Corpuscular Hemoglobin Concent 30 L 32-36 g/dL Red Cell Distribution Width 13.7 10.0-14.5 % Platelet Count 265 130-400 10^3/uL Mean Platelet Volume 10.1 9.0-12.2 fL Immature Granulocyte % (Auto) 0 % Neutrophils (%) (Auto) 61 42-75 % Lymphocytes (%) (Auto) 23 12-44 % Monocytes (%) (Auto) 10 0-12 % Eosinophils (%) (Auto) 4 0-10 % Basophils (%) (Auto) 1 0-10 % Neutrophils # (Auto) 4.5 1.8-7.8 10^3/uL Lymphocytes # (Auto) 1.7 1.0-4.0 10^3/uL Monocytes # (Auto) 0.8 0.0-1.0 10^3/uL Eosinophils # (Auto) 0.3 0.0-0.3 10^3/uL Basophils # (Auto) 0.1 0.0-0.1 10^3/uL Immature Granulocyte # (Auto) 0.0 0.0-0.1 10^3/uL Prothrombin Time 12.9 12.2-14.7 SEC INR Comment 0.9 0.8-1.4 Sodium Level 141 135-145 MMOL/L Potassium Level 3.3 L 3.6-5.0 MMOL/L Chloride Level 100 98-107 MMOL/L Carbon Dioxide Level 29 21-32 MMOL/L Anion Gap 12 5-14 MMOL/L Blood Urea Nitrogen 16 7-18 MG/DL Creatinine 0.73 0.60-1.30 MG/DL Estimat Glomerular Filtration Rate 85 BUN/Creatinine Ratio 22 Glucose Level 105 70-105 MG/DL Calcium Level 9.6 8.5-10.1 MG/DL Corrected Calcium 9.2 8.5-10.1 MG/DL Total Bilirubin 0.3 0.1-1.0 MG/DL Aspartate Amino Transf (AST/SGOT) 29 5-34 U/L Alanine Aminotransferase (ALT/SGPT) 24 0-55 U/L Alkaline Phosphatase 39 L 40-136 U/L C-Reactive Protein High Sensitivity 0.08 0.00-0.50 MG/DL Total Protein 7.0 6.4-8.2 GM/DL Albumin 4.5 3.2-4.5 GM/DL Lipase 23 8-78 U/L Urine Color YELLOW Urine Clarity CLEAR Urine pH 6.0 5-9 Urine Specific [place] <=1.005 1.016-1.022 Urine Protein NEGATIVE NEGATIVE Urine Glucose (UA) NEGATIVE NEGATIVE Urine Ketones NEGATIVE NEGATIVE Urine Nitrite NEGATIVE NEGATIVE Urine Bilirubin NEGATIVE NEGATIVE Urine Urobilinogen 0.2 < = 1.0 MG/DL Urine Leukocyte Esterase NEGATIVE NEGATIVE Urine RBC (Auto) NEGATIVE NEGATIVE Urine RBC NONE /HPF Urine WBC NONE /HPF Urine Squamous Epithelial Cells NONE /HPF Urine Crystals PRESENT H /LPF Urine Amorphous Sediment RARE JASON URATES H /LPF Urine Bacteria NEGATIVE /HPF Urine Casts NONE /LPF Urine Mucus NEGATIVE /LPF Urine Culture Indicated NO (LOGAN BLAS MD) My Orders Orders - LOGAN BLAS MD Ua Culture If Indicated (01/01/22 17:56) (LOGAN BLAS MD) Medications Given in ED Current Medications Medications Dose Ordered Sig/Yara Route Start Time Stop Time Status Last Admin Dose Admin Diatrizoate Meglum/ Diatrizoate Sod 120 ml ONCE ONCE PO 01/01/22 17:45 01/01/22 17:46 DC 01/01/22 17:54 30 ML Iohexol 100 ml ONCE ONCE IV 01/01/22 17:45 01/01/22 17:46 DC 01/01/22 17:54 88 ML Lactated Ringer's 1,000 ml @ 0 mls/hr Q0M ONCE IV 01/01/22 16:45 01/01/22 16:47 DC 01/01/22 17:04 999 MLS/HR Ondansetron HCl 8 mg ONCE ONCE IVP 01/01/22 16:45 01/01/22 16:47 DC 01/01/22 17:05 8 MG Pantoprazole 40 mg ONCE ONCE IV 01/01/22 16:45 01/01/22 16:47 DC 01/01/22 17:05 40 MG Sodium Chloride 100 ml ONCE ONCE IV 01/01/22 17:45 01/01/22 17:46 DC 01/01/22 17:54 80 ML (LOGAN BLAS MD) Vital Signs/I&O 01/01/22 16:20 Temp 36.0 Pulse 87 Resp 20 B/P (MAP) 150/84 (106) Pulse Ox 97 O2 Delivery Nasal Cannula O2 Flow Rate 4.00 (LOGAN BLAS MD) Progress Progress Note : Time: 16:[address] with oral and IV contrast looking for diverticulitis, obstruction obstipation etc. Pantoprazole and a liter of LR. Labs. Aseptic vital signs. (JESSICA PALM) Progress Note #1: Time: 18:06 Progress Note Care of this patient was assumed from Dr. Palm at shift change. CT report and UA pending. CT viewed by me and compared with prior. She appears to have chronic calcified sludge/stones in the GB. Progress Note #2: Time: 18:59 Progress Note No new acute abnormalities were appreciated on CT exam. Patient was reexamined and found to have wheezing from COPD which is chronic in nature. Palpation of the abdomen revealed tenderness in the left upper quadrant. She is not presently taking any antacid medications. I have suggested she start on pantoprazole to help reduce irritation of the hiatal hernia. I suggested she adhere to a noncarbonated clear liquid diet for the next 24 hours and then eat a low-fat, low oil diet due to her gallstones. Have suggested she consider referral to a surgeon should she ever need interventions for her cholelithiasis or hiatal hernia. See discharge instructions for further discussion. (LOGAN BLAS MD) Diagnostic Imaging Diagonstic Imaging: CT Plain Films/CT/US/NM/MRI: abdomen, pelvis Reviewed: Reviewed by Me (JESSICA PALM) Comments CT viewed by me and report reviewed. See report below: NAME: MARCELLUS CALVO [facility] REC#: [id number] PT STATUS: REG ER : 1945 PHYSICIAN: JESSICA PALM MD ADMIT DATE: 01/01/22/ER Signed Date of Exam:01/01/22 CT ABDOMEN/PELVIS W CT abdomen/pelvis with contrast. TECHNIQUE: Multiple contiguous axial images were obtained through the abdomen and pelvis after administration of intravenous contrast. All CT scans use one or more of the following dose optimizing techniques: automated exposure control, MA and/or KvP adjustment based on patient size and exam type or iterative reconstruction. INDICATION: Left upper quadrant pain. Diverticulosis. COMPARISON: CT chest of 07/16/2021. FINDINGS: Lower chest: The lung bases are clear. No pericardial or pleural effusion. Peritoneum: No free intraperitoneal air or fluid. Liver and biliary system: Diffuse hypoattenuation of the liver indicative of hepatic steatosis. There is a 4.8 x 4.4 cm mass with central hyperattenuation in segment 4A of the liver. It is stable since CT chest of 2019 and can be considered benign, such as adenoma or FNH. Cholelithiasis without features of acute cholecystitis. Spleen and Pancreas: Spleen is normal. The pancreas enhances normally without mass lesion or peripancreatic inflammatory changes. Adrenals: Normal. tract: The kidneys enhance normally without suspicious mass or obstruction. Urinary bladder is distended without wall thickening. No renal or ureteral stones. Hysterectomy. No adnexal mass. GI tract: Large paraesophageal hiatal hernia is unchanged. No bowel obstruction. No pericolonic inflammatory changes. Descending and sigmoid colon diverticulosis without diverticulitis. Appendix is not seen. Vasculature and Lymph nodes: Normal caliber aorta with a moderate amount of atherosclerotic plaque. No abdominal or pelvic lymphadenopathy. Musculoskeletal: No concerning osseous lesion. IMPRESSION: 1. No acute obstructive or inflammatory process. Colonic diverticulosis without diverticulitis. 2. Diffuse hepatic steatosis. 3. Large hiatal hernia. Dictated by: Dictated on workstation # [id number] Dict: 01/01/221756 Trans: 01/01/221806 PJE [id number] Interpreted by: ABIMBOLA BATRES MD Electronically signed by: ABIMBOLA BATRES MD 01/01/221806 (LOGAN BLAS MD) Departure Impression Primary Impression: Nausea & vomiting Qualified Codes: R11.2 - Nausea with vomiting, unspecified Additional Impressions: Cholelithiasis Qualified Codes: K80.20 - Calculus of gallbladder without cholecystitis without obstruction Hiatal hernia Left upper quadrant pain Disposition: 01 HOME, SELF-CARE Condition: Improved Departure-Patient Inst. Decision time for Depature: 18:55 (LOGAN BLAS MD) Referrals: MARCELLUS WHITESIDE DO (PCP) Primary Care Physician LUPILLO NEWTON APRN (Family) Primary Care Physician WATSON PINEDO BRETT D DO KIDO, TAKAAKI MD Patient Instructions: Abdominal Pain, Adult ED, Gallbladder Diet, Gallstones, Hiatal Hernia Add. Discharge Instructions: Eat a low-fat, low oil diet. Adhere to a noncarbonated clear liquid diet for the next 24 hours. Then gradually advance your diet with small quantities of bland food as tolerated. Start taking Protonix (pantoprazole) as prescribed to help reduce irritation of the hiatal hernia. Consider referral to a surgeon for monitoring and/or further evaluation of your hiatal hernia and gallstones. You may continue using Zofran (ondansetron) as prescribed for nausea or vomiting. A new prescription for the dissolvable sublingual Zofran was provided. Follow-up with your primary care provider within the next couple of weeks. Call with questions or concerns. Return to the ER if you have worsening symptoms. All discharge instructions reviewed with patient and/or family. Voiced underst anding. Scripts Pantoprazole Sodium (Protonix) 40 Mg Tablet. 40 MG PO DAILY, #30 TAB Prov: LOGAN BLAS MD 01/01/22 Ondansetron (Ondansetron Odt) 4 Mg Tab.rapdis 4 MG SL Q4H PRN for NAUSEA/VOMITING, #10 TAB 1 Refill Prov: LOGAN BLAS MD 01/01/22 Copy Copies To 1: MARCELLUS WHITESIDE TITUS J Jan 01, 2022 16:50 LOGAN BLAS MD Jan 01, 2022 18:07
[2022-01-01 16:58] LABS: BASOPHILS # (AUTO) 0.1 10^3/uL (0.0-0.1); BASOPHILS % (AUTO) 1 % (0-10); EOSINOPHILS # (AUTO) 0.3 10^3/uL (0.0-0.3); EOSINOPHILS % (AUTO) 4 % (0-10); HEMATOCRIT 34 % (35-52); HEMOGLOBIN 10.4 g/dL (11.5-16.0); LYMPHOCYTES # (AUTO) 1.7 10^3/uL (1.0-4.0); LYMPHOCYTES % (AUTO) 23 % (12-44); MEAN CORPUSCULAR HEMOGLOBIN 26 pg (25-34); MEAN CORPUSCULAR HGB CONC 30 g/dL (32-36); MEAN CORPUSCULAR VOLUME 86 fL (80-99); MEAN PLATELET VOLUME 10.1 fL (9.0-12.2); MONOCYTES # (AUTO) 0.8 10^3/uL (0.0-1.0); MONOCYTES % (AUTO) 10 % (0-12); NEUTROPHILS # (AUTO) 4.5 10^3/uL (1.8-7.8); NEUTROPHILS % (AUTO) 61 % (42-75); PLATELET COUNT 265 10^3/uL (130-400); WHITE BLOOD COUNT 7.4 10^3/uL (4.3-11.0)
[2022-01-01 17:11] LABS: ALBUMIN 4.5 GM/DL (3.2-4.5)
[2022-01-01 17:12] LABS: POTASSIUM 3.3 MMOL/L (3.6-5.0)
[2022-01-01 17:13] LABS: CALCIUM 9.6 MG/DL (8.5-10.1)
[2022-01-01 17:16] LABS: BILIRUBIN,TOTAL 0.3 MG/DL (0.1-1.0)
[2022-01-01 17:18] LABS: CREATININE SERUM 0.73 MG/DL (0.60-1.30); INR 0.9 (0.8-1.4); PROTHROMBIN TIME PATIENT 12.9 SEC (12.2-14.7)
[2022-01-01] MEDS ORDERED: NS 100 ML (IVPB) BAG IV ONE (17:45)
[2022-01-01] MEDS ORDERED: HOLD METFORMIN - RECEIVED CONTRAST 20 ML VIAL IV SCH (17:45)
[2022-01-01] MEDS ORDERED: IOHEXOL 350 MG/ML 100 ML (OMNIPAQUE 350) VIAL IV ONE (17:45)
[2022-01-01] MEDS ORDERED: DIATRIZOATE MEGLUM/SODIUM 37% 120 ML (GASTROGRAFIN) PO ONE (17:45)
--- NOTE | 2022-01-01 18:08 | Diagnostic Imaging Report ---
CT abdomen/pelvis with contrast. TECHNIQUE: Multiple contiguous axial images were obtained through the abdomen and pelvis after administration of intravenous contrast. All CT scans use one or more of the following dose optimizing techniques: automated exposure control, MA and/or KvP adjustment based on patient size and exam type or iterative reconstruction. INDICATION: Left upper quadrant pain. Diverticulosis. COMPARISON: CT chest of 07/16/2021. FINDINGS: Lower chest: The lung bases are clear. No pericardial or pleural effusion. Peritoneum: No free intraperitoneal air or fluid. Liver and biliary system: Diffuse hypoattenuation of the liver indicative of hepatic steatosis. There is a 4.8 x 4.4 cm mass with central hyperattenuation in segment 4A of the liver. It is stable since CT chest of 2019 and can be considered benign, such as adenoma or FNH. Cholelithiasis without features of acute cholecystitis. Spleen and Pancreas: Spleen is normal. The pancreas enhances normally without mass lesion or peripancreatic inflammatory changes. Adrenals: Normal. tract: The kidneys enhance normally without suspicious mass or obstruction. Urinary bladder is distended without wall thickening. No renal or ureteral stones. Hysterectomy. No adnexal mass. GI tract: Large paraesophageal hiatal hernia is unchanged. No bowel obstruction. No pericolonic inflammatory changes. Descending and sigmoid colon diverticulosis without diverticulitis. Appendix is not seen. Vasculature and Lymph nodes: Normal caliber aorta with a moderate amount of atherosclerotic plaque. No abdominal or pelvic lymphadenopathy. Musculoskeletal: No concerning osseous lesion. IMPRESSION: 1. No acute obstructive or inflammatory process. Colonic diverticulosis without diverticulitis. 2. Diffuse hepatic steatosis. 3. Large hiatal hernia. Dictated by: Dictated on workstation # [id number]
[2022-01-01 18:20] LABS: BILIRUBIN,URINE NEGATIVE (NEGATIVE); CLARITY,URINE CLEAR; COLOR,URINE YELLOW; GLUCOSE, URINE (UA) NEGATIVE (NEGATIVE); KETONES,URINE NEGATIVE (NEGATIVE); LEUKOCYTE ESTERASE ,URINE NEGATIVE (NEGATIVE); NITRITE,URINE NEGATIVE (NEGATIVE); PROTEIN,URINE NEGATIVE (NEGATIVE)
[2022-01-01 18:35] LABS: AMORPHOUS SEDIMENT,UR RARE AMOR URATES /LPF; BACTERIA,URINE NEGATIVE /HPF
[2022-01-01] MEDS ORDERED: ONDA4TAB11 SL (18:58)
[2022-01-01] MEDS ORDERED: PANT40TA2 PO (18:58)
[2022-01-01 19:15] VITALS: BP 152/82
== END 2022-01-01 19:16 | disposition home or self-care (01) ==
LOC: EDUNIT# 15:39 → ER 15:42
DX: K44.9 Diaphragmatic hernia without obstruction or gangrene (principal); K80.20 Calculus of gallbladder without cholecystitis without obstruction; J44.9 Chronic obstructive pulmonary disease, unspecified; I10 Essential (primary) hypertension; F41.9 Anxiety disorder, unspecified; F32.9 Major depressive disorder, single episode, unspecified; K21.9 Gastro-esophageal reflux disease without esophagitis; Z87.891 Personal history of nicotine dependence; Z79.899 Other long term (current) drug therapy; Z79.82 Long term (current) use of aspirin
CPT/HCPCS: 36415; 74177; 80053; 81000; 83690; 85025; 85610; 86141

== ENCOUNTER → 2022-07-06 | Outpatient (CLI) | payer MEDICARE ==
[~2022-07-06] MED LIST changes: +FLUC100T10 PO; -FLUC100T6 PO; +ONDA4TAB11 SL; +PANT40TA2 PO; +RT-ALBUTEROL SULF 2.5 MG/3 ML PRE-MIX VIAL INH ONE
--- NOTE | 2022-07-06 13:46 | Diagnostic Imaging Report ---
INDICATION: Oxygen requirement. TIME OF EXAM: 12:17 p.m. COMPARISON: Correlation is made with prior chest from 09/04/2021. FINDINGS: Heart size is stable. There is a large hiatal hernia, similar to prior. Lungs are clear of acute infiltrates. No effusion or pneumothorax is detected. IMPRESSION: Large hiatal hernia. No acute cardiopulmonary process is detected. Dictated by: Dictated on workstation # [id number]
== END ==
LOC: RT 10:34
PROVIDERS: ATTEND Internal Medicine Critical Care Medicine
DX: J44.9 Chronic obstructive pulmonary disease, unspecified (principal)
CPT/HCPCS: 71046; 94060; 94621; 94726; 94729

== ENCOUNTER → 2022-10-06 | Outpatient (CLI) | payer MEDICARE ==
[~2022-10-06] MED LIST changes: +LEVO750T PO; -LEVO750T39 PO; -RT-ALBUTEROL SULF 2.5 MG/3 ML PRE-MIX VIAL INH ONE
--- NOTE | 2022-10-06 12:38 | Diagnostic Imaging Report ---
PROCEDURE: CT chest without contrast. TECHNIQUE: Multiple contiguous axial images were obtained through the chest without the use of intravenous contrast. Auto Exposure Controls were utilized during the CT exam to meet ALARA standards for radiation dose reduction. INDICATION: Lung lesion. Compared with chest CT 07/16/2021 FINDINGS: Tiny 3.8 mm sub-solid nodule right middle lobe unchanged given stability over greater one years' this lesion is felt to be benign and require no further workup. No new or suspicious lung mass. There is no thoracic adenopathy. Changes of COPD chronic. No endobronchial mass or airway filling defect is aortic and coronary artery atherosclerotic vascular calcifications chronic. No pleural or pericardial effusion. There is a large retrocardiac hernia chronic the visualized upper abdomen shows heterogeneous fatty infiltration of the liver and layering gallstones. IMPRESSION: Tiny 3 to 4 mm right middle lobe nodules stable over 14 months consistent with benignity. Underlying COPD in a large retrocardiac hernia with nonaneurysmal atherosclerosis and heterogeneous fatty liver with gallstones unchanged. Dictated by: Dictated on workstation # [id number]
[2022-10-06 14:45] LABS: EOSINOPHILS # (AUTO) 0.3 10^3/uL (0.0-0.3); WHITE BLOOD COUNT 8.8 10^3/uL (4.3-11.0)
== END ==
LOC: RAD 11:30
PROVIDERS: ATTEND Internal Medicine Critical Care Medicine
DX: I25.10 Atherosclerotic heart disease of native coronary artery without angina pectoris (principal); J43.9 Emphysema, unspecified; J96.11 Chronic respiratory failure with hypoxia; J42 Unspecified chronic bronchitis; K76.0 Fatty (change of) liver, not elsewhere classified; K80.80 Other cholelithiasis without obstruction; K46.9 Unspecified abdominal hernia without obstruction or gangrene; R91.8 Other nonspecific abnormal finding of lung field; Z87.891 Personal history of nicotine dependence
CPT/HCPCS: 36415; 71250; 82306; 82784; 82785; 85004; 85048; 86003; 86317; 86606; 87070; 87077; 87185; 87205

== ENCOUNTER 2022-12-06 14:19 | Emergency (ER) | payer MEDICARE ==
[~2022-12-06] VITALS: Ht 162 cm; Wt 148.0 kg
[2022-12-06] MEDS ORDERED: ROFL500T9 (14:35)
[2022-12-06] MEDS ORDERED: ONDANSETRON 4 MG/2 ML (SDV) Z0FRAN IVP ONE (15:15)
[2022-12-06] MEDS ORDERED: NS IV 1000 ML 1,000 ML IV SCH (15:15)
[2022-12-06 15:20] LABS: BASOPHILS # (AUTO) 0.1 10^3/uL (0.0-0.1); BASOPHILS % (AUTO) 1 % (0-10); EOSINOPHILS # (AUTO) 0.1 10^3/uL (0.0-0.3); EOSINOPHILS % (AUTO) 1 % (0-10); HEMATOCRIT 40 % (35-52); HEMOGLOBIN 12.8 g/dL (11.5-16.0); LYMPHOCYTES # (AUTO) 1.9 10^3/uL (1.0-4.0); LYMPHOCYTES % (AUTO) 16 % (12-44); MEAN CORPUSCULAR HEMOGLOBIN 30 pg (25-34); MEAN CORPUSCULAR HGB CONC 32 g/dL (32-36); MEAN CORPUSCULAR VOLUME 92 fL (80-99); MEAN PLATELET VOLUME 10.7 fL (9.0-12.2); MONOCYTES # (AUTO) 0.8 10^3/uL (0.0-1.0); MONOCYTES % (AUTO) 6 % (0-12); NEUTROPHILS # (AUTO) 9.3 10^3/uL (1.8-7.8); NEUTROPHILS % (AUTO) 76 % (42-75); PLATELET COUNT 335 10^3/uL (130-400); WHITE BLOOD COUNT 12.3 10^3/uL (4.3-11.0)
[2022-12-06 15:21] LABS: ALBUMIN 4.9 GM/DL (3.2-4.5)
[2022-12-06 15:22] LABS: AMYLASE 51 U/L (25-125); CHLORIDE 98 MMOL/L (98-107); POTASSIUM 3.5 MMOL/L (3.6-5.0); SODIUM 141 MMOL/L (135-145)
[2022-12-06 15:23] LABS: CALCIUM 10.3 MG/DL (8.5-10.1)
[2022-12-06 15:24] LABS: CLARITY,URINE CLOUDY; COLOR,URINE DARK YELLOW; GLUCOSE, URINE (UA) NEGATIVE (NEGATIVE); KETONES,URINE TRACE (NEGATIVE); LEUKOCYTE ESTERASE ,URINE NEGATIVE (NEGATIVE); NITRITE,URINE NEGATIVE (NEGATIVE); PH,URINE 5.5 (5-9); PROTEIN,URINE 2+ (NEGATIVE)
[2022-12-06 15:24] LABS: GLUCOSE 154 MG/DL (70-105); TOTAL PROTEIN 7.7 GM/DL (6.4-8.2)
[2022-12-06 15:25] LABS: CARBON DIOXIDE 27 MMOL/L (21-32)
[2022-12-06 15:26] LABS: BILIRUBIN,TOTAL 0.5 MG/DL (0.1-1.0)
[2022-12-06 15:27] LABS: ALKALINE PHOSPHATASE 36 U/L (40-136)
[2022-12-06 15:30] LABS: ALANINE AMINOTRANSFERASE 23 U/L (0-55)
[2022-12-06 15:31] LABS: LIPASE 59 U/L (8-78)
[2022-12-06 15:34] LABS: AMORPHOUS SEDIMENT,UR LARGE AMOR URATES /LPF; BACTERIA,URINE NEGATIVE /HPF; BILIRUBIN,URINE 2+ (NEGATIVE); RBC,URINE 0-2 /HPF; SQUAMOUS EPITHELIAL CELL,UR 0-2 /HPF; WBC,URINE RARE /HPF
--- NOTE | 2022-12-06 15:36 | ED GI ---
General Chief Complaint: Abdominal/GI Problems Stated Complaint: ABD PN, DRY HEAVING Nursing Triage Note: PT TO RM 5 PER W/C PT CO OF DRY HEAVING SINCE YESTERDAY AND HAS ABD PAIN. PT STATES HAS HIATAL HERNIA THAT CAUSES PAIN. PT WEAR O2 AT ALL X'S HAS HX COPD Source of Information: Patient Exam Limitations: No Limitations (SHAHID PRADO APRN) History of Present Illness Date Seen by Provider: Dec 06, 2022 Time Seen by Provider: 13:52 Initial Comments 77-year-old female presents to the ED with reports of dry heaving since yesterday morning. She states she has a hiatal hernia, and whenever she takes her Roflumilast on an empty stomach, it causes her to have uncontrollable dry heaves. Patient reports this pain is exactly the same as previously. States she took the Roflumilast Wednesday evening and did not eat enough with it. She woke up Wednesday morning with dry heaves and upper abdominal pain. States she is not vomiting, but is nauseous. Denies fever/chills, denies chest pain, SOA, diarrhea. Reports upper abdominal pain where her hernia is located. Timing/Duration: 1-2 Days Location: Epigastric (SHAHID PRADO APRN) Allergies and Home Medications Allergies Coded Allergies: No Known Drug Allergies (Unverified , 03/19/17) Patient Home Medication List Home Medication List Reviewed: Yes (SHAHID PRADO APRN) Albuterol Sulfate (Albuterol Sulfate) 2.5 Mg/0.5 Ml Vial.neb, 2.5 MG INH Q6H PRN for SHORTNESS OF BREATH, (Reported) Entered as Reported by: MAT ROUSE on 05/20/21 1028 Allopurinol (Allopurinol) 300 Mg Tablet, 300 MG PO DAILY, (Reported) Entered as Reported by: JOHN RAMIREZ on 11/10/19 0947 Alprazolam (Alprazolam) 0.5 Mg Tablet, 0.5 MG PO BID PRN for ANXIETY, (Reported) Entered as Reported by: JOHN RAMIREZ on 12/06/18 1621 Amlodipine Besylate (Amlodipine Besylate) 5 Mg Tablet, 5 MG PO DAILY, (Reported) Entered as Reported by: JOHN RAMIREZ on 12/06/18 1621 Aspirin (Aspirin EC) 81 Mg Tablet.dr, 81 MG PO Q48H, (Reported) Entered as Reported by: JOHN RAMIREZ on 12/07/18 0855 Benzonatate (Benzonatate) 200 Mg Capsule, 200 MG PO TID PRN for COUGH, (Reported) Entered as Reported by: MAT ROUSE on 09/23/21 1114 Calcium Carbonate/Vitamin D3 (Caltrate 600 + D Tablet) 1 Each Tablet, 1 EACH PO DAILY, (Reported) Entered as Reported by: MTA ROUSE on 09/23/21 1114 Fenofibrate (Fenofibrate) 54 Mg Tablet, 54 MG PO DAILY, (Reported) Entered as Reported by: MAT ROUSE on 05/20/21 1024 Fexofenadine HCl (Lynda Allergy) 180 Mg Tablet, 180 MG PO DAILY PRN for ALLERGY SYMPTOMS, (Reported) Entered as Reported by: MAT ROUSE on 05/20/21 1024 Fluticasone Propionate (Fluticasone Propionate) 16 Gm [place].susp, 1 SPRAYS NSEACH BID, (Reported) Entered as Reported by: JOHN RAMIREZ on 12/07/18 0855 Hydrochlorothiazide (Hydrochlorothiazide) 25 Mg Tablet, 25 MG PO DAILY, (Reported) Entered as Reported by: JOHN RAMIREZ on 12/06/18 1621 Magnesium (Magnesium) 250 Mg Tablet, 250 MG PO DAILY, (Reported) Entered as Reported by: MAT ROUSE on 09/23/21 1114 Montelukast Sodium (Montelukast Sodium) 10 Mg Tablet, 10 MG PO HS, (Reported) Entered as Reported by: JOHN RAMIREZ on 12/06/18 1621 Multivitamin/Iron/Folic Acid (Centrum Women Tablet) 1 Each Tablet, 1 EACH PO DAILY, (Reported) Entered as Reported by: MAT ROUSE on 05/20/21 1024 Omeprazole (Omeprazole) 40 Mg Capsule.dr, 40 MG PO DAILY, (Reported) Entered as Reported by: JOHN RAMIREZ on 11/10/19 0947 Ondansetron (Ondansetron Odt) 4 Mg Tab.rapdis, 4 MG SL Q4H PRN for NAUSEA/VOMITING Prescribed by: LOGAN MEJIA on 01/01/22 1858 Pantoprazole Sodium (Protonix) 40 Mg Tablet.dr, 40 MG PO DAILY Prescribed by: LOGAN MEJIA on 01/01/221857 Prednisone (Prednisone) 20 Mg Tab, 20 MG PO DAILY Prescribed by: TI CHRISTINE on 09/24/21 1215 Roflumilast (Roflumilast) 500 Mcg Tablet, (Reported) Entered as Reported by: NARCISA MCDONALD on 12/06/22 1435 Last Action: New Order Sodium Chloride (Saline Nasal [place]) 30 Ml [place], 1-2 SPRAYS NSEACH BID PRN for DRY NOSE, (Reported) Entered as Reported by: MAT ROUSE on 09/23/21 1114 Venlafaxine HCl (Venlafaxine HCl ER) 75 Mg Cap.er.24h, 75 MG PO DAILY, (Reported) Entered as Reported by: MAT ROUSE on 05/20/21 1024 Review of Systems Review of Systems Constitutional: see HPI (SHAHID PRADO APRN) Past Gnrdvex-Nsznjv-Qcidka Hx Patient Social History Tobacco Use?: No Smoking Status: Former Smoker Substance use?: No Alcohol Use?: No Pt feels they are or have been: No (SHAHID PRADO APRN) Immunizations Up To Date Tetanus Booster (TDap): Unknown PED Vaccines UTD: Yes Influenza Vaccine Up-to-Date: Yes; Up-to-Date First/Initial COVID19 Vaccinat: january 2021 Second COVID19 Vaccination Aki: february 2021 Third COVID19 Vaccination Date: Jun 2021 (SHAHID PRADO APRN) Seasonal Allergies Seasonal Allergies: Yes (SHAHID PRADO APRN) Past Medical History Surgery/Hospitalization HX: COPD, DIVERTICULITIS Surgeries: Yes (hemmoroidectomy, disc surgery) Appendectomy, Hysterectomy, Rectal Respiratory: Yes Pneumonia, Chronic Bronchitis, COPD Currently Using CPAP: No Currently Using BIPAP: No Cardiac: Yes Hypertension Neurological: No [employer]ULKER History: Menopausal Sexually Transmitted Disease: No HIV/AIDS: No Genitourinary: No Gastrointestinal: Yes Gastroesophageal Reflux, Diverticulosis Musculoskeletal: Yes (disc surgery) Chronic Back Pain Endocrine: No HEENT: Yes Tinnitis Cancer: No Psychosocial: Yes Anxiety, Depression Integumentary: No Blood Disorders: No Adverse Reaction/Blood Tranf: No (SHAHID PRADO APRN) Family Medical History FH: cerebral palsy G8 BROTHER Lung cancer 19 MOTHER Cancer (SHAHID PRADO APRN) Physical Exam Vital Signs Vital Signs - First Documented 12/06/22 12/06/22 14:25 18:00 Temp 36.7 Pulse 104 Resp 20 B/P (MAP) 155/107 (123) Pulse Ox 96 O2 Delivery Nasal Cannula O2 Flow Rate 4.00 (LOGAN BLAS MD) Vital Signs Capillary Refill : Less Than 3 Seconds (SHAHID PRADO APRN) Height/Weight/BMI Height: 5'3.00" Weight: 150lbs. 0.8oz. 68.483244yh; 56.00 BMI Method:Stated General Appearance: WD/WN, no apparent distress Neck: supple, normal inspection Respiratory: lungs clear, normal breath sounds, no respiratory distress, no accessory muscle use Cardiovascular: regular rate, rhythm, no edema, no gallop, no JVD, no murmur Gastrointestinal: normal bowel sounds, soft, tenderness (epigastric) Extremities: normal range of motion, normal inspection Neurologic/Psychiatric: alert, normal mood/affect, oriented x 3 Skin: normal color, warm/dry (SHAHID PRADO APRN) Progress/Results/Core Measures Results/Orders Lab Results Laboratory Tests Test 12/06/22 14:35 12/06/22 15:17 12/06/22 17:40 Range/Units White Blood Count 12.3 H 4.3-11.0 10^3/uL Red Blood Count 4.34 3.80-5.11 10^6/uL Hemoglobin 12.8 11.5-16.0 g/dL Hematocrit 40 35-52 % Mean Corpuscular Volume 92 80-99 fL Mean Corpuscular Hemoglobin 30 25-34 pg Mean Corpuscular Hemoglobin Concent 32 32-36 g/dL Red Cell Distribution Width 12.2 10.0-14.5 % Platelet Count 335 130-400 10^3/uL Mean Platelet Volume 10.7 9.0-12.2 fL Immature Granulocyte % (Auto) 0 % Neutrophils (%) (Auto) 76 H 42-75 % Lymphocytes (%) (Auto) 16 12-44 % Monocytes (%) (Auto) 6 0-12 % Eosinophils (%) (Auto) 1 0-10 % Basophils (%) (Auto) 1 0-10 % Neutrophils # (Auto) 9.3 H 1.8-7.8 10^3/uL Lymphocytes # (Auto) 1.9 1.0-4.0 10^3/uL Monocytes # (Auto) 0.8 0.0-1.0 10^3/uL Eosinophils # (Auto) 0.1 0.0-0.3 10^3/uL Basophils # (Auto) 0.1 0.0-0.1 10^3/uL Immature Granulocyte # (Auto) 0.0 0.0-0.1 10^3/uL Sodium Level 141 135-145 MMOL/L Potassium Level 3.5 L 3.6-5.0 MMOL/L Chloride Level 98 98-107 MMOL/L Carbon Dioxide Level 27 21-32 MMOL/L Anion Gap 16 H 5-14 MMOL/L Blood Urea Nitrogen 18 7-18 MG/DL Creatinine 0.77 0.60-1.30 MG/DL Estimat Glomerular Filtration Rate 79 BUN/Creatinine Ratio 23 Glucose Level 154 H 70-105 MG/DL Calcium Level 10.3 H 8.5-10.1 MG/DL Corrected Calcium 8.5-10.1 MG/DL Total Bilirubin 0.5 0.1-1.0 MG/DL Aspartate Amino Transf (AST/SGOT) 23 5-34 U/L Alanine Aminotransferase (ALT/SGPT) 23 0-55 U/L Alkaline Phosphatase 36 L 40-136 U/L Total Protein 7.7 6.4-8.2 GM/DL Albumin 4.9 H 3.2-4.5 GM/DL Amylase Level 51 25-125 U/L Lipase 59 8-78 U/L Urine Color DARK YELLOW Urine Clarity CLOUDY Urine pH 5.5 5-9 Urine Specific [place] >=1.030 1.016-1.022 Urine Protein 2+ H NEGATIVE Urine Glucose (UA) NEGATIVE NEGATIVE Urine Ketones TRACE H NEGATIVE Urine Nitrite NEGATIVE NEGATIVE Urine Bilirubin 2+ H NEGATIVE Urine Urobilinogen 0.2 < = 1.0 MG/DL Urine Leukocyte Esterase NEGATIVE NEGATIVE Urine RBC (Auto) TRACE-I H NEGATIVE Urine RBC 0-2 /HPF Urine WBC RARE /HPF Urine Squamous Epithelial Cells 0-2 /HPF Urine Crystals PRESENT H /LPF Urine Amorphous Sediment LARGE JASON URATES H /LPF Urine Bacteria NEGATIVE /HPF Urine Casts NONE /LPF Urine Mucus NEGATIVE /LPF Urine Culture Indicated NO Influenza Type A (RT-PCR) Not Detected Not Detecte Influenza Type B (RT-PCR) Not Detected Not Detecte SARS-CoV-2 RNA (RT-PCR) Not Detected Not Detecte (LOGAN BLAS MD) Medications Given in ED Current Medications Medications Dose Ordered Sig/Yara Route Start Time Stop Time Status Last Admin Dose Admin Famotidine 20 mg ONCE ONCE IVP 12/06/22 16:45 12/06/22 16:46 DC 12/06/22 16:54 20 MG Iohexol 100 ml ONCE ONCE IV 12/06/22 15:45 12/06/22 15:46 DC 12/06/22 16:23 80 ML Ondansetron HCl 4 mg ONCE ONCE IVP 12/06/22 15:15 12/06/22 15:16 DC 12/06/22 15:27 4 MG Pantoprazole 40 mg ONCE ONCE IV 12/06/22 15:45 12/06/22 15:46 DC 12/06/22 16:36 40 MG Prochlorperazine Edisylate 10 mg ONCE ONCE IV 12/06/22 17:30 12/06/22 17:31 DC 12/06/22 17:32 10 MG Sodium Chloride 100 ml ONCE ONCE IV 12/06/22 15:45 12/06/22 15:46 DC 12/06/22 16:23 80 ML (LOGAN BLAS MD) Vital Signs/I&O 12/06/22 12/06/22 14:25 18:00 Temp 36.7 Pulse 104 71 Resp 20 B/P (MAP) 155/107 (123) 121/83 Pulse Ox 96 100 O2 Delivery Nasal Cannula Nasal Cannula O2 Flow Rate 4.00 4.00 (LOGAN BLAS MD) Blood Pressure Mean: 123 Progress Progress Note #1: Time: 15:40 Progress Note Patient seen and evaluated, sitting on commode during assessment, mild distress. Based on exam and symptoms differential diagnosis includes but is not limited to gastroenteritis, GERD, hiatal hernia, cholecystitis, pancreatitis, p yelonephritis, bowel obstruction, AAA, gastritis, PUD. Work-up initiated, CBC, CMP, amylase, lipase, UA, CT abdomen pelvis. IV fluids, Zofran, Protonix ordered. Progress Note #2: Time: 15:59 Progress Note Labs reviewed. CBC shows slightly elevated white blood cell count 12.3, neutrophils elevated at 76. CBC shows slightly decreased potassium at 3.5, slight increased anion gap 16, elevated glucose at 154, elevated calcium at 10.3, albumin elevated 4.9. Urinalysis negative for infection, positive for 2+ protein, trace ketones, 2+ bilirubin, trace red blood cells, crystals are presen t, and large amount of amorphous sediment. CT scan changed to with without contrast due to red blood cells and crystals. Progress Note #3: Time: 16:[address] reviewed. No acute intra-abdominal findings. No bowel obstruction, fat- containing left inguinal hernia. Moderate sized hiatal hernia. No kidney stones noted. Stones in gallbladder, no biliary duct dilation, no wall thickening, no pericholecystic fluid. Pancreas is normal. Diverticulosis without diverticulitis. No aneurysm of the aorta. Labs and CT results reviewed with patient. Patient reports her nausea has improved, but states she is still having abdominal pain. Patient would like to try Pepcid IV. Does not want to try GI cocktail yet. Progress Note #4: Time: 17:42 Progress Note Patient asking to be tested for flu, flu/COVID swabs ordered. Will call patient with result. Patient would like to go home. Will give take-home pack for Zof ran. Patient instructed to follow-up with primary care provider. Patient given return precautions. (SHAHID PARDO APRN) Diagnostic Imaging Diagonstic Imaging: CT Plain Films/CT/US/NM/MRI: abdomen, pelvis Comments [facility]. [place], [place] NAME: MARCELLUS CALVO [facility] REC#: [id number] PT STATUS: REG ER : 1945 PHYSICIAN: SHAHID PRADO APRN ADMIT DATE: 12/06/22/ER Signed Date of Exam:12/06/22 CT ABDOMEN/PELVIS W WO EXAMINATION: CT abdomen and pelvis with and without intravenous contrast. TECHNIQUE: Precontrast acquisitions were acquired through the abdomen and pelvis. Multiple contiguous axial images were obtained through the abdomen and pelvis after the administration of intravenous contrast. All CT scans use one or more of the following dose optimizing techniques: automated exposure control, MA and/or KvP adjustment based on patient size and exam type or iterative reconstruction. HISTORY: Vomiting. COMPARISON: 01/01/2022. FINDINGS: Limited views of the lower thorax show a moderate-sized hiatal hernia. Coronary arteries are calcified. There are calcifications of the mitral valve. There is an unchanged hemangioma in the dome of the liver measuring 1.8 x 1.5 cm. There is a surrounding perfusion abnormality. There is another small unchanged hemangioma adjacent to the gallbladder. There is no biliary ductal dilation. There are stones in the gallbladder. No wall thickening or pericholecystic fluid. Pancreas is normal. Spleen is normal. Adrenal glands are normal. The kidneys are normal. There is no hydronephrosis. Urinary bladder is normal. Bowel is normal in caliber without obstruction or inflammation. There is diverticulosis without diverticulitis. There is a fat-containing left inguinal hernia. No free fluid or air. No abdominal or pelvic lymphadenopathy. Aorta is normal in caliber without aneurysm. There is no suspicious osseus lesion. IMPRESSION: No acute abnormality in the abdomen or pelvis. Dictated by: Dictated on workstation # [id number] Dict: 12/06/22 1623 Trans: 12/06/22 1640 [facility] [id number] Interpreted by: ODALIS ACEVEDO MD Electronically signed by: ODALIS ACEVEDO MD 12/06/22 1640 (SHAHID PRADO APRN) Departure Impression Primary Impression: Hiatal hernia Additional Impression: Nausea alone Disposition: 01 HOME, SELF-CARE Condition: Stable Departure-Patient Inst. Decision time for Depature: 17:45 (SHAHID PRADO APRN) Referrals: TI CHRISTINE MD (PCP/Family) Primary Care Physician Patient Instructions: Hiatal Hernia (DC) Add. Discharge Instructions: Slowly start to eat. Do not overindulge. Eat small meals. Eat a bland diet. Take Zofran as needed for nausea/vomiting Follow-up with primary care provider. You had a small amount of blood in your urine, no signs of urinary tract infection, please follow-up with your primary care regarding this. You will need a repeat urinalysis. Return for worsening or uncontrolled pain, fevers greater than 100.4, recurrent vomiting, inability to tolerate food or water, bloody stools or vomit, black or tarry stools, or any other new, concerning, or worsening symptoms. We will call with the results of your flu/COVID test. All discharge instructions reviewed with patient and/or family. Voiced understanding. ATTENDING PHYSICIAN NOTE: I was physically present as attending physician in the emergency department during the care of this patient, but I was not directly involved in the decision making or delivery of care for this patient. (LOGAN BLAS MD) Copy Copies To 1: TI CHRISTINE MD, BRITTANY R APRN Dec 06, 2022 15:36 LOGAN BLAS MD Dec 07, 2022 01:44
[2022-12-06 15:43] LABS: BUN/CREATININE RATIO 23; CREATININE SERUM 0.77 MG/DL (0.60-1.30); GFR ESTIMATED 79
[2022-12-06] MEDS ORDERED: HOLD METFORMIN - RECEIVED CONTRAST 20 ML VIAL IV SCH (15:45)
[2022-12-06] MEDS ORDERED: IOHEXOL 350 MG/ML 100 ML (OMNIPAQUE 350) VIAL IV ONE (15:45)
[2022-12-06] MEDS ORDERED: NS 100 ML (IVPB) BAG IV ONE (15:45)
[2022-12-06] MEDS ORDERED: PANTOPRAZOLE 40 MG (PROTONIX) VIAL IV ONE (15:45)
--- NOTE | 2022-12-06 16:36 | Diagnostic Imaging Report ---
EXAMINATION: CT abdomen and pelvis with and without intravenous contrast. TECHNIQUE: Precontrast acquisitions were acquired through the abdomen and pelvis. Multiple contiguous axial images were obtained through the abdomen and pelvis after the administration of intravenous contrast. All CT scans use one or more of the following dose optimizing techniques: automated exposure control, MA and/or KvP adjustment based on patient size and exam type or iterative reconstruction. HISTORY: Vomiting. COMPARISON: 01/01/2022. FINDINGS: Limited views of the lower thorax show a moderate-sized hiatal hernia. Coronary arteries are calcified. There are calcifications of the mitral valve. There is an unchanged hemangioma in the dome of the liver measuring 1.8 x 1.5 cm. There is a surrounding perfusion abnormality. There is another small unchanged hemangioma adjacent to the gallbladder. There is no biliary ductal dilation. There are stones in the gallbladder. No wall thickening or pericholecystic fluid. Pancreas is normal. Spleen is normal. Adrenal glands are normal. The kidneys are normal. There is no hydronephrosis. Urinary bladder is normal. Bowel is normal in caliber without obstruction or inflammation. There is diverticulosis without diverticulitis. There is a fat-containing left inguinal hernia. No free fluid or air. No abdominal or pelvic lymphadenopathy. Aorta is normal in caliber without aneurysm. There is no suspicious osseus lesion. IMPRESSION: No acute abnormality in the abdomen or pelvis. Dictated by: Dictated on workstation # [id number]
[2022-12-06] MEDS ORDERED: FAMOTIDINE 20MG/2ML IV (PEPCID) IVP ONE (16:45)
[2022-12-06] MEDS ORDERED: PROCHLORPERAZINE 10 MG/2ML INJ (COMPAZINE) IV ONE (17:30)
[2022-12-06] MEDS ORDERED: RX-ONDANSETRON 4 MG ODT (ZOFRAN) PPK #4 PO ONE (17:45)
[2022-12-06 18:00] VITALS: BP 121/83
[2022-12-07] MEDS ORDERED: PROM25SU44 RC (16:08)
== END 2022-12-06 18:00 | disposition home or self-care (01) ==
LOC: EDUNIT# 14:19 → ER 14:22
DX: K44.9 Diaphragmatic hernia without obstruction or gangrene (principal); E87.6 Hypokalemia; R73.9 Hyperglycemia, unspecified; E83.52 Hypercalcemia; R77.0 Abnormality of albumin; Z87.891 Personal history of nicotine dependence; Z87.19 Personal history of other diseases of the digestive system; Z90.49 Acquired absence of other specified parts of digestive tract; Z20.822 Contact with and (suspected) exposure to COVID-19
CPT/HCPCS: 36415; 74178; 80053; 81000; 82150; 83690; 85025; 87636; 99283

== ENCOUNTER 2022-12-07 14:16 | Emergency (ER) | payer MEDICARE ==
[~2022-12-07] VITALS: Ht 162 cm; Wt 70.0 kg
[~2022-12-07 14:16] MED LIST changes: +ROFL500T9
[2022-12-07 14:34] VITALS: BP 183/93
[2022-12-07 14:39] LABS: CLARITY,URINE CLEAR; COLOR,URINE YELLOW; GLUCOSE, URINE (UA) NEGATIVE (NEGATIVE); KETONES,URINE 1+ (NEGATIVE); LEUKOCYTE ESTERASE ,URINE NEGATIVE (NEGATIVE); NITRITE,URINE NEGATIVE (NEGATIVE); PH,URINE 5.5 (5-9); PROTEIN,URINE NEGATIVE (NEGATIVE)
[2022-12-07 14:54] LABS: BACTERIA,URINE MODERATE /HPF; BILIRUBIN,URINE NEGATIVE (NEGATIVE); SQUAMOUS EPITHELIAL CELL,UR 0-2 /HPF; WBC,URINE 0-2 /HPF
[2022-12-07] MEDS ORDERED: ONDANSETRON 4 MG/2 ML (SDV) Z0FRAN IVP ONE (15:00)
[2022-12-07] MEDS ORDERED: fentaNYL INJ 100 MCG/2 ML AMP IVP ONE (15:00)
[2022-12-07] MEDS ORDERED: NS IV 1000 ML 1,000 ML IV SCH (15:00)
[2022-12-07 15:12] LABS: BASOPHILS % (AUTO) 1 % (0-10); EOSINOPHILS % (AUTO) 1 % (0-10); HEMATOCRIT 37 % (35-52); HEMOGLOBIN 12.2 g/dL (11.5-16.0); LYMPHOCYTES # (AUTO) 1.1 X 10^3 (1.0-4.0); LYMPHOCYTES % (AUTO) 15 % (12-44); MEAN CORPUSCULAR HEMOGLOBIN 30 pg (25-34); MEAN CORPUSCULAR HGB CONC 33 g/dL (32-36); MEAN CORPUSCULAR VOLUME 91 fL (80-99); MEAN PLATELET VOLUME 9.7 fL (9.0-12.2); MONOCYTES # (AUTO) 0.5 X 10^3 (0.0-1.0); MONOCYTES % (AUTO) 7 % (0-12); NEUTROPHILS # (AUTO) 5.9 X 10^3 (1.8-7.8); NEUTROPHILS % (AUTO) 78 % (42-75); PLATELET COUNT 287 10^3/uL (130-400); WHITE BLOOD COUNT 7.5 10^3/uL (4.3-11.0)
--- NOTE | 2022-12-07 15:12 | ED Abdominal Pain ---
General Chief Complaint: Abdominal/GI Problems Stated Complaint: ABD PAIN Nursing Triage Note: Patient has presented to ER with cc of ongoing upper abd pain for the last 2 days. She reports being seen in the ER yesterday but her pain is not better today. She has not taken anything for the pain today. She states that she dry heaves when she tries to ear. Today she reports that she is sinus drainage, and a fullness in her ears. She reports a chronic cough for years. Source of Information: Patient Exam Limitations: No Limitations History of Present Illness Date Seen by Provider: Dec 07, 2022 Time Seen by Provider: 14:58 Initial Comments This is a 77-year-old female who presented the ER with complaints of persistent upper abdominal pain for the past 4 days. She has a history of hiatal hernia and states the pain is same as previous episodes regarding her hiatal hernia. She has extensive COPD and states that she is not a candidate for surgery due to pulmonary history. She was evaluated and treated yesterday in the emergency department for same complaint. She had an extensive work-up as well as imaging which showed no acute processes. She was given Zofran at that time and her symptoms improved somewhat. States that she is still able to drink fluids and keep them down however anytime she does attempt to drink or eat she dry heaves excessively. Describes pain as a dull ache, constant, unrelieved with Tylenol and ibuprofen arthritis. No fever, chills, cough, shortness of breath. She is oxygen dependent with 4 L via nasal cannula for her COPD. Allergies and Home Medications Allergies Coded Allergies: No Known Drug Allergies (Unverified , 03/19/17) Patient Home Medication List Home Medication List Reviewed: Yes Albuterol Sulfate (Albuterol Sulfate) 2.5 Mg/0.5 Ml Vial.neb, 2.5 MG INH Q6H PRN for SHORTNESS OF BREATH, (Reported) Entered as Reported by: MAT ROUSE on 05/20/21 1028 Allopurinol (Allopurinol) 300 Mg Tablet, 300 MG PO DAILY, (Reported) Entered as Reported by: JOHN RAMIREZ on 11/10/19 0947 Alprazolam (Alprazolam) 0.5 Mg Tablet, 0.5 MG PO BID PRN for ANXIETY, (Reported) Entered as Reported by: JOHN RAMIREZ on 12/06/18 1621 Amlodipine Besylate (Amlodipine Besylate) 5 Mg Tablet, 5 MG PO DAILY, (Reported) Entered as Reported by: JOHN RAMIREZ on 12/06/18 1621 Aspirin (Aspirin EC) 81 Mg Tablet.dr, 81 MG PO Q48H, (Reported) Entered as Reported by: JOHN RAMIREZ on 12/07/18 0855 Benzonatate (Benzonatate) 200 Mg Capsule, 200 MG PO TID PRN for COUGH, (Reported) Entered as Reported by: MAT ROUSE on 09/23/21 1114 Calcium Carbonate/Vitamin D3 (Caltrate 600 + D Tablet) 1 Each Tablet, 1 EACH PO DAILY, (Reported) Entered as Reported by: MAT ROUSE on 09/23/21 1114 Fenofibrate (Fenofibrate) 54 Mg Tablet, 54 MG PO DAILY, (Reported) Entered as Reported by: MAT ROUSE on 05/20/21 1024 Fexofenadine HCl (Lynda Allergy) 180 Mg Tablet, 180 MG PO DAILY PRN for ALLERGY SYMPTOMS, (Reported) Entered as Reported by: MAT ROUSE on 05/20/21 1024 Fluticasone Propionate (Fluticasone Propionate) 16 Gm [place].susp, 1 SPRAYS NSEACH BID, (Reported) Entered as Reported by: JOHN RAMIREZ on 12/07/18 0855 Hydrochlorothiazide (Hydrochlorothiazide) 25 Mg Tablet, 25 MG PO DAILY, (Reported) Entered as Reported by: JOHN RAMIREZ on 12/06/18 162 Magnesium (Magnesium) 250 Mg Tablet, 250 MG PO DAILY, (Reported) Entered as Reported by: MAT ROUSE on 09/23/21 1114 Montelukast Sodium (Montelukast Sodium) 10 Mg Tablet, 10 MG PO HS, (Reported) Entered as Reported by: JOHN RAMIREZ on 12/06/18 1621 Multivitamin/Iron/Folic Acid (Centrum Women Tablet) 1 Each Tablet, 1 EACH PO DAILY, (Reported) Entered as Reported by: MAT ROUSE on 05/20/21 1024 Omeprazole (Omeprazole) 40 Mg Capsule.dr, 40 MG PO DAILY, (Reported) Entered as Reported by: JOHN RAMIREZ on 11/10/19 0947 Ondansetron (Ondansetron Odt) 4 Mg Tab.rapdis, 4 MG SL Q4H PRN for NAUSEA/VOMITING Prescribed by: LOGAN MEJIA on 01/01/221857 Pantoprazole Sodium (Protonix) 40 Mg Tablet.dr, 40 MG PO DAILY Prescribed by: LOGAN MEJIA on 01/01/221857 Prednisone (Prednisone) 20 Mg Tab, 20 MG PO DAILY Prescribed by: TI CHRISTINE on 09/24/21 1215 Promethazine HCl (Promethazine Suppository) 25 Mg Supp.rect, 25 MG RC Q6H PRN for NAUSEA-1ST LINE Prescribed by: MELCHOR LARRY on 12/07/22 1608 Roflumilast (Roflumilast) 500 Mcg Tablet, (Reported) Entered as Reported by: NARCISA MCDONALD on 12/06/22 1435 Sodium Chloride (Saline Nasal [place]) 30 Ml [place], 1-2 SPRAYS NSEACH BID PRN for DRY NOSE, (Reported) Entered as Reported by: MAT ROUSE on 09/23/21 1114 Venlafaxine HCl (Venlafaxine HCl ER) 75 Mg Cap.er.24h, 75 MG PO DAILY, (Reported) Entered as Reported by: MAT ROUSE on 05/20/21 1024 Review of Systems Review of Systems Constitutional: see HPI Past Vdzdazq-Oolqum-Kaxgkv Hx Patient Social History Tobacco Use?: No Smoking Status: Former Smoker Use of E-Cig and/or Vaping dev: No Substance use?: No Alcohol Use?: No Immunizations Up To Date Tetanus Booster (TDap): Unknown PED Vaccines UTD: Yes First/Initial COVID19 Vaccinat: january 2021 Second COVID19 Vaccination Aki: february 2021 Third COVID19 Vaccination Date: Jun 2021 Seasonal Allergies Seasonal Allergies: Yes Past Medical History Surgery/Hospitalization HX: COPD, DIVERTICULITIS Surgeries: Yes (hemmoroidectomy, disc surgery) Appendectomy, Hysterectomy, Rectal Respiratory: Yes Pneumonia, Chronic Bronchitis, COPD Currently Using CPAP: No Currently Using BIPAP: No Cardiac: Yes Hypertension Neurological: No [employer] History: Menopausal Sexually Transmitted Disease: No HIV/AIDS: No Genitourinary: No Gastrointestinal: Yes Gastroesophageal Reflux, Diverticulosis Musculoskeletal: Yes (disc surgery) Chronic Back Pain Endocrine: No HEENT: Yes Tinnitis Cancer: No Psychosocial: Yes Anxiety, Depression Integumentary: No Blood Disorders: No Adverse Reaction/Blood Tranf: No Family Medical History FH: cerebral palsy G8 BROTHER Lung cancer 19 MOTHER Cancer Physical Exam Vital Signs Vital Signs - First Documented 12/07/22 14:34 Temp 35.9 Pulse 110 Resp 22 B/P (MAP) 183/93 (123) Pulse Ox 99 O2 Delivery Nasal Cannula O2 Flow Rate 4.00 Capillary Refill : Height/Weight/BMI Height: 5'3.00" Weight: 150lbs. 0.8oz. [id number]; 26.00 BMI Method:Stated General Appearance: WD/WN, no apparent distress HEENT: PERRL/EOMI, normal ENT inspection, pharynx normal Neck: full range of motion, normal inspection Respiratory: lungs clear, normal breath sounds, no respiratory distress, no accessory muscle use Cardiovascular: regular rate, rhythm, no murmur Gastrointestinal: normal bowel sounds, soft; No distended, No rebound Extremities: normal range of motion, normal inspection Neurologic/Psychiatric: no motor/sensory deficits, alert, normal mood/affect, oriented x 3 Skin: normal color, warm/dry Progress/Results/Core Measures Results/Orders Lab Results Laboratory Tests Test 12/07/22 14:21 12/07/22 15:05 12/07/22 15:29 Range/Units Urine Color YELLOW Urine Clarity CLEAR Urine pH 5.5 5-9 Urine Specific [place] >=1.030 1.016-1.022 Urine Protein NEGATIVE NEGATIVE Urine Glucose (UA) NEGATIVE NEGATIVE Urine Ketones 1+ H NEGATIVE Urine Nitrite NEGATIVE NEGATIVE Urine Bilirubin NEGATIVE NEGATIVE Urine Urobilinogen 0.2 < = 1.0 MG/DL Urine Leukocyte Esterase NEGATIVE NEGATIVE Urine RBC (Auto) TRACE-I H NEGATIVE Urine RBC 2-5 H /HPF Urine WBC 0-2 /HPF Urine Squamous Epithelial Cells 0-2 /HPF Urine Crystals NONE /LPF Urine Bacteria MODERATE H /HPF Urine Casts NONE /LPF Urine Mucus NEGATIVE /LPF Urine Culture Indicated YES White Blood Count 7.5 4.3-11.0 10^3/uL Red Blood Count 4.09 3.80-5.11 10^6/uL Hemoglobin 12.2 11.5-16.0 g/dL Hematocrit 37 35-52 % Mean Corpuscular Volume 91 80-99 fL Mean Corpuscular Hemoglobin 30 25-34 pg Mean Corpuscular Hemoglobin Concent 33 32-36 g/dL Red Cell Distribution Width 12.3 10.0-14.5 % Platelet Count 287 130-400 10^3/uL Mean Platelet Volume 9.7 9.0-12.2 fL Immature Granulocyte % (Auto) 0 % Neutrophils (%) (Auto) 78 H 42-75 % Lymphocytes (%) (Auto) 15 12-44 % Monocytes (%) (Auto) 7 0-12 % Eosinophils (%) (Auto) 1 0-10 % Basophils (%) (Auto) 1 0-10 % Neutrophils # (Auto) 5.9 1.8-7.8 X 10^3 Lymphocytes # (Auto) 1.1 1.0-4.0 X 10^3 Monocytes # (Auto) 0.5 0.0-1.0 X 10^3 Eosinophils # (Auto) 0.0 0.0-0.3 10^3/uL Basophils # (Auto) 0.0 0.0-0.1 10^3/uL Immature Granulocyte # (Auto) 0.0 0.0-0.1 10^3/uL Sodium Level 139 135-145 MMOL/L Potassium Level 3.1 L 3.6-5.0 MMOL/L Chloride Level 97 L 98-107 MMOL/L Carbon Dioxide Level 26 21-32 MMOL/L Anion Gap 16 H 5-14 MMOL/L Blood Urea Nitrogen 15 7-18 MG/DL Creatinine 0.76 0.60-1.30 MG/DL Estimat Glomerular Filtration Rate 80 BUN/Creatinine Ratio 20 Glucose Level 155 H 70-105 MG/DL Calcium Level 10.1 8.5-10.1 MG/DL Corrected Calcium 8.5-10.1 MG/DL Total Bilirubin 0.5 0.1-1.0 MG/DL Aspartate Amino Transf (AST/SGOT) 24 5-34 U/L Alanine Aminotransferase (ALT/SGPT) 22 0-55 U/L Alkaline Phosphatase 37 L 40-136 U/L Total Protein 7.4 6.4-8.2 GM/DL Albumin 4.8 H 3.2-4.5 GM/DL Lipase 63 8-78 U/L Influenza Type A (RT-PCR) Not Detected Not Detecte Influenza Type B (RT-PCR) Not Detected Not Detecte SARS-CoV-2 RNA (RT-PCR) Not Detected Not Detecte My Orders Orders - MELCHOR LARRY APRN Urinalysis (12/07/22 14:17) Cbc With Automated Diff (12/07/22 14:48) Comprehensive Metabolic Panel (12/07/22 14:48) Lipase (12/07/22 14:48) Covid 19 Inhouse Test (12/07/22 14:48) Influenza A And B By Pcr (12/07/22 14:48) Ondansetron Injection (Zofran Injectio (12/07/22 15:00) Fentanyl Inj (Sublimaze Injection) (12/07/22 15:00) Ed Iv/Invasive Line Start (12/07/22 14:48) Ns Iv 1000 Ml (Sodium Chloride 0.9%) (12/07/22 15:00) Urine Culture (12/07/22 14:21) Promethazine Injection (Phenergan Injec (12/07/22 15:30) Chest 1 View, Ap/Pa Only (12/07/22 15:56) Medications Given in ED Current Medications Medications Dose Ordered Sig/Yara Route Start Time Stop Time Status Last Admin Dose Admin Fentanyl Citrate 50 mcg ONCE ONCE IVP 12/07/22 15:00 12/07/22 15:01 DC 12/07/22 15:09 50 MCG Ondansetron HCl 4 mg ONCE ONCE IVP 12/07/22 15:00 12/07/22 15:01 DC 12/07/22 15:09 4 MG Promethazine HCl 12.5 mg ONCE ONCE IVP 12/07/22 15:30 12/07/22 15:31 DC 12/07/22 15:25 12.5 MG Vital Signs/I&O 12/07/22 14:34 Temp 35.9 Pulse 110 Resp 22 B/P (MAP) 183/93 (123) Pulse Ox 99 O2 Delivery Nasal Cannula O2 Flow Rate 4.00 Blood Pressure Mean: 123 Progress Progress Note : Progress Note Patient examined no acute distress. We will go ahead and obtain some basic labs and repeat COVID and flu test as her sinus issues are worse today than yesterday. Given Fentanyl 50mcg IVP and Zofran 4mg IVP. Zofran not effective. Orders given for Phenergan 12.5mg in one liter bolus. Labs reviewed, CBC grossly unremarkable, chemistry shows potassium 3.1, chloride 97, glucose 135, lipase is normal. Influenza and COVID-negative. Chest x-ray shows mild cardiomegaly with a prominent hiatal hernia. Questionable mild new infiltrate in the right lung base which may represent early pneumonia. She has no elevated white count, no increased cough, breathing is easy. Will monitor closely with PCP. Discharge POC reviewed with patient and she verbalized understanding. No questions voiced at time of discharge. States her pain and nausea is much improved after Fentanyl and Phenergan. Diagnostic Imaging Diagonstic Imaging: Xray Comments [facility]. [place], [place] NAME: MARCELLUS CALVO MED REC#: [id number] PT STATUS: REG ER : 1945 PHYSICIAN: MELCHOR LARRY APRN ADMIT DATE: 12/07/22/ER Draft Date of Exam:12/07/22 CHEST 1 VIEW, AP/PA ONLY INDICATION: Cough. TECHNIQUE: Frontal chest obtained at 04:00 p.m. and compared to 07/06/2022. FINDINGS: Heart is mildly prominent. There is a hiatal hernia noted. There is some early infiltrate in the right lung base. There is no pneumothorax or pleural fluid. IMPRESSION: Mild cardiomegaly. Prominent hiatal hernia. There is some mild new infiltrate in the right lung base which may represent early pneumonia. Dictated on workstation # [id number] Dict: 12/07/22 1617 Trans: 12/07/22 1622 [id number] Interpreted by: REFUGIO LAI MD Electronically signed by: Departure Communication (Admissions) Time/Spoke to Consulting Phy: 15:58 Dr. Cole, general surgeon. Recommended Altoid peppermint before meals. Impression Primary Impression: Hiatal hernia Disposition: HOME, SELF-CARE Condition: Improved Departure-Patient Inst. Decision time for Depature: 16:06 Referrals: TI CHRISTINE MD (PCP/Family) Primary Care Physician Patient Instructions: Hiatal Hernia (DC) Add. Discharge Instructions: Plan: 1. You can take an Altoid peppermint 30 minutes before eating, dissolve this in a glass of water and drink as this may help prevent your symptoms. You can take Zofran 4 mg every 6 hours as needed for nausea and dry heaving. If that is ineffective you can take Phenergan suppository 1 every 6 hours as needed. If you have any increased pain, nausea, new or worsening symptoms return to the ER. Call Dr. Christine's office for close follow-up. All discharge instructions reviewed with patient and/or family. Voiced understanding. Scripts Promethazine HCl (Promethazine Suppository) 25 Mg Supp.rect 25 MG RC Q6H PRN for NAUSEA-1ST LINE, #10 SUPP.RECT 0 Refills Prov: MELCHOR LARRY DUMPMAN 12/07/22 MELCHOR LARRY DUMPMAN Dec 07, 2022 15:12
[2022-12-07 15:26] LABS: ALBUMIN 4.8 GM/DL (3.2-4.5); CHLORIDE 97 MMOL/L (98-107); POTASSIUM 3.1 MMOL/L (3.6-5.0); SODIUM 139 MMOL/L (135-145)
[2022-12-07 15:27] LABS: CALCIUM 10.1 MG/DL (8.5-10.1)
[2022-12-07 15:28] LABS: GLUCOSE 155 MG/DL (70-105); TOTAL PROTEIN 7.4 GM/DL (6.4-8.2)
[2022-12-07 15:29] LABS: CARBON DIOXIDE 26 MMOL/L (21-32)
[2022-12-07 15:30] LABS: BILIRUBIN,TOTAL 0.5 MG/DL (0.1-1.0)
[2022-12-07] MEDS ORDERED: PROMETHAZINE INJ 25 MG/ML (PHENERGAN) AMP IVP ONE (15:30)
[2022-12-07 15:32] LABS: ALKALINE PHOSPHATASE 37 U/L (40-136); CREATININE SERUM 0.76 MG/DL (0.60-1.30); GFR ESTIMATED 80
[2022-12-07 15:33] LABS: BUN/CREATININE RATIO 20
[2022-12-07 15:35] LABS: ALANINE AMINOTRANSFERASE 22 U/L (0-55); LIPASE 63 U/L (8-78)
[2022-12-07] MEDS ORDERED: PROM25SU44 RC (16:08)
--- NOTE | 2022-12-07 16:23 | Diagnostic Imaging Report ---
INDICATION: Cough. TECHNIQUE: Frontal chest obtained at 04:00 p.m. and compared to 07/06/2022. FINDINGS: Heart is mildly prominent. There is a hiatal hernia noted. There is some early infiltrate in the right lung base. There is no pneumothorax or pleural fluid. IMPRESSION: Mild cardiomegaly. Prominent hiatal hernia. There is some mild new infiltrate in the right lung base which may represent early pneumonia. Dictated by: Dictated on workstation # [id number]
== END 2022-12-07 16:35 | disposition home or self-care (01) ==
LOC: EDUNIT# 14:16 → ER 14:18
DX: K44.9 Diaphragmatic hernia without obstruction or gangrene (principal); J44.9 Chronic obstructive pulmonary disease, unspecified; Z99.81 Dependence on supplemental oxygen; Z87.891 Personal history of nicotine dependence; Z20.822 Contact with and (suspected) exposure to COVID-19
CPT/HCPCS: 36415; 71045; 80053; 81000; 83690; 85025; 87088; 87636

== ENCOUNTER 2023-09-17 12:25 | Emergency (ER) | payer MEDICARE ==
[~2023-09-17] VITALS: Ht 162.6 cm; Wt 65.8 kg
[~2023-09-17 12:25] MED LIST changes: +PROM25SU44 RC
[2023-09-17] MEDS ORDERED: NS IV 500 ML 500 ML IV ONE (13:00)
[2023-09-17] MEDS ORDERED: morphine INJ 10 MG/ML 1ML (SYR OR VIAL) IVP ONE (13:00)
[2023-09-17] MEDS ORDERED: ALPRAZolam 1 MG TABLET PO ONE (13:00)
[2023-09-17 13:03] LABS: BASOPHILS # (AUTO) 0.1 10^3/uL (0.0-0.1); BASOPHILS % (AUTO) 1 % (0-10); EOSINOPHILS % (AUTO) 0 % (0-10); HEMATOCRIT 42 % (35-52); HEMOGLOBIN 12.8 g/dL (11.5-16.0); LYMPHOCYTES % (AUTO) 28 % (12-44); MEAN CORPUSCULAR HEMOGLOBIN 28 pg (25-34); MEAN CORPUSCULAR HGB CONC 31 g/dL (32-36); MEAN CORPUSCULAR VOLUME 92 fL (80-99); MEAN PLATELET VOLUME 10.3 fL (9.0-12.2); MONOCYTES # (AUTO) 0.7 10^3/uL (0.0-1.0); MONOCYTES % (AUTO) 10 % (0-12); NEUTROPHILS # (AUTO) 4.2 10^3/uL (1.8-7.8); NEUTROPHILS % (AUTO) 60 % (42-75); PLATELET COUNT 273 10^3/uL (130-400)
[2023-09-17 13:04] LABS: ALBUMIN 4.9 GM/DL (3.2-4.5); CHLORIDE 100 MMOL/L (98-107); POTASSIUM 3.8 MMOL/L (3.6-5.0); SODIUM 141 MMOL/L (135-145)
[2023-09-17] MEDS ORDERED: ALPRAZolam 0.5 MG TABLET ONE (13:04)
[2023-09-17 13:06] LABS: CALCIUM 10.7 MG/DL (8.5-10.1)
[2023-09-17 13:07] LABS: GLUCOSE 117 MG/DL (70-105)
[2023-09-17 13:08] LABS: CARBON DIOXIDE 26 MMOL/L (21-32)
[2023-09-17 13:09] LABS: BILIRUBIN,TOTAL 0.4 MG/DL (0.1-1.0)
[2023-09-17 13:10] LABS: ALKALINE PHOSPHATASE 48 U/L (40-136)
[2023-09-17 13:11] LABS: CREATININE SERUM 0.78 MG/DL (0.60-1.30); GFR ESTIMATED 77
[2023-09-17 13:12] LABS: BUN/CREATININE RATIO 19
[2023-09-17 13:13] LABS: MAGNESIUM 1.9 MG/DL (1.6-2.4)
[2023-09-17 13:14] LABS: ALANINE AMINOTRANSFERASE 19 U/L (0-55)
--- NOTE | 2023-09-17 13:20 | Diagnostic Imaging Report ---
Indication: Cough. Comparison: 12/07/2022 Findings: Air trapping and COPD chronic. Retrocardiac hernia chronic. No pneumonia, failure, effusion or pneumothorax. Impression: Stable chronic findings. Dictated by: Dictated on workstation # [id number]
[2023-09-17] MEDS ORDERED: ONDANSETRON INJECTION 4 MG/2 ML (SDV) ONE (13:30)
[2023-09-17] MEDS ORDERED: ONDANSETRON INJECTION 4 MG/2 ML (SDV) IVP ONE (13:30)
--- NOTE | 2023-09-17 13:45 | ED Abdominal Pain ---
General Chief Complaint: Abdominal/GI Problems Stated Complaint: ABD PAIN | DRY HEAVES Nursing Triage Note: PT TO ROOM 06 VIA W/C WITH C/O ABD PAIN RELATED TO KNOWN HERNIA. PT REPORTS SHE CANNOT HAVE SURGICAL REPAIR BECAUSE HER [employer]SEM[employer]ER [employer] AND PCP WILL NOT CLEAR HER FOR SURGERY DUE TO COPD. PT REPORTS BEING SEEN IN THIS ED FOR SAME C/O X2 PRIOR. PT REPORTS DIZZYNESS, CONGESTION, AND NAUSEA. PT DENIES V/D. Source of Information: Patient Exam Limitations: No Limitations History of Present Illness Date Seen by Provider: Sep 17, 2023 Time Seen by Provider: 12:51 Initial Comments Here with report of lower abdominal pain and has known hernia but also has had some dizziness as well as congestion and nausea. No vomiting or diarrhea. She has been out of her Xanax for 3 days ending Reeh prescription and normally takes 1 mg twice daily which may be adding to the problem for the patient. Does report increased urination. Did have bowel movement last night. Denies fever or chills. Does have history of significant COPD and did get vaccination on Wednesday and now has upper respiratory congestion but is doing okay on her oxygen saturations at home on her typical 4 L via nasal cannula. 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 Timing/Duration: 2-3 Days Severity/Quality: Moderate, Aching, Cramping Location: RLQ, LLQ Radiation: No Radiation Allergies and Home Medications Allergies Coded Allergies: No Known Drug Allergies (Unverified , 03/19/17) Patient Home Medication List Home Medication List Reviewed: Yes Albuterol Sulfate (Albuterol Sulfate) 2.5 Mg/0.5 Ml Vial.neb, 2.5 MG INH Q6H PRN for SHORTNESS OF BREATH, (Reported) Entered as Reported by: MAT ROUSE on 05/20/21 1028 Allopurinol (Allopurinol) 300 Mg Tablet, 300 MG PO DAILY, (Reported) Entered as Reported by: JOHN RAMIREZ on 11/10/19 0947 Alprazolam (Alprazolam) 0.5 Mg Tablet, 0.5 MG PO BID PRN for ANXIETY, (Reported) Entered as Reported by: JOHN RAMIREZ on 12/06/18 1621 Amlodipine Besylate (Amlodipine Besylate) 5 Mg Tablet, 5 MG PO DAILY, (Reported) Entered as Reported by: JOHN RAMIREZ on 12/06/18 1621 Aspirin (Aspirin EC) 81 Mg Tablet.dr, 81 MG PO Q48H, (Reported) Entered as Reported by: JOHN RAMIREZ on 12/07/18 0855 Benzonatate (Benzonatate) 200 Mg Capsule, 200 MG PO TID PRN for COUGH, (Reported) Entered as Reported by: MAT ROUSE on 09/23/21 1114 Calcium Carbonate/Vitamin D3 (Caltrate 600 + D Tablet) 1 Each Tablet, 1 EACH PO DAILY, (Reported) Entered as Reported by: MAT ROUSE on 09/23/21 1114 Fenofibrate (Fenofibrate) 54 Mg Tablet, 54 MG PO DAILY, (Reported) Entered as Reported by: MAT ROUSE on 05/20/21 1024 Fexofenadine HCl (Lynda Allergy) 180 Mg Tablet, 180 MG PO DAILY PRN for ALLERGY SYMPTOMS, (Reported) Entered as Reported by: MAT ROUSE on 05/20/21 1024 Fluticasone Propionate (Fluticasone Propionate) 16 Gm [place].susp, 1 SPRAYS NSEACH BID, (Reported) Entered as Reported by: JOHN RAMIREZ on 12/07/18 0855 Hydrochlorothiazide (Hydrochlorothiazide) 25 Mg Tablet, 25 MG PO DAILY, (Reported) Entered as Reported by: JOHN RAMIREZ on 12/06/18 1621 Magnesium (Magnesium) 250 Mg Tablet, 250 MG PO DAILY, (Reported) Entered as Reported by: MAT ROUSE on 09/23/21 1114 Montelukast Sodium (Montelukast Sodium) 10 Mg Tablet, 10 MG PO HS, (Reported) Entered as Reported by: JOHN RAMIREZ on 12/06/18 1621 Multivitamin/Iron/Folic Acid (Centrum Women Tablet) 1 Each Tablet, 1 EACH PO DAILY, (Reported) Entered as Reported by: MAT ROUSE on 05/20/21 1024 Omeprazole (Omeprazole) 40 Mg Capsule.dr, 40 MG PO DAILY, (Reported) Entered as Reported by: JOHN RAMIREZ on 11/10/19 0947 Ondansetron (Ondansetron Odt) 4 Mg Tab.rapdis, 4 MG SL Q4H PRN for NAUSEA/VOMITING Prescribed by: LOGAN MEJIA on 01/01/221857 Pantoprazole Sodium (Protonix) 40 Mg Tablet.dr, 40 MG PO DAILY Prescribed by: LOGAN MEJIA on 01/01/221857 Prednisone (Prednisone) 20 Mg Tab, 20 MG PO DAILY Prescribed by: TI CHRISTINE on 09/24/21 1215 Promethazine HCl (Promethazine Suppository) 25 Mg Supp.rect, 25 MG RC Q6H PRN for NAUSEA-1ST LINE Prescribed by: MELCHOR LARRY on 12/07/22 1608 Roflumilast (Roflumilast) 500 Mcg Tablet, (Reported) Entered as Reported by: NARCISA MCDONALD on 12/06/22 1435 Sodium Chloride (Saline Nasal [place]) 30 Ml [place], 1-2 SPRAYS NSEACH BID PRN for DRY NOSE, (Reported) Entered as Reported by: MAT ROUSE on 09/23/21 1114 Venlafaxine HCl (Venlafaxine HCl ER) 75 Mg Cap.er.24h, 75 MG PO DAILY, (Repor gabbie) Entered as Reported by: MAT ROUSE on 05/20/21 1024 Review of Systems Review of Systems Constitutional: see HPI, chills; No fever EENTM: Nose Congestion, Throat Pain Respiratory: Cough, Shortness of Air (Chronic) Cardiovascular: Denies Chest Pain, Denies Edema Gastrointestinal: Abdominal Pain; Denies Diarrhea; Nausea; Denies Vomiting Genitourinary: See HPI Musculoskeletal: no symptoms reported Skin: no symptoms reported Past Jjpcftw-[id number]-Yexulv Hx Patient Social History Tobacco Use?: No Smoking Status: Former Smoker Smokeless Tobacco Frequency: Never a User Use of E-Cig and/or Vaping dev: No Use of E-Cig and/or Vaping Elliott: Never a User Substance use?: No Alcohol Use?: No Pt feels they are or have been: No Immunizations Up To Date Tetanus Booster (TDap): Unknown PED Vaccines UTD: Yes First/Initial COVID19 Vaccinat: january 2021 Second COVID19 Vaccination Aki: february 2021 Third COVID19 Vaccination Date: Jun 2021 Seasonal Allergies Seasonal Allergies: Yes Past Medical History Surgery/Hospitalization HX: COPD, DIVERTICULITIS Surgeries: Yes (hemmoroidectomy, disc surgery) Appendectomy, Hysterectomy, Rectal Respiratory: Yes Pneumonia, Chronic Bronchitis, COPD Currently Using CPAP: No Currently Using BIPAP: No Cardiac: Yes Hypertension 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 Sexually Transmitted Disease: No HIV/AIDS: No Genitourinary: No Gastrointestinal: Yes Gastroesophageal Reflux, Diverticulosis Musculoskeletal: Yes (disc surgery) Chronic Back Pain Endocrine: No HEENT: Yes Tinnitis Cancer: No Psychosocial: Yes Anxiety, Depression Integumentary: No Blood Disorders: No Adverse Reaction/Blood Tranf: No Family Medical History Reviewed Nursing Family Hx FH: cerebral palsy G8 BROTHER Lung cancer 19 MOTHER Cancer Physical Exam Vital Signs Vital Signs - First Documented 09/17/23 12:29 Temp 37.4 Pulse 88 Resp 19 B/P (MAP) 168/80 (109) O2 Delivery Room Air Capillary Refill : Less Than 3 Seconds Height/Weight/BMI Height: 5'3.00" Weight: 150lbs. 0.8oz. 68.077940pc; 24.00 BMI Method:Stated General Appearance: WD/WN, no apparent distress HEENT: PERRL/EOMI, pharynx normal Neck: full range of motion, supple Respiratory: No crackles; wheezing (Few trace wheezes but otherwise nonconcerning) Cardiovascular: no murmur, tachycardia Gastrointestinal: soft, tenderness (Mild lower bilateral) Extremities: non-tender, normal inspection Back: normal inspection, no CVA tenderness, no vertebral tenderness Neurologic/Psychiatric: alert, oriented x 3 Skin: normal color, warm/dry Progress/Results/Core Measures Results/Orders Lab Results Laboratory Tests Test 09/17/23 12:34 09/17/23 13:11 09/17/23 13:29 Range/Units White Blood Count 7.0 4.3-11.0 10^3/uL Red Blood Count 4.53 3.80-5.11 10^6/uL Hemoglobin 12.8 11.5-16.0 g/dL Hematocrit 42 35-52 % Mean Corpuscular Volume 92 80-99 fL Mean Corpuscular Hemoglobin 28 25-34 pg Mean Corpuscular Hemoglobin Concent 31 L 32-36 g/dL Red Cell Distribution Width 13.4 10.0-14.5 % Platelet Count 273 130-400 10^3/uL Mean Platelet Volume 10.3 9.0-12.2 fL Immature Granulocyte % (Auto) 1 % Neutrophils (%) (Auto) 60 42-75 % Lymphocytes (%) (Auto) 28 12-44 % Monocytes (%) (Auto) 10 0-12 % Eosinophils (%) (Auto) 0 0-10 % Basophils (%) (Auto) 1 0-10 % Neutrophils # (Auto) 4.2 1.8-7.8 10^3/uL Lymphocytes # (Auto) 2.0 1.0-4.0 10^3/uL Monocytes # (Auto) 0.7 0.0-1.0 10^3/uL Eosinophils # (Auto) 0.0 0.0-0.3 10^3/uL Basophils # (Auto) 0.1 0.0-0.1 10^3/uL Immature Granulocyte # (Auto) 0.0 0.0-0.1 10^3/uL Sodium Level 141 135-145 MMOL/L Potassium Level 3.8 3.6-5.0 MMOL/L Chloride Level 100 98-107 MMOL/L Carbon Dioxide Level 26 21-32 MMOL/L Anion Gap 15 H 5-14 MMOL/L Blood Urea Nitrogen 15 7-18 MG/DL Creatinine 0.78 0.60-1.30 MG/DL Estimat Glomerular Filtration Rate 77 BUN/Creatinine Ratio 19 Glucose Level 117 H 70-105 MG/DL Calcium Level 10.7 H 8.5-10.1 MG/DL Corrected Calcium 8.5-10.1 MG/DL Magnesium Level 1.9 1.6-2.4 MG/DL Total Bilirubin 0.4 0.1-1.0 MG/DL Aspartate Amino Transf (AST/SGOT) 27 5-34 U/L Alanine Aminotransferase (ALT/SGPT) 19 0-55 U/L Alkaline Phosphatase 48 40-136 U/L C-Reactive Protein High Sensitivity 0.25 0.00-0.50 MG/DL Total Protein 8.0 6.4-8.2 GM/DL Albumin 4.9 H 3.2-4.5 GM/DL Influenza Type A (RT-PCR) Not Detected Not Detecte Influenza Type B (RT-PCR) Not Detected Not Detecte SARS-CoV-2 RNA (RT-PCR) Not Detected Not Detecte Urine Color YELLOW Urine Clarity SL CLOUDY Urine pH 5.5 5-9 Urine Specific [place] >=1.030 1.016-1.022 Urine Protein 2+ H NEGATIVE Urine Glucose (UA) NEGATIVE NEGATIVE Urine Ketones 1+ H NEGATIVE Urine Nitrite NEGATIVE NEGATIVE Urine Bilirubin 2+ H NEGATIVE Urine Urobilinogen 0.2 < = 1.0 MG/DL Urine Leukocyte Esterase NEGATIVE NEGATIVE Urine RBC (Auto) 1+ H NEGATIVE Urine RBC 10-25 H /HPF Urine WBC 0-2 /HPF Urine Squamous Epithelial Cells 0-2 /HPF Urine Crystals PRESENT H /LPF Urine Amorphous Sediment FEW JASON URATES H /LPF Urine Bacteria NEGATIVE /HPF Urine Casts NONE /LPF Urine Mucus NEGATIVE /LPF Urine Culture Indicated NO My Orders Orders - BABAR SUTTON MD Cbc And Automated Diff (09/17/23 12:56) Comprehensive Metabolic Panel (09/17/23 12:56) Hs C Reactive Protein (09/17/23 12:56) Magnesium (09/17/23 12:56) Ua Culture If Indicated (09/17/23 12:56) Influenza A And B By Pcr (09/17/23 12:56) Ed Iv/Invasive Line Start (09/17/23 12:56) Ns Iv 500 Ml (Ns Iv 500 Ml) (09/17/23 13:00) Morphine Injection (Morphine Injection (09/17/23 13:00) Covid 19 Inhouse Test (09/17/23 12:56) Alprazolam Tablet (Alprazolam Tablet) (09/17/23 13:00) Chest 1 View, Ap/Pa Only (09/17/23 12:56) Alprazolam Tablet (Alprazolam Tablet) (09/17/23 13:04) Ondansetron Injection (Ondansetron Inj (09/17/23 13:30) Ondansetron Injection (Ondansetron Inj (09/17/23 13:30) Medications Given in ED Current Medications Medications Dose Ordered Sig/Yara Route Start Time Stop Time Status Last Admin Dose Admin Alprazolam 0.5 mg STK-MED ONCE .ROUTE 09/17/23 13:04 09/17/23 13:07 DC 09/17/23 13:11 1 MG Morphine Sulfate 4 mg ONCE ONCE IVP 09/17/23 13:00 09/17/23 13:01 DC 09/17/23 13:07 4 MG Ondansetron HCl 4 mg ONCE ONCE IVP 09/17/23 13:30 09/17/23 13:31 DC 09/17/23 13:31 4 MG Sodium Chloride 500 ml @ 0 mls/hr Q0M ONCE IV 09/17/23 13:00 09/17/23 13:01 DC 09/17/23 13:07 999 MLS/HR Vital Signs/I&O 09/17/23 12:29 Temp 37.4 Pulse 88 Resp 19 B/P (MAP) 168/80 (109) O2 Delivery Room Air Blood Pressure Mean: 109 Progress Progress Note : Progress Note Seen and evaluated. An IV, labs including CBC, CMP, CRP, magnesium, UA, influenza and COVID-19 testing ordered. We will give normal saline 500 mL bolus and morphine 4 mg IV as well as Xanax 1 mg p.o. We will check Chest x-ray due to upper respiratory congestion mild cough. Monitor patient. Differential diagnosis includes COPD exacerbation, upper respiratory infection, COVID, influenza, chronic abdominal pain, abdominal pain exacerbation due to hernia, Xanax withdrawal 1345: Chest x-ray reviewed by me and shows chronic lung disease without obvious new infiltrate on my interpretation. CBC reviewed and is grossly normal. CMP grossly normal with normal CRP and normal creatinine. COVID and flu are negative. UA is pending. Patient did have nausea and so we gave Zofran 4 mg IV. Monitor patient. 1415: UA resulted and shows trace blood but also has ketones and shows concentration but no indication of infection. Discussed CT scan of the abdomen and pelvis and I do not believe there is indication currently given the normal labs and improved symptoms. Overall she is feeling much better. We are pending completion of the 500 mL normal saline bolus. She feels comfortable going home. She just got a text that shows that her medi cation is available and so we will monitory about withdrawal symptoms now as well. I do believe she is safe for discharge. Discharged home with return precautions. Patient verbalized understanding instructions and agreement with plan. 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 Decision time for Depature: 14:31 Referrals: TI CHRISTINE MD (PCP/Family) Primary Care Physician Patient Instructions: Severe Abdominal Pain, Adult (DC), Dehydration, Adult ED, Prescription Drug Withdrawal (DC) Add. Discharge Instructions: All discharge instructions reviewed with patient and/or family. Voiced understanding. Take medications as directed. Drink an adequate amount of fluids and use light diet over the next few days and then advance as tolerated to your normal diet. Continue home medications as previously prescribed. Return for worse pain, fever, vomiting, weakness, breathing problems or other concerns as needed. Follow-up with your doctor in a few days for recheck. BABAR SUTTON MD Sep 17, 2023 13:45
[2023-09-17 13:50] LABS: BILIRUBIN,URINE 2+ (NEGATIVE); CLARITY,URINE SL CLOUDY; COLOR,URINE YELLOW; GLUCOSE, URINE (UA) NEGATIVE (NEGATIVE); KETONES,URINE 1+ (NEGATIVE); LEUKOCYTE ESTERASE ,URINE NEGATIVE (NEGATIVE); NITRITE,URINE NEGATIVE (NEGATIVE); PH,URINE 5.5 (5-9); PROTEIN,URINE 2+ (NEGATIVE); WBC,URINE 0-2 /HPF
[2023-09-17 13:51] LABS: AMORPHOUS SEDIMENT,UR FEW AMOR URATES /LPF; BACTERIA,URINE NEGATIVE /HPF; SQUAMOUS EPITHELIAL CELL,UR 0-2 /HPF
[2023-09-17 14:44] VITALS: BP 154/86
== END 2023-09-17 14:44 | disposition home or self-care (01) ==
LOC: EDUNIT# 12:25 → ER 12:27
DX: R10.31 Right lower quadrant pain (principal); R10.32 Left lower quadrant pain; E86.0 Dehydration; F13.239 Sedative, hypnotic or anxiolytic dependence with withdrawal, unspecified; Z87.891 Personal history of nicotine dependence; Z87.19 Personal history of other diseases of the digestive system
CPT/HCPCS: 36415; 71045; 80053; 81000; 83735; 85025; 86141; 87636; 96361; 96374; 96375